=== PATIENT | female | born 1930 | race Caucasian/White ===

== ENCOUNTER 2017-02-03 06:35 | Inpatient (IN) ==
[2017-02-03] MEDS ORDERED: Ondansetron 4 MG/2 ML VIAL ONE (06:46)
[2017-02-03] MEDS ORDERED: *HR* Midazolam HCl 2 MG/2 ML VIAL ONE (06:46)
[2017-02-03] MEDS ORDERED: *HR* Succinylcholine 200 MG/10 ML VIAL IVP ONE (06:46)
[2017-02-03] MEDS ORDERED: Dexamethasone 4 MG/ML VIAL ONE (06:46)
[2017-02-03] MEDS ORDERED: EPHEDrine 50 MG/ML VIAL ONE (06:46)
[2017-02-03] MEDS ORDERED: *HR* Propofol 200 MG/20 ML VIAL IVP ONE (06:46)
[2017-02-03] MEDS ORDERED: *HR* FentaNYL (PF) 100 MCG/2 ML VIAL ONE ×3 (06:46→09:51)
[2017-02-03] MEDS ORDERED: *HR* Phenylephrine 10 MG/ML VIAL ONE ×3 (06:47→12:05)
[2017-02-03] MEDS ORDERED: CeFAZolin Pre 2,000 MG/100 ML 2,000 MG/100 ML BAG IVPB ONE (06:57)
[2017-02-03] MEDS ORDERED: Ringers Solution, Lactated 1,000 ML IVC SCH (07:00)
--- NOTE | 2017-02-03 07:08 | History & Physical Report ---
Date of Encounter: 02/03/17 Time of Encounter: 07:07 24 Hour HP Update - Instructions Instructions: If the History and Physical is less than 30 days old and was completed prior to A.M. admission and or procedure and has NOT been updated on calendar day of procedure please complete this update prior to performing procedure. - Update Patient reports changes in Medical Condition: No Changes in assessment/condition: No Changes in Medication: No Preop tests/diagnostics Reviewed: Yes Surgery Remains Indicated: Yes Consent for Planned Operative Procedure(s) Verified: Yes - Pre-Operative Checklist Preoperative Checklist Indicated: Yes Prophylactic Antibiotic Ordered: Yes Home Medications Include Beta Chanda: No Beta Chanda Taken Today (Day of Surgery): No Beta Chanda Taken Yesterday (Day Prior to Surgery): No Is VTE Prophylaxis Indicated?: Yes
--- NOTE | 2017-02-03 07:12 | Anesthesia Evaluation PreOp ---
Date of Encounter: 02/03/17 Time of Encounter: 06:50 - Past History Planned Operation: radical nephrectomy Cardiac History: Other (Peripheral vascular disease, s/p carotid endarterectomy) Pulmonary History: Denies Any Significant HX PRODUCER ASSISTANT History: Denies Any Significant HX Other Medical History: Thyroid Anesthesia History: No Prior Anesthetic Complications, Past Anesthesia Alcohol Use: none Drug use: none Medications and Allergies Synthroid 10/01/15 [History] Benzonatate [Tessalon] 100 - 200 mg PO TID PRN #30 capsule 09/15/16 [Rx] GuaiFENesin ER [Mucinex] 1 - 2 tab PO BID PRN #40 tab 09/15/16 [Rx] Sulfamethoxazole/Trimeth DS [Bactrim DS] 1 each PO BID #10 tablet 09/15/16 [Rx] Allergies atenolol Allergy (Unverified 01/27/17 11:52) Chest Pain codeine Allergy (Verified 10/01/15 14:13) Rash fenofibrate [From Tricor] Allergy (Unverified 01/27/17 11:52) Muscle Pain lisinopril Allergy (Unverified 01/27/17 11:52) Dizziness Ocjcgwc-Czg-Vcz Reductase Inhibitor [Statins] Allergy (Unverified 01/27/17 11:52 ) Muscle Pain - Meds/Allergy Pre-op Review Medications Reviewed: Yes Allergies Reviewed: Yes Beta Blockers on Current Med List: No Anesthesia Results - Labs Laboratory Tests 03/25/16 01/27/17 01/27/17 08:52 12:05 12:05 WBC 8.2 Hgb 9.9 L Hct 31.9 L Plt Count 694 H Sodium 135 L Potassium 4.6 H Chloride 99 Carbon Dioxide 22 BUN 12 Creatinine 0.88 Glucose 97 BUN/Creatinine Ratio 14 Anesthesia Exam Height: 5'1" Weight: 129 NPO (# of Hours): over 8 hours - HEENT Pupil (Motor): Pupils equal Teeth: Missing Denture Type: Upper: Partial Oral Opening: Greater than 3 - PRODUCER ASSISTANT PRODUCER ASSISTANT Motor: Normal RUE, Normal LUE, Normal RLE, Normal LLE, Normal Face - Cardiac Rhythm: Regular Murmur: None - Pulmonary Breath Sounds: bilateral Clear Anesthesia Assess/Plan ASA Score: 3 Modified Marilee Scale for Level of Consciousness: Cooperative, oriented, and tranquil Anesthetic Plan: General Monitoring Plan: Standard Monitors, A-Line Recovery Plan: ICU (ASA 3 because of malignancy. Will require art line for monitoring. Discussed GA, risks. Agreed to proceed.)
[2017-02-03] MEDS ORDERED: Heparin 1,000 UNITS/500 mL NS 0 ML ONE (07:15)
[2017-02-03] MEDS ORDERED: *HR* Rocuronium Bromide 50 MG/5 ML VIAL ONE (10:18)
[2017-02-03] MEDS ORDERED: Albumin Human 5% 25.0 GM/500 ML VIAL ONE (11:20)
[2017-02-03] MEDS ORDERED: Heparin 1,000 UNITS/500 mL NS 1,000 ML ONE (11:25)
[2017-02-03] MEDS ORDERED: *HR* Midazolam HCl 5 MG/5 ML VIAL IVP ONE ×2 (11:29→13:06)
[2017-02-03 12:20] LABS: ABG Base Excess -16.8 mEq/L (-2.0 to 3.0); ABG HCO3 11.6 mEQ/L (21-27); ABG Oxygen Saturation 100 % (95-98); ABG PCO2 39 mmHg (35-45); ABG PO2 380 mmHg (85-104); ABG TCO2 12.8 mEq/L (20-26)
[2017-02-03 12:21] LABS: ABG PH 7.08 pH Units (7.32-7.45)
[2017-02-03 12:36] LABS: Basophils % 0.2 %; Hematocrit 20.7 % (35.3-44.9); Immature Granulocytes % 0.6 % (0-4); Lymphocytes # 0.6 K/mcL (0.6-4.6); Lymphocytes % 11.2 %; Mean Corpuscular HGB Conc 30.4 g/dL (31.6-35.5); Mean Corpuscular Hemoglobin 27.8 pg (28.0-33.3); Mean Corpuscular Volume 91.2 fL (83.0-100.0); Mean Platelet Volume 9.2 fL (9.4-12.4); Monocytes # 0.1 K/mcL (0.0-1.3); Monocytes % 2.7 %; Neutrophils # 4.4 K/mcL (1.6-8.9); Platelet Count 206 K/mcL (140-400); Red Blood Count 2.27 M/mcL (3.82-4.97); Red Cell Distribution Width 14.8 % (11.5-14.5); Segmented Neutrophils % 85.3 %
[2017-02-03 12:38] LABS: Hemoglobin 6.3 g/dL (11.5-15.4)
--- NOTE | 2017-02-03 12:38 | Electrocardiograph Report ---
[facility] Test Date: 2017-02-03 Pat Name: Ida Castellon Department: 106 Room: Gender: F Rehabilitation Services Aide: Ronal : 1930 Requested By: Maldonado Crouch Order Number: [id number] Reading MD: Fady Ku DO Measurements Intervals [place] Rate: 86 P: 61 VT: 136 QRS: 10 QRSD: 98 T: 47 QT: 345 QTc: 388 Interpretive Statements SINUS RHYTHM Electronically Signed On 02-03-2017 12:37:00 EDT by Fady Ku DO
[2017-02-03] MEDS ORDERED: *HR* EPINEPHrine 1 MG/ML AMPUL ONE (12:45)
[2017-02-03] MEDS ORDERED: Sodium Bicarbonate 50 MEQ/50 ML VIAL ONE (12:46)
[2017-02-03 12:50] LABS: Alanine Aminotransferase 17 Units/L (0-55); Albumin/Globulin Ratio 1.2 (1.1-2.2); Alkaline Phosphatase 27 Units/L (38-126); Aspartate Amino Transferase 19 Units/L (5-34); BUN/Creatinine Ratio 14 (6-26); Bilirubin,Total 0.2 mg/dL (0.2-1.2); Blood Urea Nitrogen 10 mg/dL (7-20); Carbon Dioxide 11 mEq/L (19-29); Chloride 115 mEq/L (98-109); Globulin 1.7 g/dL (2.4-3.5); Glucose 299 mg/dL (70-99); Osmolality,Calculated 294 (280-300); Sodium 137 mEq/L (136-145); Total Protein 3.7 g/dL (6.0-8.3); eGFR For African Americans > 60 (> 60); eGFR For Non-African Americans > 60 (> 60)
[2017-02-03 12:51] LABS: INR 1.9
[2017-02-03 12:52] LABS: Calcium 5.7 mg/dL (8.6-10.8)
[2017-02-03 12:53] LABS: Activated Partial Thrombo Time 42.4 Seconds (26.0-36.0)
[2017-02-03] MEDS ORDERED: 0.9 % Sodium Chloride 2,000 ML ONE (13:05)
--- NOTE | 2017-02-03 13:12 | Operative Note ---
Date of procedure: 02/03/17 Pre-op diagnosis: Inferior vena cava injury Post-op diagnosis: same Procedure: #1 Repair of inferior vena cava injury #2 intraoperative consultation, critical care Anesthesia: GERMAN Surgeon: Armando Mcgowan Co-Surgeon: Maldonado Suárez Apparel Sales Associate: Maldonado Crouch Condition: critical Disposition: ICU Procedure in Detail: I was called to the operating room emergently for vena cava injury. When I arrived Dr. Dial of general surgery has already responded. Dr. rPaneeth Crouch the primary surgeon was also attending the patient. A rapid assessment was made. The patient had sustained high-volume blood loss from vena cava injury extending from the right renal vein superiorly. Direct pressure was being held. I immediately scrubbed into the case and worked closely with Dr. Dial and assumed responsibility for the repair. The initial assessment was that there was a long opening in the vena cava with high-volume bleeding. Pressure was being held with sponge sticks proximally and distally but bleeding continued. The bleeding was finally stopped with direct pressure on the vena cava using hand pressure and no sponges. At this point I worked to identify the areas of bleeding. Alternating sponge sticks between the segment of vena cava between the right renal vein and the retro-hepatic segment. There was bleeding from the left renal vein as well as the distal portion of the inferior vena cava and the proximal portion of the vena cava. During assessment the patient's blood pressure dropped and direct pressure was held. The patient went into ventricular tachycardia during high-volume resuscitation and required shock in the precordium. The rhythm recovered. At this point Dr. Archuleta joined the case as a second vascular surgeon. During high-volume resuscitation we planned out a combination of pressure clamps and mobilization in order to fully visualize the defect. Circumferential dissection around the vena cava was made. A Kathy tourniquet was placed on the distal vena cava. Direct pressure was used on the proximal vena cava and renal vein for proximal hemostasis. After period of time we extended the incision and replaced the Bookwalter retractors to allow for better proximal visualization. Once the patient was fully resuscitated we are able to visualize the vena cava proximal to the opening in the vein. A long Mario-Hydragrip was placed that provided proximal control on the retrohepatic segment of the vena cava. Direct pressure was used on the lumbar veins and left renal vein. This allowed visualization of the [address] Archuleta was able to close the venotomy with a running 5-0 Prolene suture. Thrombin Gelfoam was used on the suture line and hemostasis was complete. This gave an excellent technical result the patient's blood pressure had completely recovered at this point. The patient was taken out of [facility] and I helped Dr. Crouch close the right flank incision with looped 0 PDS. Skin was closed with skin don. The patient is transferred to the intensive care unit in critical condition
[2017-02-03 13:43] LABS: Basophils % 0.2 %; Eosinophils % 0.1 %; Hematocrit 43.6 % (35.3-44.9); Immature Granulocytes % 0.8 % (0-4); Lymphocytes % 7.4 %; Mean Corpuscular HGB Conc 32.6 g/dL (31.6-35.5); Mean Corpuscular Hemoglobin 28.6 pg (28.0-33.3); Mean Corpuscular Volume 87.7 fL (83.0-100.0); Mean Platelet Volume 9.3 fL (9.4-12.4); Monocytes # 0.6 K/mcL (0.0-1.3); Monocytes % 4.6 %; Neutrophils # 11.4 K/mcL (1.6-8.9); Red Blood Count 4.97 M/mcL (3.82-4.97); Red Cell Distribution Width 14.6 % (11.5-14.5); Segmented Neutrophils % 86.9 %
[2017-02-03] MEDS ORDERED: Naloxone 0.4 MG/ML INJ IVP PRN (13:44)
[2017-02-03 13:45] LABS: Hemoglobin 14.2 g/dL (11.5-15.4); Platelet Count 91 K/mcL (140-400)
[2017-02-03 13:47] LABS: ABG Base Excess -5.1 mEq/L (-2.0 to 3.0); ABG Oxygen Saturation 100 % (95-98); ABG PCO2 48 mmHg (35-45); ABG PH 7.27 pH Units (7.32-7.45); ABG PO2 203 mmHg (85-104); ABG TCO2 23.5 mEq/L (20-26); Blood Gas FiO2 50 %
[2017-02-03 13:57] LABS: Alanine Aminotransferase 105 Units/L (0-55); Albumin/Globulin Ratio 1.1 (1.1-2.2); Alkaline Phosphatase 26 Units/L (38-126); Aspartate Amino Transferase 100 Units/L (5-34); BUN/Creatinine Ratio 14 (6-26); Bilirubin,Total 0.5 mg/dL (0.2-1.2); Blood Urea Nitrogen 11 mg/dL (7-20); Carbon Dioxide 22 mEq/L (19-29); Chloride 110 mEq/L (98-109); Globulin 1.4 g/dL (2.4-3.5); Glucose 359 mg/dL (70-99); Osmolality,Calculated 308 (280-300); Phosphorous 6.4 mg/dL (2.3-4.7); Sodium 142 mEq/L (136-145); eGFR For African Americans > 60 (> 60); eGFR For Non-African Americans > 60 (> 60)
[2017-02-03 14:00] LABS: Albumin 1.5 g/dL (3.5-5.0); Total Protein 2.9 g/dL (6.0-8.3)
[2017-02-03 14:01] LABS: Potassium 3.3 mEq/L (3.5-4.5)
[2017-02-03] MEDS ORDERED: *HR* EPINEPHrine 1 MG/10 ML SYRINGE IVP ONE (14:19)
[2017-02-03] MEDS ORDERED: *HR* Amiodarone 150 MG/3 ML VIAL IVPB ONE (14:19)
[2017-02-03] MEDS ORDERED: *HR* Amiodarone Premix 360 MG/200 ML BAG IVC ONE (14:19)
--- NOTE | 2017-02-03 14:36 | Pulmonology Consult Note ---
<Yudy Tee - Last Filed: 02/03/17 16:14> Date of Encounter: 02/03/17 Time of Encounter: 14:35 Assessment and Plan (1) Hypovolemic shock Current Visit: Yes Status: Acute Patient status post right nephrectomy that subsequently ended up in a laceration to her inferior vena cava from the right renal vein to the retrohepatic area. This was repaired by Dr. Mcgowan in the OR. He estimates her blood loss at 3 L. She was transfused 7 units of packed red blood cells and had 2 Cell Savers infused. During surgery her IVC was crossclamped at one time. The repair was made in the patient's abdomen was closed. She has also received 4 L of lactated Ringer's in the OR as well as 1 L of normal saline. She received 2 L of lactated Ringer's while in the ICU. She has had levofed turned on and off several times for hypotension. Her sclera are pale at this time. Her pupils are not responsive. They are constricted. She has no corneal reflex. She does have pulses in all 4 extremities. She is off sedation but however still intubated and not responding. Patient hyperglycemic. Likely secondary to stress. Will provide her with 10 units of insulin subcutaneous and continue to monitor. Plan: Continue to monitor H&H daily. We will transfuse as needed. Levofed for hypotension to maintain a MAP of 65. Fluids: normal saline at 150 mL/hour. We will trend lactic acids. We will trend transaminases. We will trend troponins. Monitor glucose. We will consider a head CT in the morning if neuro status has not improved. (2) Respiratory failure requiring intubation Current Visit: Yes Status: Acute Patient on ventilator after surgery. She is not sedated at this time and is not responsive. She does have a metabolic acidosis likely from the surgery. We will monitor ABGs daily and adjust ventilator settings accordingly. Plan: Propofol for sedation if patient begins to respond. ABGs daily. Chest x-ray in the morning. (3) Hypotension Current Visit: Yes Status: Acute Secondary to hypovolemia from laceration to the inferior vena cava. Plan: Levothroid for a map of 65. 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 Large lymph node involvement and abdomen. Plan: Dr. Crouch following. (6) DVT prophylaxis Current Visit: Yes Status: Acute Plan : ICDs placed. Patient also on Pepcid 20 mg every 12 for GI prophylaxis. (7) Elevated transaminase level Current Visit: Yes Status: Acute Likely secondary to shock liver. Should resolve with fluid resuscitation efforts. Plan: We will continue to monitor and trend. (8) Lactic acid acidosis Current Visit: Yes Status: Acute Secondary to hypovolemia. Plan as above. (9) Elevated troponin Current Visit: Yes Status: Acute Likely secondary to demand from hypovolemia and arrhythmia of V. tach while in surgery. Plan: Monitor EKG. Trend troponins. History of Present Illness Consult date: 02/03/17 Requesting physician: Maldonado Crouch History of present illness: Female patient brought to ICU from the OR suite. 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 During The procedure her vena cava was injured. This left a 5 cm laceration to the vena cava. This was subsequently repaired by Dr. Mcgowan and Dr. Archuleta. Please see their note for further details. During this time it is estimated that the patient lost about 3 L of blood. She was transfused with 7 units of packed red blood cells and she received 2 units of Cell Savers. During resuscitation patient went into V. tach. She did have a pulse in her aorta during this time. Cardioversion was performed. The patient went back into sinus rhythm at this time. Patient was placed on amiodarone drip at 1 mg/m after this. During surgery patient was given a total of 3 A of bicarbonate, 3 g of calcium, 2 A of epi, 150 mg of amiodarone. Patient was brought to the ICU with 2 central lines and arterial line placed. The Levophed was started at 5 mics per minute due to hypotension. This was subsequently discontinued and restarted several times due to patient's hypotension. She was given 2 L of lactated Ringer's. Patient is still intubated and not on sedation but not responding. One additional amp of bicarbonate was given after the ABG was drawn after she was in the ICU and she was found to be acidotic with a CO2 of 48 and an elevated lactic acid. This is likely a respiratory acidosis superimposed on a metabolic acidosis. She was given bicarbonate and epinephrine and calcium while in the OR today. Patient's magnesium was low at 1.0. We will replace this slowly. We will leave patient intubated overnight. Assessment discussed with family as well as the prognosis of patient. They express understanding and are in agreement with the Pt wishes of her doctors making her medical decisions. She currently is a full code. Past Med Surg Social Fam HX - Past Medical History Medical history: cancer, coronary artery disease, GERD, hyperlipidemia, hypertension, malignancy, thyroid disease Psychiatric history: no psych history - Past Surgical History Surgical History: breast surgery, colectomy, hysterectomy - Social History Smoking Status: Unknown if ever smoked Smokeless Tobacco Status: No Alcohol use: none Drug use: none Medications and Allergies Calcium Carbonate [Tums] 1,000 mg PO Q4HR 02/03/17 [History] Levothyroxine [Synthroid] 50 mcg PO 0630 02/03/17 [History] Allergies atenolol Adverse Reaction (Verified 02/03/17 07:36) Chest Pain codeine Adverse Reaction (Verified 02/03/17 07:36) Irritable fenofibrate [From Tricor] Adverse Reaction (Verified 02/03/17 14:21) Muscle Pain lisinopril Adverse Reaction (Verified 02/03/17 14:21) Dizziness Thmsydi-Slk-Yxj Reductase Inhibitor [Statins] Adverse Reaction (Verified 14:21) Muscle Pain ROS unobtainable: due to endotracheal tube All Systems: A 10-system review of systems was performed and is negative for pertinent findings except as documented above in the HPI. Physical Examination Vital Signs: Vital Signs, Last 4 Hours Temp Pulse Resp BP Pulse Ox 02/03/17 13:37 90 02/03/17 13:20 95.2 F L 93 12 124/57 100 General appearance: comatose, other (Intubated. No sedation on at this time. Not responsive to painful stimuli. Pupils are constricted and nonreactive. 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 Covered with bandage at this time.) Integumentary: normal Extremities: no cyanosis, no edema, no clubbing, pink and warm, pulses normal, other (Patient's pedal pulses are intact and strong.) Musculoskeletal: no deformities pupils equal and round (But constricted. No reaction to light.), unable to assess due to mental status Ventilator Settings Ventilator Settings: Ventilator Settings, Last 8 Hours Ventilator Mode A/C Ventilator Mode A/C Ventilator Tidal Volume 500 Setting Ventilator Tidal Volume 500 Setting Ventilator Respiratory Rate 12 Setting Ventilator Respiratory Rate 12 Setting Actual Respiratory Rate 12 Positive End Expiratory 8 Pressure Positive End Expiratory 8 Pressure Peak Inspiratory Airway 22 Pressure Results - Laboratory Findings CBC and BMP: 02/03/17 14:20 02/03/17 14:20 ABG ABG pH 7.27 pH Units (7.32-7.45) L D 02/03/17 13:39 ABG pCO2 48 mmHg (35-45) H 02/03/17 13:39 ABG pO2 203 mmHg (85-104) H 02/03/17 13:39 ABG O2 Saturation 100 % (95-98) H 02/03/17 13:39 PT/INR, D-dimer PT 21.0 Seconds (9.4-12.1) H 02/03/17 12:32 Abnormal lab findings: Abnormal lab results WBC 13.1 K/mcL (4.3-11.1) H D 02/03/17 13:39 RDW 14.6 % (11.5-14.5) H 02/03/17 13:39 Plt Count 91 K/mcL (140-400) L D 02/03/17 13:39 MPV 9.3 fL (9.4-12.4) L 02/03/17 13:39 Neutrophils # 11.4 K/mcL (1.6-8.9) H 02/03/17 13:39 PT 21.0 Seconds (9.4-12.1) H 02/03/17 12:32 APTT 42.4 Seconds (26.0-36.0) H 02/03/17 12:32 ABG pH 7.27 pH Units (7.32-7.45) L D 02/03/17 13:39 ABG pCO2 48 mmHg (35-45) H 02/03/17 13:39 ABG pO2 203 mmHg (85-104) H 02/03/17 13:39 ABG O2 Saturation 100 % (95-98) H 02/03/17 13:39 ABG Base Excess -5.1 mEq/L (-2.0 to 3.0) L 02/03/17 13:39 Lactate 8.3 mmol/L (0.7-2.1) H* 02/03/17 13:39 Potassium 3.3 mEq/L (3.5-4.5) L 02/03/17 13:39 Chloride 110 mEq/L (98-109) H 02/03/17 13:39 Glucose 359 mg/dL (70-99) H 02/03/17 13:39 POC Glucose 284 (58-89) H 02/03/17 13:31 Calculated Osmolality 308 (280-300) H 02/03/17 13:39 Phosphorus 6.4 mg/dL (2.3-4.7) H 02/03/17 13:39 Magnesium 1.0 mg/dL (1.6-2.6) L 02/03/17 13:39 AST 100 Units/L (5-34) H 02/03/17 13:39 ALT 105 Units/L (0-55) H 02/03/17 13:39 Alkaline Phosphatase 26 Units/L (38-126) L 02/03/17 13:39 Troponin I 0.16 ng/mL (0-0.03) H* 02/03/17 12:32 Serum Total Protein 2.9 g/dL (6.0-8.3) L D 02/03/17 13:39 Albumin 1.5 g/dL (3.5-5.0) L D 02/03/17 13:39 Globulin 1.4 g/dL (2.4-3.5) L 02/03/17 13:39 - Clinical Findings Intake & Output: Intake & Output 02/02/17 02/03/17 02/03/17 23:59 07:59 15:59 Intake Total 100 / 100 Balance 100 / 100 Weight 57.606 kg 57.6 kg Consult Discharge Plan - Plan Referrals: Sonny Reardon MD [Primary Care Provider] - <Jose Hoodal Mahnaz - Last Filed: 02/03/17 17:13> All Systems: A 10-system review of systems was performed and is negative for pertinent findings except as documented above in the HPI. Physical Examination Vital Signs: Vital Signs, Last 4 Hours Temp Pulse Resp BP Pulse Ox 02/03/17 16:14 13 110/53 100 02/03/17 16:00 99 16 106/51 99 02/03/17 15:00 95.5 F L 93 16 120/56 100 02/03/17 14:36 16 152/65 100 02/03/17 14:05 92 16 102/54 100 02/03/17 13:37 90 02/03/17 13:20 95.2 F L 93 12 124/57 100 Ventilator Settings Ventilator Settings: Ventilator Settings, Last 8 Hours Ventilator Mode A/C Ventilator Mode A/C Ventilator Mode A/C Ventilator Mode A/C Ventilator Mode A/C Ventilator Mode A/C Ventilator Mode A/C Ventilator Mode A/C Ventilator Tidal Volume 500 Setting Ventilator Tidal Volume 500 Setting Ventilator Tidal Volume 500 Setting Ventilator Tidal Volume 500 Setting Ventilator Tidal Volume 500 Setting Ventilator Tidal Volume 500 Setting Ventilator Tidal Volume 500 Setting Ventilator Tidal Volume 500 Setting Ventilator Respiratory Rate 12 Setting Ventilator Respiratory Rate 16 Setting Ventilator Respiratory Rate 16 Setting Ventilator Respiratory Rate 16 Setting Ventilator Respiratory Rate 16 Setting Ventilator Respiratory Rate 16 Setting Ventilator Respiratory Rate 12 Setting Ventilator Respiratory Rate 12 Setting Actual Respiratory Rate 13 Actual Respiratory Rate 16 Actual Respiratory Rate 16 Actual Respiratory Rate 16 Actual Respiratory Rate 16 Actual Respiratory Rate 12 Positive End Expiratory 5 Pressure Positive End Expiratory 5 Pressure Positive End Expiratory 5 Pressure Positive End Expiratory 5 Pressure Positive End Expiratory 5 Pressure Positive End Expiratory 5 Pressure Positive End Expiratory 8 Pressure Positive End Expiratory 8 Pressure Peak Inspiratory Airway 20 Pressure Peak Inspiratory Airway 21 Pressure Peak Inspiratory Airway 21 Pressure Peak Inspiratory Airway 17 Pressure Peak Inspiratory Airway 20 Pressure Peak Inspiratory Airway 22 Pressure Results - Laboratory Findings CBC and BMP: 02/03/17 14:20 02/03/17 14:20 ABG ABG pH 7.47 pH Units (7.32-7.45) H D 02/03/17 15:00 ABG pCO2 30 mmHg (35-45) L 02/03/17 15:00 ABG pO2 160 mmHg (85-104) H 02/03/17 15:00 ABG O2 Saturation 100 % (95-98) H 02/03/17 15:00 PT/INR, D-dimer PT 21.0 Seconds (9.4-12.1) H 02/03/17 12:32 Abnormal lab findings: Abnormal lab results WBC 17.7 K/mcL (4.3-11.1) H 02/03/17 14:20 RBC 5.02 M/mcL (3.82-4.97) H 02/03/17 14:20 Plt Count 88 K/mcL (140-400) L 02/03/17 14:20 Neutrophils # 15.7 K/mcL (1.6-8.9) H 02/03/17 14:20 PT 21.0 Seconds (9.4-12.1) H 02/03/17 12:32 APTT 42.4 Seconds (26.0-36.0) H 02/03/17 12:32 ABG pH 7.47 pH Units (7.32-7.45) H D 02/03/17 15:00 ABG pCO2 30 mmHg (35-45) L 02/03/17 15:00 ABG pO2 160 mmHg (85-104) H 02/03/17 15:00 ABG O2 Saturation 100 % (95-98) H 02/03/17 15:00 ABG Hematocrit 23 % (35-51) L 02/03/17 12:23 Glucose 328 mg/dL (60-95) H 02/03/17 12:23 Lactate 8.3 mmol/L (0.7-2.1) H* 02/03/17 13:39 Glucose 322 mg/dL (70-99) H 02/03/17 14:20 POC Glucose 284 (58-89) H 02/03/17 13:31 Calculated Osmolality 310 (280-300) H 02/03/17 14:20 Lactic Acid 8.4 mmol/L (0.5-2.2) H* 02/03/17 16:00 Phosphorus 6.4 mg/dL (2.3-4.7) H 02/03/17 13:39 Magnesium 1.0 mg/dL (1.6-2.6) L 02/03/17 13:39 AST 100 Units/L (5-34) H 02/03/17 13:39 ALT 105 Units/L (0-55) H 02/03/17 13:39 Alkaline Phosphatase 26 Units/L (38-126) L 02/03/17 13:39 Troponin I 0.16 ng/mL (0-0.03) H* 02/03/17 12:32 Serum Total Protein 2.9 g/dL (6.0-8.3) L D 02/03/17 13:39 Albumin 1.5 g/dL (3.5-5.0) L D 02/03/17 13:39 Globulin 1.4 g/dL (2.4-3.5) L 02/03/17 13:39 - Clinical Findings Intake & Output: Intake & Output 02/03/17 02/03/17 02/03/17 07:59 15:59 23:59 Intake Total 100 / 100 Output Total 9200 / 9200 Balance -9100 / -9100 Weight 57.606 kg 57.6 kg - Attending Attestation I examined this patient and my medical decision-making was reviewed with the CHRO/PA/Advanced Practice Nurse/Resident Physician. I agree with the documented findings, disposition and treatment plan as described except to the extent set forth below. Patient seen and examined. Labs, radiology, chart personally reviewed. Agree with resident's history and physical, assessment, plan with following comments: TOWN CLERK: Patient doesn't follows commands and concern about hypoxic brain injury and will consider CT head tomorrow if remain stable and no on pressors., Pulmonary: Acceptable oxygenation and ventilation. Adjust vent setting and increase RR first and then lowered it for acute respiratory alkalosis. Cardiovascular: Shock responded to fluid and she is intermittently on Levophed. GI: Nutrition per dietary and GI prophylaxis per routine Heme: DVT prophylaxis per routine.mechanical due to bleeding. ID: Continue antibiotics and plan to de-escalation Renal; urine out put and renal funtion reviewed. I suspect she might need SURGEON PARTNER, if she survive this. Endorcine: blood glucose is monitored Lines: all lines checked and no evidence of infections Skin: skin care to prevent pressure ulcers per nursing routine care Discussed with family and they understand she is critically ill. Based on her wishes doctors will make decisions for her care. Appreciate Roslyn Flor and Jose Armando. I spent 40 min of Critical Care time with this patient. It involved decision making of high complexity to assess, manipulate, and support vital organ system failure and/or to prevent further life threatening deterioration of the patient' s condition. The time involved in the performance of separately reportable procedures was not counted toward critical care time.
--- NOTE | 2017-02-03 14:37 | Operative Note ---
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 hydronephrosis. 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 see vascular notes Anesthesia: GERMAN Surgeon: Maldonado Crouch Estimated blood loss (cc): 4,000 Specimen: right kidney. lymph node Condition: stable Disposition: PACU Procedure in Detail: Patient taken back to the operating room position supine. Anesthesia was was applied without complication. An arterial line and subclavian central line were placed. Started the procedure by placing the patient in a frog-leg position and prepping with Betadine and performing a cystoscopy with a flexible cystoscope. There was no evidence of urothelial malignancy, erythema, tumors within the bladder. I placed a Pringle catheter with return of clear urine. Patient was moved into the full flank position with the right side up. She was placed over the kidney rest the table was flexed. She was secured with a combination of pillows, gel rolls, tape, and safety belt. We did not feel an axillary roll was necessary. I used a 15 blade scalpel to make an incision from the tip of the 11th rib we continued this medially and slightly inferiorly. I dissected down easily cautery Bovie. I removed the tip of the 11th rib and continued my dissection down to the external oblique, internal oblique and transversus muscle. I entered the retroperitoneum at this point and attempted to reflect the peritoneum medially. I had a 2 cm incision in the peritoneum which did close with 2-0 Vicryl. I placed the Bookwalter retractor was able to completely expose the retroperitoneum. I identifiedthe duodenum Was able to reflect this medially using a combination of Metzenbaum scissors and blunt dissection. This provided exposure to the area near the hilum. I used combination of LigaSure, blood cautery Bovie and blunt dissection to free up the superior lateral and inferior attachments. Identified the gonadal vein and ureter and using endovascular stapler to transect these as low as possible within my surgical field. Became quite apparent that there was significant lymphadenopathy surrounding the renal hilum. I carefully dissected from an inferior location along the identified vena cava until I reached the renal vein. Unfortunately I had very little mobility or length to the renal vein because of the posterior lymphadenopathy. I elected to move superiorly and these the endovascular stapler to free up the superior attachments near the adrenal gland. This provided access to the superior portion of the hilum. The only remaining attachments of the kidney at this point were the hilar vessels and posterior lymphadenopathy. I was able to dissect away the larger lymph node on the posterior aspect using right angle, cautery, and LigaSure. This was sent for specimen. I thought at this point that I had enough access to the hilum without bulky tissue to use the endovascular stapler. I placed the endovascular stapler across the hilum and fired the device. The kidney was completely free at this point I removed it from the operative field. Initially there was very minimal bleeding seen. I could see a small bleeding vessel off the inferior vena cava which was controlled using a clip. I then began to loosen my superior retractor and noticed a blood clot near the renal hilum. When the pressure was taken off the retractor I had significant return of blood that was consistent with an IVC injury. Proximal and distal control was attempted using sponge sticks and I promptly called the vascular team to assist. Please see Dr. Mcgowan's operative note for details regarding the IVC repair. At this point, I'm unsure of the etiology of the IVC injury. It is possible that the lymph nodes were involving the vena cava resulting in the injury at the time of the lymph node dissection. It is also possible that there was an endovascular stapler misfiring. There appeared to be a clean cut through the IVC without any evidence of the small don that are usually seen with the device. In addition, secondary to the massive blood loss the patient did experience one episode of V. tach and was cardioverted. Aggressive administration of packed red blood cells and IV fluids were administered by anesthesia and despite some episodes of hypotension she otherwise did remain stable despite the critical operative situation. Once the IVC injury was repaired I did close the patient with a running #1 loop PDS and stapled the skin. No drains were left. Patient remained intubated and was transported to the ICU.
[2017-02-03] MEDS ORDERED: Magnesium Sulfate 2 GM in D5% in Water 100 ML IVPB ONE (14:43)
[2017-02-03] MEDS ORDERED: Sodium Bicarbonate 50 MEQ/50 ML VIAL IVP ONE (14:44)
[2017-02-03] MEDS ORDERED: Lacri-Lube 3.5 GM TUBE BOTH EYES PRN (14:52)
[2017-02-03 15:17] LABS: ABG Base Excess -0.9 mEq/L (-2.0 to 3.0); ABG HCO3 21.8 mEQ/L (21-27); ABG Oxygen Saturation 100 % (95-98); ABG PCO2 30 mmHg (35-45); ABG PH 7.47 pH Units (7.32-7.45); ABG PO2 160 mmHg (85-104); ABG TCO2 22.7 mEq/L (20-26); Blood Gas FiO2 40 %
[2017-02-03 15:17] LABS: Basophils % 0.1 %; Eosinophils % 0.1 %; Hematocrit 43.8 % (35.3-44.9); Hemoglobin 14.3 g/dL (11.5-15.4); Immature Granulocytes % 0.5 % (0-4); Lymphocytes # 0.9 K/mcL (0.6-4.6); Lymphocytes % 5.3 %; Mean Corpuscular HGB Conc 32.6 g/dL (31.6-35.5); Mean Corpuscular Hemoglobin 28.5 pg (28.0-33.3); Mean Corpuscular Volume 87.3 fL (83.0-100.0); Mean Platelet Volume 9.5 fL (9.4-12.4); Monocytes % 5.5 %; Neutrophils # 15.7 K/mcL (1.6-8.9); Platelet Count 88 K/mcL (140-400); Red Blood Count 5.02 M/mcL (3.82-4.97); Red Cell Distribution Width 14.5 % (11.5-14.5); Segmented Neutrophils % 88.5 %
[2017-02-03] MEDS: Norepinephrine 4 MG in D5% in Water 250 ML IVC SCH ×4 (15:24→23:52)
[2017-02-03] MEDS: 0.9 % Sodium Chloride 1,000 ML IVC SCH ×2 (15:26→22:26)
[2017-02-03 15:29] LABS: BUN/Creatinine Ratio 15 (6-26); Blood Urea Nitrogen 11 mg/dL (7-20); Calcium 9.1 mg/dL (8.6-10.8); Carbon Dioxide 23 mEq/L (19-29); Chloride 109 mEq/L (98-109); Glucose 322 mg/dL (70-99); Osmolality,Calculated 310 (280-300); Potassium 3.5 mEq/L (3.5-4.5); Sodium 144 mEq/L (136-145); eGFR For African Americans > 60 (> 60); eGFR For Non-African Americans > 60 (> 60)
[2017-02-03] MEDS ORDERED: Insulin Regular, Human 100 UNIT/ML SQ ONE (15:49)
[2017-02-03 15:54] LABS: ABG PCO2 43 mmHg (35-45)
[2017-02-03 15:55] LABS: ABG Base Excess -15.1 mEq/L (-2.0 to 3.0); ABG Glucose 303 mg/dL (60-95); ABG HCO3 13.3 mEQ/L (21-27); ABG Hematocrit 21 % (35-51); ABG Oxygen Saturation 100 % (95-98); ABG PO2 474 mmHg (85-104); ABG TCO2 14.6 mEq/L (20-26)
[2017-02-03] MEDS ORDERED: ceFAZolin 2,000 MG in D5% in Water 100 ML IVPB SCH (16:00)
[2017-02-03 16:02] LABS: ABG PCO2 45 mmHg (35-45); ABG PH 7.17 pH Units (7.32-7.45); ABG PO2 530 mmHg (85-104)
[2017-02-03 16:03] LABS: ABG Base Excess -11.3 mEq/L (-2.0 to 3.0); ABG Glucose 319 mg/dL (60-95); ABG HCO3 16.4 mEQ/L (21-27); ABG Hematocrit 25 % (35-51); ABG Oxygen Saturation 100 % (95-98); ABG TCO2 17.8 mEq/L (20-26)
[2017-02-03 16:04] LABS: ABG HCO3 26.1 mEQ/L (21-27); ABG PCO2 53 mmHg (35-45); ABG PO2 513 mmHg (85-104); ABG TCO2 27.7 mEq/L (20-26)
[2017-02-03] MEDS: Lacri-Lube 3.5 GM TUBE BOTH EYES SCH ×3 (16:04→23:54)
[2017-02-03 16:05] LABS: ABG Base Excess -0.4 mEq/L (-2.0 to 3.0); ABG Glucose 328 mg/dL (60-95); ABG Hematocrit 23 % (35-51); ABG Oxygen Saturation 100 % (95-98)
[2017-02-03] MEDS ORDERED: Dextrose Gel 15 GM PO PRN ×2 (16:10)
[2017-02-03] MEDS ORDERED: *HR* Dextrose 50 % in Water (Syg) 50 ML SYRINGE IVP PRN (16:10)
[2017-02-03] MEDS ORDERED: FentaNYL (PF) 1,000 MCG in 0.9 % Sodium Chloride 80 ML IVC PRN (16:17)
--- NOTE | 2017-02-03 16:53 | Operative Note ---
Date of procedure: 02/03/17 Pre-op diagnosis: Inferior vena caval injury Post-op diagnosis: same Procedure: Intraoperative consultation Repair of inferior vena caval injury with lateral venorrhaphy Anesthesia: GETA Surgeon: Armando Mcgowan Co-Surgeon: Maldonado Suárez Shop Hand: Maldonado Crouch Estimated blood loss (cc): 4,000 Condition: critical Disposition: ICU Procedure in Detail: History Ida Castellon is an 87-year-old white female who was undergoing a right nephrectomy for palliation. After removal of the specimen Dr. Crouch noted significant bleeding in the base of the wound and identified a vena caval injury. At that time requests were made for further assistance from other surgeons. I came to the operating room and Dr. Crouch and Dr. MCGOWAN, AND Dr. Dial were at the table and had established pressure control over the vena caval injury. I was asked to scrub to assist in repair of this injury. Procedure I joined the operation in progress. Dr. Mcgowan and Dr. Crouch and I discussed the suspected injury and the extent of the dissection and the anatomy available to us via this right flank incision. A variety of compressive maneuvers were utilized including sponge sticks and direct manual compression in order to control the hemorrhage. This was secured secured with disease maneuvers allowing us the opportunity to discuss options. This elderly patient was episodically unstable during this time despite the control of the direct blood loss. The patient required by the end of the operation a total of 8 units of blood from the blood bank and also blood from [facility]. The patient also developed ventricular tachycardia and required DC cardioversion intraoperatively. No CPR was necessary. intraoperatively. After appropriate anesthetic care and management of electrolyte disturbances and acidosis we proceeded with further dissection and control of the vena cava. A Kathy tourniquet was placed around the inferior vena cava below the level of the renal veins. Dissection was also made above the inferior vena cava above the renal area. On careful releasing of the clamps it was found that there was backbleeding from the right renal artery and this was ligated with a 6-0 Prolene suture and hemostasis was achieved from the source of bleeding. The vena cava of course was the more challenging source of bleeding in this was identified as having a total of about 5 cm long lateral injury. After appropriate control was obtained with cooperation and timing with anesthetic maneuvers clamps were applied. With the 3 surgeons then at the table a lateral venography was performed with running 5-0 Prolene suture to successfully close the vena caval injury. After this was done a Doppler evaluation was made to ensure that the vena cava was patent. Hemostasis was achieved in the surrounding tissue. Dr. MCGOWAN and Dr. Crouch then closed the wound and the patient was taken from the operating room to the intensive care unit intubated and in critical condition.
[2017-02-03] MEDS: Famotidine 20 MG/2 ML VIAL IVP SCH (17:32)
[2017-02-03] MEDS: Potassium Chloride 40 MEQ/200 ML BAG IVPB PRN ×2 (17:48→18:49)
[2017-02-03] MEDS ORDERED: 0.9 % Sodium Chloride 1,000 ML IVC ONE (18:35)
[2017-02-03] MEDS: Insulin LISPRO 300 UNITS/3 ML VIAL SQ SCH ×2 (18:49→23:54)
[2017-02-03] MEDS: Chlorhexidine Rinse 15 ML MOUTHWASH MM SCH (20:29)
[2017-02-03] MEDS: FentaNYL (PF) 1,000 MCG in 0.9 % Sodium Chloride 80 ML IVC PRN (20:45)
[2017-02-04] MEDS: 0.9 % Sodium Chloride 1,000 ML IVC SCH ×4 (02:30→18:50)
[2017-02-04] MEDS: Norepinephrine 4 MG in D5% in Water 250 ML IVC SCH ×3 (02:39→10:07)
[2017-02-04 04:01] LABS: Basophils % 0.2 %; Hematocrit 44.9 % (35.3-44.9); Immature Granulocytes % 0.9 % (0-4); Lymphocytes # 2.1 K/mcL (0.6-4.6); Lymphocytes % 8.3 %; Mean Corpuscular HGB Conc 33.4 g/dL (31.6-35.5); Mean Corpuscular Hemoglobin 28.9 pg (28.0-33.3); Mean Corpuscular Volume 86.5 fL (83.0-100.0); Mean Platelet Volume 10.6 fL (9.4-12.4); Monocytes # 2.3 K/mcL (0.0-1.3); Monocytes % 9.5 %; Platelet Count 129 K/mcL (140-400); Red Blood Count 5.19 M/mcL (3.82-4.97); Red Cell Distribution Width 15.2 % (11.5-14.5); Segmented Neutrophils % 81.1 %
[2017-02-04] MEDS: Lacri-Lube 3.5 GM TUBE BOTH EYES SCH ×5 (04:10→19:48)
[2017-02-04 04:24] LABS: Albumin/Globulin Ratio 0.7 (1.1-2.2); Calcium 7.9 mg/dL (8.6-10.8); Globulin 2.3 g/dL (2.4-3.5); Magnesium 1.4 mg/dL (1.6-2.6)
[2017-02-04 04:48] LABS: Bilirubin,Total 1.3 mg/dL (0.2-1.2); Potassium 4.8 mEq/L (3.5-4.5)
[2017-02-04 04:49] LABS: Albumin 1.7 g/dL (3.5-5.0)
[2017-02-04 04:51] LABS: ABG Base Excess -6.2 mEq/L (-2.0 to 3.0); ABG HCO3 19.6 mEQ/L (21-27); ABG Oxygen Saturation 99 % (95-98); ABG PCO2 39 mmHg (35-45); ABG PH 7.31 pH Units (7.32-7.45); ABG PO2 149 mmHg (85-104); ABG TCO2 20.8 mEq/L (20-26)
[2017-02-04 04:55] LABS: Blood Gas FiO2 40 %; Blood Gas Respiration Rate 12; Blood Gas VT 500 cc
[2017-02-04 04:56] LABS: Blood Gas PEEP 5 cm H2O
[2017-02-04] MEDS: Famotidine 20 MG/2 ML VIAL IVP SCH (05:59)
[2017-02-04] MEDS: Insulin LISPRO 300 UNITS/3 ML VIAL SQ SCH ×3 (06:00→18:31)
[2017-02-04] MEDS: Magnesium Sulfate 2 GM in D5% in Water 100 ML IVPB SCH ×2 (06:28→08:00)
--- NOTE | 2017-02-04 07:44 | Urology Progress Note ---
Date of Encounter: 02/04/17 Time of Encounter: 07:41 - Assessment and Plan (1) Status post nephrectomy Current Visit: Yes Status: Acute Assessment and plan: patient is more alert today and appears intact neurologically. remains critical. weaning down on pressors with albumin. discussed with Dr Hood and she will likely need renal replacement soon. based on her excellent response overnight I feel we should continue aggressive management including renal replacement. Progress Note Narrative: pt remains intubated. overnight she has become responsive. nodding yes and no to questions appropriately. states no pain. still on pressors. Objective Initial Vital Signs Temp Pulse Resp BP Pulse Ox 98.7 F 86 18 136/61 99 02/03/17 07:46 02/03/17 07:46 02/03/17 07:46 02/03/17 07:46 02/03/17 07:46 - General physical appearance Present: no distress - Abdomen Present: soft - Genitourinary Urine Appearance: Present: Clear (concentrated) - Additional Exam small saturation on dressings. - Labs 02/04/17 03:45 02/04/17 03:45 Diabetes panel 02/03/17 02/03/17 02/03/17 Range/Units 12:32 13:39 14:20 Sodium 137 142 144 (136-145) mEq/L Potassium 4.0 3.3 L 3.5 (3.5-4.5) mEq/L Chloride 115 H 110 H 109 (98-109) mEq/L Carbon Dioxide 11 L 22 23 (19-29) mEq/L BUN 10 11 11 (7-20) mg/dL Creatinine 0.74 0.81 0.75 (0.57-1.11) mg/dL Glucose 299 H 359 H 322 H (70-99) mg/dL Calcium 5.7 L* 10.0 D 9.1 (8.6-10.8) mg/dL AST 19 100 H (5-34) Units/L ALT 17 105 H (0-55) Units/L Alkaline Phosphatase 27 L 26 L (38-126) Units/L Albumin 2.0 L 1.5 L D (3.5-5.0) g/dL 02/04/17 Range/Units 03:45 Sodium 138 (136-145) mEq/L Potassium 4.8 H D (3.5-4.5) mEq/L Chloride 114 H (98-109) mEq/L Carbon Dioxide 16 L (19-29) mEq/L BUN 15 (7-20) mg/dL Creatinine 1.48 H D (0.57-1.11) mg/dL Glucose 215 H (70-99) mg/dL Calcium 7.9 L (8.6-10.8) mg/dL AST 333 H (5-34) Units/L ALT 346 H (0-55) Units/L Alkaline Phosphatase 47 (38-126) Units/L Albumin 1.7 L (3.5-5.0) g/dL Calcium panel 02/03/17 02/03/17 02/03/17 Range/Units 12:32 13:39 14:20 Calcium 5.7 L* 10.0 D 9.1 (8.6-10.8) mg/dL Phosphorus 6.4 H (2.3-4.7) mg/dL Albumin 2.0 L 1.5 L D (3.5-5.0) g/dL 02/04/17 Range/Units 03:45 Calcium 7.9 L (8.6-10.8) mg/dL Phosphorus 4.0 (2.3-4.7) mg/dL Albumin 1.7 L (3.5-5.0) g/dL Pituitary panel 02/03/17 02/03/17 02/03/17 Range/Units 12:32 13:39 14:20 Sodium 137 142 144 (136-145) mEq/L Potassium 4.0 3.3 L 3.5 (3.5-4.5) mEq/L Chloride 115 H 110 H 109 (98-109) mEq/L Carbon Dioxide 11 L 22 23 (19-29) mEq/L BUN 10 11 11 (7-20) mg/dL Creatinine 0.74 0.81 0.75 (0.57-1.11) mg/dL Glucose 299 H 359 H 322 H (70-99) mg/dL Calcium 5.7 L* 10.0 D 9.1 (8.6-10.8) mg/dL 02/04/17 Range/Units 03:45 Sodium 138 (136-145) mEq/L Potassium 4.8 H D (3.5-4.5) mEq/L Chloride 114 H (98-109) mEq/L Carbon Dioxide 16 L (19-29) mEq/L BUN 15 (7-20) mg/dL Creatinine 1.48 H D (0.57-1.11) mg/dL Glucose 215 H (70-99) mg/dL Calcium 7.9 L (8.6-10.8) mg/dL Adrenal panel 02/03/17 02/03/17 02/03/17 Range/Units 12:32 13:39 14:20 Sodium 137 142 144 (136-145) mEq/L Potassium 4.0 3.3 L 3.5 (3.5-4.5) mEq/L Chloride 115 H 110 H 109 (98-109) mEq/L Carbon Dioxide 11 L 22 23 (19-29) mEq/L BUN 10 11 11 (7-20) mg/dL Creatinine 0.74 0.81 0.75 (0.57-1.11) mg/dL Glucose 299 H 359 H 322 H (70-99) mg/dL Calcium 5.7 L* 10.0 D 9.1 (8.6-10.8) mg/dL Total Bilirubin 0.2 0.5 (0.2-1.2) mg/dL AST 19 100 H (5-34) Units/L ALT 17 105 H (0-55) Units/L Alkaline Phosphatase 27 L 26 L (38-126) Units/L Albumin 2.0 L 1.5 L D (3.5-5.0) g/dL 02/04/17 Range/Units 03:45 Sodium 138 (136-145) mEq/L Potassium 4.8 H D (3.5-4.5) mEq/L Chloride 114 H (98-109) mEq/L Carbon Dioxide 16 L (19-29) mEq/L BUN 15 (7-20) mg/dL Creatinine 1.48 H D (0.57-1.11) mg/dL Glucose 215 H (70-99) mg/dL Calcium 7.9 L (8.6-10.8) mg/dL Total Bilirubin 1.3 H D (0.2-1.2) mg/dL AST 333 H (5-34) Units/L ALT 346 H (0-55) Units/L Alkaline Phosphatase 47 (38-126) Units/L Albumin 1.7 L (3.5-5.0) g/dL - VTE Documentation of Mechanical Device: Intermittent pneumatic compression device Consult Discharge Plan - Plan Referrals: Sonny Reardon MD [Primary Care Provider] -
[2017-02-04] MEDS: Chlorhexidine Rinse 15 ML MOUTHWASH MM SCH ×2 (08:05→21:23)
[2017-02-04] MEDS: Dexmedetomidine HCl 400 MCG/100 ML MLS IVC SCH (08:06)
--- NOTE | 2017-02-04 08:28 | Pulmonology Progress Note ---
<ErwinJoseanthony M - Last Filed: 02/04/17 09:11> Date of Encounter: 02/04/17 Objective PUL Vital signs: Last Vital Signs Temp 98.2 F 02/04/17 08:04 Pulse 109 02/04/17 08:24 Resp 12 02/04/17 08:00 BP 102/53 02/04/17 08:00 Pulse Ox 97 02/04/17 08:00 Ventilator Settings Ventilator Settings: Ventilator Settings, Last 8 Hours Ventilator Mode A/C Ventilator Mode A/C Ventilator Mode A/C Ventilator Mode A/C Ventilator Mode A/C Ventilator Mode A/C Ventilator Tidal Volume 500 Setting Ventilator Tidal Volume 500 Setting Ventilator Tidal Volume 500 Setting Ventilator Tidal Volume 500 Setting Ventilator Tidal Volume 500 Setting Ventilator Tidal Volume 500 Setting Ventilator Respiratory Rate 12 Setting Ventilator Respiratory Rate 12 Setting Ventilator Respiratory Rate 12 Setting Ventilator Respiratory Rate 12 Setting Ventilator Respiratory Rate 12 Setting Ventilator Respiratory Rate 12 Setting Actual Respiratory Rate 12 Actual Respiratory Rate 12 Actual Respiratory Rate 12 Actual Respiratory Rate 12 Actual Respiratory Rate 12 Positive End Expiratory 5 Pressure Positive End Expiratory 5 Pressure Positive End Expiratory 5 Pressure Positive End Expiratory 5 Pressure Positive End Expiratory 5 Pressure Positive End Expiratory 5 Pressure Peak Inspiratory Airway 20 Pressure Peak Inspiratory Airway 20 Pressure Peak Inspiratory Airway 21 Pressure Peak Inspiratory Airway 21 Pressure Peak Inspiratory Airway 21 Pressure Results - Laboratory Findings CBC and BMP: 02/04/17 03:45 02/04/17 03:45 ABG ABG pH 7.31 pH Units (7.32-7.45) L 02/04/17 04:40 ABG pCO2 39 mmHg (35-45) 02/04/17 04:40 ABG pO2 149 mmHg (85-104) H 02/04/17 04:40 ABG O2 Saturation 99 % (95-98) H 02/04/17 04:40 PT/INR, D-dimer PT 21.0 Seconds (9.4-12.1) H 02/03/17 12:32 Abnormal lab findings: Abnormal lab results WBC 24.6 K/mcL (4.3-11.1) H 02/04/17 03:45 RBC 5.19 M/mcL (3.82-4.97) H 02/04/17 03:45 RDW 15.2 % (11.5-14.5) H 02/04/17 03:45 Plt Count 129 K/mcL (140-400) L 02/04/17 03:45 Neutrophils # 20.0 K/mcL (1.6-8.9) H 02/04/17 03:45 Monocytes # 2.3 K/mcL (0.0-1.3) H 02/04/17 03:45 PT 21.0 Seconds (9.4-12.1) H 02/03/17 12:32 APTT 42.4 Seconds (26.0-36.0) H 02/03/17 12:32 ABG pH 7.31 pH Units (7.32-7.45) L 02/04/17 04:40 ABG pO2 149 mmHg (85-104) H 02/04/17 04:40 ABG HCO3 19.6 mEQ/L (21-27) L 02/04/17 04:40 ABG O2 Saturation 99 % (95-98) H 02/04/17 04:40 ABG Base Excess -6.2 mEq/L (-2.0 to 3.0) L 02/04/17 04:40 ABG Hematocrit 23 % (35-51) L 02/03/17 12:23 Glucose 328 mg/dL (60-95) H 02/03/17 12:23 Lactate 8.3 mmol/L (0.7-2.1) H* 02/03/17 13:39 Potassium 4.8 mEq/L (3.5-4.5) H D 02/04/17 03:45 Chloride 114 mEq/L (98-109) H 02/04/17 03:45 Carbon Dioxide 16 mEq/L (19-29) L 02/04/17 03:45 Creatinine 1.48 mg/dL (0.57-1.11) H D 02/04/17 03:45 Est GFR ( Amer) 41 (> 60) L 02/04/17 03:45 Est GFR (Non-Af Amer) 33 (> 60) L 02/04/17 03:45 Glucose 215 mg/dL (70-99) H 02/04/17 03:45 POC Glucose 189 (58-89) H 02/03/17 23:51 Lactic Acid 3.2 mmol/L (0.5-2.2) H 02/04/17 03:45 Calcium 7.9 mg/dL (8.6-10.8) L 02/04/17 03:45 Magnesium 1.4 mg/dL (1.6-2.6) L 02/04/17 03:45 Total Bilirubin 1.3 mg/dL (0.2-1.2) H D 02/04/17 03:45 AST 333 Units/L (5-34) H 02/04/17 03:45 ALT 346 Units/L (0-55) H 02/04/17 03:45 Troponin I 1.26 ng/mL (0-0.03) H* 02/04/17 03:45 Serum Total Protein 4.0 g/dL (6.0-8.3) L D 02/04/17 03:45 Albumin 1.7 g/dL (3.5-5.0) L 02/04/17 03:45 Globulin 2.3 g/dL (2.4-3.5) L 02/04/17 03:45 Albumin/Globulin Ratio 0.7 (1.1-2.2) L 02/04/17 03:45 - Clinical Findings Intake & Output: Intake & Output 02/03/17 02/04/17 02/04/17 23:59 07:59 15:59 Intake Total 1914 / 1914 3234 / 3234 35 / 35 Output Total 45 / 45 115 / 115 75 / 75 Balance 1869 / 1869 3119 / 3119 -40 / -40 Weight 67.132 kg Consult Discharge Plan - Plan Referrals: Sonny Reardon MD [Primary Care Provider] - - Attending Attestation I examined this patient and my medical decision-making was reviewed with the WOOD LAST MAKER/PA/Advanced Practice Nurse/Resident Physician. I agree with the documented findings, disposition and treatment plan as described except to the extent set forth below. Patient seen and examined. Labs, radiology, chart personally reviewed. Agree with resident's history and physical, assessment, plan with following comments: WIDE AREA NETWORK ADMINISTRATOR: Patient follows commands, I feel patient needs to be deeper sedation for comfort. Will change Propofol to Precedex, which may help BP. Pulmonary: Acceptable oxygenation and ventilation and no plan for SBT due to shock and still unstable Cardiovascular: Shock which is primarily hypovolemic, however I suspect post operative and even vasodilatory shock is possibility Will use Colloid with Albumin and pressors for now. Patient has received a lot of fluid. GI: Nutrition per dietary and GI prophylaxis per routine Heme: DVT prophylaxis per routine. Mechanical ID: Monitor for now and no indication for any infections Renal; urine out put and renal funtion reviewed. Nephrology consult. Patient will need RESIDENTIAL INSTRUCTOR. Discussed with Dr. Crouch. Endorcine: blood glucose is monitored Lines: all lines checked and no evidence of infections Skin: skin care to prevent pressure ulcers per nursing routine care Family updated I spent 35 min of Critical Care time with this patient. It involved decision making of high complexity to assess, manipulate, and support vital organ system failure and/or to prevent further life threatening deterioration of the patient' s condition. The time involved in the performance of separately reportable procedures was not counted toward critical care time. <TeeLuiza parikhorah Angelica - Last Filed: 02/04/17 10:50> Time of Encounter: 08:28 Assessment and Plan (1) Hypovolemic shock Current Visit: Yes Status: Acute Patient day 1 status post right nephrectomy that subsequently ended up in a laceration to her inferior vena cava from the right renal vein to the retrohepatic area. This was repaired by Dr. Mcgowan in the OR. He estimates her blood loss at 3 L. She was transfused 7 units of packed red blood cells and had 2 Cell Savers infused. During surgery her IVC was crossclamped at one time. The repair was made in the patient's abdomen was closed. She has also received 4 L of lactated Ringer's in the OR as well as 1 L of normal saline. She received 2 L of lactated Ringer's while in the ICU. She is still requiring a Levophed drip to maintain a map of 65. We are weaning this today. Her sedation has been changed to Precedex and fentanyl. This has been added overnight as she became responsive. Her urine output has decreased overnight and we will consult nephrology. I have spoken with the family extensively about the patient's Status. They expressed understanding. Plan: Continue to monitor H&H daily. We will transfuse as needed. Levofed for hypotension to maintain a MAP of 65. Fluids: normal saline at 150 mL/hour. Albumin We will trend lactic acids. We will trend transaminases. We will trend troponins. Monitor glucose. Nephrology consult for possible dialysis (2) Respiratory failure requiring intubation Current Visit: Yes Status: Acute Patient on ventilator after surgery. She does have a metabolic acidosis likely from the surgery that is correcting. We will monitor ABGs daily and adjust ventilator settings accordingly. Chest x-ray shows bibasilar atelectasis versus pneumonia. We will monitor patient. Plan: Precedex and fentanyl for sedation. ABGs daily. (3) Hypotension Current Visit: Yes Status: Acute Secondary to hypovolemia from laceration to the inferior vena cava. Plan: Levofed for a map of 65. Continue fluids of normal saline at 150 mL/hour Albumin being replaced. 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 Plan as above (5) MARY KAY (acute kidney injury) Current Visit: Yes Status: Acute Patient's creatinine is elevated at 1.48 and her GFR is 33. She had minimal urine output since midnight. She was making urine after surgery. Possible causes are decreased perfusion versus hydronephrosis or acute tubular necrosis. Plan: Nephrology is on board. Left retroperitoneal ultrasound of the kidneys today. Repeat renal function labs at 10:30. Dr. 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 Plan: Dr. Crouch following. (7) DVT prophylaxis Current Visit: Yes Status: Acute Plan : ICDs placed. Patient also on Pepcid 20 mg every 12 for GI prophylaxis. (8) Elevated transaminase level Current Visit: Yes Status: Acute Likely secondary to shock liver. Should resolve with fluid resuscitation efforts. Plan: We will continue to monitor and trend. (9) Lactic acid acidosis Current Visit: Yes Status: Acute Resolved this morning. Secondary to hypovolemia. Plan : We will continue to monitor. (10) Elevated troponin Current Visit: Yes Status: Acute Likely secondary to demand from hypovolemia and arrhythmia of V. tach while in surgery. Plan: Monitor EKG. Trend troponins. Subjective Interval history: Patient made significant progress overnight. Nursing staff advisor around midnight she started responding. She was placed on gravity and it has been increased to 25 g minute. This is been decreased to 10 at this time. Her sedation has been placed on. She is currently on Precedex and fentanyl. In my arrival at bedside this morning she was responsive to verbal stimuli. She was able to move her upper extremities purposefully. She was requesting to right. She was able to hold the clipboard however had a difficult time maneuvering the pen. We will keep patient sedated while she is on pressors to maintain her blood pressure. We are decreasing her norepi throughout the day. Patient's urine output has decreased significantly since midnight. We are consulting nephrology today for possible hemodialysis. Objective PUL Vital signs: Last Vital Signs Temp 98.2 F 02/04/17 08:04 Pulse 109 02/04/17 08:24 Resp 12 02/04/17 07:44 BP 143/67 02/04/17 07:44 Pulse Ox 20 L 02/04/17 07:44 General appearance: no acute distress, other (With sedation decreased patient is arousable to verbal stimuli. She opens her eyes looks at you makes purposeful movements with her upper extremities.) Eyes: nonicteric ENT: oropharynx moist Neck: supple, no lymphadenopathy Effort: other (Intubated.) Cardiovascular: regular rate and rhythm Gastrointestinal: normoactive bowel sounds, soft, non-tender, non-distended Integumentary: other (Incision site to right side and flank.) Extremities: no cyanosis, pink and warm, pulses normal, no ischemia or petechiae , other (Strong pulses in all 4 extremities. Mild edema to hands bilaterally) Musculoskeletal: no deformities pupils equal and round Ventilator Settings Ventilator Settings: Ventilator Settings, Last 8 Hours Ventilator Mode A/C Ventilator Mode A/C Ventilator Mode A/C Ventilator Mode A/C Ventilator Mode A/C Ventilator Mode A/C Ventilator Tidal Volume 500 Setting Ventilator Tidal Volume 500 Setting Ventilator Tidal Volume 500 Setting Ventilator Tidal Volume 500 Setting Ventilator Tidal Volume 500 Setting Ventilator Tidal Volume 500 Setting Ventilator Respiratory Rate 12 Setting Ventilator Respiratory Rate 12 Setting Ventilator Respiratory Rate 12 Setting Ventilator Respiratory Rate 12 Setting Ventilator Respiratory Rate 12 Setting Ventilator Respiratory Rate 12 Setting Actual Respiratory Rate 12 Actual Respiratory Rate 12 Actual Respiratory Rate 12 Actual Respiratory Rate 12 Actual Respiratory Rate 12 Positive End Expiratory 5 Pressure Positive End Expiratory 5 Pressure Positive End Expiratory 5 Pressure Positive End Expiratory 5 Pressure Positive End Expiratory 5 Pressure Positive End Expiratory 5 Pressure Peak Inspiratory Airway 20 Pressure Peak Inspiratory Airway 20 Pressure Peak Inspiratory Airway 21 Pressure Peak Inspiratory Airway 21 Pressure Peak Inspiratory Airway 21 Pressure Results - Laboratory Findings CBC and BMP: 02/04/17 03:45 02/04/17 03:45 ABG ABG pH 7.31 pH Units (7.32-7.45) L 02/04/17 04:40 ABG pCO2 39 mmHg (35-45) 02/04/17 04:40 ABG pO2 149 mmHg (85-104) H 02/04/17 04:40 ABG O2 Saturation 99 % (95-98) H 02/04/17 04:40 PT/INR, D-dimer PT 21.0 Seconds (9.4-12.1) H 02/03/17 12:32 Abnormal lab findings: Abnormal lab results WBC 24.6 K/mcL (4.3-11.1) H 02/04/17 03:45 RBC 5.19 M/mcL (3.82-4.97) H 02/04/17 03:45 RDW 15.2 % (11.5-14.5) H 02/04/17 03:45 Plt Count 129 K/mcL (140-400) L 02/04/17 03:45 Neutrophils # 20.0 K/mcL (1.6-8.9) H 02/04/17 03:45 Monocytes # 2.3 K/mcL (0.0-1.3) H 02/04/17 03:45 PT 21.0 Seconds (9.4-12.1) H 02/03/17 12:32 APTT 42.4 Seconds (26.0-36.0) H 02/03/17 12:32 ABG pH 7.31 pH Units (7.32-7.45) L 02/04/17 04:40 ABG pO2 149 mmHg (85-104) H 02/04/17 04:40 ABG HCO3 19.6 mEQ/L (21-27) L 02/04/17 04:40 ABG O2 Saturation 99 % (95-98) H 02/04/17 04:40 ABG Base Excess -6.2 mEq/L (-2.0 to 3.0) L 02/04/17 04:40 ABG Hematocrit 23 % (35-51) L 02/03/17 12:23 Glucose 328 mg/dL (60-95) H 02/03/17 12:23 Lactate 8.3 mmol/L (0.7-2.1) H* 02/03/17 13:39 Potassium 4.8 mEq/L (3.5-4.5) H D 02/04/17 03:45 Chloride 114 mEq/L (98-109) H 02/04/17 03:45 Carbon Dioxide 16 mEq/L (19-29) L 02/04/17 03:45 Creatinine 1.48 mg/dL (0.57-1.11) H D 02/04/17 03:45 Est GFR ( Amer) 41 (> 60) L 02/04/17 03:45 Est GFR (Non-Af Amer) 33 (> 60) L 02/04/17 03:45 Glucose 215 mg/dL (70-99) H 02/04/17 03:45 POC Glucose 189 (58-89) H 02/03/17 23:51 Lactic Acid 3.2 mmol/L (0.5-2.2) H 02/04/17 03:45 Calcium 7.9 mg/dL (8.6-10.8) L 02/04/17 03:45 Magnesium 1.4 mg/dL (1.6-2.6) L 02/04/17 03:45 Total Bilirubin 1.3 mg/dL (0.2-1.2) H D 02/04/17 03:45 AST 333 Units/L (5-34) H 02/04/17 03:45 ALT 346 Units/L (0-55) H 02/04/17 03:45 Troponin I 1.26 ng/mL (0-0.03) H* 02/04/17 03:45 Serum Total Protein 4.0 g/dL (6.0-8.3) L D 02/04/17 03:45 Albumin 1.7 g/dL (3.5-5.0) L 02/04/17 03:45 Globulin 2.3 g/dL (2.4-3.5) L 02/04/17 03:45 Albumin/Globulin Ratio 0.7 (1.1-2.2) L 02/04/17 03:45 - Clinical Findings Intake & Output: Intake & Output 02/03/17 02/04/17 02/04/17 23:59 07:59 15:59 Intake Total 4 / 1914 3234 / 3234 Output Total 45 / 45 115 / 115 75 / 75 Balance 1869 / 1869 3119 / 3118 - / -75 Weight 67.132 kg - VTE Documentation of Mechanical Device: Intermittent pneumatic compression device
--- NOTE | 2017-02-04 08:49 | Nephrology Consult Note ---
Date of Encounter: 02/04/17 Time of Encounter: 08:47 Assessment and Plan (1) MARY KAY (acute kidney injury) Current Visit: Yes Status: Acute Patient is s/p right nephrectomy with complication of inferior vena cava injury (leading to massive blood loss) now with new anuric MARY KAY. DDx of this MARY KAY is most likely multifactorial, including: -acidosis (lactate 8.4 during surgery) -hypotension -hypoperfusion/hypovolemia (required 7 units of packed RBC) -dysrhythmia (V-tach during surgery requiring cardioversion) ??obstruction - patient is currently anuric, retroperitoneal lymphadenopathy noted on abdomen/pelvis CT (no L kidney hydronephrosis at that time); however the operative reported indicated possible left sided renal vein bleeding -repeat stat BMP at 10:30am, and if worsening then likely to need CATALYST OPERATOR -stat renal ultrasound to rule out left kidney hydronephrosis -continue IVFs for volume expansion and her latest CXR and FiO2 indicated no signs of fluid overload this time. Thank you for consulting the [facility] group. (2) Oliguria and anuria Current Visit: Yes Status: Acute (3) Hypovolemic shock Current Visit: Yes Status: Acute (4) Elevated transaminase level Current Visit: Yes Status: Acute (5) Lactic acid acidosis Current Visit: Yes Status: Acute (6) Hypotension Current Visit: Yes Status: Acute Qualifiers: Hypotension type: postprocedural hypotension Qualified Code(s): I95.81 - Postprocedural hypotension (7) Respiratory failure requiring intubation Current Visit: Yes Status: Acute (8) Status post nephrectomy Current Visit: Yes Status: Acute Past Med Surg Social Fam HX - Past Medical History Medical history: cancer, coronary artery disease, GERD, hyperlipidemia, hypertension, malignancy, thyroid disease Psychiatric history: no psych history - Past Surgical History Surgical History: breast surgery, colectomy, hysterectomy - Social History Smoking Status: Unknown if ever smoked Smokeless Tobacco Status: No Alcohol use: none Drug use: none Medications and Allergies Calcium Carbonate [Tums] 1,000 mg PO Q4HR 02/03/17 [History] Levothyroxine [Synthroid] 50 mcg PO 0630 02/03/17 [History] Allergies atenolol Adverse Reaction (Verified 02/03/17 07:36) Chest Pain codeine Adverse Reaction (Verified 02/03/17 07:36) Irritable fenofibrate [From Tricor] Adverse Reaction (Verified 02/03/17 14:21) Muscle Pain lisinopril Adverse Reaction (Verified 02/03/17 14:21) Dizziness [id number] Reductase Inhibitor [Statins] Adverse Reaction (Verified 14:21) Muscle Pain Exam - Vital Signs Vital signs: Initial Vital Signs Temp Pulse Resp BP Pulse Ox 98.7 F 86 18 136/61 99 02/03/17 07:46 02/03/17 07:46 02/03/17 07:46 02/03/17 07:46 02/03/17 07:46 Vital Signs - Last 8 Hours Temp Pulse Resp BP Pulse Ox 02/04/17 08:24 109 02/04/17 08:04 98.2 F 02/04/17 07:44 12 143/67 20 L 02/04/17 06:15 12 120/65 96 02/04/17 06:00 109 12 111/59 96 02/04/17 05:00 108 12 104/56 96 02/04/17 04:22 12 99/61 97 02/04/17 04:00 98.2 F 109 12 105/58 97 02/04/17 03:00 109 12 97/57 97 02/04/17 02:12 12 92/61 96 02/04/17 02:00 106 12 92/55 97 02/04/17 01:00 114 12 102/62 97 Intake and Output 02/03/17 02/04/17 02/04/17 23:59 07:59 15:59 Intake Total 1913 3234 / 3234 35 / 35 Output Total 45 / 45 115 / 115 75 / 75 Balance 1868 3119 / 3119 -40 / -40 Intake: IV Fluids 1913 3234 / 3234 35 / 35 0.9 % Sodium Chloride 1, 1000 / 1000 2000 / 2000 000 ML @ 150 mls/hr IVC . Q6H40M [facility] Rx#:[id number] ALBURX 5% 12.5 gm In 250 500 / 500 ml @ 60 mls/hr IVC . Q4H10M [facility] Rx#:[id number] FentaNYL (PF) 1,000 MCG 10 / 10 In 0.9 % Sodium Chloride 80 ML @ Titrate IVC AD PRN Rx#:[id number] Levophed 4 MG In Dextrose 500 / 500 630 / 630 35 / 35 5% 250 ML @ 10 MCG/MIN 37.5 mls/hr IVC CONT [facility] Rx#:[id number] Magnesium Sulfate 2 GM In 104 / 104 104 / 104 Dextrose 5% 100 ML @ 100 mls/hr IVPB Q1H [facility] Rx#: [id number] Potassium Chloride 20 mEq 300 / 300 /100 mL 40 meq In 200 ml @ 100 mls/hr IVPB Q1H PRN Rx#:[id number] Output: Catheter 45 / 45 15 / 15 75 / 75 Gastric Drainage 100 / 100 0 / 0 Other: Weight 67.132 kg Blood Glucose* 189 Patient Weight 02/04/17 23:59 Weight 67.132 kg Results - Lab Results 02/04/17 03:45 02/04/17 09:40 Most recent lab results ABG pH 7.31 pH Units (7.32-7.45) L 02/04/17 04:40 ABG pCO2 39 mmHg (35-45) 02/04/17 04:40 ABG pO2 149 mmHg (85-104) H 02/04/17 04:40 ABG HCO3 19.6 mEQ/L (21-27) L 02/04/17 04:40 ABG O2 Saturation 99 % (95-98) H 02/04/17 04:40 Calcium 7.9 mg/dL (8.6-10.8) L 02/04/17 03:45 Phosphorus 4.0 mg/dL (2.3-4.7) 02/04/17 03:45 Magnesium 1.4 mg/dL (1.6-2.6) L 02/04/17 03:45 Consult Discharge Plan - Plan Referrals: Sonny Reardon MD [Primary Care Provider] -
[2017-02-04] MEDS: FentaNYL (PF) 1,000 MCG in 0.9 % Sodium Chloride 80 ML IVC PRN ×2 (10:00→22:55)
[2017-02-04 11:03] LABS: Calcium 7.8 mg/dL (8.6-10.8); Potassium 4.4 mEq/L (3.5-4.5)
--- NOTE | 2017-02-04 15:38 | Vascular/Endovas Progress Note ---
Date of Encounter: 02/04/17 Time of Encounter: 07:30 - Assessment and plan (1) Inferior vena cava injury Current Visit: Yes Status: Acute POD#1 #1 Repair of inferior vena cava injury #2 intraoperative consultation, critical care During right nephrectomy 5cm intraoperative venotomy repair Estimated blood loss: 3L Patient in ICU. Intubated and sedated. Currently requiring vasopressors ( Levophed). Her MAP remains at 70 without tachycardia. She is able to follow commands. Appears neurologically intact. She has new onset MARY KAY with anuria. May require FISHERIES MANAGEMENT BIOLOGIST. 02/04/2017. The patient was seen and evaluated on morning rounds with the resident. She continues to require pressor agents. There is no evidence of ongoing hemorrhage. We will continue maximum supportive care. Armando Mcgowan MD FACS Qualifiers: Encounter type: subsequent encounter Qualified Code(s): S35.10XD - Unspecified injury of inferior vena cava, subsequent encounter - Subjective Interval history: Patient seen and examined. Is in ICU intubated and sedated. Currently requiring vasopressors to maintain MAP Vital Signs, Last 4 Hours Temp Pulse Resp BP Pulse Ox 02/04/17 14:23 12 104/53 97 02/04/17 14:00 75 12 91/47 96 02/04/17 13:00 76 12 104/53 97 02/04/17 12:00 98.4 F 76 12 104/52 97 02/04/17 11:18 77 - Physical Examination General: Present: Other (intubated and sedated) Cardiac: Present: Reg Rate and Rhythm Lungs: Present: Normal Breath Sounds Neuro: Present: Other (intubated and sedated) Vascular: Present: Pulse, normal - VTE Documentation of Mechanical Device: Intermittent pneumatic compression device Results 02/05/17 11:45 02/05/17 03:35 Lab Results, Last 24 hours 02/03/17 02/03/17 02/03/17 14:20 14:20 21:25 WBC 17.7 H Hgb 14.3 Hct 43.8 Plt Count 88 L Sodium 144 Potassium 3.5 Chloride 109 Carbon Dioxide 23 BUN 11 Creatinine 0.75 Glucose 322 H Calcium 9.1 Magnesium Total Bilirubin AST ALT Alkaline Phosphatase Troponin I 0.99 H* 02/04/17 02/04/17 02/04/17 03:45 03:45 03:45 WBC 24.6 H Hgb 15.0 Hct 44.9 Plt Count 129 L Sodium 138 Potassium 4.8 H D Chloride 114 H Carbon Dioxide 16 L BUN 15 Creatinine 1.48 H D Glucose 215 H Calcium 7.9 L Magnesium 1.4 L Total Bilirubin 1.3 H D AST 333 H ALT 346 H Alkaline Phosphatase 47 Troponin I 1.26 H* 02/04/17 02/04/17 09:20 09:40 WBC Hgb Hct Plt Count Sodium 138 Potassium 4.4 Chloride 113 H Carbon Dioxide 20 BUN 17 Creatinine 1.48 H Glucose 131 H Calcium 7.8 L Magnesium Total Bilirubin AST ALT Alkaline Phosphatase Troponin I 1.01 H* Consult Discharge Plan - Plan Referrals: Sonny Reardon MD [Primary Care Provider] -
[2017-02-05] MEDS: 0.9 % Sodium Chloride 1,000 ML IVC SCH ×4 (00:03→23:39)
[2017-02-05] MEDS: Lacri-Lube 3.5 GM TUBE BOTH EYES SCH ×3 (00:13→07:50)
[2017-02-05] MEDS: Dexmedetomidine HCl 400 MCG/100 ML MLS IVC SCH (00:15)
[2017-02-05] MEDS: Insulin LISPRO 300 UNITS/3 ML VIAL SQ SCH ×2 (00:18→05:25)
[2017-02-05 03:50] LABS: Ionized Calcium 1.13 mmol/L (1.15-1.35)
[2017-02-05 03:55] LABS: Magnesium 2.1 mg/dL (1.6-2.6)
[2017-02-05 03:57] LABS: Albumin 2.4 g/dL (3.5-5.0); Albumin/Globulin Ratio 1.3 (1.1-2.2); Bilirubin,Total 1.1 mg/dL (0.2-1.2); Calcium 7.2 mg/dL (8.6-10.8); Globulin 1.8 g/dL (2.4-3.5); Total Protein 4.2 g/dL (6.0-8.3)
[2017-02-05 04:21] LABS: Basophils % 0.1 %; Hematocrit 27.1 % (35.3-44.9); Immature Granulocytes % 0.5 % (0-4); Immature Platelets 8.4 % (1.1-6.1); Lymphocytes # 0.9 K/mcL (0.6-4.6); Lymphocytes % 4.7 %; Mean Corpuscular HGB Conc 33.2 g/dL (31.6-35.5); Mean Corpuscular Hemoglobin 28.8 pg (28.0-33.3); Mean Corpuscular Volume 86.9 fL (83.0-100.0); Mean Platelet Volume 11.3 fL (9.4-12.4); Monocytes # 0.9 K/mcL (0.0-1.3); Monocytes % 4.5 %; Neutrophils # 17.1 K/mcL (1.6-8.9); Platelet Count 101 K/mcL (140-400); Red Blood Count 3.12 M/mcL (3.82-4.97); Red Cell Distribution Width 15.4 % (11.5-14.5); Segmented Neutrophils % 90.2 %
[2017-02-05 04:42] LABS: ABG Base Excess -5.4 mEq/L (-2.0 to 3.0); ABG HCO3 18.6 mEQ/L (21-27); ABG Oxygen Saturation 98 % (95-98); ABG PCO2 30 mmHg (35-45); ABG PO2 96 mmHg (85-104); ABG TCO2 19.5 mEq/L (20-26)
[2017-02-05 04:43] LABS: Blood Gas FiO2 30 %
[2017-02-05] MEDS ORDERED: Famotidine 20 MG/2 ML VIAL IVP SCH (06:00)
[2017-02-05] MEDS: Chlorhexidine Rinse 15 ML MOUTHWASH MM SCH (07:50)
--- NOTE | 2017-02-05 08:35 | Pulmonology Progress Note ---
<Yudy Tee - Last Filed: 02/05/17 14:08> Date of Encounter: 02/05/17 Time of Encounter: 08:33 Assessment and Plan (1) Hypovolemic shock Current Visit: Yes Status: Resolved Patient day 2 status post right nephrectomy that subsequently ended up in a laceration to her inferior vena cava from the right renal vein to the retrohepatic area. This was repaired by Dr. Mcgowan in the OR. He estimates her blood loss at 3 L. She was transfused 7 units of packed red blood cells and had 2 Cell Savers infused. During surgery her IVC was crossclamped at one time. The repair was made in the patient's abdomen was closed. She has also received 4 L of lactated Ringer's in the OR as well as 1 L of normal saline. She received 2 L of lactated Ringer's while in the ICU. Her Levothroid drip was turned off this morning. She is maintaining a MAP of 65-70. She is off sedation and extubated at this time. She is maintaining her own airway. Her urine output is still poor however her creatinine has decreased. Nephrology is on board and optimistic that she may start producing urine. The patient is verbal at this time. She is mentating appropriately. I have discussed her status with her and explained the procedures that are happening. She expresses understanding. I will discuss with the family as soon as they appear today. Plan: Continue to monitor H&H daily. We will transfuse as needed. Levofed for hypotension to maintain a MAP of 65. Off at this time Fluids: normal saline at 75 mL/hour. Decreased from 125 an hour per nephrology' s suggestion. We will trend transaminases. These are improving daily Monitor glucose. Nephrology consult for possible dialysis. They are suggesting we withhold this for now and are optimistic that her urine output will increase. (2) Respiratory failure requiring intubation Current Visit: Yes Status: Acute Patient on ventilator after surgery. She was extubated this morning after a normal CPAP trial. She is protecting her own airway and oxygenating well. She does not appear in any distress. She is speaking clearly and is alert and oriented. She does have a metabolic acidosis likely from the surgery that is correcting. Chest x-ray shows bibasilar atelectasis versus pneumonia. We will continue to monitor patient. Plan: Continue to monitor. Patient was extubated this morning. (3) Hypotension Current Visit: Yes Status: Acute Secondary to hypovolemia from laceration to the inferior vena cava. Plan: Patient currently off pressors. She is maintaining a MAP of 65-70. 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 Plan as above (5) MARY KAY (acute kidney injury) Current Visit: Yes Status: Acute Patient's creatinine was elevated at 1.48 and her GFR was 33. This has improved today to a creatinine of 1.22 and a GFR of 51. She had minimal urine output 4 to midnights now. She was making urine after surgery. Possible causes are decreased perfusion to hypovolemia and hypotension. Renal ultrasound: Showed a cystic lesion of her left kidney but no hydronephrosis. Microscopic analysis of urine: Minimal hyaline casts. Not suspicious for acute tubular necrosis. Plan: Nephrology is on board. Fluids at 75 mL/hour. 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 Large lymph node involvement and abdomen. Plan: Dr. Crouch following. (7) Elevated transaminase level Current Visit: Yes Status: Acute Likely secondary to shock liver. Should resolve with fluid resuscitation efforts. Plan: We will continue to monitor and trend. (8) Lactic acid acidosis Current Visit: Yes Status: Acute Resolved this morning. Secondary to hypovolemia. Plan : We will continue to monitor. (9) Elevated troponin Current Visit: Yes Status: Acute Likely secondary to demand from hypovolemia and arrhythmia of V. tach while in surgery. Plan: Monitor EKG. Trend troponins. (10) DVT prophylaxis Current Visit: Yes Status: Acute Plan : ICDs placed. Patient also on Pepcid 20 mg every 12 for GI prophylaxis. Subjective Interval history: CPAP trial this morning went well. Patient is still responding and able to communicate via pen and paper. Patient was just extubated. We will continue to monitor throughout the day. Her urine output is still minimal however her creatinine is decreasing. Her hemoglobin is now 9.0 which is decreased. We will repeat this around noon. Her vasopressor is off at this time and she is maintaining a map in the 60s. We will continue to monitor patient throughout the day. Bedside swallow went well. We will give patient a clear liquid diet for now. We will continue to monitor and begin to switch meds to by mouth. Objective PUL Vital signs: Last Vital Signs Temp 97.1 F L 02/05/17 08:25 Pulse 73 02/05/17 07:38 Resp 17 02/05/17 08:13 BP 109/44 02/05/17 08:11 Pulse Ox 93 L 02/05/17 08:11 General appearance: no acute distress, alert Eyes: nonicteric ENT: oropharynx moist Neck: supple, no lymphadenopathy Effort: normal Cardiovascular: regular rate and rhythm Gastrointestinal: normoactive bowel sounds, soft, non-tender, non-distended, other (incision site to right side/ flank well appearing, nonerythematous, healing appropriatly. Bandaged. Draining.) Integumentary: normal Extremities: no cyanosis Musculoskeletal: no deformities Gait: normal gait, normal posture normal mental status, non-focal exam, pupils equal and round mood appropriate, affect normal Ventilator Settings Ventilator Settings: Ventilator Settings, Last 8 Hours Ventilator Mode CPAP Ventilator Mode CPAP Ventilator Mode A/C Ventilator Mode A/C Ventilator Mode A/C Ventilator Mode A/C Ventilator Mode A/C Ventilator Mode A/C Ventilator Mode A/C Ventilator Mode A/C Ventilator Mode A/C Ventilator Tidal Volume 500 Setting Ventilator Tidal Volume 500 Setting Ventilator Tidal Volume 500 Setting Ventilator Tidal Volume 500 Setting Ventilator Tidal Volume 500 Setting Ventilator Tidal Volume 500 Setting Ventilator Tidal Volume 500 Setting Ventilator Tidal Volume 500 Setting Ventilator Tidal Volume 500 Setting Ventilator Tidal Volume 500 Setting Ventilator Respiratory Rate 12 Setting Ventilator Respiratory Rate 12 Setting Ventilator Respiratory Rate 12 Setting Ventilator Respiratory Rate 12 Setting Ventilator Respiratory Rate 12 Setting Ventilator Respiratory Rate 12 Setting Ventilator Respiratory Rate 12 Setting Ventilator Respiratory Rate 12 Setting Ventilator Respiratory Rate 12 Setting Actual Respiratory Rate 18 Actual Respiratory Rate 18 Actual Respiratory Rate 12 Actual Respiratory Rate 12 Actual Respiratory Rate 12 Actual Respiratory Rate 12 Actual Respiratory Rate 12 Actual Respiratory Rate 12 Actual Respiratory Rate 12 Actual Respiratory Rate 12 Positive End Expiratory 5 Pressure Positive End Expiratory 5 Pressure Positive End Expiratory 5 Pressure Positive End Expiratory 5 Pressure Positive End Expiratory 5 Pressure Positive End Expiratory 5 Pressure Positive End Expiratory 5 Pressure Positive End Expiratory 5 Pressure Positive End Expiratory 5 Pressure Positive End Expiratory 5 Pressure Positive End Expiratory 5 Pressure Peak Inspiratory Airway 13 Pressure Peak Inspiratory Airway 13 Pressure Peak Inspiratory Airway 18 Pressure Peak Inspiratory Airway 23 Pressure Peak Inspiratory Airway 24 Pressure Peak Inspiratory Airway 21 Pressure Peak Inspiratory Airway 24 Pressure Peak Inspiratory Airway 25 Pressure Peak Inspiratory Airway 25 Pressure Peak Inspiratory Airway 26 Pressure Results - Laboratory Findings CBC and BMP: 02/05/17 11:45 02/05/17 03:35 ABG ABG pH 7.40 pH Units (7.32-7.45) 02/05/17 04:31 ABG pCO2 30 mmHg (35-45) L 02/05/17 04:31 ABG pO2 96 mmHg (85-104) 02/05/17 04:31 ABG O2 Saturation 98 % (95-98) 02/05/17 04:31 PT/INR, D-dimer PT 21.0 Seconds (9.4-12.1) H 02/03/17 12:32 Abnormal lab findings: Abnormal lab results WBC 18.9 K/mcL (4.3-11.1) H 02/05/17 04:10 RBC 3.12 M/mcL (3.82-4.97) L 02/05/17 04:10 Hgb 9.0 g/dL (11.5-15.4) L D 02/05/17 04:10 Hct 27.1 % (35.3-44.9) L 02/05/17 04:10 RDW 15.4 % (11.5-14.5) H 02/05/17 04:10 Plt Count 101 K/mcL (140-400) L 02/05/17 04:10 Neutrophils # 17.1 K/mcL (1.6-8.9) H 02/05/17 04:10 Immature Plt Fraction 8.4 % (1.1-6.1) H 02/05/17 04:10 PT 21.0 Seconds (9.4-12.1) H 02/03/17 12:32 APTT 42.4 Seconds (26.0-36.0) H 02/03/17 12:32 ABG pCO2 30 mmHg (35-45) L 02/05/17 04:31 ABG HCO3 18.6 mEQ/L (21-27) L 02/05/17 04:31 ABG Total CO2 19.5 mEq/L (20-26) L 02/05/17 04:31 ABG Base Excess -5.4 mEq/L (-2.0 to 3.0) L 02/05/17 04:31 ABG Hematocrit 23 % (35-51) L 02/03/17 12:23 Glucose 328 mg/dL (60-95) H 02/03/17 12:23 Lactate 8.3 mmol/L (0.7-2.1) H* 02/03/17 13:39 Chloride 115 mEq/L (98-109) H 02/05/17 03:35 Carbon Dioxide 17 mEq/L (19-29) L 02/05/17 03:35 Creatinine 1.22 mg/dL (0.57-1.11) H 02/05/17 03:35 Est GFR ( Amer) 51 (> 60) L 02/05/17 03:35 Est GFR (Non-Af Amer) 42 (> 60) L 02/05/17 03:35 Lactic Acid 3.2 mmol/L (0.5-2.2) H 02/04/17 03:45 Calcium 7.2 mg/dL (8.6-10.8) L 02/05/17 03:35 Ionized Calcium 1.13 mmol/L (1.15-1.35) L 02/05/17 03:35 AST 81 Units/L (5-34) H 02/05/17 03:35 ALT 123 Units/L (0-55) H 02/05/17 03:35 Troponin I 1.01 ng/mL (0-0.03) H* 02/04/17 09:20 Serum Total Protein 4.2 g/dL (6.0-8.3) L 02/05/17 03:35 Albumin 2.4 g/dL (3.5-5.0) L D 02/05/17 03:35 Globulin 1.8 g/dL (2.4-3.5) L 02/05/17 03:35 - Diagnostic Findings Additional studies: KUB X-Ray 02/03/17 13:15 IMPRESSION: Postsurgical changes. No retained surgical foreign body. D/ / Itz Salas MD / Itz Salas MD Interpreting Provider: Itz Salas MD Chest X-Ray 02/04/17 04:00 IMPRESSION: 1. No pneumothorax after line placement. 2. Bibasilar atelectasis or pneumonia. D/ / Alejo Rivas MD / Alejo Rivas MD Interpreting Provider: Alejo Rivas MD Retroperitoneum Ultrasound 02/04/17 12:15 IMPRESSION: There is an area of decreased echogenicity measuring approximately 2 cm in the left kidney, which is felt most likely to represent the parapelvic cysts seen on the recent CT examination. This is not felt to represent hydronephrosis. Normal renal echotexture. Right nephrectomy. D/ / Jin Gabriel MD / Jin Gabriel MD Interpreting Provider: Jin Gabriel MD - Clinical Findings Intake & Output: Intake & Output 02/04/17 02/05/17 02/05/17 23:59 07:59 15:59 Intake Total 1525 / 1525 1130 / 1130 Output Total 70 / 70 122 / 122 42 / 42 Balance 1455 / 1455 1008 / 1008 -42 / -42 - VTE Documentation of Mechanical Device: Intermittent pneumatic compression device Consult Discharge Plan - Plan Referrals: Sonny Reardon MD [Primary Care Provider] - <Jona Hood - Last Filed: 02/05/17 16:16> Objective PUL Vital signs: Last Vital Signs Temp 97.8 F 02/05/17 15:00 Pulse 78 02/05/17 15:14 Resp 18 02/05/17 15:00 BP 117/58 02/05/17 15:00 Pulse Ox 96 02/05/17 15:00 Results - Laboratory Findings CBC and BMP: 02/05/17 11:45 02/05/17 03:35 ABG ABG pH 7.40 pH Units (7.32-7.45) 02/05/17 04:31 ABG pCO2 30 mmHg (35-45) L 02/05/17 04:31 ABG pO2 96 mmHg (85-104) 02/05/17 04:31 ABG O2 Saturation 98 % (95-98) 02/05/17 04:31 PT/INR, D-dimer PT 21.0 Seconds (9.4-12.1) H 02/03/17 12:32 Abnormal lab findings: Abnormal lab results WBC 18.9 K/mcL (4.3-11.1) H 02/05/17 04:10 RBC 3.12 M/mcL (3.82-4.97) L 02/05/17 04:10 Hgb 9.7 g/dL (11.5-15.4) L 02/05/17 11:45 Hct 29.8 % (35.3-44.9) L 02/05/17 11:45 RDW 15.4 % (11.5-14.5) H 02/05/17 04:10 Plt Count 101 K/mcL (140-400) L 02/05/17 04:10 Neutrophils # 17.1 K/mcL (1.6-8.9) H 02/05/17 04:10 Immature Plt Fraction 8.4 % (1.1-6.1) H 02/05/17 04:10 PT 21.0 Seconds (9.4-12.1) H 02/03/17 12:32 APTT 42.4 Seconds (26.0-36.0) H 02/03/17 12:32 ABG pCO2 30 mmHg (35-45) L 02/05/17 04:31 ABG HCO3 18.6 mEQ/L (21-27) L 02/05/17 04:31 ABG Total CO2 19.5 mEq/L (20-26) L 02/05/17 04:31 ABG Base Excess -5.4 mEq/L (-2.0 to 3.0) L 02/05/17 04:31 ABG Hematocrit 23 % (35-51) L 02/03/17 12:23 Glucose 328 mg/dL (60-95) H 02/03/17 12:23 Lactate 8.3 mmol/L (0.7-2.1) H* 02/03/17 13:39 Chloride 115 mEq/L (98-109) H 02/05/17 03:35 Carbon Dioxide 17 mEq/L (19-29) L 02/05/17 03:35 Creatinine 1.22 mg/dL (0.57-1.11) H 02/05/17 03:35 Est GFR ( Amer) 51 (> 60) L 02/05/17 03:35 Est GFR (Non-Af Amer) 42 (> 60) L 02/05/17 03:35 Lactic Acid 3.2 mmol/L (0.5-2.2) H 02/04/17 03:45 Calcium 7.2 mg/dL (8.6-10.8) L 02/05/17 03:35 Ionized Calcium 1.13 mmol/L (1.15-1.35) L 02/05/17 03:35 AST 81 Units/L (5-34) H 02/05/17 03:35 ALT 123 Units/L (0-55) H 02/05/17 03:35 Troponin I 1.01 ng/mL (0-0.03) H* 02/04/17 09:20 Serum Total Protein 4.2 g/dL (6.0-8.3) L 02/05/17 03:35 Albumin 2.4 g/dL (3.5-5.0) L D 02/05/17 03:35 Globulin 1.8 g/dL (2.4-3.5) L 02/05/17 03:35 - Clinical Findings Intake & Output: Intake & Output 02/05/17 02/05/17 02/05/17 07:59 15:59 23:59 Intake Total 1130 / 1130 1090 / 1090 Output Total 122 / 122 242 / 242 Balance 1008 / 1008 848 / 848 - Attending Attestation I examined this patient and my medical decision-making was reviewed with the INTEGRATED CIRCUIT FABRICATOR/PA/Advanced Practice Nurse/Resident Physician. I agree with the documented findings, disposition and treatment plan as described except to the extent set forth below. Patient seen and examined. Labs, radiology, chart personally reviewed. Agree with resident's history and physical, assessment, plan with following comments: RADIOLOGY SPECIAL PROCEDURE TECH: Patient follows commands, Pulmonary: Acceptable oxygenation and ventilation. Patient is extubated successfully and will continue monitoring in ICU for the next 1-2 days and if remain stable then she can be transferred to floor. Cardiovascular: stable GI: Nutrition per dietary and GI prophylaxis per routine Heme: DVT prophylaxis per routine. Monitor H&H and if decrease more, she might need blood transfusion. I suspect this is more real, since previous one could be hemo-concentrated. Renal; urine out put and renal funtion reviewed Endorcine: blood glucose is monitored Lines: all lines checked and no evidence of infections Skin: skin care to prevent pressure ulcers per nursing routine care Overall patient is doing good.
[2017-02-05] MEDS: Ondansetron 4 MG/2 ML VIAL IVP PRN ×3 (09:40→20:44)
--- NOTE | 2017-02-05 10:13 | Nephrology Progress Note ---
Date of Encounter: 02/05/17 Time of Encounter: 10:12 - Assessment and Plan (1) MARY KAY (acute kidney injury) Current Visit: Yes Status: Acute Patient was extubated this morning just prior to physical exam. She is doing extremely well. -She has been extubated. -She is off pressors. -She is talking and writing notes to communicate. -Renal function panel is improved from yesterday; however,she is still oliguric and has developed dependent edema. Renal U/S showed no hydronephrosis of L kidney. Plan: -decrease IVF by 1/2 (to 75 cc/hr) due to considerable edema development No indications for urgent COPY CHIEF at this time. Continue to follow a renal protective plan. (2) Oliguria and anuria Current Visit: Yes Status: Acute still oliguric (3) Elevated transaminase level Current Visit: Yes Status: Acute improved (4) Lactic acid acidosis Current Visit: Yes Status: Acute no new level today; however, yesterday's lab was improved from the intra- operative level (5) Hypotension Current Visit: Yes Status: Acute Qualifiers: Hypotension type: postprocedural hypotension Qualified Code(s): I95.81 - Postprocedural hypotension (6) Status post nephrectomy Current Visit: Yes Status: Acute Subjective Principal diagnosis: MARY KAY Interval history: Patient seen and examined. Very recently extubated. Answering questions appropriately. Objective - Vital Signs Vital signs: Vital Signs Temp Pulse Resp BP Pulse Ox 02/05/17 09:00 71 16 109/50 95 02/05/17 08:43 89 L 02/05/17 08:29 89 L 02/05/17 08:25 97.1 F L 02/05/17 08:13 17 02/05/17 08:11 19 109/44 93 L 02/05/17 08:00 73 18 106/55 97 02/05/17 07:38 73 18 109/44 94 L 02/05/17 07:00 75 18 118/87 96 02/05/17 06:00 69 12 120/61 96 02/05/17 05:32 12 96 02/05/17 05:00 64 12 118/56 96 02/05/17 04:00 97.7 F 63 12 118/49 96 02/05/17 03:38 12 96 02/05/17 03:00 65 12 104/43 94 L 02/05/17 02:00 64 12 110/46 94 L 02/05/17 01:00 64 12 110/50 95 02/05/17 00:00 97.8 F 64 12 112/50 96 02/04/17 23:12 12 96 02/04/17 23:00 66 12 124/55 97 02/04/17 22:00 66 12 122/55 96 02/04/17 21:16 12 95 02/04/17 21:00 67 12 115/52 95 02/04/17 20:00 97.9 F 68 12 100/55 95 02/04/17 19:00 69 12 101/49 95 02/04/17 18:28 12 93/76 95 02/04/17 18:00 73 12 97/51 97 02/04/17 16:44 12 93/76 95 02/04/17 16:00 73 12 108/52 97 02/04/17 15:41 75 02/04/17 15:22 98.3 F 02/04/17 14:23 12 104/53 97 02/04/17 14:00 75 12 91/47 96 02/04/17 13:00 76 12 104/53 97 02/04/17 12:00 98.4 F 76 12 104/52 97 02/04/17 11:18 77 02/04/17 11:00 77 12 92/50 97 02/04/17 10:39 12 84/48 97 Intake and Output 02/04/17 02/05/17 02/05/17 23:59 07:59 15:59 Intake Total 1525 / 1525 1130 / 1130 800 / 800 Output Total 70 / 70 122 / 122 42 / 42 Balance 1455 / 1455 1008 / 1008 758 / 758 Intake: IV Fluids 1525 / 1525 1130 / 1130 800 / 800 0.9 % Sodium Chloride 1, 1000 / 1000 1000 / 1000 800 / 800 000 ML @ 150 mls/hr IVC . Q6H40M [facility] Rx#:[id number] ALBURX 5% 12.5 gm In 250 250 / 250 ml @ 60 mls/hr IVC . Q4H10M [facility] Rx#:[id number] PRECEDEX 400 mcg In 100 65 / 65 65 / 65 ml @ 0.2 MCG/KG/HR 3.357 mls/hr IVC .Q24H [facility] Rx#: [id number] FentaNYL (PF) 1,000 MCG 100 / 100 In 0.9 % Sodium Chloride 80 ML @ Titrate IVC AD PRN Rx#:[id number] Levophed 4 MG In Dextrose 110 / 110 65 / 65 5% 250 ML @ 10 MCG/MIN 37.5 mls/hr IVC CONT [facility] Rx#:[id number] Output: Catheter 70 / 70 122 / 122 42 / 42 Other: Blood Glucose* 85 - General Appearance General appearance: Present: well-developed, well-nourished EENT: Present: mucous membranes moist Neck: Present: supple Respiratory: Present: clear Cardiology: Present: edema (dependent), regular rate, regular rhythm, normal S1 , normal S2 Gastrointestinal: Present: absent bowel sounds Integumentary: Present: warm and dry Neurologic: Present: no focal deficit, alert and oriented x3 Musculoskeletal: Present: no deformities, no erythema, no cyanosis Psychiatric: Present: cooperative - Lab 02/05/17 04:10 02/05/17 03:35 Most recent lab results ABG pH 7.40 pH Units (7.32-7.45) 02/05/17 04:31 ABG pCO2 30 mmHg (35-45) L 02/05/17 04:31 ABG pO2 96 mmHg (85-104) 02/05/17 04:31 ABG HCO3 18.6 mEQ/L (21-27) L 02/05/17 04:31 ABG O2 Saturation 98 % (95-98) 02/05/17 04:31 Calcium 7.2 mg/dL (8.6-10.8) L 02/05/17 03:35 Phosphorus 3.0 mg/dL (2.3-4.7) 02/05/17 03:35 Magnesium 2.1 mg/dL (1.6-2.6) 02/05/17 03:35 - VTE Documentation of Mechanical Device: Intermittent pneumatic compression device Consult Discharge Plan - Plan Referrals: Sonny Reardon MD [Primary Care Provider] -
--- NOTE | 2017-02-05 10:22 | Vascular/Endovas Progress Note ---
Date of Encounter: 02/05/17 Time of Encounter: 10:20 - Assessment and plan (1) Inferior vena cava injury Current Visit: Yes Status: Acute POD#2 #1 Repair of inferior vena cava injury #2 intraoperative consultation, critical care During right nephrectomy 5cm intraoperative venotomy repair Estimated blood loss: 3L Patient in ICU. Intubated and sedated. Currently requiring vasopressors ( Levophed). Her MAP remains at 70 without tachycardia. She is able to follow commands. Appears neurologically intact. She has new onset MARY KAY with anuria. 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 02/05/17: Patient successfully extubated this am. No longer requiring vasopressor support. urinary output has returned. neurologically intact pulmonology and nephrology following. 02/05/17; I examined this patient and my medical decision-making was reviewed with the GLASS CLEANER/PA/Advanced Practice Nurse/Resident Physician. I agree with the documented findings, disposition and treatment plan as described except to the extent set forth below. The patient is seen and evaluated with rest and on morning rounds. She is progressing well and may be completely extubated later today. There is no sign of hemorrhage or leg swelling. Armando Mcgowan MD FACS Qualifiers: Encounter type: subsequent encounter Qualified Code(s): S35.10XD - Unspecified injury of inferior vena cava, subsequent encounter - Subjective Procedure(s) Performed: #1 Repair of inferior vena cava injury #2 intraoperative consultation, critical care Interval history: Patient seen and examined. Is in ICU , was successfully extubated today. No longer requiring vasopressors. UOP has returned, albeit modestly. Vital Signs, Last 4 Hours Temp Pulse Resp BP Pulse Ox 02/05/17 09:00 71 16 109/50 95 02/05/17 08:43 89 L 02/05/17 08:29 89 L 02/05/17 08:25 97.1 F L 02/05/17 08:13 17 02/05/17 08:11 19 109/44 93 L 02/05/17 08:00 73 18 106/55 97 02/05/17 07:38 73 18 109/44 94 L 02/05/17 07:00 75 18 118/87 96 - Physical Examination Cardiac: Present: Reg Rate and Rhythm Lungs: Present: Normal Breath Sounds Neuro: Present: Alert and responsive Vascular: Present: Pulse, normal Abdomen: Present: Soft, Non-tender - VTE Documentation of Mechanical Device: Intermittent pneumatic compression device Results 02/06/17 03:55 02/06/17 03:55 Lab Results, Last 24 hours 02/04/17 02/05/17 02/05/17 09:40 03:35 03:35 WBC Hgb Hct Plt Count Sodium 138 139 Potassium 4.4 4.0 Chloride 113 H 115 H Carbon Dioxide 20 17 L BUN 17 20 Creatinine 1.48 H 1.22 H Glucose 131 H 98 Calcium 7.8 L 7.2 L Magnesium 2.1 Total Bilirubin 1.1 AST 81 H ALT 123 H Alkaline Phosphatase 44 02/05/17 04:10 WBC 18.9 H Hgb 9.0 L D Hct 27.1 L Plt Count 101 L Sodium Potassium Chloride Carbon Dioxide BUN Creatinine Glucose Calcium Magnesium Total Bilirubin AST ALT Alkaline Phosphatase Consult Discharge Plan - Plan Referrals: Sonny Reardon MD [Primary Care Provider] -
[2017-02-05 11:50] LABS: Hematocrit 29.8 % (35.3-44.9); Hemoglobin 9.7 g/dL (11.5-15.4)
--- NOTE | 2017-02-05 13:19 | Urology Progress Note ---
Date of Encounter: 02/05/17 Time of Encounter: 13:17 - Assessment and Plan (1) MARY KAY (acute kidney injury) Current Visit: Yes Status: Acute Assessment and plan: improving at this time adequate uop (2) Status post nephrectomy Current Visit: Yes Status: Acute Assessment and plan: healing well. care per icu team at this time. extubated this am. Progress Note Narrative: POD 2 from right nephrectomy with IVC injury. patient now extubated and off pressors. She is answering questions. Objective Initial Vital Signs Temp Pulse Resp BP Pulse Ox 98.7 F 86 18 136/61 99 02/03/17 07:46 02/03/17 07:46 02/03/17 07:46 02/03/17 07:46 02/03/17 07:46 - General physical appearance Present: well developed - Abdomen Present: soft (incision clean) - Labs 02/05/17 11:45 02/05/17 03:35 Diabetes panel 02/05/17 Range/Units 03:35 Sodium 139 (136-145) mEq/L Potassium 4.0 (3.5-4.5) mEq/L Chloride 115 H (98-109) mEq/L Carbon Dioxide 17 L (19-29) mEq/L BUN 20 (7-20) mg/dL Creatinine 1.22 H (0.57-1.11) mg/dL Glucose 98 (70-99) mg/dL Calcium 7.2 L (8.6-10.8) mg/dL AST 81 H (5-34) Units/L ALT 123 H (0-55) Units/L Alkaline Phosphatase 44 (38-126) Units/L Albumin 2.4 L D (3.5-5.0) g/dL Calcium panel 02/05/17 02/05/17 Range/Units 03:35 03:35 Calcium 7.2 L (8.6-10.8) mg/dL Phosphorus 3.0 (2.3-4.7) mg/dL Albumin 2.4 L D (3.5-5.0) g/dL Pituitary panel 02/05/17 Range/Units 03:35 Sodium 139 (136-145) mEq/L Potassium 4.0 (3.5-4.5) mEq/L Chloride 115 H (98-109) mEq/L Carbon Dioxide 17 L (19-29) mEq/L BUN 20 (7-20) mg/dL Creatinine 1.22 H (0.57-1.11) mg/dL Glucose 98 (70-99) mg/dL Calcium 7.2 L (8.6-10.8) mg/dL Adrenal panel 02/05/17 Range/Units 03:35 Sodium 139 (136-145) mEq/L Potassium 4.0 (3.5-4.5) mEq/L Chloride 115 H (98-109) mEq/L Carbon Dioxide 17 L (19-29) mEq/L BUN 20 (7-20) mg/dL Creatinine 1.22 H (0.57-1.11) mg/dL Glucose 98 (70-99) mg/dL Calcium 7.2 L (8.6-10.8) mg/dL Total Bilirubin 1.1 (0.2-1.2) mg/dL AST 81 H (5-34) Units/L ALT 123 H (0-55) Units/L Alkaline Phosphatase 44 (38-126) Units/L Albumin 2.4 L D (3.5-5.0) g/dL - VTE Documentation of Mechanical Device: Intermittent pneumatic compression device Consult Discharge Plan - Plan Referrals: Sonny Reardon MD [Primary Care Provider] -
[2017-02-05] MEDS: *HR* Promethazine 25 MG/ML VIAL IVP PRN (15:07)
[2017-02-05] MEDS: *HR* OxyCODONE Immed Rel 5 MG TABLET PO SCH ×2 (17:28→23:38)
[2017-02-05] MEDS: FentaNYL (PF) 1,000 MCG in 0.9 % Sodium Chloride 80 ML IVC PRN (17:30)
[2017-02-05] MEDS: Famotidine 20 MG TABLET PO SCH (21:13)
[2017-02-06] MEDS: *HR* Promethazine 25 MG/ML VIAL IVP PRN (02:21)
[2017-02-06 04:22] LABS: Mean Platelet Volume 10.9 fL (9.4-12.4); Nucleated Red Blood Cells 0.1 /100 WBC (0); Red Cell Distribution Width 15.7 % (11.5-14.5)
[2017-02-06 04:23] LABS: Hematocrit 29.7 % (35.3-44.9); Hemoglobin 9.8 g/dL (11.5-15.4); Mean Corpuscular Hemoglobin 29.4 pg (28.0-33.3); Mean Corpuscular Volume 89.2 fL (83.0-100.0); Platelet Count 112 K/mcL (140-400); Red Blood Count 3.33 M/mcL (3.82-4.97)
[2017-02-06 04:49] LABS: Alanine Aminotransferase 103 Units/L (0-55); Albumin 2.1 g/dL (3.5-5.0); Albumin/Globulin Ratio 0.7 (1.1-2.2); Alkaline Phosphatase 85 Units/L (38-126); Aspartate Amino Transferase 54 Units/L (5-34); BUN/Creatinine Ratio 21 (6-26); Bilirubin,Total 0.8 mg/dL (0.2-1.2); Blood Urea Nitrogen 19 mg/dL (7-20); Calcium 7.5 mg/dL (8.6-10.8); Carbon Dioxide 17 mEq/L (19-29); Chloride 113 mEq/L (98-109); Globulin 2.9 g/dL (2.4-3.5); Glucose 87 mg/dL (70-99); Magnesium 2.1 mg/dL (1.6-2.6); Osmolality,Calculated 288 (280-300); Phosphorous 2.7 mg/dL (2.3-4.7); Potassium 3.9 mEq/L (3.5-4.5); Sodium 138 mEq/L (136-145); eGFR For African Americans > 60 (> 60); eGFR For Non-African Americans 59 (> 60)
[2017-02-06 04:50] LABS: Monocytes # 0.5 K/mcL (0.0-1.3); Neutrophils # 24.5 K/mcL (1.6-8.9)
[2017-02-06 04:51] LABS: Anisocytosis 1+ (Not Present); Platelet Estimate Decreased (Normal); Polychromasia 1+ (Not Present)
[2017-02-06] MEDS: *HR* OxyCODONE Immed Rel 5 MG TABLET PO SCH ×3 (06:01→17:59)
[2017-02-06] MEDS: Potassium Chloride 40 MEQ/200 ML BAG IVPB PRN (06:01)
[2017-02-06] MEDS ORDERED: Calcium Gluconate 1,000 MG in D5% in Water 100 ML IVPB PRN (07:01)
[2017-02-06] MEDS ORDERED: Magnesium Sulfate 2 GM in D5% in Water 100 ML IVPB PRN (07:01)
[2017-02-06] MEDS ORDERED: Furosemide 20 MG/2 ML VIAL IVP ONE (07:47)
[2017-02-06] MEDS: Famotidine 20 MG TABLET PO SCH ×2 (07:58→19:35)
--- NOTE | 2017-02-06 08:06 | Urology Progress Note ---
Date of Encounter: 02/06/17 Time of Encounter: 08:03 - Assessment and Plan (1) Status post nephrectomy Current Visit: Yes Status: Resolved Assessment and plan: pt has had a remarkable recovery to up to this point. stable enough for transfer to . no need for renal replacement at this point. consider diuresis. up to chair today with PT if possible. hold diet at clears bc of nausea. WBC increased to 25. multiple possible etiologies including infection. will need to watch closely. Progress Note Subjective: nausea Narrative: pt states she doesnt feel well this AM but did not provide details. reports no pain. extubated yesterday. Objective Initial Vital Signs Temp Pulse Resp BP Pulse Ox 98.7 F 86 18 136/61 99 02/03/17 07:46 02/03/17 07:46 02/03/17 07:46 02/03/17 07:46 02/03/17 07:46 - General physical appearance Present: no distress - Abdomen Present: soft, distended (mild.) - Genitourinary Urine Appearance: Present: Clear - Additional Exam 2+ pitting edema to all 4 ext. incision intact. small ecchymosis. no obvious infection. - Labs 02/06/17 03:55 02/06/17 03:55 Diabetes panel 02/06/17 Range/Units 03:55 Sodium 138 (136-145) mEq/L Potassium 3.9 (3.5-4.5) mEq/L Chloride 113 H (98-109) mEq/L Carbon Dioxide 17 L (19-29) mEq/L BUN 19 (7-20) mg/dL Creatinine 0.91 (0.57-1.11) mg/dL Glucose 87 (70-99) mg/dL Calcium 7.5 L (8.6-10.8) mg/dL AST 54 H (5-34) Units/L ALT 103 H (0-55) Units/L Alkaline Phosphatase 85 (38-126) Units/L Albumin 2.1 L (3.5-5.0) g/dL Calcium panel 02/06/17 02/06/17 Range/Units 03:55 03:55 Calcium 7.5 L (8.6-10.8) mg/dL Phosphorus 2.7 (2.3-4.7) mg/dL Albumin 2.1 L (3.5-5.0) g/dL Pituitary panel 02/06/17 Range/Units 03:55 Sodium 138 (136-145) mEq/L Potassium 3.9 (3.5-4.5) mEq/L Chloride 113 H (98-109) mEq/L Carbon Dioxide 17 L (19-29) mEq/L BUN 19 (7-20) mg/dL Creatinine 0.91 (0.57-1.11) mg/dL Glucose 87 (70-99) mg/dL Calcium 7.5 L (8.6-10.8) mg/dL Adrenal panel 02/06/17 Range/Units 03:55 Sodium 138 (136-145) mEq/L Potassium 3.9 (3.5-4.5) mEq/L Chloride 113 H (98-109) mEq/L Carbon Dioxide 17 L (19-29) mEq/L BUN 19 (7-20) mg/dL Creatinine 0.91 (0.57-1.11) mg/dL Glucose 87 (70-99) mg/dL Calcium 7.5 L (8.6-10.8) mg/dL Total Bilirubin 0.8 (0.2-1.2) mg/dL AST 54 H (5-34) Units/L ALT 103 H (0-55) Units/L Alkaline Phosphatase 85 (38-126) Units/L Albumin 2.1 L (3.5-5.0) g/dL - VTE Documentation of Mechanical Device: Intermittent pneumatic compression device Consult Discharge Plan - Plan Referrals: Sonny Reardon MD [Primary Care Provider] -
--- NOTE | 2017-02-06 08:34 | Pulmonology Progress Note ---
<Yudy Tee - Last Filed: 02/06/17 11:04> Date of Encounter: 02/06/17 Time of Encounter: 08:29 Assessment and Plan (1) Hypovolemic shock Current Visit: Yes Status: Resolved Patient day 3 status post right nephrectomy that subsequently ended up in a laceration to her inferior vena cava from the right renal vein to the retrohepatic area. This was repaired by Dr. Mcgowan in the OR. He estimates her blood loss at 3 L. She was transfused 7 units of packed red blood cells and had 2 Cell Savers infused. During surgery her IVC was crossclamped at one time. The repair was made in the patient's abdomen was closed. She has also received 4 L of lactated Ringer's in the OR as well as 1 L of normal saline. She received 2 L of lactated Ringer's while in the ICU. She required Levofed for the first 24- 48 hours. She is now off of this and is maintaining a MAP of 65-70. She is off sedation and extubated at this time. She is maintaining her own airway. Her urine output is increasing. Nephrology is on board and optimistic. We will give the Pt Albumin and lasix follwing to diurese her. She is edematous in both upper and lower extremities, but lung sounds are clear. She is mentating appropriately. She has good bowl sounds but has not passes flatus or had a BM. I have discussed her status with her and her family and explained the procedures that are happening. She expresses understanding. Plan: Continue to monitor H&H daily. We will transfuse as needed. Fluids: off for now. We will trend transaminases. These are improving daily Monitor glucose. Nephrology on board Albumin 20 mg Lasix Clear liquid diet. Not advancing this per urology (2) Hypotension Current Visit: Yes Status: Resolved Secondary to hypovolemia from laceration to the inferior vena cava. Plan: Patient currently off pressors. She is maintaining a MAP of 65-70. 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 Plan as above (4) MARY KAY (acute kidney injury) Current Visit: Yes Status: Acute Patient's creatinine was initially elevated at 1.48 and her GFR was 33. This has improved today to a normalized creatinine. She had an increase in her urine output overnight. Pt edemaous today. We will diurese her. Renal ultrasound: Showed a cystic lesion of her left kidney but no hydronephrosis. Microscopic analysis of urine: Minimal hyaline casts. Not suspicious for acute tubular necrosis. Plan: Nephrology is on board. 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 Large lymph node involvement and abdomen. Plan: Dr. Crouch following. (6) Elevated transaminase level Current Visit: Yes Status: Acute Likely secondary to shock liver. Should resolve with fluid resuscitation efforts. Tranding down appropriately Plan: We will continue to monitor and trend. (7) Lactic acid acidosis Current Visit: Yes Status: Acute Resolved Secondary to hypovolemia. Plan : We will continue to monitor. (8) DVT prophylaxis Current Visit: Yes Status: Acute Plan : ICDs placed. Patient also on Pepcid 20 mg every 12 for GI prophylaxis. Subjective Principal diagnosis: MARY KAY Interval history: Pt extubated yesterday morning. She is doing well off of the ventilator and off of vasopressors. Pt tolerating PO clears well. Does complain of nausea, but no vomiting. Her urine output has increased. Her creatining has decreased to normal. She is edematous in both upper and lower extremitites. We will give her albumin and follow that with a dose of lasix. Her hemoglobin is sable. She does have and elevated WBC, but lung sounds are clear and her surgical site is healing well. We will continue to monitor this. Objective PUL Vital signs: Last Vital Signs Temp 98.1 F 02/06/17 08:00 Pulse 93 02/06/17 08:00 Resp 16 02/06/17 08:00 BP 123/57 02/06/17 08:00 Pulse Ox 97 02/06/17 08:00 General appearance: no acute distress Eyes: nonicteric ENT: oropharynx moist Neck: supple Effort: normal Cardiovascular: regular rate and rhythm Gastrointestinal: normoactive bowel sounds Integumentary: normal Extremities: no cyanosis, edema (pitting to hands and feet bilaterally.) Musculoskeletal: no deformities Gait: normal gait, normal posture normal mental status, non-focal exam, pupils equal and round mood appropriate, affect normal Results - Laboratory Findings CBC and BMP: 02/06/17 03:55 02/06/17 03:55 ABG ABG pH 7.40 pH Units (7.32-7.45) 02/05/17 04:31 ABG pCO2 30 mmHg (35-45) L 02/05/17 04:31 ABG pO2 96 mmHg (85-104) 02/05/17 04:31 ABG O2 Saturation 98 % (95-98) 02/05/17 04:31 PT/INR, D-dimer PT 21.0 Seconds (9.4-12.1) H 02/03/17 12:32 Abnormal lab findings: Abnormal lab results WBC 25.0 K/mcL (4.3-11.1) H 02/06/17 03:55 RBC 3.33 M/mcL (3.82-4.97) L 02/06/17 03:55 Hgb 9.8 g/dL (11.5-15.4) L 02/06/17 03:55 Hct 29.7 % (35.3-44.9) L 02/06/17 03:55 RDW 15.7 % (11.5-14.5) H 02/06/17 03:55 Plt Count 112 K/mcL (140-400) L 02/06/17 03:55 Neutrophils # 24.5 K/mcL (1.6-8.9) H 02/06/17 03:55 Nucleated RBCs/100 WBC 0.1 /100 WBC (0) H 02/06/17 03:55 Platelet Estimate Decreased (Normal) L 02/06/17 03:55 Immature Plt Fraction 8.4 % (1.1-6.1) H 02/05/17 04:10 Polychromasia 1+ (Not Present) A 02/06/17 03:55 Anisocytosis 1+ (Not Present) A 02/06/17 03:55 PT 21.0 Seconds (9.4-12.1) H 02/03/17 12:32 APTT 42.4 Seconds (26.0-36.0) H 02/03/17 12:32 ABG pCO2 30 mmHg (35-45) L 02/05/17 04:31 ABG HCO3 18.6 mEQ/L (21-27) L 02/05/17 04:31 ABG Total CO2 19.5 mEq/L (20-26) L 02/05/17 04:31 ABG Base Excess -5.4 mEq/L (-2.0 to 3.0) L 02/05/17 04:31 ABG Hematocrit 23 % (35-51) L 02/03/17 12:23 Glucose 328 mg/dL (60-95) H 02/03/17 12:23 Lactate 8.3 mmol/L (0.7-2.1) H* 02/03/17 13:39 Chloride 113 mEq/L (98-109) H 02/06/17 03:55 Carbon Dioxide 17 mEq/L (19-29) L 02/06/17 03:55 Est GFR (Non-Af Amer) 59 (> 60) L 02/06/17 03:55 Lactic Acid 3.2 mmol/L (0.5-2.2) H 02/04/17 03:45 Calcium 7.5 mg/dL (8.6-10.8) L 02/06/17 03:55 Ionized Calcium 1.09 mmol/L (1.15-1.35) L 02/06/17 03:55 AST 54 Units/L (5-34) H 02/06/17 03:55 ALT 103 Units/L (0-55) H 02/06/17 03:55 Troponin I 1.01 ng/mL (0-0.03) H* 02/04/17 09:20 Serum Total Protein 5.0 g/dL (6.0-8.3) L 02/06/17 03:55 Albumin 2.1 g/dL (3.5-5.0) L 02/06/17 03:55 Albumin/Globulin Ratio 0.7 (1.1-2.2) L 02/06/17 03:55 - Clinical Findings Intake & Output: Intake & Output 02/05/17 02/06/17 02/06/17 23:59 07:59 15:59 Intake Total 0 / 1920 832 / 832 Output Total 175 / 175 175 / 175 105 / 105 Balance 1745 / 1745 657 / 657 -105 / -105 Weight 74.389 kg - VTE Documentation of Mechanical Device: Intermittent pneumatic compression device Consult Discharge Plan - Plan Referrals: Sonny Reardon MD [Primary Care Provider] - <Jona Hood - Last Filed: 02/06/17 16:45> Objective PUL Vital signs: Last Vital Signs Temp 97.4 F L 02/06/17 12:00 Pulse 98 02/06/17 15:52 Resp 16 02/06/17 15:52 BP 142/55 02/06/17 15:00 Pulse Ox 96 02/06/17 15:52 Results - Laboratory Findings CBC and BMP: 02/06/17 03:55 02/06/17 03:55 ABG ABG pH 7.40 pH Units (7.32-7.45) 02/05/17 04:31 ABG pCO2 30 mmHg (35-45) L 02/05/17 04:31 ABG pO2 96 mmHg (85-104) 02/05/17 04:31 ABG O2 Saturation 98 % (95-98) 02/05/17 04:31 PT/INR, D-dimer PT 21.0 Seconds (9.4-12.1) H 02/03/17 12:32 Abnormal lab findings: Abnormal lab results WBC 25.0 K/mcL (4.3-11.1) H 02/06/17 03:55 RBC 3.33 M/mcL (3.82-4.97) L 02/06/17 03:55 Hgb 9.8 g/dL (11.5-15.4) L 02/06/17 03:55 Hct 29.7 % (35.3-44.9) L 02/06/17 03:55 RDW 15.7 % (11.5-14.5) H 02/06/17 03:55 Plt Count 112 K/mcL (140-400) L 02/06/17 03:55 Neutrophils # 24.5 K/mcL (1.6-8.9) H 02/06/17 03:55 Nucleated RBCs/100 WBC 0.1 /100 WBC (0) H 02/06/17 03:55 Platelet Estimate Decreased (Normal) L 02/06/17 03:55 Immature Plt Fraction 8.4 % (1.1-6.1) H 02/05/17 04:10 Polychromasia 1+ (Not Present) A 02/06/17 03:55 Anisocytosis 1+ (Not Present) A 02/06/17 03:55 PT 21.0 Seconds (9.4-12.1) H 02/03/17 12:32 APTT 42.4 Seconds (26.0-36.0) H 02/03/17 12:32 ABG pCO2 30 mmHg (35-45) L 02/05/17 04:31 ABG HCO3 18.6 mEQ/L (21-27) L 02/05/17 04:31 ABG Total CO2 19.5 mEq/L (20-26) L 02/05/17 04:31 ABG Base Excess -5.4 mEq/L (-2.0 to 3.0) L 02/05/17 04:31 ABG Hematocrit 23 % (35-51) L 02/03/17 12:23 Glucose 328 mg/dL (60-95) H 02/03/17 12:23 Lactate 8.3 mmol/L (0.7-2.1) H* 02/03/17 13:39 Chloride 113 mEq/L (98-109) H 02/06/17 03:55 Carbon Dioxide 17 mEq/L (19-29) L 02/06/17 03:55 Est GFR (Non-Af Amer) 59 (> 60) L 02/06/17 03:55 Lactic Acid 3.2 mmol/L (0.5-2.2) H 02/04/17 03:45 Calcium 7.5 mg/dL (8.6-10.8) L 02/06/17 03:55 Ionized Calcium 1.09 mmol/L (1.15-1.35) L 02/06/17 03:55 AST 54 Units/L (5-34) H 02/06/17 03:55 ALT 103 Units/L (0-55) H 02/06/17 03:55 Troponin I 1.01 ng/mL (0-0.03) H* 02/04/17 09:20 Serum Total Protein 5.0 g/dL (6.0-8.3) L 02/06/17 03:55 Albumin 2.1 g/dL (3.5-5.0) L 02/06/17 03:55 Albumin/Globulin Ratio 0.7 (1.1-2.2) L 02/06/17 03:55 - Clinical Findings Intake & Output: Intake & Output 02/06/17 02/06/17 02/06/17 07:59 15:59 23:59 Intake Total 832 / 832 815 / 815 Output Total 175 / 175 1225 / 1225 Balance 657 / 657 -410 / -410 Weight 74.389 kg - Attending Attestation I examined this patient and my medical decision-making was reviewed with the DIFFUSER OPERATOR/PA/Advanced Practice Nurse/Resident Physician. I agree with the documented findings, disposition and treatment plan as described except to the extent set forth below. Patient seen and examined. Labs, radiology, chart personally reviewed. Agree with resident's history and physical, assessment, plan with following comments: CLAY MIXER: Patient follows commands, Pulmonary: Acceptable oxygenation and ventilation Cardiovascular: stable GI: Nutrition per dietary and GI prophylaxis per routine. Patient has nausea which could be multifactorial Heme: DVT prophylaxis per routine ID: Continue antibiotics and plan to de-escalation Renal; urine out put and renal funtion reviewed. She had nephrology input. Due to significant edema, with the treatment with albumin and Lasix. Concern about volume overload. Endorcine: blood glucose is monitored Lines: all lines checked and no evidence of infections Skin: skin care to prevent pressure ulcers per nursing routine care Discussed with Dr. Crouch. I prefer to keep patient in ICU for at least another 24 hours.
--- NOTE | 2017-02-06 10:02 | Vascular/[facility] Progress Note ---
Date of Encounter: 02/06/17 Time of Encounter: 08:30 - Assessment and plan (1) Inferior vena cava injury Current Visit: Yes Status: Acute POD #3 Repair of inferior vena cava injury Advance diet as tolerated Increased WBC 18.9>25 with 2 bands Hgb stable at 9.8 Making good urine output and creatinine has returned to normal 0.91 Supportive care/pain control Increase activity as tolerated- Out of bed to chair Consider PT/OT consultation 02/06/2017. I examined this patient and my medical decision-making was reviewed with the ASSISTED LIVING CARE MANAGER/PA/Advanced Practice Nurse/Resident Physician. I agree with the documented findings, disposition and treatment plan as described except to the extent set forth below. The patient is seen and evaluated. The patient is discussed with the clinical nurse practitioner. She has made an absolutely miraculous recovery and now has a creatinine of 0.91. There is no evidence of bleeding. Continue supportive care. Armando Mcgowan MD FACS Qualifiers: Encounter type: subsequent encounter Qualified Code(s): S35.10XD - Unspecified injury of inferior vena cava, subsequent encounter - Subjective Procedure(s) Performed: Repair of inferior vena cava injury Interval history: Patient has been extubated successfully. She is resting in bed comfortably. Tolerating liquids without nausea/vomiting. Vital Signs, Last 4 Hours Temp Pulse Resp BP Pulse Ox 02/06/17 09:00 96 15 130/60 98 02/06/17 08:27 97.7 F 02/06/17 08:00 98.1 F 93 16 123/57 97 02/06/17 07:00 97 16 126/59 98 - Physical Examination General: Present: Conversant, No Apparent Distress HEENT: Present: Atraumatic, Normocephaly, Trachea midline, Pupils equal Cardiac: Present: Reg Rate and Rhythm Lungs: Present: Normal Breath Sounds, No Wheeze, Rales, Rhonchi Neuro: Present: Alert and responsive, No focal deficits noted Vascular: Present: Normal capillary refill Abdomen: Present: Soft, Other (Expected post-operative tenderness) Skin: Present: Other (Incision clean, dry and intact with mild ecchymosis noted) - VTE Documentation of Mechanical Device: Intermittent pneumatic compression device Results 02/06/17 03:55 02/06/17 03:55 Lab Results, Last 24 hours 02/05/17 02/06/17 02/06/17 11:45 03:55 03:55 WBC 25.0 H Hgb 9.7 L 9.8 L Hct 29.8 L 29.7 L Plt Count 112 L Sodium 138 Potassium 3.9 Chloride 113 H Carbon Dioxide 17 L BUN 19 Creatinine 0.91 Glucose 87 Calcium 7.5 L Magnesium Total Bilirubin 0.8 AST 54 H ALT 103 H Alkaline Phosphatase 85 02/06/17 03:55 WBC Hgb Hct Plt Count Sodium Potassium Chloride Carbon Dioxide BUN Creatinine Glucose Calcium Magnesium 2.1 Total Bilirubin AST ALT Alkaline Phosphatase Consult Discharge Plan - Plan Referrals: Sonny Reardon MD [Primary Care Provider] -
--- NOTE | 2017-02-06 10:50 | Nephrology Progress Note ---
Date of Encounter: 02/06/17 Time of Encounter: 10:48 - Assessment and Plan (1) MARY KAY (acute kidney injury) Current Visit: Yes Status: Acute Patient renal function continues to improve. Significant edema on exam due to decreased urine output and IVF (blood products and Cell Saver) given over the past 48 hours. - Stop IVF -Ok to diurese No indication for LABORER at this time. Nephrology will be following this patient from a distance. Thank you for consulting [facility]. (2) Oliguria and anuria Current Visit: Yes Status: Resolved (3) Elevated transaminase level Current Visit: Yes Status: Acute continues to improve daily (4) Hypotension Current Visit: Yes Status: Resolved Qualifiers: Hypotension type: postprocedural hypotension Qualified Code(s): I95.81 - Postprocedural hypotension (5) Status post nephrectomy Current Visit: Yes Status: Acute (6) Lactic acid acidosis Current Visit: Yes Status: Acute Subjective Principal diagnosis: MARY KAY Interval history: Patient seen and examined. Resting in bed comfortably. Answers questions appropriately. Objective - Vital Signs Vital signs: Vital Signs Temp Pulse Resp BP Pulse Ox 02/06/17 10:00 96 14 131/48 97 02/06/17 09:00 96 15 130/60 98 02/06/17 08:27 97.7 F 02/06/17 08:00 98.1 F 93 16 123/57 97 02/06/17 07:00 97 16 126/59 98 02/06/17 06:00 93 16 123/54 96 02/06/17 05:10 98.7 F 02/06/17 05:00 94 12 123/64 98 02/06/17 04:00 95 14 139/69 96 02/06/17 03:00 96 16 131/55 94 L 02/06/17 02:00 99 15 138/67 95 02/06/17 01:00 90 14 137/51 96 02/06/17 00:00 98.8 F 91 16 145/63 97 02/05/17 23:00 90 14 128/54 96 02/05/17 22:00 89 14 129/58 94 L 02/05/17 21:35 98.8 F 02/05/17 21:00 88 14 129/67 94 L 02/05/17 20:00 88 16 126/64 93 L 02/05/17 19:00 86 16 128/59 93 L 02/05/17 18:00 86 14 133/61 97 02/05/17 17:00 85 12 124/74 94 L 02/05/17 16:00 80 16 127/63 94 L 02/05/17 15:14 78 02/05/17 15:00 97.8 F 77 18 117/58 96 02/05/17 14:00 82 16 119/51 95 02/05/17 13:00 74 18 107/37 96 02/05/17 12:25 97.9 F 02/05/17 11:50 74 02/05/17 11:00 97.9 F 76 20 117/44 94 L Intake and Output 02/05/17 02/06/17 02/06/17 23:59 07:59 15:59 Intake Total 1920 / 1920 832 / 832 310 / 310 Output Total 175 / 175 175 / 175 125 / 125 Balance 1745 / 1745 657 / 657 185 / 185 Intake: IV Fluids 1080 / 1080 432 / 432 310 / 310 0.9 % Sodium Chloride 1, 1000 / 1000 432 / 432 000 ML @ 75 mls/hr IVC . [id number] ANAID Rx#: [id number] PRECEDEX 400 mcg In 100 70 / 70 ml @ 0.2 MCG/KG/HR 3.357 mls/hr IVC .Q24H ANAID Rx#: [id number] FentaNYL (PF) 1,000 MCG 10 / 10 In 0.9 % Sodium Chloride 80 ML @ Titrate IVC AD PRN Rx#:[id number] Levophed 4 MG In Dextrose 0 / 0 5% 250 ML @ 10 MCG/MIN 37.5 mls/hr IVC CONT ANAID Rx#:[id number] Calcium Gluconate 1,000 110 / 110 MG In Dextrose 5% 100 ML @ 50 mls/hr IVPB Q6HR PRN Rx#:[id number] Potassium Chloride 20 mEq 200 / 200 /100 mL 40 meq In 200 ml @ 100 mls/hr IVPB Q1H PRN Rx#:[id number] Oral 840 / 840 400 / 400 Output: Urine 75 / 75 Urethral ([place]) 75 / 75 Catheter 100 / 100 175 / 175 125 / 125 Other: Weight 74.389 kg Patient Weight 02/06/17 23:59 Weight 74.389 kg - General Appearance General appearance: Present: well-developed, well-nourished, appears started age EENT: Present: mucous membranes moist Neck: Present: no JVD, supple Respiratory: Present: clear Cardiology: Present: no murmurs, no rub, no gallops, edema (significant edema throughout entire body), regular rate, regular rhythm, normal S1, normal S2 Gastrointestinal: Present: normoactive bowel sounds, tenderness (expected post- op) Integumentary: Present: no rash, warm and dry Neurologic: Present: no focal deficit, alert and oriented x3, CN 3-12 intact Musculoskeletal: Present: no deformities, no erythema, no cyanosis, no clubbing Psychiatric: Present: mood/affect appropriate, cooperative - Lab 02/06/17 03:55 02/06/17 03:55 Most recent lab results ABG pH 7.40 pH Units (7.32-7.45) 02/05/17 04:31 ABG pCO2 30 mmHg (35-45) L 02/05/17 04:31 ABG pO2 96 mmHg (85-104) 02/05/17 04:31 ABG HCO3 18.6 mEQ/L (21-27) L 02/05/17 04:31 ABG O2 Saturation 98 % (95-98) 02/05/17 04:31 Calcium 7.5 mg/dL (8.6-10.8) L 02/06/17 03:55 Phosphorus 2.7 mg/dL (2.3-4.7) 02/06/17 03:55 Magnesium 2.1 mg/dL (1.6-2.6) 02/06/17 03:55 - VTE Documentation of Mechanical Device: Intermittent pneumatic compression device Consult Discharge Plan - Plan Referrals: Sonny Reardon MD [Primary Care Provider] -
[2017-02-06] MEDS: Ondansetron 4 MG/2 ML VIAL IVP PRN ×2 (17:29→22:06)
[2017-02-06] MEDS: *HR* HYDROmorphone 2 MG/ML SYRINGE IVP PRN (22:06)
[2017-02-07] MEDS: *HR* OxyCODONE Immed Rel 5 MG TABLET PO SCH ×5 (00:16→23:39)
[2017-02-07] MEDS: *HR* HYDROmorphone 2 MG/ML SYRINGE IVP PRN (04:08)
[2017-02-07] MEDS: *HR* Promethazine 25 MG/ML VIAL IVP PRN (04:26)
[2017-02-07] MEDS: Dexmedetomidine HCl 400 MCG/100 ML MLS IVC SCH (06:26)
[2017-02-07] MEDS: 0.9 % Sodium Chloride 1,000 ML IVC SCH (06:26)
[2017-02-07] MEDS: Norepinephrine 4 MG in D5% in Water 250 ML IVC SCH (06:27)
[2017-02-07 07:20] LABS: Hematocrit 29.4 % (35.3-44.9); Hemoglobin 9.3 g/dL (11.5-15.4); Mean Corpuscular HGB Conc 31.6 g/dL (31.6-35.5); Mean Corpuscular Hemoglobin 28.4 pg (28.0-33.3); Mean Corpuscular Volume 89.9 fL (83.0-100.0); Mean Platelet Volume 10.1 fL (9.4-12.4); Nucleated Red Blood Cells 0.1 /100 WBC (0); Platelet Count 151 K/mcL (140-400); Red Blood Count 3.27 M/mcL (3.82-4.97); Red Cell Distribution Width 15.5 % (11.5-14.5)
[2017-02-07 07:42] LABS: Alanine Aminotransferase 75 Units/L (0-55); Albumin 2.1 g/dL (3.5-5.0); Albumin/Globulin Ratio 0.7 (1.1-2.2); Alkaline Phosphatase 134 Units/L (38-126); Aspartate Amino Transferase 41 Units/L (5-34); BUN/Creatinine Ratio 19 (6-26); Bilirubin,Total 1.5 mg/dL (0.2-1.2); Blood Urea Nitrogen 17 mg/dL (7-20); Calcium 7.9 mg/dL (8.6-10.8); Carbon Dioxide 20 mEq/L (19-29); Chloride 108 mEq/L (98-109); Globulin 3.2 g/dL (2.4-3.5); Glucose 74 mg/dL (70-99); Osmolality,Calculated 280 (280-300); Phosphorous 2.4 mg/dL (2.3-4.7); Potassium 3.9 mEq/L (3.5-4.5); Sodium 135 mEq/L (136-145); Total Protein 5.3 g/dL (6.0-8.3); eGFR For African Americans > 60 (> 60); eGFR For Non-African Americans > 60 (> 60)
[2017-02-07 07:59] LABS: Lymphocytes # 1.3 K/mcL (0.6-4.6); Monocytes # 0.4 K/mcL (0.0-1.3); Neutrophils # 19.1 K/mcL (1.6-8.9); Platelet Estimate Slight Decrease (Normal)
[2017-02-07 08:00] LABS: Hypochromasia Present (Not Present)
[2017-02-07 08:05] LABS: Magnesium 1.8 mg/dL (1.6-2.6)
[2017-02-07] MEDS ORDERED: Pantoprazole 40 MG VIAL IVP SCH (09:00)
--- NOTE | 2017-02-07 09:12 | Urology Progress Note ---
Date of Encounter: 02/07/17 Time of Encounter: 09:00 - Assessment and Plan (1) MARY KAY (acute kidney injury) Current Visit: Yes Status: Acute (2) Status post nephrectomy Current Visit: Yes Status: Acute Assessment and plan: doing ok. patient recieved albumin and lasix yesterday secondary to large fluid volume. Will need to continue with icu/2N for patient care. jeannette diet Progress Note Narrative: pod 4 from right nephrectomy. patient doing ok. feeling better. was up to side of bed this morning. labs stable. Objective Initial Vital Signs Temp Pulse Resp BP Pulse Ox 98.7 F 86 18 136/61 99 02/03/17 07:46 02/03/17 07:46 02/03/17 07:46 02/03/17 07:46 02/03/17 07:46 - General physical appearance Present: well developed - Abdomen Present: soft (incision clean ) - Labs 02/07/17 07:00 02/07/17 07:00 Diabetes panel 02/07/17 Range/Units 07:00 Sodium 135 L (136-145) mEq/L Potassium 3.9 (3.5-4.5) mEq/L Chloride 108 (98-109) mEq/L Carbon Dioxide 20 (19-29) mEq/L BUN 17 (7-20) mg/dL Creatinine 0.88 (0.57-1.11) mg/dL Glucose 74 (70-99) mg/dL Calcium 7.9 L (8.6-10.8) mg/dL AST 41 H (5-34) Units/L ALT 75 H (0-55) Units/L Alkaline Phosphatase 134 H (38-126) Units/L Albumin 2.1 L (3.5-5.0) g/dL Calcium panel 02/07/17 Range/Units 07:00 Calcium 7.9 L (8.6-10.8) mg/dL Phosphorus 2.4 (2.3-4.7) mg/dL Albumin 2.1 L (3.5-5.0) g/dL Pituitary panel 02/07/17 Range/Units 07:00 Sodium 135 L (136-145) mEq/L Potassium 3.9 (3.5-4.5) mEq/L Chloride 108 (98-109) mEq/L Carbon Dioxide 20 (19-29) mEq/L BUN 17 (7-20) mg/dL Creatinine 0.88 (0.57-1.11) mg/dL Glucose 74 (70-99) mg/dL Calcium 7.9 L (8.6-10.8) mg/dL Adrenal panel 02/07/17 Range/Units 07:00 Sodium 135 L (136-145) mEq/L Potassium 3.9 (3.5-4.5) mEq/L Chloride 108 (98-109) mEq/L Carbon Dioxide 20 (19-29) mEq/L BUN 17 (7-20) mg/dL Creatinine 0.88 (0.57-1.11) mg/dL Glucose 74 (70-99) mg/dL Calcium 7.9 L (8.6-10.8) mg/dL Total Bilirubin 1.5 H D (0.2-1.2) mg/dL AST 41 H (5-34) Units/L ALT 75 H (0-55) Units/L Alkaline Phosphatase 134 H (38-126) Units/L Albumin 2.1 L (3.5-5.0) g/dL - VTE Documentation of Mechanical Device: Intermittent pneumatic compression device Consult Discharge Plan - Plan Referrals: Sonny Reardon MD [Primary Care Provider] -
[2017-02-07] MEDS ORDERED: Furosemide 20 MG/2 ML VIAL IVP ONE (09:18)
--- NOTE | 2017-02-07 09:30 | Pulmonology Progress Note ---
<Maximo Tobar - Last Filed: 02/07/17 09:27> Date of Encounter: 02/07/17 Time of Encounter: 09:27 Assessment and Plan (1) Hypovolemic shock Current Visit: Yes Status: Resolved Patient day 3 status post right nephrectomy that subsequently ended up in a laceration to her inferior vena cava from the right renal vein to the retrohepatic area. This was repaired by Dr. Mcgowan in the OR. He estimates her blood loss at 3 L. She was transfused 7 units of packed red blood cells and had 2 Cell Savers infused. During surgery her IVC was crossclamped at one time. The repair was made in the patient's abdomen was closed. She has also received 4 L of lactated Ringer's in the OR as well as 1 L of normal saline. She received 2 L of lactated Ringer's while in the ICU. She required Levofed for the first 24- 48 hours. She is now off of this and is maintaining a MAP of 65-70. She is off sedation and extubated at this time. She is maintaining her own airway. Her urine output is increasing. Nephrology is on board and optimistic. We will give the Pt Albumin and lasix follwing to diurese her. She is edematous in both upper and lower extremities, but lung sounds are clear. She is mentating appropriately. She has good bowl sounds but has not passes flatus or had a BM. I have discussed her status with her and her family and explained the procedures that are happening. She expresses understanding. Plan: resolved. Continue to monitor H&H daily. We will transfuse as needed. Fluids: off for now. We will trend transaminases. These are improving daily Monitor glucose. Nephrology on board Albumin give additional 20 mg Lasix Clear liquid diet. Not advancing this per urology (2) Hypotension Current Visit: Yes Status: Resolved Secondary to hypovolemia from laceration to the inferior vena cava. Plan: Patient currently off pressors. She is maintaining a MAP of 65-70. 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 Plan as above (4) MARY KAY (acute kidney injury) Current Visit: Yes Status: Resolved resolved. Patient's creatinine was initially elevated at 1.48 and her GFR was 33. Normalized creatinine. She had an increase in her urine output overnight. Pt edemaous today. We will diurese her. Renal ultrasound: Showed a cystic lesion of her left kidney but no hydronephrosis. Microscopic analysis of urine: Minimal hyaline casts. Not suspicious for acute tubular necrosis. 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 Large lymph node involvement and abdomen. Plan: Dr. Crouch following. (6) Elevated transaminase level Current Visit: Yes Status: Acute Likely secondary to shock liver. Should resolve with fluid resuscitation efforts. Tranding down appropriately Plan: We will continue to monitor and trend. (7) Lactic acid acidosis Current Visit: Yes Status: Resolved Resolved Secondary to hypovolemia. Plan : We will continue to monitor. (8) DVT prophylaxis Current Visit: Yes Status: Acute Plan : ICDs placed. medical prophylaxis not indicated due to postoperative anemia Patient also on protonix mg every 12 for GI prophylaxi Subjective Principal diagnosis: MARY KAY Interval history: No problems overnight. Patient complains of nausea and gastric reflux. Objective PUL Vital signs: Last Vital Signs Temp 99.0 F 02/07/17 07:57 Pulse 102 02/07/17 08:00 Resp 14 02/07/17 08:00 BP 154/72 02/07/17 08:00 Pulse Ox 97 02/07/17 08:00 General appearance: no acute distress Eyes: nonicteric ENT: oropharynx moist Neck: supple Effort: normal Auscultation: bilateral: clear Percussion: bilateral: not dull Tactile fremitus: bilateral: normal Cardiovascular: regular rate and rhythm Gastrointestinal: normoactive bowel sounds, non-distended Integumentary: normal Extremities: no cyanosis, no clubbing, edema (all four extremeties ) Musculoskeletal: no deformities, ROM normal normal mental status, non-focal exam mood appropriate, affect normal Results - Laboratory Findings CBC and BMP: 02/07/17 07:00 02/07/17 07:00 ABG ABG pH 7.40 pH Units (7.32-7.45) 02/05/17 04:31 ABG pCO2 30 mmHg (35-45) L 02/05/17 04:31 ABG pO2 96 mmHg (85-104) 02/05/17 04:31 ABG O2 Saturation 98 % (95-98) 02/05/17 04:31 PT/INR, D-dimer PT 21.0 Seconds (9.4-12.1) H 02/03/17 12:32 Abnormal lab findings: Abnormal lab results WBC 20.8 K/mcL (4.3-11.1) H 02/07/17 07:00 RBC 3.27 M/mcL (3.82-4.97) L 02/07/17 07:00 Hgb 9.3 g/dL (11.5-15.4) L 02/07/17 07:00 Hct 29.4 % (35.3-44.9) L 02/07/17 07:00 RDW 15.5 % (11.5-14.5) H 02/07/17 07:00 Neutrophils # 19.1 K/mcL (1.6-8.9) H 02/07/17 07:00 Nucleated RBCs/100 WBC 0.1 /100 WBC (0) H 02/07/17 07:00 Platelet Estimate Slight Decrease (Normal) L 02/07/17 07:00 Immature Plt Fraction 8.4 % (1.1-6.1) H 02/05/17 04:10 Polychromasia 1+ (Not Present) A 02/06/17 03:55 Hypochromasia Present (Not Present) A 02/07/17 07:00 Anisocytosis 1+ (Not Present) A 02/06/17 03:55 PT 21.0 Seconds (9.4-12.1) H 02/03/17 12:32 APTT 42.4 Seconds (26.0-36.0) H 02/03/17 12:32 ABG pCO2 30 mmHg (35-45) L 02/05/17 04:31 ABG HCO3 18.6 mEQ/L (21-27) L 02/05/17 04:31 ABG Total CO2 19.5 mEq/L (20-26) L 02/05/17 04:31 ABG Base Excess -5.4 mEq/L (-2.0 to 3.0) L 02/05/17 04:31 ABG Hematocrit 23 % (35-51) L 02/03/17 12:23 Glucose 328 mg/dL (60-95) H 02/03/17 12:23 Lactate 8.3 mmol/L (0.7-2.1) H* 02/03/17 13:39 Sodium 135 mEq/L (136-145) L 02/07/17 07:00 Lactic Acid 3.2 mmol/L (0.5-2.2) H 02/04/17 03:45 Calcium 7.9 mg/dL (8.6-10.8) L 02/07/17 07:00 Ionized Calcium 1.11 mmol/L (1.15-1.35) L 02/07/17 07:00 Total Bilirubin 1.5 mg/dL (0.2-1.2) H D 02/07/17 07:00 AST 41 Units/L (5-34) H 02/07/17 07:00 ALT 75 Units/L (0-55) H 02/07/17 07:00 Alkaline Phosphatase 134 Units/L (38-126) H 02/07/17 07:00 Troponin I 1.01 ng/mL (0-0.03) H* 02/04/17 09:20 Serum Total Protein 5.3 g/dL (6.0-8.3) L 02/07/17 07:00 Albumin 2.1 g/dL (3.5-5.0) L 02/07/17 07:00 Albumin/Globulin Ratio 0.7 (1.1-2.2) L 02/07/17 07:00 - Clinical Findings Intake & Output: Intake & Output 02/06/17 02/07/17 02/07/17 23:59 07:59 15:59 Intake Total 150 / 150 0 / 0 Output Total 650 / 650 450 / 450 Balance -500 / -500 -450 / -450 Weight 75.2 kg - VTE Documentation of Mechanical Device: Intermittent pneumatic compression device Consult Discharge Plan - Plan Referrals: Sonny Reardon MD [Primary Care Provider] - <Jona Hood - Last Filed: 02/07/17 11:09> Objective PUL Vital signs: Last Vital Signs Temp 99.0 F 02/07/17 07:57 Pulse 100 02/07/17 09:00 Resp 16 02/07/17 09:00 BP 135/64 02/07/17 09:00 Pulse Ox 95 02/07/17 09:00 Results - Laboratory Findings CBC and BMP: 02/07/17 07:00 02/07/17 07:00 ABG ABG pH 7.40 pH Units (7.32-7.45) 02/05/17 04:31 ABG pCO2 30 mmHg (35-45) L 02/05/17 04:31 ABG pO2 96 mmHg (85-104) 02/05/17 04:31 ABG O2 Saturation 98 % (95-98) 02/05/17 04:31 PT/INR, D-dimer PT 21.0 Seconds (9.4-12.1) H 02/03/17 12:32 Abnormal lab findings: Abnormal lab results WBC 20.8 K/mcL (4.3-11.1) H 02/07/17 07:00 RBC 3.27 M/mcL (3.82-4.97) L 02/07/17 07:00 Hgb 9.3 g/dL (11.5-15.4) L 02/07/17 07:00 Hct 29.4 % (35.3-44.9) L 02/07/17 07:00 RDW 15.5 % (11.5-14.5) H 02/07/17 07:00 Neutrophils # 19.1 K/mcL (1.6-8.9) H 02/07/17 07:00 Nucleated RBCs/100 WBC 0.1 /100 WBC (0) H 02/07/17 07:00 Platelet Estimate Slight Decrease (Normal) L 02/07/17 07:00 Immature Plt Fraction 8.4 % (1.1-6.1) H 02/05/17 04:10 Polychromasia 1+ (Not Present) A 02/06/17 03:55 Hypochromasia Present (Not Present) A 02/07/17 07:00 Anisocytosis 1+ (Not Present) A 02/06/17 03:55 PT 21.0 Seconds (9.4-12.1) H 02/03/17 12:32 APTT 42.4 Seconds (26.0-36.0) H 02/03/17 12:32 ABG pCO2 30 mmHg (35-45) L 02/05/17 04:31 ABG HCO3 18.6 mEQ/L (21-27) L 02/05/17 04:31 ABG Total CO2 19.5 mEq/L (20-26) L 02/05/17 04:31 ABG Base Excess -5.4 mEq/L (-2.0 to 3.0) L 02/05/17 04:31 ABG Hematocrit 23 % (35-51) L 02/03/17 12:23 Glucose 328 mg/dL (60-95) H 02/03/17 12:23 Lactate 8.3 mmol/L (0.7-2.1) H* 02/03/17 13:39 Sodium 135 mEq/L (136-145) L 02/07/17 07:00 Lactic Acid 3.2 mmol/L (0.5-2.2) H 02/04/17 03:45 Calcium 7.9 mg/dL (8.6-10.8) L 02/07/17 07:00 Ionized Calcium 1.11 mmol/L (1.15-1.35) L 02/07/17 07:00 Total Bilirubin 1.5 mg/dL (0.2-1.2) H D 02/07/17 07:00 AST 41 Units/L (5-34) H 02/07/17 07:00 ALT 75 Units/L (0-55) H 02/07/17 07:00 Alkaline Phosphatase 134 Units/L (38-126) H 02/07/17 07:00 Troponin I 1.01 ng/mL (0-0.03) H* 02/04/17 09:20 Serum Total Protein 5.3 g/dL (6.0-8.3) L 02/07/17 07:00 Albumin 2.1 g/dL (3.5-5.0) L 02/07/17 07:00 Albumin/Globulin Ratio 0.7 (1.1-2.2) L 02/07/17 07:00 - Clinical Findings Intake & Output: Intake & Output 02/06/17 02/07/17 02/07/17 23:59 07:59 15:59 Intake Total 150 / 150 0 / 0 Output Total 650 / 650 450 / 450 Balance -500 / -500 -450 / -450 Weight 75.2 kg - Attending Attestation I examined this patient and my medical decision-making was reviewed with the [employer]/PA/Advanced Practice Nurse/Resident Physician. I agree with the documented findings, disposition and treatment plan as described except to the extent set forth below. Patient seen and examined. Labs, radiology, chart personally reviewed. Agree with resident's history and physical, assessment, plan with following comments: BOAT TESTER: Patient follows commands, Pulmonary: Acceptable oxygenation and ventilation Cardiovascular: stable. Discussed with Dr. Narayanan and patient to be transferred to [address] [place] [address] GI: Nutrition per dietary and GI prophylaxis per routine Heme: DVT prophylaxis per routine Renal; urine out put and renal funtion reviewed. Continue with diuresis Endorcine: blood glucose is monitored Lines: all lines checked and no evidence of infections Skin: skin care to prevent pressure ulcers per nursing routine care Discussed with her family at the bedside.
[2017-02-07] MEDS ORDERED: *HR* HYDROmorphone 2 MG/ML SYRINGE IVP PRN (09:39)
[2017-02-07] MEDS ORDERED: *HR* Promethazine 25 MG/ML VIAL IVP PRN (09:39)
[2017-02-07] MEDS ORDERED: Calcium Gluconate 1,000 MG in D5% in Water 100 ML IVPB PRN (09:39)
[2017-02-07] MEDS ORDERED: Naloxone 0.4 MG/ML INJ IVP PRN (09:39)
[2017-02-07] MEDS: Ondansetron 4 MG/2 ML VIAL IVP PRN ×2 (12:25→18:06)
[2017-02-07 17:41] LABS: Magnesium 1.9 mg/dL (1.6-2.6); Phosphorous 2.5 mg/dL (2.3-4.7)
[2017-02-07] MEDS: Famotidine 20 MG TABLET PO SCH (20:17)
[2017-02-07] MEDS: Magnesium Sulfate 2 GM in D5% in Water 100 ML IVPB PRN (20:19)
[2017-02-08] MEDS: Ondansetron 4 MG/2 ML VIAL IVP PRN (04:24)
[2017-02-08 04:47] LABS: Hematocrit 26.6 % (35.3-44.9); Hemoglobin 8.6 g/dL (11.5-15.4); Mean Corpuscular HGB Conc 32.3 g/dL (31.6-35.5); Mean Corpuscular Hemoglobin 28.6 pg (28.0-33.3); Mean Corpuscular Volume 88.4 fL (83.0-100.0); Mean Platelet Volume 9.9 fL (9.4-12.4); Nucleated Red Blood Cells 0.1 /100 WBC (0); Platelet Count 174 K/mcL (140-400); Red Blood Count 3.01 M/mcL (3.82-4.97); Red Cell Distribution Width 15.2 % (11.5-14.5)
[2017-02-08 04:54] LABS: Ionized Calcium 1.1 mmol/L (1.15-1.35)
[2017-02-08 05:10] LABS: Magnesium 2.2 mg/dL (1.6-2.6); Phosphorous 2.9 mg/dL (2.3-4.7)
[2017-02-08 05:12] LABS: Alanine Aminotransferase 55 Units/L (0-55); Albumin/Globulin Ratio 0.6 (1.1-2.2); Alkaline Phosphatase 155 Units/L (38-126); Aspartate Amino Transferase 29 Units/L (5-34); BUN/Creatinine Ratio 19 (6-26); Bilirubin,Total 1.5 mg/dL (0.2-1.2); Blood Urea Nitrogen 15 mg/dL (7-20); Calcium 7.6 mg/dL (8.6-10.8); Carbon Dioxide 21 mEq/L (19-29); Chloride 104 mEq/L (98-109); Globulin 3.2 g/dL (2.4-3.5); Glucose 110 mg/dL (70-99); Osmolality,Calculated 277 (280-300); Potassium 3.8 mEq/L (3.5-4.5); Sodium 133 mEq/L (136-145); eGFR For African Americans > 60 (> 60); eGFR For Non-African Americans > 60 (> 60)
[2017-02-08 05:13] LABS: Albumin 1.8 g/dL (3.5-5.0)
[2017-02-08 05:14] LABS: Eosinophils # 0.4 K/mcL (0.0-0.6); Lymphocytes # 0.8 K/mcL (0.6-4.6); Monocytes # 0.4 K/mcL (0.0-1.3); Neutrophils # 17.6 K/mcL (1.6-8.9)
[2017-02-08 05:15] LABS: Platelet Estimate Normal (Normal)
[2017-02-08] MEDS: *HR* OxyCODONE Immed Rel 5 MG TABLET PO SCH ×4 (05:39→23:22)
--- NOTE | 2017-02-08 08:33 | Urology Progress Note ---
Date of Encounter: 02/08/17 Time of Encounter: 08:30 - Assessment and Plan (1) MARY KAY (acute kidney injury) Current Visit: Yes Status: Resolved (2) Status post nephrectomy Current Visit: Yes Status: Acute Assessment and plan: improving slowely. starting to mobilize fluids. continue pt/ot. will need rehab bed. hospitalist on board. Progress Note Narrative: POD 5 from right nephrectomy. Patient transferred to last night. states that she is not feeling as good today. + hallucinations this morning. much improved uop consistent with mobilization of fluids. jeannette diet. Objective Initial Vital Signs Temp Pulse Resp BP Pulse Ox 98.7 F 86 18 136/61 99 02/03/17 07:46 02/03/17 07:46 02/03/17 07:46 02/03/17 07:46 02/03/17 07:46 - General physical appearance Present: well developed - Abdomen Present: soft (incicison clean ) - Integumentary Present: other (pitting edema throughout body. ) - Labs 02/08/17 04:30 02/08/17 04:30 Diabetes panel 02/07/17 02/08/17 Range/Units 17:22 04:30 Sodium 133 L (136-145) mEq/L Potassium 3.8 3.8 (3.5-4.5) mEq/L Chloride 104 (98-109) mEq/L Carbon Dioxide 21 (19-29) mEq/L BUN 15 (7-20) mg/dL Creatinine 0.81 (0.57-1.11) mg/dL Glucose 110 H (70-99) mg/dL Calcium 7.6 L (8.6-10.8) mg/dL AST 29 (5-34) Units/L ALT 55 (0-55) Units/L Alkaline Phosphatase 155 H (38-126) Units/L Albumin 1.8 L (3.5-5.0) g/dL Calcium panel 02/07/17 02/08/17 02/08/17 Range/Units 17:22 04:30 04:30 Calcium 7.6 L (8.6-10.8) mg/dL Phosphorus 2.5 2.9 (2.3-4.7) mg/dL Albumin 1.8 L (3.5-5.0) g/dL Pituitary panel 02/07/17 02/08/17 Range/Units 17:22 04:30 Sodium 133 L (136-145) mEq/L Potassium 3.8 3.8 (3.5-4.5) mEq/L Chloride 104 (98-109) mEq/L Carbon Dioxide 21 (19-29) mEq/L BUN 15 (7-20) mg/dL Creatinine 0.81 (0.57-1.11) mg/dL Glucose 110 H (70-99) mg/dL Calcium 7.6 L (8.6-10.8) mg/dL Adrenal panel 02/07/17 02/08/17 Range/Units 17:22 04:30 Sodium 133 L (136-145) mEq/L Potassium 3.8 3.8 (3.5-4.5) mEq/L Chloride 104 (98-109) mEq/L Carbon Dioxide 21 (19-29) mEq/L BUN 15 (7-20) mg/dL Creatinine 0.81 (0.57-1.11) mg/dL Glucose 110 H (70-99) mg/dL Calcium 7.6 L (8.6-10.8) mg/dL Total Bilirubin 1.5 H (0.2-1.2) mg/dL AST 29 (5-34) Units/L ALT 55 (0-55) Units/L Alkaline Phosphatase 155 H (38-126) Units/L Albumin 1.8 L (3.5-5.0) g/dL - VTE Documentation of Mechanical Device: Intermittent pneumatic compression device Consult Discharge Plan - Plan Referrals: Sonny Reardon MD [Primary Care Provider] -
[2017-02-08] MEDS ORDERED: Pantoprazole 40 MG VIAL IVP SCH (09:00)
[2017-02-08 10:25] LABS: Phosphorous 2.5 mg/dL (2.3-4.7)
[2017-02-08] MEDS ORDERED: Furosemide 40 MG/4 ML VIAL IVP ONE (11:26)
[2017-02-08] MEDS ORDERED: Haloperidol Lactate 5 MG/ML VIAL IVP PRN (11:35)
--- NOTE | 2017-02-08 11:45 | Internal Medicine Consult Note ---
Date of Encounter: 02/08/17 Time of Encounter: 11:00 - Assessment and Plan (1) Status post nephrectomy Current Visit: Yes Status: Acute Assessment and plan: On February 03 Patient underwent right nephrectomy per Dr. Crouch secondary to uro epithelial cancer. During procedure she experienced hypovolemic shock related to laceration inferior vena cava requiring several infusions of blood. We will continue to monitor H&H and transfuse as needed hemoglobin 8.6 which is down from yesterday 9.3 the signs and symptoms of active bleeding at this time presently she is hemodynamically stable at this time goal is to maintain MEP greater than 60 continue to monitor intake and output surgical management per Dr. Crouch (2) Edema extremities Current Visit: Yes Status: Acute Assessment and plan: 1 patient has 2-3+ pitting edema of lower extremities up to hips. Patient has received large volumes of fluid as well as blood products secondary to hypovolemic shock. She is also been intubated and bedridden for 2-3 days. Protein is 5 and albumin is 1.8. 2 diuresis with Lasix and give albumin 3 protein shakes 4 consult dietary 5. Intake and output daily weight 6 PT and OT encourage ambulation (3) Delirium Current Visit: Yes Status: Acute Assessment and plan: 1 patient states that she has been experiencing episodes of confusion as well as hallucinations. Suspect this is related to ICU psychosis. Patient has been receiving opioids and other sedatives as well as Phenergan. She has had interruptions in sleep patterns which could be contributing to her delirium. 2 we will administer Haldol 1 mg IV as needed 3. 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 Large lymph node on the abdomen. Management per Dr. Crouch (5) Inferior vena cava injury Current Visit: Yes Status: Acute Assessment and plan: 1 status post surgical repair -as per Dr. Mcgowan, lower extremities pink and warm with capillary refill palpable pulses Qualifiers: Encounter type: subsequent encounter Qualified Code(s): S35.10XD - Unspecified injury of inferior vena cava, subsequent encounter (6) DVT prophylaxis Current Visit: Yes Status: Acute (7) DVT prophylaxis Current Visit: Yes Status: Acute Assessment and plan: SCD Internal Medicine - CN: HPI - Data of Consult Patient: new to practice Requesting Physician: Maldonado Crouch - Consult Narrative Reason for consult: Medical management History of present illness: Ms. Castellon is a 87 year old female past medical history of renal carcinoma coronary artery disease GERD hyperlipidemia hypertension thyroid disease. Patient underwent right nephrectomy for palliative care due to metastatic your epithelial cancer approximately 3 days ago. During the procedure patient had her vena cava injured this was subsequently repaired by Dr. Wellington Crouch. During the repair patient lost an estimated amount of 3 L of blood and she was transferred to 7 units of PRBCs as well as 2 units of Cell Saver. During recitation patient did know into V. tach cardioversion was performed. She went back into sinus rhythm and she was placed on amiodarone drip. Patient was then started on an and was transferred to ICU intubated. Over the next 2 days patient was stabilized extubated and weaned off pressors. Hemoglobin was stable no active bleeding and she did experience some MARY KAY which also was stabilized per nephrology transferred to stepdown unit. Hospitalist services have been consulted for medical management. Presently patient denies any pain or discomfort she is alert and appropriate however the patient does admit to experiencing some hallucinations and at times confusion. She does have +2+3 edema from lower extremities up to hips. Dressing to right abdomen intact with no redness or drainage noted. Lung sounds are clear heart sounds are regular S1 -S2 no gallop murmurs rubs or clicks noted. She is hemodynamically stable at this time. I reviewed this case with who agrees with plan. Past Med Surg Social Fam HX - Past Medical History Medical history: cancer, coronary artery disease, GERD, hyperlipidemia, hypertension, malignancy, thyroid disease Psychiatric history: no psych history - Past Surgical History Surgical History: breast surgery, colectomy, hysterectomy - Social History Smoking Status: Unknown if ever smoked Smokeless Tobacco Status: No Alcohol use: none Drug use: none - Cardiovascular Cardiovascular ROS IM: edema - Neurological Neurological ROS: confusion, weakness - Psychiatric Psychiatric: hallucinations Internal Medicine - CN: Meds Calcium Carbonate [Tums] 1,000 mg PO Q4HR 02/03/17 [History] Levothyroxine [Synthroid] 50 mcg PO 0630 02/03/17 [History] Allergies atenolol Adverse Reaction (Verified 02/03/17 07:36) Chest Pain codeine Adverse Reaction (Verified 02/03/17 07:36) Irritable fenofibrate [From Tricor] Adverse Reaction (Verified 02/03/17 14:21) Muscle Pain lisinopril Adverse Reaction (Verified 02/03/17 14:21) Dizziness [id number]-[id number]-Khx Reductase Inhibitor [Statins] Adverse Reaction (Verified 14:21) Muscle Pain Internal Medicine - CN: Exam - Constitutional Vitals: Temp Pulse Resp BP Pulse Ox 97.6 F 92 20 160/103 98 02/08/17 08:00 02/08/17 08:00 02/08/17 08:00 02/08/17 08:00 02/08/17 08:00 General appearance IM: Present: A&O X 3, answers questions appropriately - Neck Neck exam general surgery: Present: trachea midline - Respiratory Additional comments: Scattered crackles - Cardiovascular Cardiovascular exam IM: Present: +S1, +S2 - GI/Abdominal GI/Abdominal exam IM: Present: soft, tenderness - Extremities Exam Additional comments: Patient's 2 to 3+ pitting edema from lower extremities up to hips - Neurological Exam Neurological exam: Present: alert, oriented X3, strengths equal and symetr throughout - Psychiatric Psychiatric exam: Present: normal affect Internal Medicine - CN: Reslt - Labs CBC & Chem 7: 02/08/17 04:30 02/08/17 09:55 Labs: Short CBC 02/08/17 Range/Units 04:30 WBC 19.1 H (4.3-11.1) K/mcL Hgb 8.6 L (11.5-15.4) g/dL Hct 26.6 L (35.3-44.9) % Plt Count 174 (140-400) K/mcL Neutrophils # 17.6 H (1.6-8.9) K/mcL BMP 02/07/17 02/08/17 02/08/17 17:22 04:30 09:55 Sodium 133 L Potassium 3.8 3.8 4.0 Chloride 104 Carbon Dioxide 21 BUN 15 Creatinine 0.81 Glucose 110 H Calcium 7.6 L Liver Function 02/08/17 Range/Units 04:30 Total Bilirubin 1.5 H (0.2-1.2) mg/dL AST 29 (5-34) Units/L ALT 55 (0-55) Units/L Alkaline Phosphatase 155 H (38-126) Units/L Albumin 1.8 L (3.5-5.0) g/dL - ABG Interpretation ABG results: ABG ABG pH 7.40 pH Units (7.32-7.45) 02/05/17 04:31 ABG pCO2 30 mmHg (35-45) L 02/05/17 04:31 ABG pO2 96 mmHg (85-104) 02/05/17 04:31 ABG O2 Saturation 98 % (95-98) 02/05/17 04:31 PT/INR, D-dimer PT 21.0 Seconds (9.4-12.1) H 02/03/17 12:32 - Diagnostic Studies Other Images Additional comments: KUB X-Ray 02/03/17 13:15 IMPRESSION: Postsurgical changes. No retained surgical foreign body. D/ / Itz Salas MD / Itz Salas MD Interpreting Provider: Itz Salas MD Chest X-Ray 02/04/17 04:00 IMPRESSION: 1. No pneumothorax after line placement. 2. Bibasilar atelectasis or pneumonia. D/ / Alejo Rivas MD / Alejo Rivas MD Interpreting Provider: Alejo Rivas MD Retroperitoneum Ultrasound 02/04/17 12:15 IMPRESSION: There is an area of decreased echogenicity measuring approximately 2 cm in the left kidney, which is felt most likely to represent the parapelvic cysts seen on the recent CT examination. This is not felt to represent hydronephrosis. Normal renal echotexture. Right nephrectomy. D/ / Jin Gabriel MD / Jin Gabriel MD Interpreting Provider: Jin Gabriel MD Consult Discharge Plan - Plan Referrals: Sonny Reardon MD [Primary Care Provider] -
[2017-02-08] MEDS: Famotidine 20 MG TABLET PO SCH (19:38)
--- NOTE | 2017-02-08 23:03 | Electrocardiograph Report ---
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
[2017-02-09 04:20] LABS: Basophils % 0.2 %; Eosinophils # 0.2 K/mcL (0.0-0.6); Eosinophils % 1.1 %; Hematocrit 26.8 % (35.3-44.9); Hemoglobin 8.8 g/dL (11.5-15.4); Immature Granulocytes % 2.2 % (0-4); Lymphocytes # 0.9 K/mcL (0.6-4.6); Lymphocytes % 4.6 %; Mean Corpuscular HGB Conc 32.8 g/dL (31.6-35.5); Mean Corpuscular Hemoglobin 28.9 pg (28.0-33.3); Mean Corpuscular Volume 87.9 fL (83.0-100.0); Mean Platelet Volume 9.8 fL (9.4-12.4); Monocytes % 5.4 %; Platelet Count 211 K/mcL (140-400); Red Blood Count 3.05 M/mcL (3.82-4.97); Red Cell Distribution Width 15.2 % (11.5-14.5); Segmented Neutrophils % 86.5 %
[2017-02-09 04:23] LABS: Ionized Calcium 1.09 mmol/L (1.15-1.35)
[2017-02-09 04:30] LABS: BUN/Creatinine Ratio 18 (6-26); Blood Urea Nitrogen 14 mg/dL (7-20); Calcium 7.8 mg/dL (8.6-10.8); Carbon Dioxide 24 mEq/L (19-29); Chloride 100 mEq/L (98-109); Glucose 105 mg/dL (70-99); Magnesium 1.7 mg/dL (1.6-2.6); Osmolality,Calculated 273 (280-300); Phosphorous 2.2 mg/dL (2.3-4.7); Potassium 3.9 mEq/L (3.5-4.5); Sodium 131 mEq/L (136-145); eGFR For African Americans > 60 (> 60); eGFR For Non-African Americans > 60 (> 60)
[2017-02-09 04:42] LABS: Platelet Estimate Normal (Normal)
[2017-02-09] MEDS: *HR* OxyCODONE Immed Rel 5 MG TABLET PO SCH (05:05)
[2017-02-09] MEDS ORDERED: *HR* HYDROcodone/Acet 5/325 mg TABLET PO PRN ×2 (07:26→18:10)
--- NOTE | 2017-02-09 07:31 | Urology Progress Note ---
Date of Encounter: 02/09/17 Time of Encounter: 07:29 - Assessment and Plan (1) Status post nephrectomy Current Visit: Yes Status: Acute Assessment and plan: remove catheter. up out of bed as much as possible. advance diet to regular. social worker aide needs to start looking for placement after discharge. continue PT. PRN hydrocodone. start scheduled oxycodone. WBC trending down. apprieciate all services input. Progress Note Subjective: feels better Narrative: states nausea is less. frustrated she cant get out of bed. Objective Initial Vital Signs Temp Pulse Resp BP Pulse Ox 98.7 F 86 18 136/61 99 02/03/17 07:46 02/03/17 07:46 02/03/17 07:46 02/03/17 07:46 02/03/17 07:46 - General physical appearance Present: no distress - Abdomen Present: soft, distended (mild. incision intact. no obvious infection. ) - Genitourinary Urine Appearance: Present: Clear - Additional Exam 1+ FADI. upper ext minimal edema. - Labs 02/09/17 04:00 02/09/17 04:00 Diabetes panel 02/08/17 02/09/17 Range/Units 09:55 04:00 Sodium 131 L (136-145) mEq/L Potassium 4.0 3.9 (3.5-4.5) mEq/L Chloride 100 (98-109) mEq/L Carbon Dioxide 24 (19-29) mEq/L BUN 14 (7-20) mg/dL Creatinine 0.79 (0.57-1.11) mg/dL Glucose 105 H (70-99) mg/dL Calcium 7.8 L (8.6-10.8) mg/dL Calcium panel 02/08/17 02/08/17 02/09/17 Range/Units 09:55 17:08 04:00 Calcium 7.8 L (8.6-10.8) mg/dL Phosphorus 2.5 2.5 2.2 L (2.3-4.7) mg/dL Pituitary panel 02/08/17 02/09/17 Range/Units 09:55 04:00 Sodium 131 L (136-145) mEq/L Potassium 4.0 3.9 (3.5-4.5) mEq/L Chloride 100 (98-109) mEq/L Carbon Dioxide 24 (19-29) mEq/L BUN 14 (7-20) mg/dL Creatinine 0.79 (0.57-1.11) mg/dL Glucose 105 H (70-99) mg/dL Calcium 7.8 L (8.6-10.8) mg/dL Adrenal panel 02/08/17 02/09/17 Range/Units 09:55 04:00 Sodium 131 L (136-145) mEq/L Potassium 4.0 3.9 (3.5-4.5) mEq/L Chloride 100 (98-109) mEq/L Carbon Dioxide 24 (19-29) mEq/L BUN 14 (7-20) mg/dL Creatinine 0.79 (0.57-1.11) mg/dL Glucose 105 H (70-99) mg/dL Calcium 7.8 L (8.6-10.8) mg/dL - VTE Documentation of Mechanical Device: Intermittent pneumatic compression device Consult Discharge Plan - Plan Referrals: Sonny Reardon MD [Primary Care Provider] -
[2017-02-09] MEDS: Furosemide 40 MG/4 ML VIAL IVP SCH ×2 (08:48→16:30)
[2017-02-09] MEDS: Magnesium Sulfate 2 GM in D5% in Water 100 ML IVPB PRN (08:49)
[2017-02-09] MEDS ORDERED: Furosemide 40 MG/4 ML VIAL IVP SCH (09:00)
[2017-02-09] MEDS ORDERED: Pantoprazole 40 MG VIAL IVP SCH (09:00)
[2017-02-09] MEDS ORDERED: Albumin 25% 25gram/100mL 25 GM/100 ML IV.SOLN IVPB SCH (09:00)
--- NOTE | 2017-02-09 10:13 | Event Note ---
<Lavinia Box Azalea - Last Filed: 02/09/17 10:07> Date of Encounter: 02/09/17 Time of Encounter: 10:07 The patient's creatinine has continued to improve the past several days. Her MARY KAY has resolved. She will need outpatient follow-up with Dr. Willett 1-2 months after discharge to help protect her remaining kidney. Nephrology will sign off. Thank-you for consulting [facility]. <Faustino Patrick - Last Filed: 02/16/17 21:08> Date of Encounter: 02/16/17 - Attending Attestation I examined this patient and my medical decision-making was reviewed with the [employer]PORATE [employer]ISING [employer]/PA/Advanced Practice Nurse/Resident Physician. I agree with the documented findings, disposition and treatment plan as described except to the extent set forth below.
[2017-02-09] MEDS: Ondansetron 4 MG/2 ML VIAL IVP PRN (14:08)
--- NOTE | 2017-02-09 14:55 | Internal Med Progress Note ---
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 Patient underwent right nephrectomy on 02/03/2017 complicated by accidental IVC injury with bleeding requiring multiple blood(7 units) and fluid transfusions, s/p repair. Improving clincially. Hsopitalist service consutled for medical management. Delirium: Patient has episodes of confusion, visual hallucinations, appears to be inhospital delirium. Will reorient, supportive measures. Haldol PRN for agitation. d/c promethazine, anticholinergics. Use lowest dose of pain meds as tolearted to avoid further worsening of confusion. LE edema: Extensive b/l LE edema. No known hx of heart failure. Could be ralted to the surgery requiring clamping of her IVC. Albumin rmeains low. Started on albumin and lasix. Will start on protein supplementation with meals. Monitor for response. IVC injury s/p repair: Surgery following. Uroepithelial cancer s/p nephrectomy Anemia: Acute on chronic in setting of blood loss. Hb 8.5 today. No indications for transfusion, continue to monitor Leukocytosis: Stress related. No evidence of infection. Monitor for now. Trending down. Hyponatremia: In setting of volume overload. Started on lasix, monitor. Hypocalcemia: Related to transfusions. On supplemental calcium. Transaminitis: Likely related to hypotensive shock with hepatic cell damage. Monitor, trending down. alk phos remains elavated , monitor. DVT Prophylaxis: SCD's. 25 - 35 minutes - Subjective Interval history: seen and examined at bedside. Denies any complaints. LE edema slightly better, still continues to have swelling extending up to the abdomen. - Constitutional Vitals: Temp Pulse Resp BP Pulse Ox 97.9 F 85 15 137/64 93 L 02/09/17 12:00 02/09/17 12:00 02/09/17 12:00 02/09/17 12:00 02/09/17 12:00 General appearance: Present: A&O X 3, answers questions appropriately - Head Head exam: Present: atraumatic, normocephalic - Eye Eye exam: Present: PERRL, conjuntiva pink, sclera anicteric Pupils: Present: PERRL - Neck Neck exam general surgery: Present: supple, trachea midline. Absent: lymphadenopathy - Respiratory Respiratory exam: Present: CTAB. Absent: accessory muscle use, rales, rhonchi, wheezes - Cardiovascular Cardiovascular exam: Present: RRR, +S1, +S2. Absent: diastolic murmur, gallop, rubs, systolic murmur - GI/Abdominal GI/Abdominal exam: Present: normal bowel sounds, soft, no peritoneal signs. Absent: distended, tenderness - Extremities Exam Extremities exam: Present: pedal edema, warm, radial pulses palpable and symetrical. Absent: calf tenderness, cyanotic - Neurological Exam Neurological exam: Present: CN II-XII intact, oriented X3, no focal deficits. Absent: pronater drift, facial droop, speech deficit - Skin Skin exam: Present: dry, intact Internal Medicine: Result - Labs CBC & Chem 7: 02/09/17 04:00 02/09/17 04:00 Labs: Short CBC 02/09/17 Range/Units 04:00 WBC 18.5 H (4.3-11.1) K/mcL Hgb 8.8 L (11.5-15.4) g/dL Hct 26.8 L (35.3-44.9) % Plt Count 211 (140-400) K/mcL Neutrophils # 16.0 H (1.6-8.9) K/mcL BMP 02/09/17 04:00 Sodium 131 L Potassium 3.9 Chloride 100 Carbon Dioxide 24 BUN 14 Creatinine 0.79 Glucose 105 H Calcium 7.8 L - ABG Interpretation ABG results: ABG ABG pH 7.40 pH Units (7.32-7.45) 02/05/17 04:31 ABG pCO2 30 mmHg (35-45) L 02/05/17 04:31 ABG pO2 96 mmHg (85-104) 02/05/17 04:31 ABG O2 Saturation 98 % (95-98) 02/05/17 04:31 PT/INR, D-dimer PT 21.0 Seconds (9.4-12.1) H 02/03/17 12:32 - VTE Documentation of Mechanical Device: Intermittent pneumatic compression device Consult Discharge Plan - Plan Referrals: Sonny Reardon MD [Primary Care Provider] - (SENT WEB REQUEST ON 02-09-17 @ 2180)
[2017-02-09 15:48] LABS: Magnesium 2.2 mg/dL (1.6-2.6); Phosphorous 2.7 mg/dL (2.3-4.7)
[2017-02-09 15:57] LABS: Ionized Calcium 1.1 mmol/L (1.15-1.35)
[2017-02-09] MEDS ORDERED: Ondansetron 4 MG/2 ML VIAL IVP PRN (18:10)
[2017-02-09] MEDS ORDERED: Naloxone 0.4 MG/ML INJ IVP PRN (18:10)
[2017-02-09] MEDS ORDERED: Haloperidol Lactate 5 MG/ML VIAL IVP PRN (18:10)
[2017-02-09] MEDS ORDERED: Magnesium Sulfate 2 GM in D5% in Water 100 ML IVPB PRN (18:10)
[2017-02-09] MEDS ORDERED: *HR* Promethazine 25 MG/ML VIAL IVP PRN (18:10)
[2017-02-09] MEDS ORDERED: Calcium Gluconate 1,000 MG in D5% in Water 100 ML IVPB PRN (18:10)
[2017-02-09] MEDS: Famotidine 20 MG TABLET PO SCH (21:01)
[2017-02-10 05:20] LABS: Hematocrit 25.7 % (35.3-44.9); Hemoglobin 8.6 g/dL (11.5-15.4); Immature Granulocytes % 4.2 % (0-4); Lymphocytes % 6.3 %; Mean Corpuscular HGB Conc 33.5 g/dL (31.6-35.5); Mean Corpuscular Hemoglobin 29.2 pg (28.0-33.3); Mean Corpuscular Volume 87.1 fL (83.0-100.0); Mean Platelet Volume 10.1 fL (9.4-12.4); Platelet Count 248 K/mcL (140-400); Red Blood Count 2.95 M/mcL (3.82-4.97); Red Cell Distribution Width 14.9 % (11.5-14.5); Segmented Neutrophils % 84.1 %
[2017-02-10 05:21] LABS: Basophils % 0.2 %; Eosinophils % 0.2 %; Lymphocytes # 1.2 K/mcL (0.6-4.6); Neutrophils # 16.4 K/mcL (1.6-8.9); Nucleated Red Blood Cells 0.2 /100 WBC (0)
[2017-02-10 05:32] LABS: BUN/Creatinine Ratio 17 (6-26); Blood Urea Nitrogen 15 mg/dL (7-20); Calcium 8.3 mg/dL (8.6-10.8); Carbon Dioxide 26 mEq/L (19-29); Chloride 98 mEq/L (98-109); Glucose 122 mg/dL (70-99); Osmolality,Calculated 280 (280-300); Potassium 3.6 mEq/L (3.5-4.5); Sodium 134 mEq/L (136-145); eGFR For African Americans > 60 (> 60); eGFR For Non-African Americans > 60 (> 60)
[2017-02-10 05:53] LABS: Platelet Estimate Normal (Normal)
[2017-02-10] MEDS ORDERED: Furosemide 40 MG/4 ML VIAL IVP SCH (08:00)
[2017-02-10] MEDS: Albumin 25% 25gram/100mL 25 GM/100 ML IV.SOLN IVPB SCH (11:15)
[2017-02-10] MEDS: Pantoprazole 40 MG VIAL IVP SCH (11:15)
--- NOTE | 2017-02-10 12:57 | Internal Med Progress Note ---
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 Patient underwent right nephrectomy on 02/03/2017 complicated by accidental IVC injury with bleeding requiring multiple blood(7 units) and fluid transfusions, s/p repair. Improving clincially. Hsopitalist service consutled for medical management. Delirium: Patient has episodes of confusion, visual hallucinations, appears to be inhospital delirium. Will reorient, supportive measures. Haldol PRN for agitation. d/c promethazine, anticholinergics. Use lowest dose of pain meds as tolearted to avoid further worsening of confusion. LE edema: Extensive b/l LE edema. No known hx of heart failure. Could be ralted to the surgery requiring clamping of her IVC. Albumin remains low. Started on albumin and lasix with very good response. significantly improved. Last dose tomorrow. On protein supplementation with meals. IVC injury s/p repair: Surgery following. Uroepithelial cancer s/p nephrectomy Anemia: Acute on chronic in setting of blood loss. Hb 8.5 today. No indications for transfusion, continue to monitor Leukocytosis: Stress related. No evidence of infection. Monitor for now. Trending down. Hyponatremia: In setting of volume overload. Started on lasix, monitor. Hypocalcemia: Related to transfusions. On supplemental calcium. Transaminitis: Likely related to hypotensive shock with hepatic cell damage. Monitor, trending down. alk phos remains elavated , monitor. DVT Prophylaxis: SCD's. - Time Spent With Patient 25 - 35 minutes - Subjective Interval history: seen and examined at bedside. Denies any complaints. LE edema slightly better, still continues to have swelling extending up to the abdomen. - Constitutional Vitals: Temp Pulse Resp BP Pulse Ox 97.3 F L 99 18 126/64 93 L 02/10/17 12:18 02/10/17 12:18 02/10/17 12:18 02/10/17 12:18 02/10/17 12:18 General appearance: Present: A&O X 3, answers questions appropriately - Head Head exam: Present: atraumatic, normocephalic - Eye Eye exam: Present: PERRL, conjuntiva pink, sclera anicteric Pupils: Present: PERRL - Neck Neck exam general surgery: Present: supple, trachea midline. Absent: lymphadenopathy - Respiratory Respiratory exam: Present: CTAB. Absent: accessory muscle use, rales, rhonchi, wheezes - Cardiovascular Cardiovascular exam: Present: RRR, +S1, +S2. Absent: diastolic murmur, gallop, rubs, systolic murmur - GI/Abdominal GI/Abdominal exam: Present: normal bowel sounds, soft, no peritoneal signs. Absent: distended, tenderness - Extremities Exam Extremities exam: Present: warm, radial pulses palpable and symetrical. Absent : calf tenderness, cyanotic, pedal edema - Neurological Exam Neurological exam: Present: CN II-XII intact, oriented X3, no focal deficits. Absent: pronater drift, facial droop, speech deficit - Skin Skin exam: Present: dry, intact Internal Medicine: Result - Labs CBC & Chem 7: 02/10/17 04:54 02/10/17 04:54 Labs: Short CBC 02/10/17 Range/Units 04:54 WBC 19.5 H (4.3-11.1) K/mcL Hgb 8.6 L (11.5-15.4) g/dL Hct 25.7 L (35.3-44.9) % Plt Count 248 (140-400) K/mcL Neutrophils # 16.4 H (1.6-8.9) K/mcL BMP 02/09/17 02/10/17 15:20 04:54 Sodium 134 L Potassium 4.0 3.6 Chloride 98 Carbon Dioxide 26 BUN 15 Creatinine 0.86 Glucose 122 H Calcium 8.3 L - ABG Interpretation ABG results: ABG ABG pH 7.40 pH Units (7.32-7.45) 02/05/17 04:31 ABG pCO2 30 mmHg (35-45) L 02/05/17 04:31 ABG pO2 96 mmHg (85-104) 02/05/17 04:31 ABG O2 Saturation 98 % (95-98) 02/05/17 04:31 PT/INR, D-dimer PT 21.0 Seconds (9.4-12.1) H 02/03/17 12:32 - Impressions Impressions Head CT 02/10/17 01:48 IMPRESSION: 1. No acute intracranial abnormality. 2. Diffuse cerebral atrophy. D/ / Roger Irene MD / Roger Irene MD Interpreting Provider: Roger Irene MD - VTE Documentation of Mechanical Device: Intermittent pneumatic compression device Consult Discharge Plan - Plan Referrals: Sonny Reardon MD [Primary Care Provider] - 02/18/17 9:40 am ()
--- NOTE | 2017-02-10 14:53 | Urology Progress Note ---
Date of Encounter: 02/10/17 Time of Encounter: 14:51 - Assessment and Plan (1) Status post nephrectomy Current Visit: Yes Status: Acute Assessment and plan: non-symptomatic anemia. OK to observe. renal function normal. ok to stop daily labs. pt worked with PT today. only moments of disorientation, otherwise oriented, cooperative, able to work with Pt and participate in recovery. Significant improvement in mental status after oxycodone stopped yesterday. Progress Note Subjective: feels better, pain is less Narrative: pt is doing better today. eating OK. mild nausea. no vomiting. has been able to sit in a chair and walk short distances with assistance. brief moments of disorientation but overall remains oriented. pt is frustrated by confusion and realizes it is occurring. worked with PT/OT today Objective Initial Vital Signs Temp Pulse Resp BP Pulse Ox 98.7 F 86 18 136/61 99 02/03/17 07:46 02/03/17 07:46 02/03/17 07:46 02/03/17 07:46 02/03/17 07:46 - General physical appearance Present: well developed, no distress - Abdomen Present: soft - Psychiatric Present: oriented to person, oriented to place - Additional Exam minimal peripheral edema - Labs 02/10/17 04:54 02/10/17 04:54 Diabetes panel 02/09/17 02/10/17 Range/Units 15:20 04:54 Sodium 134 L (136-145) mEq/L Potassium 4.0 3.6 (3.5-4.5) mEq/L Chloride 98 (98-109) mEq/L Carbon Dioxide 26 (19-29) mEq/L BUN 15 (7-20) mg/dL Creatinine 0.86 (0.57-1.11) mg/dL Glucose 122 H (70-99) mg/dL Calcium 8.3 L (8.6-10.8) mg/dL Calcium panel 02/09/17 02/10/17 Range/Units 15:20 04:54 Calcium 8.3 L (8.6-10.8) mg/dL Phosphorus 2.7 (2.3-4.7) mg/dL Pituitary panel 02/09/17 02/10/17 Range/Units 15:20 04:54 Sodium 134 L (136-145) mEq/L Potassium 4.0 3.6 (3.5-4.5) mEq/L Chloride 98 (98-109) mEq/L Carbon Dioxide 26 (19-29) mEq/L BUN 15 (7-20) mg/dL Creatinine 0.86 (0.57-1.11) mg/dL Glucose 122 H (70-99) mg/dL Calcium 8.3 L (8.6-10.8) mg/dL Adrenal panel 02/09/17 02/10/17 Range/Units 15:20 04:54 Sodium 134 L (136-145) mEq/L Potassium 4.0 3.6 (3.5-4.5) mEq/L Chloride 98 (98-109) mEq/L Carbon Dioxide 26 (19-29) mEq/L BUN 15 (7-20) mg/dL Creatinine 0.86 (0.57-1.11) mg/dL Glucose 122 H (70-99) mg/dL Calcium 8.3 L (8.6-10.8) mg/dL - VTE Documentation of Mechanical Device: Intermittent pneumatic compression device Consult Discharge Plan - Plan Referrals: Sonny Reardon MD [Primary Care Provider] - 02/18/17 9:40 am ()
[2017-02-10] MEDS: Famotidine 20 MG TABLET PO SCH (19:55)
--- NOTE | 2017-02-11 07:15 | Physician Discharge Referral ---
ExtendedCare Referral Info Transfer To: formerly [facility] Provider in Charge: kyle hernández Provider in Charge after Transfer: Other (kyle hernández) Institutional Level of Care: Skilled - Diagnosis (1) Status post nephrectomy Priority: Primary Status: Acute Prognosis: Fair Aware of Diagnosis: Patient, Family Aware of Prognosis: Patient, Family - Transfer Medications Prescriptions: Acetaminophen [Tylenol] 325 mg PO Q4HR PRN #30 tablet PRN Reason: Pain Home Medications: Calcium Carbonate [Tums] 1,000 mg PO Q4HR 02/03/17 [History] Levothyroxine [Synthroid] 50 mcg PO 0630 02/03/17 [History] Acetaminophen [Tylenol] 325 mg PO Q4HR PRN #30 tablet 02/11/17 [Rx] Allergies/Adverse Reactions: Allergies atenolol Adverse Reaction (Verified 02/03/17 07:36) Chest Pain codeine Adverse Reaction (Verified 02/03/17 07:36) Irritable fenofibrate [From Tricor] Adverse Reaction (Verified 02/03/17 14:21) Muscle Pain lisinopril Adverse Reaction (Verified 02/03/17 14:21) Dizziness Cjexnma-Wjp-Fek Reductase Inhibitor [Statins] Adverse Reaction (Verified 14:21) Muscle Pain - Respiratory Orders None Smoking Cessation: Smoking cessation has been advised. For more information, call the [employer] Tobacco Quit Line at 7-568-OXCCNOW. - Ancillary Orders May use pressure relief devices daily prn, May go on ILIANA w/family/respon green party w /meds at nurse discretion PRN, May have alcoholic beverages, May consult with Dentist, Night Shift Supervisor, Machine Straw Hat Presser PRN - Advance Directives Living Will: Yes Power of Service Counter Cashier: Yes Code Status: Full Code - Mobility Orders Ambulate - Rehabiliation Orders Rehab Potential: Fair Rehab Orders: ROM Exercises, Evaluation for Physical Therapy, Evaluation for Occupational Therapy - Diet Orders Regular CERTIFICATION: I certify that the transfer of the above named patient to an Extended Care Facility is necessary for the continuing treatment of the diagnosis listed. The above information is true and accurate reflection of patient's current condition. Confidential - Redisclosure prohibited without a patient's written consent.
--- NOTE | 2017-02-11 07:18 | Discharge Summary ---
Date of Encounter: 02/11/17 Time of Encounter: 07:16 - Discharge Diagnosis (1) Status post nephrectomy Priority: Primary Status: Resolved - Discharge Medications Prescriptions: Acetaminophen [Tylenol] 325 mg PO Q4HR PRN #30 tablet PRN Reason: Pain Home Medications: Calcium Carbonate [Tums] 1,000 mg PO Q4HR 02/03/17 [History] Levothyroxine [Synthroid] 50 mcg PO 0630 02/03/17 [History] Acetaminophen [Tylenol] 325 mg PO Q4HR PRN #30 tablet 02/11/17 [Rx] Allergies/Adverse Reactions: Allergies atenolol Adverse Reaction (Verified 02/03/17 07:36) Chest Pain codeine Adverse Reaction (Verified 02/03/17 07:36) Irritable fenofibrate [From Tricor] Adverse Reaction (Verified 02/03/17 14:21) Muscle Pain lisinopril Adverse Reaction (Verified 02/03/17 14:21) Dizziness Ttsghni-Uwm-Khn Reductase Inhibitor [Statins] Adverse Reaction (Verified 14:21) Muscle Pain - Impressions ITS Impressions Chest X-Ray 02/03/17 08:22 IMPRESSION: 1. Right subclavian central venous catheter is directed cephalad, over the course of the right internal jugular vein. Line should be repositioned. 2. Endotracheal tube tip terminates in the right mainstem bronchus. Tube should be retracted 2-3 cm. 3. No acute cardiopulmonary process. The findings were sent to the Radiology Results Communication [facility] at 8:33 am on 02/03/2017to be communicated to a licensed caregiver. D/ / 02/03/2017 08:35:08 Antonio Torres MD / Amirah Queen Interpreting Provider: Antonio Torres MD X-Ray 02/03/17 13:15 IMPRESSION: Postsurgical changes. No retained surgical foreign body. D/ / Itz Salas MD / Itz Salas MD Interpreting Provider: Itz Salas MD Chest X-Ray 02/03/17 21:13 IMPRESSION: Endotracheal tube is now in good position 2.5 cm above the gregorio. The NG tube and left central catheter are in good position. Basilar atelectasis greater left lower lobe most likely related to the recent right mainstem intubation. D/ / Itz Salas MD / Itz Salas MD Interpreting Provider: Itz Salas MD Chest X-Ray 02/04/17 04:00 IMPRESSION: 1. No pneumothorax after line placement. 2. Bibasilar atelectasis or pneumonia. D/ / Alejo Rivas MD / Alejo Rivas MD Interpreting Provider: Alejo Rivas MD Retroperitoneum Ultrasound 02/04/17 12:15 IMPRESSION: There is an area of decreased echogenicity measuring approximately 2 cm in the left kidney, which is felt most likely to represent the parapelvic cysts seen on the recent CT examination. This is not felt to represent hydronephrosis. Normal renal echotexture. Right nephrectomy. D/ / Jin Gabriel MD / Jin Gabriel MD Interpreting Provider: Jin Gabriel MD Head CT 02/10/17 01:48 IMPRESSION: 1. No acute intracranial abnormality. 2. Diffuse cerebral atrophy. D/ / Roger Irene MD / Roger Irene MD Interpreting Provider: Roger Irene MD Date of admission: 02/03/17 13:14 Primary care physician: Sonny Reardon MD Consults: 02/03/17 13:44 Consult to Pulmonology [CONS] Routine Consulting Provider: [facility] [place] Reason for Consult: ICU managment Time Notified: 13:50 Call Completed: Yes 02/04/17 07:34 Consult to Nephrology [CONS] Stat Consulting Provider: Liborio Willett Reason for Consult: no urine output overnight Call Completed: Yes 02/06/17 07:22 Consult to Occupational Therapy [CONS] Routine Comment: Evaluate, develop and implement POC Consult to Physical Therapy [CONS] Routine Comment: Evaluate, develop and implement POC 02/06/17 15:29 Consult to Motion Study Analyst [CONS] Routine Reason for SW Consult: facility placement 02/07/17 09:37 Consult to Hospitalist [CONS] Routine Consulting Provider: Hospitalist [place] Reason for Consult: anemia Call Completed: Yes 02/08/17 11:25 consult to showroom manager [Consult to Nutrition] [CONS] Routine Comment: Consulting Provider: NUTRITION Reason for Dietary Consult: PO Supplementation Discharging clinician: Maldonado Crouch Anticipated date of discharge: 02/11/17 - Patient Status Disposition: Transfer LTC Condition: Fair Functional capacity at discharge: independent ambulation Overall status at discharge: patient is progressing back to baseline - Discharge Instructions Follow Up With: Sonny Reardon MD [Primary Care Provider] - Maldonado Crouch MD [Partnered Physician] - (2 weeks) Additional Instructions: OK to shower OK to participate in rehab, PT/OT. keep incision open to air - Diet and Activity Activity: increase activity as tolerated Diet: advance to your usual diet - Hospital Course Hospital course: Ms. Castellon is a 87 year old female POD#8 open radical nephrectomy with IVC injury. recovered well considering surgery and age. labs stable. asymptomatic anemia. renal function normal. oriented with short periods of confusion. tolerating diet and participating with PT/OT. off IVF. able to ambulate with assistance. - Time Spent with Patient Total time spent providing and/or coordinating discharge services: Exam Initial Vital Signs Temp Pulse Resp BP Pulse Ox 98.7 F 86 18 136/61 99 02/03/17 07:46 02/03/17 07:46 02/03/17 07:46 02/03/17 07:46 02/03/17 07:46 - General physical appearance Present: well developed, no distress - VTE Documentation of Mechanical Device: Intermittent pneumatic compression device
[2017-02-11 07:53] VITALS: BP 174/74
[2017-02-11] MEDS ORDERED: Furosemide 40 MG/4 ML VIAL IVP SCH (09:00)
[2017-02-11] MEDS: Pantoprazole 40 MG VIAL IVP SCH (09:31)
[2017-02-11] MEDS: Albumin 25% 25gram/100mL 25 GM/100 ML IV.SOLN IVPB SCH (09:31)
--- NOTE | 2017-02-11 13:58 | Internal Med Progress Note ---
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 [facility] underwent right nephrectomy on 02/03/2017 complicated by accidental IVC injury with bleeding requiring multiple blood(7 units) and fluid transfusions, s/p repair. Improving clinically. Hospitalist service consulted for medical management. Delirium: Patient has episodes of confusion, visual hallucinations, appears to be inhospital delirium. Will reorient, supportive measures. Haldol PRN for agitation. d/c promethazine, anticholinergics. Use lowest dose of pain meds as tolearted to avoid further worsening of confusion. LE edema: Extensive b/l LE edema. No known hx of heart failure. Could be ralted to the surgery requiring clamping of her IVC. Was given albumin and lasix with very good response. significantly improved. On protein supplementation with meals. IVC injury s/p repair: Surgery following. Anemia: Acute on chronic in setting of blood loss. Hb >8. No indications for transfusion, continue to monitor Leukocytosis: Stress related. No evidence of infection. Monitor for now. Trending down. Hyponatremia: In setting of volume overload. Started on lasix, monitor. Hypocalcemia: Related to transfusions. On supplemental calcium. Transaminitis: Likely related to hypotensive shock with hepatic cell damage. Monitor, trending down. alk phos remains elavated , monitor. DVT Prophylaxis: SCD's. (2) Hypovolemic shock Current Visit: Yes Status: Resolved (3) Status post nephrectomy Current Visit: Yes Status: Resolved Assessment and plan: Uroepithelial cancer s/p nephrectomy (4) Cancer Current Visit: Yes Status: Acute Assessment and plan: follow up by urology and oncology (5) Elevated transaminase level Current Visit: Yes Status: Acute Assessment and plan: Likely related to hypotensive shock with hepatic cell damage (6) MARY KAY (acute kidney injury) Current Visit: Yes Status: Resolved Assessment and plan: resolved . likely related to shock (7) Inferior vena cava injury Current Visit: Yes Status: Acute Assessment and plan: injured during surgery Qualifiers: Encounter type: subsequent encounter Qualified Code(s): S35.10XD - Unspecified injury of inferior vena cava, subsequent encounter (8) Edema extremities Current Visit: Yes Status: Acute Assessment and plan: may continue lasix - Subjective Interval history: denies any CP or OSB, no abdominal pain , has mild back pain over right lumbar surgical wound. No fever, no dysuria or diarrhea - Constitutional Vitals: Temp Pulse Resp BP Pulse Ox 97.2 F L 89 16 174/74 91 L 02/11/17 07:52 02/11/17 07:52 02/11/17 07:52 02/11/17 07:52 02/11/17 07:52 General appearance: Present: A&O X 3, answers questions appropriately - Head Head exam: Present: atraumatic, normocephalic - Eye Eye exam: Present: PERRL, conjuntiva pink, sclera anicteric Pupils: Present: PERRL - Neck Neck exam general surgery: Present: supple, trachea midline. Absent: lymphadenopathy - Respiratory Respiratory exam: Present: CTAB. Absent: accessory muscle use, rales, rhonchi, wheezes - Cardiovascular Cardiovascular exam: Present: RRR, +S1, +S2. Absent: diastolic murmur, gallop, rubs, systolic murmur - GI/Abdominal GI/Abdominal exam: Present: normal bowel sounds, soft, no peritoneal signs. Absent: distended, tenderness - Extremities Exam Extremities exam: Present: pedal edema (+1 pitting edema in both lower extremities), warm, radial pulses palpable and symetrical. Absent: calf tenderness, cyanotic - Neurological Exam Neurological exam: Present: CN II-XII intact, oriented X3, no focal deficits. Absent: pronater drift, facial droop, speech deficit - Skin Skin exam: Present: dry. Absent: intact (large 20 cm surgical wound on right lumbar area no signs of infection ) Internal Medicine: Result - Labs CBC & Chem 7: 02/10/17 04:54 02/10/17 04:54 - ABG Interpretation ABG results: ABG ABG pH 7.40 pH Units (7.32-7.45) 02/05/17 04:31 ABG pCO2 30 mmHg (35-45) L 02/05/17 04:31 ABG pO2 96 mmHg (85-104) 02/05/17 04:31 ABG O2 Saturation 98 % (95-98) 02/05/17 04:31 PT/INR, D-dimer PT 21.0 Seconds (9.4-12.1) H 02/03/17 12:32 - Impressions Impressions Head CT 02/10/17 01:48 IMPRESSION: 1. No acute intracranial abnormality. 2. Diffuse cerebral atrophy. D/ / Roger Irene MD / Roger Irene MD Interpreting Provider: Roger Irene MD - VTE Documentation of Mechanical Device: Intermittent pneumatic compression device Consult Discharge Plan - Plan Additional Instructions: OK to shower OK to participate in rehab, PT/OT. keep incision open to air Referrals: Maldonado Crouch MD [Partnered Physician] - 02/25/17 9:15 am (2 weeks) Prescriptions: Acetaminophen [Tylenol] 325 mg PO Q4HR PRN #30 tablet PRN Reason: Pain
== END 2017-02-11 16:10 | DRG 656 ==
LOC: SAMDAY 06:35 → ICNU 13:14 → 2NNU 02-07 19:27 → 3ANU 02-09 20:51
PROVIDERS: ADMIT Urology; ATTEND Urology

== ENCOUNTER 2017-02-25 09:57 | Observation (INO) ==
[2017-02-25] MEDS ORDERED: 0.9 % Sodium Chloride 1,000 ML IVC SCH (10:15)
--- NOTE | 2017-02-25 10:33 | Emergency Department Note ---
Disposition Clinical Impression: Renal vein thrombosis Deep vein thrombosis (DVT) Qualifiers: DVT location: lower extremity Affected thrombotic vein of extremity: iliac Laterality: bilateral Chronicity: acute Qualified Code(s): I82.423 - Acute embolism and thrombosis of iliac vein, bilateral Hypotension Qualifiers: Hypotension type: unspecified hypotension type Qualified Code(s): I95.9 - Hypotension, unspecified Disposition: Admitted As Inpatient Condition: Fair General Adult HPI - General Chief complaint: ED Weakness Stated complaint: Low B/P Time Seen by Provider: 02/25/17 10:12 Source: patient, family Limitations: no limitations Nursing Notes Reviewed: Yes Vital Signs Reviewed: Yes - History of Present Illness HPI Narrative: The patient does have a history of nephrectomy several weeks ago for right- sided renal cell carcinoma and did go to her urologist office Dr. Crouch today with a blood pressure of 60 and was sent here for evaluation of possible sepsis. The patient does have some abdominal tenderness which is left lower quadrant and right upper quadrant but the tenderness is minimal. She does not have any fever. No rhinorrhea, cough sneezing. No blood in the urine or stool , dysuria or urinary frequency, vaginal bleeding or discharge. Social history: No smoking or alcohol, etc. with her daughter Pain Scale: 3 - Related Data Home Medications Medication Instructions Recorded Confirmed Calcium Carbonate [Tums] 1,000 mg PO Q4HR PRN 02/03/17 02/25/17 Levothyroxine [Synthroid] 50 mcg PO 0630 02/03/17 02/25/17 Previous Rx's Medication Instructions Recorded Acetaminophen [Tylenol] 325 mg PO Q4HR PRN #30 tablet 02/11/17 Allergies Allergy/AdvReac Type Severity Reaction Status Date / Time atenolol AdvReac Chest Pain Verified 02/25/17 10:06 codeine AdvReac Irritable Verified 02/25/17 10:06 fenofibrate [From Tricor] AdvReac Muscle Pain Verified 02/25/17 10:06 lisinopril AdvReac Dizziness Verified 02/25/17 10:06 Dofnnyn-Oeh-Rxd Reductase AdvReac Muscle Pain Verified 02/25/17 10:06 Inhibitor [Statins] Review of Systems: Constitutional: No fever Vision: No blurred vision ENT: No rhinorrhea Respiratory: No cough Allergic: No allergies : No blood in urine GI: No blood in stool Hematologic: No bruising Dermatologic: No skin rash Musculoskeletal: She does have some pain bilateral lower extremities but no different than baseline and she does have some chronic lower extremity edema which is improved Extremities: Minimal bilateral pain and edema Past Medical History - Past Medical History Medical history: Reports: cancer, coronary artery disease, GERD, hyperlipidemia , hypertension, malignancy, thyroid disease Surgical history: Reports: breast surgery, colectomy, hysterectomy Psychiatric history: Reports: no psych history LCAC RADAR OPERATOR/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 EYES: PERRL, no scleral icterus. NOSE: The nose is normal in appearance without rhinorrhea RESP: Normal chest excursion with respiration; breath sounds clear and equal bilaterally; no wheezes, rhonchi, or rales CARD: Regular rhythm, without murmurs, rub or gallop ABD: Non-distended; there is pain with palpation right upper quadrant and left lower quadrant which are both moderately soft without rigidity, rebound, guarding, else with abdomen is non-tender, soft,without rigidity, rebound or guarding. Normal appearance. SKIN: Normal for age and race; warm and dry; no apparent lesions Extremities: Minimal bilateral lower extremity symmetric edema, normal appearance without erythema - General Limitations: no limitations General appearance: alert, in no apparent distress Course Vital Signs Temperature 97.5 F L 02/25/17 10:01 Pulse Rate 106 02/25/17 10:01 Respiratory Rate 20 02/25/17 10:01 Blood Pressure 70/47 02/25/17 10:01 O2 Sat by Pulse Oximetry 98 02/25/17 10:01 Temperature 97.7 F 02/25/17 20:00 Pulse Rate 93 02/25/17 20:00 Respiratory Rate 18 02/25/17 20:00 Blood Pressure 167/70 02/25/17 20:00 O2 Sat by Pulse Oximetry 95 02/25/17 20:00 Oxygen Delivery Oxygen Delivery Room Air Medical Decision Making - MDM Narrative Medical decision making narrative: The patient's daughter denies patient has any confusion, has had some intermittent tachypnea. Several days ago did have some vomiting and diarrhea but no diarrhea today or the last several days. The patient may have sepsis and the patient does have orders for IV fluids as well as IV Zosyn and vancomycin however another possibility would be if she does have any bleeding as she does have a history of injury to the inferior vena cava during her surgery and so a CTA of the abdomen will be done. Results pending. Her blood pressure is now improved relative to the initial blood pressure here which was 70 I did review the patient's EKG showing normal sinus rhythm with a rate of 91 without acute ischemic change I did see the patient again also spoke with the radiologist and the patient does have clot going in the inferior vena cava down into both femoral veins as well as the left renal vein and I did discuss this further with Dr. Crouch the patient will be admitted to the hospitalist service and I did speak with Dr. Tee who accepted the patient for admission. I will consult Dr. Crouch and she will consult the oncologist. I did go back into the patient again explained the patient's results. I did review the lab results. The patient has been started on heparin and I did confirm with Dr. Crouch that this is okay postsurgical. [id number] Critical care time: 40 minutes - Lab Data Result diagrams: 02/25/17 10:36 02/25/17 11:20 Lab Results 02/25/17 02/25/17 02/25/17 Range/Units 10:36 10:36 11:20 WBC 7.6 (4.3-11.1) K/mcL RBC 3.26 L (3.82-4.97) M/mcL Hgb 9.1 L (11.5-15.4) g/dL Hct 30.1 L (35.3-44.9) % MCV 92.3 (83.0-100.0) fL MCH 27.9 L (28.0-33.3) pg MCHC 30.2 L (31.6-35.5) g/dL RDW 16.1 H (11.5-14.5) % Plt Count 604 H (140-400) K/mcL MPV 9.2 L (9.4-12.4) fL Immature Gran % 0.4 (0-4) % Seg Neutrophils % 73.4 % Lymphocytes % 16.9 % Monocytes % 6.1 % Eosinophils % 2.9 % Basophils % 0.3 % Neutrophils # 5.6 (1.6-8.9) K/mcL Lymphocytes # 1.3 (0.6-4.6) K/mcL Monocytes # 0.5 (0.0-1.3) K/mcL Eosinophils # 0.2 (0.0-0.6) K/mcL Basophils # 0.0 (0.0-0.2) K/mcL Sodium 137 (136-145) mEq/L Potassium 4.1 (3.5-4.5) mEq/L Chloride 101 (98-109) mEq/L Carbon Dioxide 26 (19-29) mEq/L BUN 11 (7-20) mg/dL Creatinine 1.24 H (0.57-1.11) mg/dL Est GFR ( Amer) 50 L (> 60) Est GFR (Non-Af Amer) 41 L (> 60) BUN/Creatinine Ratio 9 (6-26) Glucose 144 H (70-99) mg/dL Calculated Osmolality 286 (280-300) Lactic Acid (0.5-2.2) mmol/L Calcium 9.2 (8.6-10.8) mg/dL Phosphorus 3.1 (2.3-4.7) mg/dL Magnesium 2.0 (1.6-2.6) mg/dL Total Bilirubin 0.3 (0.2-1.2) mg/dL Direct Bilirubin 0.2 (0.0-0.5) mg/dL Indirect Bilirubin 0.1 (0.0-1.2) mg/dL AST 14 (5-34) Units/L ALT 9 (0-55) Units/L Alkaline Phosphatase 77 (38-126) Units/L Serum Total Protein 6.9 (6.0-8.3) g/dL Albumin 2.7 L (3.5-5.0) g/dL Globulin 4.2 H (2.4-3.5) g/dL Albumin/Globulin Ratio 0.6 L (1.1-2.2) Urine Color (Yellow) Urine Clarity (Clear) Urine pH (5.0-8.0) pH Units Ur Specific [place] (1.010-1.025) Urine Protein (Neg-Trace) mg/dL Urine Glucose (UA) (Normal) mg/dL Urine Ketones (Negative) mg/dL Urine Blood (Negative) Urine Nitrite (Negative) Urine Bilirubin (Negative) Urine Urobilinogen (Normal) mg/dL Ur Leukocyte Esterase (Negative) Urine Microscopic RBC (0-3) per hpf Urine Microscopic WBC (0-3) per hpf Ur Squamous Epith Cells (None-Few) per lpf Amorphous Sediment (Few) Urine Bacteria (None-Few) per hpf Hyaline Casts (None-Few) per lpf Granular Casts (None Seen) per lpf Urine Mucus (Few) Ur Culture Indicated? (NO) Specimen Rejected Hemolyzed 02/25/17 02/25/17 02/25/17 Range/Units 11:20 12:03 14:01 WBC (4.3-11.1) K/mcL RBC (3.82-4.97) M/mcL Hgb (11.5-15.4) g/dL Hct (35.3-44.9) % MCV (83.0-100.0) fL MCH (28.0-33.3) pg MCHC (31.6-35.5) g/dL RDW (11.5-14.5) % Plt Count (140-400) K/mcL MPV (9.4-12.4) fL Immature Gran % (0-4) % Seg Neutrophils % % Lymphocytes % % Monocytes % % Eosinophils % % Basophils % % Neutrophils # (1.6-8.9) K/mcL Lymphocytes # (0.6-4.6) K/mcL Monocytes # (0.0-1.3) K/mcL Eosinophils # (0.0-0.6) K/mcL Basophils # (0.0-0.2) K/mcL Sodium (136-145) mEq/L Potassium (3.5-4.5) mEq/L Chloride (98-109) mEq/L Carbon Dioxide (19-29) mEq/L BUN (7-20) mg/dL Creatinine (0.57-1.11) mg/dL Est GFR ( Amer) (> 60) Est GFR (Non-Af Amer) (> 60) BUN/Creatinine Ratio (6-26) Glucose (70-99) mg/dL Calculated Osmolality (280-300) Lactic Acid 2.1 1.9 (0.5-2.2) mmol/L Calcium (8.6-10.8) mg/dL Phosphorus (2.3-4.7) mg/dL Magnesium (1.6-2.6) mg/dL Total Bilirubin (0.2-1.2) mg/dL Direct Bilirubin (0.0-0.5) mg/dL Indirect Bilirubin (0.0-1.2) mg/dL AST (5-34) Units/L ALT (0-55) Units/L Alkaline Phosphatase (38-126) Units/L Serum Total Protein (6.0-8.3) g/dL Albumin (3.5-5.0) g/dL Globulin (2.4-3.5) g/dL Albumin/Globulin Ratio (1.1-2.2) Urine Color Yellow (Yellow) Urine Clarity Clear (Clear) Urine pH 8.0 (5.0-8.0) pH Units Ur Specific [place] 1.012 (1.010-1.025) Urine Protein 30 H (Neg-Trace) mg/dL Urine Glucose (UA) Normal (Normal) mg/dL Urine Ketones Negative (Negative) mg/dL Urine Blood Negative (Negative) Urine Nitrite Negative (Negative) Urine Bilirubin Negative (Negative) Urine Urobilinogen Normal (Normal) mg/dL Ur Leukocyte Esterase Negative (Negative) Urine Microscopic RBC 0-3 (0-3) per hpf Urine Microscopic WBC 3-5 H (0-3) per hpf Ur Squamous Epith Cells Many H (None-Few) per lpf Amorphous Sediment Moderate H (Few) Urine Bacteria None Seen (None-Few) per hpf Hyaline Casts Moderate H (None-Few) per lpf Granular Casts Few H (None Seen) per lpf Urine Mucus Many H (Few) Ur Culture Indicated? NO (NO) Specimen Rejected - Radiology Data Chest X-Ray 02/25/17 10:14 IMPRESSION: No acute cardiopulmonary findings. D/ / Perlita Torres MD / Perlita Torres MD Interpreting Provider: Perlita Torres MD Abdomen/Pelvis CTA 02/25/17 10:28 IMPRESSION: 1. Interval right nephrectomy with development of a large fluid collection within the surgical bed measuring at least 14 cm. This most likely represents a postoperative seroma, lymphocele or hematoma. Abscess cannot totally be excluded. 2. Interval development of deep venous thrombosis extending from the inferior vena cava back into the femoral veins and also the left renal vein. These findings were discussed with Mike Gaston at 2:06 p.m. 02/25/2017. 3. Diverticulosis without obvious inflammation. 4. Gas within the bladder, this likely is iatrogenic and clinical correlation is recommended to see if she has had recent instrumentation. D/ / Roger Irene MD / Roger Irene MD Interpreting Provider: Roger Irene MD
[2017-02-25] MEDS: 0.9 % Sodium Chloride 1,000 ML IVC SCH (10:51)
[2017-02-25 10:52] LABS: Basophils % 0.3 %; Eosinophils # 0.2 K/mcL (0.0-0.6); Eosinophils % 2.9 %; Hematocrit 30.1 % (35.3-44.9); Hemoglobin 9.1 g/dL (11.5-15.4); Immature Granulocytes % 0.4 % (0-4); Lymphocytes # 1.3 K/mcL (0.6-4.6); Lymphocytes % 16.9 %; Mean Corpuscular HGB Conc 30.2 g/dL (31.6-35.5); Mean Corpuscular Hemoglobin 27.9 pg (28.0-33.3); Mean Corpuscular Volume 92.3 fL (83.0-100.0); Mean Platelet Volume 9.2 fL (9.4-12.4); Monocytes # 0.5 K/mcL (0.0-1.3); Monocytes % 6.1 %; Neutrophils # 5.6 K/mcL (1.6-8.9); Platelet Count 604 K/mcL (140-400); Red Blood Count 3.26 M/mcL (3.82-4.97); Red Cell Distribution Width 16.1 % (11.5-14.5); Segmented Neutrophils % 73.4 %
[2017-02-25 12:13] LABS: Bilirubin,Urine Negative (Negative); Blood,Urine Negative (Negative); Clarity,Urine Clear (Clear); Color,Urine Yellow (Yellow); Glucose,Urine (UA) Normal (Normal); Ketones,Urine Negative (Negative); Leukocyte Esterase,Urine Negative (Negative); Nitrite,Urine Negative (Negative); Protein,Urine 30 mg/dL (Neg-Trace); Specific Gravity,Urine 1.012 (1.010-1.025); Urobilinogen,Urine Normal (Normal)
[2017-02-25 12:15] LABS: Albumin 2.7 g/dL (3.5-5.0); Albumin/Globulin Ratio 0.6 (1.1-2.2); Bilirubin,Direct 0.2 mg/dL (0.0-0.5); Bilirubin,Indirect 0.1 mg/dL (0.0-1.2); Bilirubin,Total 0.3 mg/dL (0.2-1.2); Calcium 9.2 mg/dL (8.6-10.8); Globulin 4.2 g/dL (2.4-3.5); Phosphorous 3.1 mg/dL (2.3-4.7); Potassium 4.1 mEq/L (3.5-4.5); Total Protein 6.9 g/dL (6.0-8.3)
[2017-02-25 12:16] LABS: Bacteria,Urine None Seen per hpf (None-Few); RBC,Urine 0-3 per hpf (0-3); Squamous Epithelial Cell,Urine Many per lpf (None-Few)
[2017-02-25 12:29] LABS: Granular Casts,Urine Few per lpf (None Seen); Hyaline Casts,Urine Moderate per lpf (None-Few); Mucus,Urine Many (Few)
[2017-02-25 12:30] LABS: Amorphous Sediment,Urine Moderate (Few)
[2017-02-25] MEDS ORDERED: Ondansetron 4 MG/2 ML VIAL IVP ONE (14:04)
[2017-02-25] MEDS ORDERED: *HR* Heparin 5,000 UNIT/ML VIAL IVP ONE ×2 (14:36→14:40)
[2017-02-25] MEDS ORDERED: *HR* Heparin 5,000 UNIT/ML VIAL IVP PRN (14:40)
[2017-02-25 17:01] LABS: INR 1.2; Prothrombin Time 12.7 Seconds (9.4-12.1)
[2017-02-25 17:03] LABS: Activated Partial Thrombo Time 32.8 Seconds (26.0-36.0)
[2017-02-25] MEDS: Heparin 25,000 UNIT/500 ML D5W 25,000 UNIT/500 ML MLS IVC SCH (17:19)
[2017-02-25] MEDS ORDERED: Naloxone 0.4 MG/ML INJ IVP PRN (18:43)
[2017-02-25] MEDS ORDERED: MOM Conc 10 ML UD.LIQ PO PRN (18:43)
[2017-02-25] MEDS ORDERED: Mag Hydrox/Al Hydrox/Simeth 30 ML UDC PO PRN (18:43)
--- NOTE | 2017-02-25 19:40 | Internal Med History&Physical ---
Date of Encounter: 02/25/17 Time of Encounter: 18:15 Assessment and Plan (1) Deep vein thrombosis (DVT) Current visit: Yes Status: Acute Thrombus in IVC and iliacs. Currently on IV heparin. Will ask oncology to see in AM for further management. Bedrest for now. Pain control. Qualifiers: DVT location: lower extremity Affected thrombotic vein of extremity: iliac Laterality: bilateral Chronicity: acute Qualified Code(s): I82.423 - Acute embolism and thrombosis of iliac vein, bilateral (2) Hypotension Current visit: Yes Status: Acute BP noted to be low in office. Currently is controlled. Blood cx ordered. No obvious source of infection at this time. Qualifiers: Hypotension type: other hypotension type Qualified Code(s): I95.89 - Other hypotension (3) MARY KAY (acute kidney injury) Current visit: Yes Status: Acute Creatinine higher than at discharge. Received IV fluids. Recheck in AM. (4) Renal vein thrombosis Current visit: Yes Status: Acute Currently on IV heparin drip. (5) Renal cell carcinoma Current visit: Yes Status: Chronic S/P nephrectomy. Qualifiers: Laterality: right Qualified Code(s): C64.1 - Malignant neoplasm of right kidney, except renal pelvis Internal Medicine - H&P: HPI Chief complaint: Weakness Admitted From: Emergency Dept Plans for Post Hospital Care: Home History of present illness: Ms. Castellon is a 87 year old female just recently discharged admitted from ED. She had recently had an extensive hospitalization. She had a renal cell cancer removed with injury to her IVC. She recovered and was discharged home. Today she went to follow up with Dr. Crouch and was found to be hypotensive with SBP 60. She was sent to ED for evaluation. She had complaints of abdominal pain and due to recent events CT of abdomen was performed. Extensive clot was found in IVC to iliacs. She was started on IV heparin and admitted. Currently she feels very tired. She has some abdominal discomfort but is unchanged. Denies leg pain or numbness. She also is having some nausea which has been chronic as well. No fever or chills. No vomiting or diarrhea. Son and daughter in law at bedside. Pt is high risk due to potential for further complication due to extensive clot in IVC/iliacs. Past Med Surg Social Fam HX - Past Medical History Attestation: Yes The following information was validated with the patient. Source: patient, old records reviewed, obtained from family Medical history: cancer, coronary artery disease, GERD, hyperlipidemia, hypertension, malignancy, thyroid disease Psychiatric history: no psych history - Past Surgical History Surgical History: breast surgery, cancer surgery, colectomy, hysterectomy, other (Nephrectomy for renal cell cancer.), vascular surgery - Social History Smoking Status: Unknown if ever smoked Smokeless Tobacco Status: No Alcohol use: none Drug use: none - Family History Mother Living Status: Hx Family Cardiac Disorders: Yes Internal Medicine - H&P: Meds Calcium Carbonate [Tums] 1,000 mg PO Q4HR PRN 02/03/17 [History] Levothyroxine [Synthroid] 50 mcg PO 0630 02/03/17 [History] Acetaminophen [Tylenol] 325 mg PO Q4HR PRN #30 tablet 02/11/17 [Rx] Allergies atenolol Adverse Reaction (Verified 02/25/17 10:06) Chest Pain codeine Adverse Reaction (Verified 02/25/17 10:06) Irritable fenofibrate [From Tricor] Adverse Reaction (Verified 02/25/17 10:06) Muscle Pain lisinopril Adverse Reaction (Verified 02/25/17 10:06) Dizziness Nkjtami-Nvq-Cmx Reductase Inhibitor [Statins] Adverse Reaction (Verified 10:06) Muscle Pain All Systems PM: A 10-system review of systems was performed and is negative for pertinent findings except as documented above in the HPI. - Constitutional Constitutional: anorexia, fatigue, malaise - EENT Eyes: no diplopia, no loss of vision Ears: decreased hearing Nose, mouth and throat: no dry mouth, no dysphagia, no mouth pain - Cardiovascular Cardiovascular ROS IM: no chest pain, no dyspnea, no edema - Respiratory Respiratory: no cough, no hemoptysis, no dyspnea on exertion, no wheezing - Gastrointestinal Gastrointestinal: abdominal pain, bloating, nausea, no vomiting - Genitourinary Genitourinary: no difficulty urinating, no urinary urgency - Musculoskeletal Musculoskeletal ROS IM: arthralgias, no joint swelling - Integumentary Integumentary IM: no erythema, no rash - Neurological Neurological ROS: no confusion, no tremor(s), no weakness - Endocrine Endocrine IM: fatigue, no cold intolerance - Hematologic/Lymphatic Hematologic/Lymphatic: as per HPI, no easy bleeding - Allergic/Immunologic Allergic/Immunologic: no tongue swelling, no throat swelling - Constitutional Vitals: Temp Pulse Resp BP Pulse Ox 97.8 F 88 16 182/77 97 02/25/17 16:45 02/25/17 16:45 02/25/17 17:00 02/25/17 17:00 02/25/17 16:45 General appearance: Present: A&O X 3, answers questions appropriately - Head Head exam: Present: atraumatic, normocephalic - Eye Eye exam: Present: EOMI, conjuntiva pink - ENT ENT exam: Present: mucous membranes dry - Neck Neck exam general surgery: Absent: lymphadenopathy, thyromegaly - Respiratory Respiratory exam: Present: decreased breath sounds, CTAB. Absent: rales, rhonchi, wheezes - Cardiovascular Cardiovascular exam: Present: RRR. Absent: tachycardia - GI/Abdominal GI/Abdominal exam: Present: soft, tenderness. Absent: mass - Extremities Exam Extremities exam: Present: pedal edema, warm Additional comments: Edema bilaterally with L greater than R. Good peripheral pulses. - Neurological Exam Neurological exam: Present: alert, oriented X3, no focal deficits - Psychiatric Psychiatric exam: Present: normal affect, normal mood - Skin Skin exam: Present: dry, warm. Absent: rash Internal Med - H&P Results - Labs CBC & Chem 7: 02/25/17 10:36 02/25/17 11:20
--- NOTE | 2017-02-25 20:04 | Electrocardiograph Report ---
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
[2017-02-26 01:15] LABS: Basophils % 0.4 %; Eosinophils # 0.3 K/mcL (0.0-0.6); Eosinophils % 4.7 %; Hemoglobin 8.7 g/dL (11.5-15.4); Immature Granulocytes % 0.3 % (0-4); Lymphocytes # 1.7 K/mcL (0.6-4.6); Lymphocytes % 23.8 %; Mean Corpuscular HGB Conc 31.1 g/dL (31.6-35.5); Mean Corpuscular Hemoglobin 28.4 pg (28.0-33.3); Mean Corpuscular Volume 91.5 fL (83.0-100.0); Mean Platelet Volume 9.5 fL (9.4-12.4); Monocytes # 0.6 K/mcL (0.0-1.3); Monocytes % 8.5 %; Neutrophils # 4.5 K/mcL (1.6-8.9); Platelet Count 546 K/mcL (140-400); Red Blood Count 3.06 M/mcL (3.82-4.97); Red Cell Distribution Width 16.1 % (11.5-14.5); Segmented Neutrophils % 62.3 %
[2017-02-26 01:23] LABS: INR 1.2; Prothrombin Time 12.9 Seconds (9.4-12.1)
[2017-02-26 01:27] LABS: Activated Partial Thrombo Time 74.2 Seconds (26.0-36.0)
[2017-02-26 02:06] LABS: Alanine Aminotransferase 9 Units/L (0-55); Alkaline Phosphatase 83 Units/L (38-126); Aspartate Amino Transferase 14 Units/L (5-34); BUN/Creatinine Ratio 11 (6-26); Bilirubin,Total 0.3 mg/dL (0.2-1.2); Blood Urea Nitrogen 10 mg/dL (7-20); Calcium 8.9 mg/dL (8.6-10.8); Carbon Dioxide 23 mEq/L (19-29); Chloride 103 mEq/L (98-109); Glucose 101 mg/dL (70-99); Magnesium 1.8 mg/dL (1.6-2.6); Osmolality,Calculated 279 (280-300); Potassium 4.1 mEq/L (3.5-4.5); Sodium 135 mEq/L (136-145); Total Protein 6.8 g/dL (6.0-8.3); eGFR For African Americans > 60 (> 60); eGFR For Non-African Americans 56 (> 60)
[2017-02-26 02:30] LABS: Albumin 2.5 g/dL (3.5-5.0); Albumin/Globulin Ratio 0.6 (1.1-2.2); Globulin 4.3 g/dL (2.4-3.5)
[2017-02-26] MEDS ORDERED: MOM Conc 10 ML UD.LIQ PO PRN (13:58)
--- NOTE | 2017-02-26 17:13 | Oncology Inp Consult Note ---
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 She has been a declining performance status had sustained hypotension due to bleeding and currently has extensive deep venous thrombosis. Qualifiers: Laterality: right Qualified Code(s): C64.1 - Malignant neoplasm of right kidney, except renal pelvis (2) Deep vein thrombosis (DVT) Status: Acute Assessment and plan: Patient is currently on heparin drip, due to extensive DVT and a swelling in lower extremities recommend a longer term anticoagulation with oral medication, possibly xarelto or apixiban. Anemia obtain serum ferritin levels and iron replacement therapy. Outpatient follow-up with hematology oncology for possible long-term anticoagulation and management/follow up of urothelial carcinoma of the right kidney. Qualifiers: DVT location: lower extremity Affected thrombotic vein of extremity: iliac Laterality: bilateral Chronicity: acute Qualified Code(s): I82.423 - Acute embolism and thrombosis of iliac vein, bilateral - Data of Consult Requesting Physician: Loki Wilkes DO Primary Care Provider: Sonny Reardon MD - Consult Narrative Reason for consult: dvt, kidney neoplasm History of present illness: Ms. Castellon is a 87 year old female history significant for right kidney mass status post stem CT imaging in December 2016 when patient presented with abdominal pain and hematuria the right kidney mass measured 6.2 x 6 x 5.7 cm extending into the renal pelvis there was some hydronephrosis as well. Retroperitoneal lymphadenopathy likely metastatic in origin. 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 Patient had symptoms saw from hypotension 2016 due to bleeding and laceration to the inferior vena cava during surgery. Patient was resuscitated with fluids and blood transfusion. She is currently hospitalized with the acute deep venous thrombosis when she presented to urology office with hypotension, blood pressure in the 60s and for evaluation of possible sepsis. She had some abdominal tenderness she denied any fever. A CT imaging of the abdomen showed development of deep venous thrombosis extending from inferior vena cava back to the femoral veins extending to common iliac external iliac, and femoral and also the left renal vein. Postoperative seroma fluid collection in the surgical bed. Abscess could not be excluded. Interval resolution of aortocaval lymphadenopathy. On closer consulted without findings. Hemoglobin around 8.7 with thrombocytosis. She denies any prior history of DVT. She denies any abdominal pain and has a bowel movement. She has bilateral lower extremity swelling without any pain. Past Med Surg Social Fam HX - Past Medical History Medical history: cancer, coronary artery disease, GERD, hyperlipidemia, hypertension, malignancy, thyroid disease Psychiatric history: no psych history - Past Surgical History Surgical History: breast surgery, colectomy, hysterectomy - Social History Smoking Status: Unknown if ever smoked Smokeless Tobacco Status: No Alcohol use: none Drug use: none - Family History Mother Living Status: Hx Family Cardiac Disorders: Yes Medications and Allergies Calcium Carbonate [Tums] 1,000 mg PO Q4HR PRN 02/03/17 [History] Levothyroxine [Synthroid] 50 mcg PO 0630 02/03/17 [History] Acetaminophen [Tylenol] 325 mg PO Q4HR PRN #30 tablet 02/11/17 [Rx] Allergies atenolol Adverse Reaction (Verified 02/25/17 10:06) Chest Pain codeine Adverse Reaction (Verified 02/25/17 10:06) Irritable fenofibrate [From Tricor] Adverse Reaction (Verified 02/25/17 10:06) Muscle Pain lisinopril Adverse Reaction (Verified 02/25/17 10:06) Dizziness Ndeoxxs-Sku-Uyg Reductase Inhibitor [Statins] Adverse Reaction (Verified 10:06) Muscle Pain Review of systems: as above Oncology - Exam - Constitutional Vitals: Temp Pulse Resp BP Pulse Ox 97.5 F L 88 16 159/62 94 02/26/17 15:45 02/26/17 15:45 02/26/17 15:45 02/26/17 15:45 02/26/17 15:45 General appearance: average body habitus - Head Head exam: Present: atraumatic, normal inspection - Eye Eye exam: Present: sclera anicteric - ENT ENT exam: Present: normal exam - Neck Neck exam: Present: full ROM - Respiratory Respiratory exam: Present: CTAB - Cardiovascular Cardiovascular exam: Present: +S1, +S2 - GI/Abdominal GI/Abdominal exam: Present: normal bowel sounds, soft - Extremities Exam Extremities exam: Present: pedal edema - Neurological Exam Neurological exam: Present: alert, CN II-XII intact, oriented X3 - Psychiatric Psychiatric exam: Present: normal affect Oncology - Results - Labs Labs: Short CBC 02/26/17 Range/Units 00:49 WBC 7.3 (4.3-11.1) K/mcL Hgb 8.7 L (11.5-15.4) g/dL Hct 28.0 L (35.3-44.9) % Plt Count 546 H (140-400) K/mcL Neutrophils # 4.5 (1.6-8.9) K/mcL BMP 02/26/17 00:49 Sodium 135 L Potassium 4.1 Chloride 103 Carbon Dioxide 23 BUN 10 Creatinine 0.94 Glucose 101 H Calcium 8.9 Liver Function 02/26/17 Range/Units 00:49 Total Bilirubin 0.3 (0.2-1.2) mg/dL AST 14 (5-34) Units/L ALT 9 (0-55) Units/L Alkaline Phosphatase 83 (38-126) Units/L Albumin 2.5 L (3.5-5.0) g/dL Consult Discharge Plan - Plan Referrals: Sonny Reardon MD [Primary Care Provider] -
[2017-02-26] MEDS: Heparin 25,000 UNIT/500 ML D5W 25,000 UNIT/500 ML MLS IVC SCH (19:43)
--- NOTE | 2017-02-26 20:06 | Internal Med Progress Note ---
Date of Encounter: 02/26/17 Time of Encounter: 08:30 - Assessment and plan (1) Deep vein thrombosis (DVT) Current Visit: Yes Status: Acute Assessment and plan: Continue on heparin drip. Hematology consult for renal cell cancer and thrombus. Will anticipate transition to oral med soon. Qualifiers: DVT location: lower extremity Affected thrombotic vein of extremity: iliac Laterality: bilateral Chronicity: acute Qualified Code(s): I82.423 - Acute embolism and thrombosis of iliac vein, bilateral (2) Hypotension Current Visit: Yes Status: Resolved Assessment and plan: Continue to monitor BP. Qualifiers: Hypotension type: other hypotension type Qualified Code(s): I95.89 - Other hypotension (3) MARY KAY (acute kidney injury) Current Visit: Yes Status: Acute Assessment and plan: Creatinine improved today. Continue to observe. (4) Renal vein thrombosis Current Visit: Yes Status: Acute Assessment and plan: Heparin drip with plans to transition to oral. (5) Renal cell carcinoma Current Visit: Yes Status: Chronic Assessment and plan: To follow with oncology as outpatient. Qualifiers: Laterality: right Qualified Code(s): C64.1 - Malignant neoplasm of right kidney, except renal pelvis - Subjective Interval history: Ms. Castellon is currently admitted for acute IVC thrombus. She is high risk due to potential complications of thrombus. Ms. Castellon feels very tired but no other acute issues. She denies pain. No cough. No fever or chills. Legs still swollen some. - Constitutional Vitals: Temp Pulse Resp BP Pulse Ox 97.5 F L 88 16 159/62 94 02/26/17 15:45 02/26/17 15:45 02/26/17 15:45 02/26/17 15:45 02/26/17 16:00 General appearance: Present: A&O X 3, answers questions appropriately - Head Head exam: Present: atraumatic, normocephalic - Eye Eye exam: Present: EOMI, conjuntiva pink - ENT ENT exam: Present: mucous membranes dry - Respiratory Respiratory exam: Present: decreased breath sounds, CTAB - Cardiovascular Cardiovascular exam: Present: RRR. Absent: systolic murmur, tachycardia - GI/Abdominal GI/Abdominal exam: Present: normal bowel sounds, soft. Absent: tenderness - Extremities Exam Extremities exam: Present: pedal edema, warm. Absent: tenderness - Neurological Exam Neurological exam: Present: alert, oriented X3, no focal deficits - Psychiatric Psychiatric exam: Present: normal affect, normal mood - Skin Skin exam: Present: warm. Absent: rash Internal Medicine: Result - Labs CBC & Chem 7: 02/26/17 00:49 02/26/17 00:49 Labs: Short CBC 02/26/17 Range/Units 00:49 WBC 7.3 (4.3-11.1) K/mcL Hgb 8.7 L (11.5-15.4) g/dL Hct 28.0 L (35.3-44.9) % Plt Count 546 H (140-400) K/mcL Neutrophils # 4.5 (1.6-8.9) K/mcL BMP 02/26/17 00:49 Sodium 135 L Potassium 4.1 Chloride 103 Carbon Dioxide 23 BUN 10 Creatinine 0.94 Glucose 101 H Calcium 8.9 Liver Function 02/26/17 Range/Units 00:49 Total Bilirubin 0.3 (0.2-1.2) mg/dL AST 14 (5-34) Units/L ALT 9 (0-55) Units/L Alkaline Phosphatase 83 (38-126) Units/L Albumin 2.5 L (3.5-5.0) g/dL - ABG Interpretation ABG results: PT/INR, D-dimer PT 12.9 Seconds (9.4-12.1) H 02/26/17 00:49 - VTE Documentation of Mechanical Device: Graduated compression elastic hosiery Consult Discharge Plan - Plan Referrals: Sonny Reardon MD [Primary Care Provider] -
[2017-02-27 05:27] LABS: Hematocrit 26.2 % (35.3-44.9); Hemoglobin 8.3 g/dL (11.5-15.4); Mean Corpuscular HGB Conc 31.7 g/dL (31.6-35.5); Mean Corpuscular Hemoglobin 28.3 pg (28.0-33.3); Mean Corpuscular Volume 89.4 fL (83.0-100.0); Mean Platelet Volume 9.2 fL (9.4-12.4); Platelet Count 556 K/mcL (140-400); Red Blood Count 2.93 M/mcL (3.82-4.97); Red Cell Distribution Width 15.9 % (11.5-14.5)
[2017-02-27 05:42] LABS: BUN/Creatinine Ratio 15 (6-26); Blood Urea Nitrogen 12 mg/dL (7-20); Calcium 8.8 mg/dL (8.6-10.8); Carbon Dioxide 25 mEq/L (19-29); Chloride 101 mEq/L (98-109); Glucose 122 mg/dL (70-99); Magnesium 1.6 mg/dL (1.6-2.6); Osmolality,Calculated 281 (280-300); Potassium 3.9 mEq/L (3.5-4.5); Sodium 135 mEq/L (136-145); eGFR For African Americans > 60 (> 60); eGFR For Non-African Americans > 60 (> 60)
--- NOTE | 2017-02-27 07:23 | Urology Progress Note ---
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 appreciate ONC/hospitalists recommendations. no new input from urology. because patient is stable, recommend observing fluid collection seen on CT scan. Qualifiers: Laterality: right Qualified Code(s): C64.1 - Malignant neoplasm of right kidney, except renal pelvis Progress Note Narrative: pt resting comfortably Objective Initial Vital Signs Temp Pulse Resp BP Pulse Ox 97.5 F L 106 20 70/47 98 02/25/17 10:01 02/25/17 10:01 02/25/17 10:01 02/25/17 10:01 02/25/17 10:01 - General physical appearance Present: no distress - Labs 02/27/17 05:16 02/27/17 05:16 Diabetes panel 02/27/17 Range/Units 05:16 Sodium 135 L (136-145) mEq/L Potassium 3.9 (3.5-4.5) mEq/L Chloride 101 (98-109) mEq/L Carbon Dioxide 25 (19-29) mEq/L BUN 12 (7-20) mg/dL Creatinine 0.82 (0.57-1.11) mg/dL Glucose 122 H (70-99) mg/dL Calcium 8.8 (8.6-10.8) mg/dL Calcium panel 02/27/17 Range/Units 05:16 Calcium 8.8 (8.6-10.8) mg/dL Pituitary panel 02/27/17 Range/Units 05:16 Sodium 135 L (136-145) mEq/L Potassium 3.9 (3.5-4.5) mEq/L Chloride 101 (98-109) mEq/L Carbon Dioxide 25 (19-29) mEq/L BUN 12 (7-20) mg/dL Creatinine 0.82 (0.57-1.11) mg/dL Glucose 122 H (70-99) mg/dL Calcium 8.8 (8.6-10.8) mg/dL Adrenal panel 02/27/17 Range/Units 05:16 Sodium 135 L (136-145) mEq/L Potassium 3.9 (3.5-4.5) mEq/L Chloride 101 (98-109) mEq/L Carbon Dioxide 25 (19-29) mEq/L BUN 12 (7-20) mg/dL Creatinine 0.82 (0.57-1.11) mg/dL Glucose 122 H (70-99) mg/dL Calcium 8.8 (8.6-10.8) mg/dL - VTE Documentation of Mechanical Device: Graduated compression elastic hosiery Consult Discharge Plan - Plan Referrals: Sonny Reardon MD [Primary Care Provider] -
[2017-02-27 08:38] LABS: Activated Partial Thrombo Time 244.5 Seconds (26.0-36.0)
[2017-02-27] MEDS: Ondansetron 4 MG/2 ML VIAL IVP PRN (08:42)
[2017-02-27] MEDS ORDERED: Metoclopramide 10 MG/2 ML VIAL IVP ONE (09:01)
[2017-02-27 09:04] LABS: Heparin anti-factor XA UFH 1.37 IU/mL (0.30-0.70)
[2017-02-27 10:22] LABS: Activated Partial Thrombo Time 256.5 Seconds (26.0-36.0)
[2017-02-27 10:28] LABS: Heparin anti-factor XA UFH 1.44 IU/mL (0.30-0.70)
--- NOTE | 2017-02-27 20:02 | Internal Med Progress Note ---
Date of Encounter: 02/27/17 Time of Encounter: 08:30 - Assessment and plan (1) Nausea & vomiting Current Visit: Yes Status: Acute Assessment and plan: Will give clear liquids and reglan. GI consult if not improved. Qualifiers: Vomiting type: bilious vomiting Qualified Code(s): R11.14 - Bilious vomiting (2) Deep vein thrombosis (DVT) Current Visit: Yes Status: Acute Assessment and plan: Continue on heparin drip. Will transition to Apixiban when taking PO better. Qualifiers: DVT location: lower extremity Affected thrombotic vein of extremity: iliac Laterality: bilateral Chronicity: acute Qualified Code(s): I82.423 - Acute embolism and thrombosis of iliac vein, bilateral (3) Hypotension Current Visit: Yes Status: Resolved Assessment and plan: Continue to monitor BP. Qualifiers: Hypotension type: other hypotension type Qualified Code(s): I95.89 - Other hypotension (4) MARY KAY (acute kidney injury) Current Visit: Yes Status: Resolved Assessment and plan: Resolved (5) Renal vein thrombosis Current Visit: Yes Status: Acute Assessment and plan: Heparin drip with plans to transition to oral. (6) Renal cell carcinoma Current Visit: Yes Status: Chronic Assessment and plan: To follow with oncology as outpatient. Qualifiers: Laterality: right Qualified Code(s): C64.1 - Malignant neoplasm of right kidney, except renal pelvis - Subjective Interval history: Ms. Castellon is currently admitted for acute IVC thrombus. She is high risk due to potential complications of thrombus. Ms. Castellon had nausea and emesis of undigested food this AM. Denies new pain. No fever or chills. Not eating a lot now. - Constitutional Vitals: Temp Pulse Resp BP Pulse Ox 97.5 F L 90 16 153/70 97 02/27/17 15:58 02/27/17 15:58 02/27/17 15:58 02/27/17 15:58 02/27/17 15:58 General appearance: Present: A&O X 3, answers questions appropriately - Head Head exam: Present: normocephalic - Eye Eye exam: Present: conjuntiva pink - ENT ENT exam: Present: mucous membranes dry - Respiratory Respiratory exam: Present: decreased breath sounds, CTAB - Cardiovascular Cardiovascular exam: Present: RRR. Absent: tachycardia - GI/Abdominal GI/Abdominal exam: Present: soft, tenderness Additional comments: Incision site pain. - Extremities Exam Extremities exam: Present: pedal edema, warm - Neurological Exam Neurological exam: Present: alert, oriented X3, no focal deficits - Psychiatric Psychiatric exam: Present: normal affect, normal mood - Skin Skin exam: Present: warm. Absent: rash Internal Medicine: Result - Labs CBC & Chem 7: 02/27/17 05:16 02/27/17 05:16 Labs: Short CBC 02/27/17 Range/Units 05:16 WBC 7.5 (4.3-11.1) K/mcL Hgb 8.3 L (11.5-15.4) g/dL Hct 26.2 L (35.3-44.9) % Plt Count 556 H (140-400) K/mcL BMP 02/27/17 05:16 Sodium 135 L Potassium 3.9 Chloride 101 Carbon Dioxide 25 BUN 12 Creatinine 0.82 Glucose 122 H Calcium 8.8 - ABG Interpretation ABG results: PT/INR, D-dimer PT 12.9 Seconds (9.4-12.1) H 02/26/17 00:49 - VTE Documentation of Mechanical Device: Graduated compression elastic hosiery Consult Discharge Plan - Plan Referrals: Sonny Reardon MD [Primary Care Provider] -
[2017-02-27] MEDS ORDERED: APIXABAN 5 MG TABLET PO SCH (21:00)
[2017-02-28 00:48] LABS: Hematocrit 25.6 % (35.3-44.9); Mean Corpuscular HGB Conc 31.3 g/dL (31.6-35.5); Mean Corpuscular Hemoglobin 28.3 pg (28.0-33.3); Mean Corpuscular Volume 90.5 fL (83.0-100.0); Mean Platelet Volume 9.6 fL (9.4-12.4); Platelet Count 570 K/mcL (140-400); Red Blood Count 2.83 M/mcL (3.82-4.97); Red Cell Distribution Width 15.8 % (11.5-14.5)
[2017-02-28 01:04] LABS: BUN/Creatinine Ratio 13 (6-26); Blood Urea Nitrogen 12 mg/dL (7-20); Calcium 8.8 mg/dL (8.6-10.8); Carbon Dioxide 26 mEq/L (19-29); Chloride 101 mEq/L (98-109); Glucose 113 mg/dL (70-99); Osmolality,Calculated 281 (280-300); Sodium 135 mEq/L (136-145); eGFR For African Americans > 60 (> 60); eGFR For Non-African Americans 59 (> 60)
[2017-02-28 01:30] LABS: Activated Partial Thrombo Time 157.6 Seconds (26.0-36.0); Heparin anti-factor XA UFH 0.86 IU/mL (0.30-0.70)
[2017-02-28] MEDS: Metoclopramide 10 MG/2 ML VIAL IVP SCH ×5 (04:49→23:12)
[2017-02-28] MEDS: Heparin 25,000 UNIT/500 ML D5W 25,000 UNIT/500 ML MLS IVC SCH (05:59)
--- NOTE | 2017-02-28 09:39 | Internal Med Progress Note ---
Date of Encounter: 02/28/17 Time of Encounter: 09:37 - Assessment and plan (1) Nausea & vomiting Current Visit: Yes Status: Acute Assessment and plan: Seems to be doing better today with IV Reglan. Will continue same plan of care today and anticipate further GI workup in the next 24-48 hours. I am concerned with switching her to PO anticoagulant and discharging her. I worry that if she is vomiting she will not be fully anticoagulated if she cannot keep pills down. On review of CT it appears the fluid collection in R renal fossa could be an issue with causing decreased output from her stomach. It may need to be drained to decrease that pressure. PPI has helped so will continue this. Qualifiers: Vomiting type: bilious vomiting Qualified Code(s): R11.14 - Bilious vomiting (2) Anemia Current Visit: Yes Status: Acute Assessment and plan: Pt has been anemic since prior admission when she had an acute hemorrhage. Since she has been her she has had a slight decrease. She is on heparin and is having chronic nausea so I do have a concern for GI losses. Continue PPI and give IV BID. Plan further GI work up. Qualifiers: Anemia type: other cause Other causes of anemia: acute posthemorrhagic Qualified Code(s): D62 - Acute posthemorrhagic anemia (3) Deep vein thrombosis (DVT) Current Visit: Yes Status: Acute Assessment and plan: Currently on IV heparin. Qualifiers: DVT location: lower extremity Affected thrombotic vein of extremity: iliac Laterality: bilateral Chronicity: acute Qualified Code(s): I82.423 - Acute embolism and thrombosis of iliac vein, bilateral (4) Hypotension Current Visit: Yes Status: Resolved Assessment and plan: Continue to monitor BP. Hypotension has resolved. Qualifiers: Hypotension type: other hypotension type Qualified Code(s): I95.89 - Other hypotension (5) Renal vein thrombosis Current Visit: Yes Status: Acute Assessment and plan: Heparin drip with plans to transition to oral. (6) Renal cell carcinoma Current Visit: Yes Status: Chronic Assessment and plan: To follow with oncology as outpatient. Qualifiers: Laterality: right Qualified Code(s): C64.1 - Malignant neoplasm of right kidney, except renal pelvis - Subjective Interval history: Ms. Castellon is currently admitted for acute IVC thrombus. She is high risk due to potential complications of thrombus. Ms. Castellon seems to be doing a little better with the Reglan. She said she was able to keep food down this morning and her nausea is less. Denies chest pain or dyspnea. No abd pain. No fever or chills. Tolerating IV heparin. - Constitutional Vitals: Temp Pulse Resp BP Pulse Ox 97.9 F 92 15 138/62 97 02/28/17 07:31 02/28/17 07:31 02/28/17 07:31 02/28/17 07:31 02/28/17 07:31 General appearance: Present: A&O X 3, answers questions appropriately - Head Head exam: Present: normocephalic - Eye Eye exam: Present: conjuntiva pink - ENT ENT exam: Present: mucous membranes dry - Respiratory Respiratory exam: Present: decreased breath sounds, CTAB. Absent: rhonchi, wheezes - Cardiovascular Cardiovascular exam: Present: RRR. Absent: gallop, tachycardia - GI/Abdominal GI/Abdominal exam: Present: normal bowel sounds, soft. Absent: mass, tenderness - Extremities Exam Extremities exam: Present: pedal edema, warm Additional comments: Edema both lower extremities left greater than right. Seems overall less today. - Neurological Exam Neurological exam: Present: alert, oriented X3, no focal deficits - Psychiatric Psychiatric exam: Present: normal affect, normal mood - Skin Skin exam: Present: warm. Absent: rash Internal Medicine: Result - Labs CBC & Chem 7: 02/28/17 00:03 02/28/17 00:03 Labs: Short CBC 02/28/17 Range/Units 00:03 WBC 7.2 (4.3-11.1) K/mcL Hgb 8.0 L (11.5-15.4) g/dL Hct 25.6 L (35.3-44.9) % Plt Count 570 H (140-400) K/mcL BMP 02/28/17 00:03 Sodium 135 L Potassium 4.0 Chloride 101 Carbon Dioxide 26 BUN 12 Creatinine 0.91 Glucose 113 H Calcium 8.8 - ABG Interpretation ABG results: PT/INR, D-dimer PT 12.9 Seconds (9.4-12.1) H 02/26/17 00:49 - VTE Documentation of Mechanical Device: Graduated compression elastic hosiery Consult Discharge Plan - Plan Referrals: Sonny Reardon MD [Primary Care Provider] -
[2017-02-28] MEDS ORDERED: 0.9 % Sodium Chloride 500 ML ONE (13:13)
[2017-02-28] MEDS: Pantoprazole 40 MG VIAL IVP SCH (16:50)
[2017-02-28] MEDS: Acetaminophen 325 MG TABLET PO PRN (23:13)
[2017-03-01 00:28] LABS: Hematocrit 25.7 % (35.3-44.9); Mean Corpuscular HGB Conc 31.1 g/dL (31.6-35.5); Mean Corpuscular Hemoglobin 28.2 pg (28.0-33.3); Mean Corpuscular Volume 90.5 fL (83.0-100.0); Mean Platelet Volume 9.4 fL (9.4-12.4); Platelet Count 558 K/mcL (140-400); Red Blood Count 2.84 M/mcL (3.82-4.97); Red Cell Distribution Width 15.7 % (11.5-14.5)
[2017-03-01 00:43] LABS: Alanine Aminotransferase 13 Units/L (0-55); Albumin 2.4 g/dL (3.5-5.0); Albumin/Globulin Ratio 0.5 (1.1-2.2); Alkaline Phosphatase 81 Units/L (38-126); Aspartate Amino Transferase 16 Units/L (5-34); BUN/Creatinine Ratio 9 (6-26); Bilirubin,Total 0.2 mg/dL (0.2-1.2); Blood Urea Nitrogen 9 mg/dL (7-20); Calcium 8.6 mg/dL (8.6-10.8); Carbon Dioxide 24 mEq/L (19-29); Chloride 103 mEq/L (98-109); Globulin 4.4 g/dL (2.4-3.5); Glucose 119 mg/dL (70-99); Osmolality,Calculated 280 (280-300); Potassium 4.2 mEq/L (3.5-4.5); Sodium 135 mEq/L (136-145); Total Protein 6.8 g/dL (6.0-8.3); eGFR For African Americans > 60 (> 60); eGFR For Non-African Americans 56 (> 60)
[2017-03-01] MEDS: Acetaminophen 325 MG TABLET PO PRN ×3 (05:44→22:14)
[2017-03-01] MEDS: Pantoprazole 40 MG VIAL IVP SCH ×2 (05:44→17:18)
[2017-03-01] MEDS: Metoclopramide 10 MG/2 ML VIAL IVP SCH ×4 (05:44→23:55)
[2017-03-01] MEDS: Ondansetron 4 MG/2 ML VIAL IVP PRN (09:42)
--- NOTE | 2017-03-01 10:25 | Oncology Inp Progress Note ---
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 She has been a declining performance status in rehab had sustained hypotension due to bleeding and currently has extensive deep venous thrombosis, about which she is concerned about. I discussed follow up imaging in few wks and consider additional therapy once her PS improves. She i snot in any ac pain and her vitals are stable. Qualifiers: Laterality: right Qualified Code(s): C64.1 - Malignant neoplasm of right kidney, except renal pelvis (2) Deep vein thrombosis (DVT) Current Visit: Yes Status: Acute Assessment and plan: Patient is currently on heparin drip, due to extensive DVT and a swelling in lower extremities recommend a longer term anticoagulation with oral medication, possibly xarelto or apixiban. Anemia obtain serum ferritin levels and iron replacement therapy. She denies any gross bleeding or pain and vital are steady. Qualifiers: DVT location: lower extremity Affected thrombotic vein of extremity: iliac Laterality: bilateral Chronicity: acute Qualified Code(s): I82.423 - Acute embolism and thrombosis of iliac vein, bilateral Oncology: Subj Interval history: Denies pain, feeling nauseous. Denies blood in stool or jeffry - Constitutional Vitals: Vital Signs Temp Pulse Resp BP Pulse Ox 03/01/17 09:00 97 03/01/17 07:47 97.5 F L 85 15 141/70 97 03/01/17 02:54 97.6 F 90 17 124/90 96 02/28/17 22:27 97.9 F 89 17 154/62 98 02/28/17 20:42 97 02/28/17 18:45 97.8 F 96 15 149/63 95 02/28/17 15:17 98.5 F 86 15 147/58 95 02/28/17 11:33 97.9 F 90 15 145/54 97 Intake and Output 02/28/17 03/01/17 03/01/17 23:59 07:59 15:59 Intake Total 184 / 184 116.5 / 116.5 240 / 240 Output Total 0 / 0 400 / 400 Balance 184 / 184 116.5 / 116.5 -160 / -160 Intake: IV Fluids 64 / 64 116.5 / 116.5 Heparin 25,000 UNIT/500 64 / 64 116.5 / 116.5 ML D5W 25,000 unit In 500 ml @ 14 UNIT/KG/HR 16.66 mls/hr IVC .Q24H ANAID Rx# :[id number] Oral 120 / 120 0 / 0 240 / 240 Output: Urine 0 / 0 400 / 400 Other: Meal Dinner Breakfast Percent of Meal Consumed 75% 50% # Voids 1 1 Weight 59.1 kg Patient Weight 03/01/17 23:59 Weight 59.1 kg General appearance: average body habitus - Head Head exam: Present: normal inspection - Eye Eye exam: Present: sclera anicteric - ENT ENT exam: Present: mucous membranes moist - Respiratory Respiratory exam: Present: CTAB - Cardiovascular Cardiovascular exam: Present: +S1, +S2 - GI/Abdominal GI/Abdominal exam: Present: soft Additional comments: non tender - Extremities Exam Extremities exam: Present: pedal edema Oncology: Obj Data - Labs CBC & Chem 7: 03/01/17 00:18 03/01/17 00:18 Labs: Laboratory Results - last 24 hr 02/28/17 02/28/17 03/01/17 17:12 17:57 00:18 WBC 6.9 RBC 2.84 L Hgb 8.0 L Hct 25.7 L MCV 90.5 MCH 28.2 MCHC 31.1 L RDW 15.7 H Plt Count 558 H MPV 9.4 APTT 48.6 H 42.3 H Sodium Potassium Chloride Carbon Dioxide BUN Creatinine Est GFR ( Amer) Est GFR (Non-Af Amer) BUN/Creatinine Ratio Glucose Calculated Osmolality Calcium Total Bilirubin AST ALT Alkaline Phosphatase Serum Total Protein Albumin Globulin Albumin/Globulin Ratio Blood Type Antibody Screen 03/01/17 03/01/17 03/01/17 00:18 00:18 00:18 WBC RBC Hgb Hct MCV MCH MCHC RDW Plt Count MPV APTT 85.8 H D Sodium 135 L Potassium 4.2 Chloride 103 Carbon Dioxide 24 BUN 9 Creatinine 0.95 Est GFR ( Amer) > 60 Est GFR (Non-Af Amer) 56 L BUN/Creatinine Ratio 9 Glucose 119 H Calculated Osmolality 280 Calcium 8.6 Total Bilirubin 0.2 AST 16 ALT 13 Alkaline Phosphatase 81 Serum Total Protein 6.8 Albumin 2.4 L Globulin 4.4 H Albumin/Globulin Ratio 0.5 L Blood Type O POSITIVE Antibody Screen NEGATIVE 03/01/17 05:32 WBC RBC Hgb Hct MCV MCH MCHC RDW Plt Count MPV APTT 99.1 H Sodium Potassium Chloride Carbon Dioxide BUN Creatinine Est GFR ( Amer) Est GFR (Non-Af Amer) BUN/Creatinine Ratio Glucose Calculated Osmolality Calcium Total Bilirubin AST ALT Alkaline Phosphatase Serum Total Protein Albumin Globulin Albumin/Globulin Ratio Blood Type Antibody Screen - ABG Interpretation ABG results: PT/INR, D-dimer PT 12.9 Seconds (9.4-12.1) H 02/26/17 00:49 Consult Discharge Plan - Plan Referrals: Sonny Reardon MD [Primary Care Provider] -
--- NOTE | 2017-03-01 11:53 | Internal Med Progress Note ---
Date of Encounter: 03/01/17 Time of Encounter: 09:30 - Assessment and plan (1) Nausea & vomiting Current Visit: Yes Status: Acute Assessment and plan: Nauseated again today. Has overall been better with Reglan but today she feels poorly. Will continue same meds today. GI consult. NPO after midnight. Will await further GI testing prior to starting PO anticoagulant. Qualifiers: Vomiting type: bilious vomiting Qualified Code(s): R11.14 - Bilious vomiting (2) Anemia Current Visit: Yes Status: Acute Assessment and plan: Her H/H stable at this time. Continue PPI. Qualifiers: Anemia type: other cause Other causes of anemia: acute posthemorrhagic Qualified Code(s): D62 - Acute posthemorrhagic anemia (3) Deep vein thrombosis (DVT) Current Visit: Yes Status: Acute Assessment and plan: Currently on IV heparin. Qualifiers: DVT location: lower extremity Affected thrombotic vein of extremity: iliac Laterality: bilateral Chronicity: acute Qualified Code(s): I82.423 - Acute embolism and thrombosis of iliac vein, bilateral (4) Renal vein thrombosis Current Visit: Yes Status: Acute Assessment and plan: Heparin drip with plans to transition to oral. (5) Renal cell carcinoma Current Visit: Yes Status: Chronic Assessment and plan: To follow with oncology as outpatient. Qualifiers: Laterality: right Qualified Code(s): C64.1 - Malignant neoplasm of right kidney, except renal pelvis - Subjective Interval history: Ms. Castellon is currently admitted for acute IVC thrombus. She is high risk due to potential complications of thrombus. Ms. Castellon is nauseated again this AM. She is up washing up and feels like she is going to throw up. No CP or SOB. No abd pain. No fever or chills. Needs Zofran which sometimes helps and sometimes not. - Constitutional Vitals: Temp Pulse Resp BP Pulse Ox 97.7 F 91 15 154/66 97 03/01/17 11:40 03/01/17 11:40 03/01/17 11:40 03/01/17 11:40 03/01/17 11:40 General appearance: Present: A&O X 3, answers questions appropriately - Head Head exam: Present: normocephalic - Eye Eye exam: Present: EOMI, conjuntiva pink - ENT ENT exam: Present: mucous membranes dry - Respiratory Respiratory exam: Present: decreased breath sounds, CTAB. Absent: rhonchi, wheezes - Cardiovascular Cardiovascular exam: Present: RRR. Absent: systolic murmur, tachycardia - GI/Abdominal GI/Abdominal exam: Present: soft, tenderness (Tender around incision.) - Extremities Exam Extremities exam: Present: pedal edema, warm. Absent: tenderness - Neurological Exam Neurological exam: Present: alert, oriented X3, no focal deficits - Psychiatric Psychiatric exam: Present: normal affect, normal mood - Skin Skin exam: Present: warm. Absent: rash Internal Medicine: Result - Labs CBC & Chem 7: 03/01/17 00:18 03/01/17 00:18 Labs: Short CBC 03/01/17 Range/Units 00:18 WBC 6.9 (4.3-11.1) K/mcL Hgb 8.0 L (11.5-15.4) g/dL Hct 25.7 L (35.3-44.9) % Plt Count 558 H (140-400) K/mcL BMP 03/01/17 00:18 Sodium 135 L Potassium 4.2 Chloride 103 Carbon Dioxide 24 BUN 9 Creatinine 0.95 Glucose 119 H Calcium 8.6 Liver Function 03/01/17 Range/Units 00:18 Total Bilirubin 0.2 (0.2-1.2) mg/dL AST 16 (5-34) Units/L ALT 13 (0-55) Units/L Alkaline Phosphatase 81 (38-126) Units/L Albumin 2.4 L (3.5-5.0) g/dL - ABG Interpretation ABG results: PT/INR, D-dimer PT 12.9 Seconds (9.4-12.1) H 02/26/17 00:49 - VTE Documentation of Mechanical Device: Graduated compression elastic hosiery Consult Discharge Plan - Plan Referrals: Sonny Reardon MD [Primary Care Provider] -
[2017-03-01] MEDS: *HR* Heparin 5,000 UNIT/ML VIAL IVP PRN (20:57)
[2017-03-02 01:20] LABS: Hematocrit 25.2 % (35.3-44.9); Mean Corpuscular HGB Conc 31.7 g/dL (31.6-35.5); Mean Corpuscular Hemoglobin 28.8 pg (28.0-33.3); Mean Corpuscular Volume 90.6 fL (83.0-100.0); Mean Platelet Volume 9.5 fL (9.4-12.4); Platelet Count 595 K/mcL (140-400); Red Blood Count 2.78 M/mcL (3.82-4.97); Red Cell Distribution Width 15.9 % (11.5-14.5)
[2017-03-02 01:33] LABS: BUN/Creatinine Ratio 11 (6-26); Blood Urea Nitrogen 10 mg/dL (7-20); Calcium 8.9 mg/dL (8.6-10.8); Carbon Dioxide 25 mEq/L (19-29); Chloride 106 mEq/L (98-109); Glucose 111 mg/dL (70-99); Osmolality,Calculated 288 (280-300); Sodium 139 mEq/L (136-145); eGFR For African Americans > 60 (> 60); eGFR For Non-African Americans 59 (> 60)
[2017-03-02 01:47] LABS: Activated Partial Thrombo Time 174.3 Seconds (26.0-36.0)
[2017-03-02] MEDS: Acetaminophen 325 MG TABLET PO PRN ×2 (04:25→18:31)
[2017-03-02] MEDS: Pantoprazole 40 MG VIAL IVP SCH ×2 (06:04→18:31)
[2017-03-02] MEDS: Metoclopramide 10 MG/2 ML VIAL IVP SCH ×4 (06:04→23:25)
--- NOTE | 2017-03-02 11:25 | Gastroenterology Consult Note ---
<BarkleyMike crook Sarah Beth - Last Filed: 03/02/17 11:23> Date of Encounter: 03/02/17 Time of Encounter: 10:15 - Assessment and plan (1) Nausea & vomiting Current Visit: Yes Status: Acute Assessment and plan: Continue PPI and antiemetics. Plan for EGD to rule out gastric causes. CTA showed development of large fluid collection within the surgical bed of right nephrectomy measuring at least 14 cm. If EGD negative recommend fluid drainage. Qualifiers: Vomiting type: bilious vomiting Qualified Code(s): R11.14 - Bilious vomiting (2) Anemia Current Visit: Yes Status: Acute Assessment and plan: Hg 9.1 on admission, today 8. Continue to monitor CBC and transfuse PRBC as needed. Qualifiers: Anemia type: other cause Other causes of anemia: acute posthemorrhagic Qualified Code(s): D62 - Acute posthemorrhagic anemia (3) Renal vein thrombosis Current Visit: Yes Status: Acute - Time Spent With Patient Total time spent is greater than 50% in coordination of care (as documented) at patient's floor/unit and/or counseling patient: GI History of Present Illness - Data of Consult Patient: new to practice Consult date: 03/02/17 Requesting Physician: Loki Wilkes DO - Consult Narrative Reason for consult: intractable nausea and vomiting History of present illness: Ms. Castellon is a 87 year old female with PMHx of renal cell carcinoma, colon cancer CAD, GERD, HLD, HTN who was recently discharged following removal of renal cell carcinoma with injury to IVC. On 02/25 she was found to be hypotensive with SBP 60 and was sent to ED for evaluation. On arrival to ED, she had c/o abdominal pain and CTA A/P showed extensive clot found in IVC to iliacs. She denies fever or chills. She was anemic on admission with Hgb 9.1 and today Hgb 8. We were consulted due to anemia, nausea, and vomiting which started on 02/27. She was started on Reglan and PPI. Currently, she denies chest pain, SOB, abdominal pain, fever, or chills. Procedures: Colonoscopy 05/26/2011 Dr. Jasso: Diverticulosis in sigmoid colon. NSAIDs: None Anticoagulation: None Past Med Surg Social Fam HX - Past Medical History Medical history: cancer, coronary artery disease, GERD, hyperlipidemia, hypertension, malignancy, thyroid disease Psychiatric history: no psych history - Past Surgical History Surgical History: breast surgery, colectomy, hysterectomy - Social History Smoking Status: Unknown if ever smoked Smokeless Tobacco Status: No Alcohol use: none Drug use: none - Family History Mother Living Status: Hx Family Cardiac Disorders: Yes - Gastrointestinal Gastrointestinal: Present: as per HPI - Constitutional Constitutional: as per HPI - EENT Eyes: as per HPI Ears: Present: as per HPI Nose, mouth and throat: Present: as per HPI - Cardiovascular Cardiovascular ROS: Present: as per HPI - Respiratory Respiratory IM: Present: as per HPI - Genitourinary Genitourinary: Absent: change in color, Urinary frequency - Neurological ROS Neurological GI: Present: as per HPI - Hematologic/Lymphatic Hematologic/Lymphatic pediatric: Present: as per HPI - Musculoskeletal Musculoskeletal ROS GI: Present: as per HPI - Integumentary Integumentary GI: Present: as per HPI - Psychiatric ROS Psychiatric GI: Present: as per HPI - Endocrine Endocrine IM: Present: as per HPI - Constitutional Vitals: Temp Pulse Resp BP Pulse Ox 97.6 F 85 16 150/63 97 03/02/17 07:47 03/02/17 07:47 03/02/17 07:47 03/02/17 07:47 03/02/17 09:00 General appearance: Present: cooperative, A&O X 3, no acute distress, answers questions appropriately - Head Head exam: Present: atraumatic, normocephalic - Eye Eye exam: Present: normal appearance, sclera anicteric - ENT ENT exam: Present: mucous membranes dry - Neck Neck exam general surgery: Present: normal inspection, trachea midline - Respiratory Respiratory exam: Present: CTAB. Absent: rales, rhonchi - Cardiovascular Cardiovascular exam: Present: RRR, +S1, +S2 - GI/Abdominal GI/Abdominal exam: Present: soft, tenderness (around incision.), no peritoneal signs. Absent: distended, firm - Rectal Rectal exam: Present: deferred - Extremities Exam Extremities exam: Present: warm - Neurological Exam Neurological exam: Present: no focal deficits - Psychiatric Psychiatric exam: Present: normal affect, normal mood - Skin Skin exam: Present: dry, intact, normal color, warm Results - Labs CBC & Chem 7: 03/02/17 01:02 03/02/17 01:02 Labs: Last Result Calcium 8.9 mg/dL (8.6-10.8) 03/02/17 01:02 Entire Visit Hgb 8.0 g/dL (11.5-15.4) L 03/02/17 01:02 Hct 25.2 % (35.3-44.9) L 03/02/17 01:02 PT 12.9 Seconds (9.4-12.1) H 02/26/17 00:49 Total Bilirubin 0.2 mg/dL (0.2-1.2) 03/01/17 00:18 AST 16 Units/L (5-34) 03/01/17 00:18 ALT 13 Units/L (0-55) 03/01/17 00:18 - ABG ABG results: PT/INR, D-dimer PT 12.9 Seconds (9.4-12.1) H 02/26/17 00:49 Consult Discharge Plan - Plan Referrals: Sonny Reardon MD [Primary Care Provider] - <Vance Knight - Last Filed: 03/02/17 17:38> Date of Encounter: 03/02/17 Time of Encounter: 15:00 - Time Spent With Patient Total time spent is greater than 50% in coordination of care (as documented) at patient's floor/unit and/or counseling patient: GI History of Present Illness - Data of Consult Requesting Physician: Loki Wilkes DO - Consult Narrative History of present illness: Ms. Castellon is a 87 year old female - Constitutional Vitals: Temp Pulse Resp BP Pulse Ox 97.3 F L 96 18 160/61 95 03/02/17 14:46 03/02/17 16:10 03/02/17 16:10 03/02/17 16:10 03/02/17 16:10 Results - Labs CBC & Chem 7: 03/02/17 01:02 03/02/17 01:02 Labs: Last Result Calcium 8.9 mg/dL (8.6-10.8) 03/02/17 01:02 Entire Visit Hgb 8.0 g/dL (11.5-15.4) L 03/02/17 01:02 Hct 25.2 % (35.3-44.9) L 03/02/17 01:02 PT 12.9 Seconds (9.4-12.1) H 02/26/17 00:49 Total Bilirubin 0.2 mg/dL (0.2-1.2) 03/01/17 00:18 AST 16 Units/L (5-34) 03/01/17 00:18 ALT 13 Units/L (0-55) 03/01/17 00:18 - ABG ABG results: PT/INR, D-dimer PT 12.9 Seconds (9.4-12.1) H 02/26/17 00:49 - Attending Attestation I examined this patient and my medical decision-making was reviewed with the SKULL SPLITTER/PA/Advanced Practice Nurse/Resident Physician. I agree with the documented findings, disposition and treatment plan as described except to the extent set forth below.
--- NOTE | 2017-03-02 14:22 | Internal Med Progress Note ---
Date of Encounter: 03/02/17 Time of Encounter: 09:45 - Assessment and plan (1) Nausea & vomiting Current Visit: Yes Status: Acute Assessment and plan: No nausea currently but is NPO. Plan for EGD today. If negative anticipate may need fluid collection aspirated to decrease pressure on GI system. Qualifiers: Vomiting type: bilious vomiting Qualified Code(s): R11.14 - Bilious vomiting (2) Anemia Current Visit: Yes Status: Acute Assessment and plan: H/H remains stable. EGD today. Qualifiers: Anemia type: other cause Other causes of anemia: acute posthemorrhagic Qualified Code(s): D62 - Acute posthemorrhagic anemia (3) Deep vein thrombosis (DVT) Current Visit: Yes Status: Acute Assessment and plan: On IV heparin drip. Will transition to PO when GI situation worked out. Qualifiers: DVT location: lower extremity Affected thrombotic vein of extremity: iliac Laterality: bilateral Chronicity: acute Qualified Code(s): I82.423 - Acute embolism and thrombosis of iliac vein, bilateral (4) Renal vein thrombosis Current Visit: Yes Status: Acute Assessment and plan: Heparin drip with plans to transition to oral. (5) Renal cell carcinoma Current Visit: Yes Status: Chronic Assessment and plan: To follow with oncology as outpatient. Qualifiers: Laterality: right Qualified Code(s): C64.1 - Malignant neoplasm of right kidney, except renal pelvis - Subjective Interval history: Ms. Castellon is currently admitted for acute IVC thrombus. She is high risk due to potential complications of thrombus. Ms. Castellon feels OK right now. She is resting in bed awaiting time for EGD. Nausea OK today. No new issues overnight. Has had no fever and no emesis overnight. - Constitutional Vitals: Temp Pulse Resp BP Pulse Ox 97.5 F L 85 16 155/70 97 03/02/17 11:38 03/02/17 11:38 03/02/17 11:38 03/02/17 11:38 03/02/17 11:38 General appearance: Present: A&O X 3, answers questions appropriately - Head Head exam: Present: normocephalic - Eye Eye exam: Present: conjuntiva pink - ENT ENT exam: Present: mucous membranes dry - Respiratory Respiratory exam: Present: decreased breath sounds, CTAB. Absent: rhonchi, wheezes - Cardiovascular Cardiovascular exam: Present: RRR. Absent: tachycardia - GI/Abdominal GI/Abdominal exam: Present: soft. Absent: tenderness - Extremities Exam Extremities exam: Present: pedal edema, warm - Neurological Exam Neurological exam: Present: alert, oriented X3, no focal deficits - Skin Skin exam: Present: warm. Absent: rash Internal Medicine: Result - Labs CBC & Chem 7: 03/02/17 01:02 03/02/17 01:02 Labs: Short CBC 03/02/17 Range/Units 01:02 WBC 7.4 (4.3-11.1) K/mcL Hgb 8.0 L (11.5-15.4) g/dL Hct 25.2 L (35.3-44.9) % Plt Count 595 H (140-400) K/mcL BMP 03/02/17 01:02 Sodium 139 Potassium 4.0 Chloride 106 Carbon Dioxide 25 BUN 10 Creatinine 0.90 Glucose 111 H Calcium 8.9 - ABG Interpretation ABG results: PT/INR, D-dimer PT 12.9 Seconds (9.4-12.1) H 02/26/17 00:49 - VTE Documentation of Mechanical Device: Graduated compression elastic hosiery Consult Discharge Plan - Plan Referrals: Sonny Reardon MD [Primary Care Provider] -
[2017-03-02] MEDS ORDERED: 0.9 % Sodium Chloride 1,000 ML IVC SCH (14:45)
[2017-03-02] MEDS ORDERED: *HR* Midazolam HCl 5 MG/5 ML VIAL IVP ONE (15:03)
[2017-03-02] MEDS ORDERED: *HR* FentaNYL (PF) 100 MCG/2 ML VIAL ONE (15:03)
[2017-03-02] MEDS ORDERED: Simethicone 40 MG/0.6 ML MLS IR ONE (15:05)
[2017-03-02] MEDS ORDERED: Tetracaine/Benzocaine/Butamben 200MG/SPRAY (100SPY/BOT) MM ONE (15:05)
[2017-03-02] MEDS ORDERED: *HR* FentaNYL (PF) 100 MCG/2 ML VIAL IVP PRN (15:05)
[2017-03-02] MEDS ORDERED: *HR* Midazolam HCl 5 MG/5 ML VIAL IVP PRN (15:05)
[2017-03-02] MEDS: Heparin 25,000 UNIT/500 ML D5W 25,000 UNIT/500 ML MLS IVC SCH (17:46)
[2017-03-02] MEDS: *HR* Heparin 5,000 UNIT/ML VIAL IVP PRN (21:20)
[2017-03-03] MEDS: Acetaminophen 325 MG TABLET PO PRN ×2 (03:21→09:32)
[2017-03-03 03:43] LABS: Hematocrit 25.8 % (35.3-44.9); Mean Corpuscular Volume 90.2 fL (83.0-100.0); Platelet Count 608 K/mcL (140-400); Red Blood Count 2.86 M/mcL (3.82-4.97); Red Cell Distribution Width 15.8 % (11.5-14.5)
[2017-03-03 04:01] LABS: BUN/Creatinine Ratio 11 (6-26); Blood Urea Nitrogen 9 mg/dL (7-20); Carbon Dioxide 22 mEq/L (19-29); Chloride 105 mEq/L (98-109); Glucose 102 mg/dL (70-99); Osmolality,Calculated 283 (280-300); Sodium 137 mEq/L (136-145); eGFR For African Americans > 60 (> 60); eGFR For Non-African Americans > 60 (> 60)
[2017-03-03 04:11] LABS: Activated Partial Thrombo Time 165.1 Seconds (26.0-36.0)
[2017-03-03 04:21] LABS: Heparin anti-factor XA UFH 0.71 IU/mL (0.30-0.70)
[2017-03-03] MEDS: Pantoprazole 40 MG VIAL IVP SCH (05:39)
[2017-03-03] MEDS: Metoclopramide 10 MG/2 ML VIAL IVP SCH ×2 (05:39→11:56)
--- NOTE | 2017-03-03 08:45 | Discharge Summary ---
Date of Encounter: 03/03/17 Time of Encounter: 13:00 - Discharge Diagnosis (1) Deep vein thrombosis (DVT) Priority: Primary Status: Acute Qualifiers: DVT location: lower extremity Affected thrombotic vein of extremity: iliac Laterality: bilateral Chronicity: acute Qualified Code(s): I82.423 - Acute embolism and thrombosis of iliac vein, bilateral (2) Renal vein thrombosis Priority: Primary Status: Acute (3) Nausea & vomiting Priority: Secondary Status: Acute Qualifiers: Vomiting type: bilious vomiting Qualified Code(s): R11.14 - Bilious vomiting (4) Anemia Priority: Secondary Status: Acute Qualifiers: Anemia type: other cause Other causes of anemia: acute posthemorrhagic Qualified Code(s): D62 - Acute posthemorrhagic anemia (5) Renal cell carcinoma Priority: Secondary Status: Chronic Qualifiers: Laterality: right Qualified Code(s): C64.1 - Malignant neoplasm of right kidney, except renal pelvis (6) Hypotension Priority: Secondary Status: Resolved Qualifiers: Hypotension type: unspecified hypotension type Qualified Code(s): I95.9 - Hypotension, unspecified (7) Status post nephrectomy Priority: Secondary Status: Chronic - Discharge Medications Prescriptions: Omeprazole [PriLOSEC] 20 mg PO BIDAC #60 cap Rivaroxaban [Xarelto] 1 dose PO AD 30 Days Home Medications: Calcium Carbonate [Tums] 1,000 mg PO Q4HR PRN 02/03/17 [History] Levothyroxine [Synthroid] 50 mcg PO 0630 02/03/17 [History] Acetaminophen [Tylenol] 325 mg PO Q4HR PRN #30 tablet 02/11/17 [Rx] Omeprazole [PriLOSEC] 20 mg PO BIDAC #60 cap 03/03/17 [Rx] Rivaroxaban [Xarelto] 1 dose PO AD 30 Days 03/03/17 [Rx] Rivaroxaban [Xarelto] 15 mg PO BID tablet 03/03/17 [Rx] Allergies/Adverse Reactions: Allergies atenolol Adverse Reaction (Verified 02/25/17 10:06) Chest Pain codeine Adverse Reaction (Verified 02/25/17 10:06) Irritable fenofibrate [From Tricor] Adverse Reaction (Verified 02/25/17 10:06) Muscle Pain lisinopril Adverse Reaction (Verified 02/25/17 10:06) Dizziness Mkaqvgq-Eng-Vov Reductase Inhibitor [Statins] Adverse Reaction (Verified 10:06) Muscle Pain Date of admission: 02/25/17 15:20 Primary care physician: Sonny Reardon MD Consults: 02/25/17 16:15 Consult to Urology [CONS] Routine Consulting Provider: Urology Janet Reason for Consult: renal cancer post surgical Time Notified: 15:00 Call Completed: Yes 02/25/17 18:23 Consult to Nutrition [CONS] Routine Comment: Consulting Provider: NUTRITION Reason for Dietary Consult: Other 02/26/17 11:56 Consult to Oncology [CONS] Routine Consulting Provider: Oncology [facility] Reason for Consult: Renal cell cancer, IVC clot Time Notified: 09:00 Call Completed: Yes 03/01/17 12:00 Consult to Gastroenterology [CONS] Routine Consulting Provider: Gastroenterology Janet Reason for Consult: Intractable nausea and vomiting Call Completed: Yes Discharging clinician: Loki Wilkes Anticipated date of discharge: 03/03/17 - Patient Status Disposition: Home Health Service Condition: Fair Functional capacity at discharge: independent ambulation Overall status at discharge: patient is progressing back to baseline - Discharge Instructions Instructions: Omeprazole (By mouth), Rivaroxaban (By mouth), Deep Venous Thrombosis (DC), Anemia (DC) Follow Up With: Sonny Reardon MD [Primary Care Provider] - 03/18/17 3:00 pm Additional Instructions: Hematology oncology follow up in 2 - 4 weeks. - Diet and Activity Activity: increase activity as tolerated Diet: advance to your usual diet Hospital course: Ms. Castellon is a 87 year old female with history of renal cell carcinoma s/p resection in 01/30 presented to ED due to hypotension. Her surgery was complicated by bleed from the IVC. She was evaluated in the ED and found to have extensive clot in the IVC down to iliacs. She was admitted for further evaluation and treatment. Ms. Castellon was admitted to [facility]. She was started on IV heparin and evaluated by hematology and urology. She was noted to have a fluid collection in the renal fossa and this will be monitored. It was recommended to use NOAC for anticoagulation. She was to be started on Xarelto or Eliquis but was having a lot of nausea. I was concerned she would not keep the anticoagulant in her system so she was kept on IV heparin. She was evaluated by GI and underwent EGD which did not show acute process or obstruction. There was some external compression in duodenum but not enough to obstruct. On 03/03/17 she was afebrile with stable vitals. She was tolerating PO and started on PO Xarelto. She will be continued on PO Prilosec as well. I did discuss with patient that if nausea persists that she should discuss drainage of fluid collection with Dr. Crouch. - Time Spent with Patient Total time spent providing and/or coordinating discharge services: 42min - Constitutional Vitals: Temp Pulse Resp BP Pulse Ox 97.9 F 91 16 165/70 96 03/03/17 07:45 03/03/17 07:45 03/03/17 07:45 03/03/17 07:45 03/03/17 07:45 General appearance: Present: A&O X 3, answers questions appropriately - Head Head exam: Present: normocephalic - Eye Eye exam: Present: conjuntiva pink - ENT ENT exam: Present: mucous membranes dry - Respiratory Respiratory exam: Present: decreased breath sounds, CTAB. Absent: rhonchi, wheezes - Cardiovascular Cardiovascular exam: Present: RRR. Absent: tachycardia - GI/Abdominal GI/Abdominal exam: Present: soft. Absent: tenderness - Extremities Exam Extremities exam: Present: pedal edema, warm - Neurological Exam Neurological exam: Present: alert, oriented X3, no focal deficits - Psychiatric Psychiatric exam: Present: normal affect, normal mood - Skin Skin exam: Present: warm. Absent: rash - VTE Documentation of Mechanical Device: Graduated compression elastic hosiery Deep Vein Thrombosis/Pulmonary Embolism Present on Admission: Yes
[2017-03-03] MEDS ORDERED: *HR* Rivaroxaban 15 MG TABLET PO SCH (10:00)
[2017-03-03 11:42] VITALS: BP 161/71
--- NOTE | 2017-03-03 15:17 | Physician Discharge Referral ---
Home Health/Hosp Referral Info Transfer to: Home Health Attending Provider: Loki Wilkes DO Provider in Charge Post Discharge: PCP - Diagnosis (1) Deep vein thrombosis (DVT) Priority: Primary Status: Acute (2) Renal vein thrombosis Priority: Primary Status: Acute (3) Nausea & vomiting Priority: Secondary Status: Acute (4) Anemia Priority: Secondary Status: Acute (5) Renal cell carcinoma Priority: Secondary Status: Chronic (6) Hypotension Priority: Secondary Status: Resolved (7) Status post nephrectomy Priority: Secondary Status: Chronic - Respiratory Orders Smoking Cessation: Smoking cessation has been advised. For more information, call the [place] Tobacco Quit Line at 7-919-KXBD-NOW. - Diet/Nutrition Diet/Nutrition Orders: Cardiac - Activity Activity Orders: Up ad hawa - Services Needed Following services are medically necessary services: Nursing, Physical Therapy, Occupational Therapy - Transfer Medications Prescriptions: Omeprazole [PriLOSEC] 20 mg PO BIDAC #60 cap Rivaroxaban [Xarelto] 1 dose PO AD 30 Days Home Medications: Calcium Carbonate [Tums] 1,000 mg PO Q4HR PRN 02/03/17 [History] Levothyroxine [Synthroid] 50 mcg PO 0630 02/03/17 [History] Acetaminophen [Tylenol] 325 mg PO Q4HR PRN #30 tablet 02/11/17 [Rx] Omeprazole [PriLOSEC] 20 mg PO BIDAC #60 cap 03/03/17 [Rx] Rivaroxaban [Xarelto] 1 dose PO AD 30 Days 03/03/17 [Rx] Rivaroxaban [Xarelto] 15 mg PO BID tablet 03/03/17 [Rx] Allergies/Adverse Reactions: Allergies atenolol Adverse Reaction (Verified 02/25/17 10:06) Chest Pain codeine Adverse Reaction (Verified 02/25/17 10:06) Irritable fenofibrate [From Tricor] Adverse Reaction (Verified 02/25/17 10:06) Muscle Pain lisinopril Adverse Reaction (Verified 02/25/17 10:06) Dizziness Zrrodnz-Umq-Vau Reductase Inhibitor [Statins] Adverse Reaction (Verified 10:06) Muscle Pain Certification: Further, I certify that my clinical findings support that this patient is homebound (i.e. absences from home require considerable and taxing effort and are for medical reasons or mandaeism services or infrequently or short duration when for other reasons) because: Homebound Reason: Patient requires assistance of a person or device to safely leave home, Leaving home requires considerable and taxing effort due to condition Attestation: My signature below is to certify that this patient is under my care and that I, or nurse practitioner, or a physician's assistant surveyor working with me, has a face-to -face encounter with this patient.
== END 2017-03-03 16:08 | disposition home health service (06) ==
LOC: 2NENU 09:57 → EMEROO 09:57 → 2NENU 17:40
PROVIDERS: ADMIT Internal Medicine Endocrinology, Diabetes & Metabolism; ATTEND Internal Medicine

== ENCOUNTER 2017-03-05 15:16 | Observation (INO) ==
--- NOTE | 2017-03-05 15:50 | Emergency Department Note ---
START Narrative - START START: I examined this patient and my medical decision-making was reviewed with the GLUER AND SLICER HAND/PA/Advanced Practice Nurse/Resident Physician. I agree with the documented findings, disposition and treatment plan as described except to the extent set forth below. ED attending note: Patient seen with emergency medicine resident Dr. Peter. Please see a copy of his note for details of the H&P, evaluation, management and disposition of this patient. We independently had [id number] contact with the patient Briefly: A 87-year-old female by EMS from private home about a month status post nephrectomy status post renal cell carcinoma by Dr. Crouch. Apparently there was inadvertent damage to the inferior vena cava which led to bleeding and intraoperative cardiac arrest which was resuscitated from. Ever since despite going through rehabilitation patient has been getting progressively weaker decreased appetite and fatigue. Denies fevers chills sputum or dysuria. She is afebrile with stable stable vital signs here. Appears tired but not somnolent. He will undergo IV fluid rehydration screening labs. DISposition pending.
--- NOTE | 2017-03-05 15:51 | Emergency Department Note ---
Disposition Clinical Impression: Status post nephrectomy Inferior vena cava injury Qualifiers: Encounter type: initial encounter Qualified Code(s): S35.10XA - Unspecified injury of inferior vena cava, initial encounter Nausea & vomiting Qualifiers: Vomiting type: unspecified Vomiting Intractability: intractable Qualified Code( s): R11.2 - Nausea with vomiting, unspecified Disposition: Admitted As Inpatient Condition: Fair Referrals: Sonny Reardon MD [Primary Care Provider] - Forms: ED Satisfaction Letter Time of Disposition: 19:07 Nausea/Vomiting/Diarrhea HPI - General Chief complaint: ED Nausea/Vomiting/Diarrhea Stated complaint: N/V, s/p nephrectomy, right flank pain Time Seen by Provider: 03/05/17 15:30 Source: patient, EMS Mode of arrival: ambulatory Limitations: no limitations Nursing Notes Reviewed: Yes Vital Signs Reviewed: Yes - History of Present Illness HPI Narrative: Patient presents to the ED the chief complaint of nausea and vomiting. Patient has postop Right nephrectomy by Dr. Crouch in approximately 1 month ago. 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 She recovered and was discharged to a rehabilitation facility. She states that she had persistent nausea, vomiting, malaise and weakness. She was admitted to the hospital again for IV fluids and was just discharged yesterday. She states that when she got home she has been unable to eat or drink anything. She has vomited 3 times. She vomited this morning before breakfast, once directly after breakfast and once earlier in the afternoon. She denies any abdominal pain but states that her right flank hurts from the surgery, but has not in any more pain than her baseline. She does feel very weak and fatigued as well as lightheaded. She did have a near syncopal episode today, but did not have any associated chest pain, changes in vision or shortness of breath. She has had some decreased urination, which she is concerned about because she has been unable to eat or drink and is concerned that her other kidney is working. No fevers or concerns over infection. She states that she thinks she needs to be admitted again. - Related Data Home Medications Medication Instructions Recorded Confirmed Calcium Carbonate [Tums] 1,000 mg PO Q4HR PRN 02/03/17 03/05/17 Levothyroxine [Synthroid] 50 mcg PO QAM 02/03/17 03/05/17 Metoclopramide HCl 5 mg PO TID 03/05/17 03/05/17 Previous Rx's Medication Instructions Recorded Acetaminophen [Tylenol] 325 mg PO Q4HR PRN #30 tablet 02/11/17 Omeprazole [PriLOSEC] 20 mg PO BIDAC #60 cap 03/03/17 Rivaroxaban [Xarelto] 15 mg PO BID tablet 03/03/17 Allergies Allergy/AdvReac Type Severity Reaction Status Date / Time atenolol AdvReac Chest Pain Verified 03/05/17 15:24 codeine AdvReac Irritable Verified 03/05/17 15:24 fenofibrate [From Tricor] AdvReac Muscle Pain Verified 03/05/17 15:24 lisinopril AdvReac Dizziness Verified 03/05/17 15:24 Lsozlrk-Nyn-Ysl Reductase AdvReac Muscle Pain Verified 03/05/17 15:24 Inhibitor [Statins] All systems ED: reviewed and negative except as stated. Constitutional: Reports: weakness Cardiovascular: Reports: syncope (near) Gastrointestinal: Reports: abdominal pain, nausea, vomiting. Denies: diarrhea, constipation Genitourinary: Reports: as per HPI Musculoskeletal: Reports: back pain (R flank) Integumentary: Denies: rash Neurological: Reports: weakness (general ). Denies: headache Endocrine: Reports: fatigue Past Medical History - Past Medical History Attestation: Yes The following information was validated with the patient. Source: patient, obtained from family Medical history: Reports: cancer, coronary artery disease, GERD, hyperlipidemia , hypertension, malignancy, thyroid disease Surgical history: Reports: breast surgery, colectomy, hysterectomy Psychiatric history: Reports: no psych history TALENT COORDINATOR history: Reports: no TALENT COORDINATOR history - Social History Smoking Status: Never smoker Smokeless Tobacco Status: No Alcohol use: Reports: none Drug use: Reports: none Physical Exam - General Limitations: no limitations General appearance: alert, in no apparent distress - Head Head exam: atraumatic, normocephalic, normal inspection - Eye Eye exam: Present: normal appearance, PERRL, EOMI - ENT ENT exam: normal exam, normal oropharynx, mucous membranes dry - Neck Neck exam: Present: normal inspection, full ROM, trachea midline - Chest Chest inspection: Present: normal inspection, symmetric chest wall rise - Respiratory Respiratory exam: Present: normal lung sounds bilaterally - Cardiovascular Cardiovascular exam: Present: regular rate, normal rhythm, normal heart sounds - Abdominal Exam Abdominal exam: Present: soft, Non-Tender (nontender other than around her incision in the right flank from the right upper quadrant extending around to the back. Incision appears well healing with no exudate, erythema or signs of infection.), diminished bowel sounds. Absent: distention, guarding - Extremities Exam Extremities exam: Present: normal inspection, full ROM, pedal edema (Mild peripheral nonpitting). Absent: tenderness - Expanded Lower Extremity Exam Hip/Pelvis exam: Present: pelvis stable - Neurological Exam Neurological exam: Present: alert, oriented X3 - Psychiatric Psychiatric exam: Present: normal affect, normal mood - Skin Skin exam: Present: warm, dry, intact, normal color Course Course Narrative: 87 -year-old female who is one month status post nephrectomy by Dr. Crouch for renal carcinoma presenting with intractable nausea, vomiting, generalized weakness. Was just discharged yesterday and does not feel like she can maintain adequate by mouth intake because of recurrent abdominal pain. We are going to CT her abdomen and pelvis due to her history of IVC injury and we will check labs. We will rehydrate her and admit after speaking with urology. - Reevaluation(s) Reevaluation #1: patient's labs are back. Spoke with urology, Dr. Narayanan. States patient should be admitted to medicine service and Dr. Crouch will see her in the AM. Vital Signs Temperature 97.7 F 03/05/17 15:24 Pulse Rate 96 03/05/17 15:24 Respiratory Rate 17 03/05/17 15:24 Blood Pressure 133/70 03/05/17 15:24 O2 Sat by Pulse Oximetry 97 03/05/17 15:24 Temperature 97.7 F 03/05/17 15:24 Pulse Rate 91 03/05/17 18:55 Respiratory Rate 16 03/05/17 18:55 Blood Pressure 163/74 03/05/17 18:55 O2 Sat by Pulse Oximetry 97 03/05/17 18:55 Oxygen Delivery Oxygen Delivery Room Air Nausea/Vomiting/Diarrhea - Lab Data Result diagrams: 03/05/17 17:16 03/05/17 17:16 Lab Results 03/05/17 03/05/17 03/05/17 Range/Units 17:16 17:16 17:16 WBC 8.7 (4.3-11.1) K/mcL RBC 3.02 L (3.82-4.97) M/mcL Hgb 8.5 L (11.5-15.4) g/dL Hct 27.1 L (35.3-44.9) % MCV 89.7 (83.0-100.0) fL MCH 28.1 (28.0-33.3) pg MCHC 31.4 L (31.6-35.5) g/dL RDW 15.9 H (11.5-14.5) % Plt Count 688 H (140-400) K/mcL MPV 9.1 L (9.4-12.4) fL Immature Gran % 0.7 (0-4) % Seg Neutrophils % 67.6 % Lymphocytes % 19.4 % Monocytes % 8.4 % Eosinophils % 3.3 % Basophils % 0.6 % Neutrophils # 5.9 (1.6-8.9) K/mcL Lymphocytes # 1.7 (0.6-4.6) K/mcL Monocytes # 0.7 (0.0-1.3) K/mcL Eosinophils # 0.3 (0.0-0.6) K/mcL Basophils # 0.1 (0.0-0.2) K/mcL Immature Plt Fraction 2.0 (1.1-6.1) % Sodium 136 (136-145) mEq/L Potassium 3.7 (3.5-4.5) mEq/L Chloride 104 (98-109) mEq/L Carbon Dioxide 24 (19-29) mEq/L BUN 8 (7-20) mg/dL Creatinine 0.84 (0.57-1.11) mg/dL Est GFR ( Amer) > 60 (> 60) Est GFR (Non-Af Amer) > 60 (> 60) BUN/Creatinine Ratio 10 (6-26) Glucose 102 H (70-99) mg/dL Calculated Osmolality 281 (280-300) Lactic Acid (0.5-2.2) mmol/L Calcium 9.5 (8.6-10.8) mg/dL Phosphorus 3.1 (2.3-4.7) mg/dL Magnesium 1.6 (1.6-2.6) mg/dL Total Bilirubin 0.4 (0.2-1.2) mg/dL AST 15 (5-34) Units/L ALT 13 (0-55) Units/L Alkaline Phosphatase 86 (38-126) Units/L Serum Total Protein 7.3 (6.0-8.3) g/dL Albumin 2.6 L (3.5-5.0) g/dL Globulin 4.7 H (2.4-3.5) g/dL Albumin/Globulin Ratio 0.6 L (1.1-2.2) Lipase < 4 L (8-78) Units/L Urine Color (Yellow) Urine Clarity (Clear) Urine pH (5.0-8.0) pH Units Ur Specific [place] (1.010-1.025) Urine Protein (Neg-Trace) mg/dL Urine Glucose (UA) (Normal) mg/dL Urine Ketones (Negative) mg/dL Urine Blood (Negative) Urine Nitrite (Negative) Urine Bilirubin (Negative) Urine Urobilinogen (Normal) mg/dL Ur Leukocyte Esterase (Negative) Urine Microscopic RBC (0-3) per hpf Urine Microscopic WBC (0-3) per hpf Ur Squamous Epith Cells (None-Few) per lpf Urine Bacteria (None-Few) per hpf Hyaline Casts (None-Few) per lpf Ur Culture Indicated? (NO) 03/05/17 03/05/17 Range/Units 17:16 17:45 WBC (4.3-11.1) K/mcL RBC (3.82-4.97) M/mcL Hgb (11.5-15.4) g/dL Hct (35.3-44.9) % MCV (83.0-100.0) fL MCH (28.0-33.3) pg MCHC (31.6-35.5) g/dL RDW (11.5-14.5) % Plt Count (140-400) K/mcL MPV (9.4-12.4) fL Immature Gran % (0-4) % Seg Neutrophils % % Lymphocytes % % Monocytes % % Eosinophils % % Basophils % % Neutrophils # (1.6-8.9) K/mcL Lymphocytes # (0.6-4.6) K/mcL Monocytes # (0.0-1.3) K/mcL Eosinophils # (0.0-0.6) K/mcL Basophils # (0.0-0.2) K/mcL Immature Plt Fraction (1.1-6.1) % Sodium (136-145) mEq/L Potassium (3.5-4.5) mEq/L Chloride (98-109) mEq/L Carbon Dioxide (19-29) mEq/L BUN (7-20) mg/dL Creatinine (0.57-1.11) mg/dL Est GFR ( Amer) (> 60) Est GFR (Non-Af Amer) (> 60) BUN/Creatinine Ratio (6-26) Glucose (70-99) mg/dL Calculated Osmolality (280-300) Lactic Acid 0.6 (0.5-2.2) mmol/L Calcium (8.6-10.8) mg/dL Phosphorus (2.3-4.7) mg/dL Magnesium (1.6-2.6) mg/dL Total Bilirubin (0.2-1.2) mg/dL AST (5-34) Units/L ALT (0-55) Units/L Alkaline Phosphatase (38-126) Units/L Serum Total Protein (6.0-8.3) g/dL Albumin (3.5-5.0) g/dL Globulin (2.4-3.5) g/dL Albumin/Globulin Ratio (1.1-2.2) Lipase (8-78) Units/L Urine Color Yellow (Yellow) Urine Clarity Clear (Clear) Urine pH 7.0 (5.0-8.0) pH Units Ur Specific [place] 1.018 (1.010-1.025) Urine Protein 30 H (Neg-Trace) mg/dL Urine Glucose (UA) Normal (Normal) mg/dL Urine Ketones Negative (Negative) mg/dL Urine Blood Negative (Negative) Urine Nitrite Negative (Negative) Urine Bilirubin Negative (Negative) Urine Urobilinogen Normal (Normal) mg/dL Ur Leukocyte Esterase Negative (Negative) Urine Microscopic RBC 3-5 H (0-3) per hpf Urine Microscopic WBC 0-3 (0-3) per hpf Ur Squamous Epith Cells Many H (None-Few) per lpf Urine Bacteria Few (None-Few) per hpf Hyaline Casts None Seen (None-Few) per lpf Ur Culture Indicated? NO (NO) S.B.A.R. - S.B.A.R. Situation: Demographics, MOA Background: Presenting Complaint, Relevant PMH, Meds, & Allergies Assessment: Vital Signs, Course and respsone to treatment, Exam Concerns, Patient/Family Expectation, Pertinant Lab Results, Outstanding Labs Recommendation: Barrier(s) to disposition, Recommendation based on pending studies, treatments, or consults S.B.A.RShahana Report Given to: Dr. Browne/Marvin Cameron Repor Time: 19:06
[2017-03-05] MEDS: 0.9 % Sodium Chloride 1,000 ML IVC SCH (16:49)
[2017-03-05 17:23] LABS: Basophils # 0.1 K/mcL (0.0-0.2); Basophils % 0.6 %; Eosinophils # 0.3 K/mcL (0.0-0.6); Eosinophils % 3.3 %; Hematocrit 27.1 % (35.3-44.9); Hemoglobin 8.5 g/dL (11.5-15.4); Immature Granulocytes % 0.7 % (0-4); Lymphocytes # 1.7 K/mcL (0.6-4.6); Lymphocytes % 19.4 %; Mean Corpuscular HGB Conc 31.4 g/dL (31.6-35.5); Mean Corpuscular Hemoglobin 28.1 pg (28.0-33.3); Mean Corpuscular Volume 89.7 fL (83.0-100.0); Mean Platelet Volume 9.1 fL (9.4-12.4); Monocytes # 0.7 K/mcL (0.0-1.3); Monocytes % 8.4 %; Neutrophils # 5.9 K/mcL (1.6-8.9); Platelet Count 688 K/mcL (140-400); Red Blood Count 3.02 M/mcL (3.82-4.97); Red Cell Distribution Width 15.9 % (11.5-14.5); Segmented Neutrophils % 67.6 %
[2017-03-05 17:33] LABS: Magnesium 1.6 mg/dL (1.6-2.6); Phosphorous 3.1 mg/dL (2.3-4.7)
[2017-03-05 17:37] LABS: Alanine Aminotransferase 13 Units/L (0-55); Albumin 2.6 g/dL (3.5-5.0); Albumin/Globulin Ratio 0.6 (1.1-2.2); Alkaline Phosphatase 86 Units/L (38-126); Aspartate Amino Transferase 15 Units/L (5-34); BUN/Creatinine Ratio 10 (6-26); Bilirubin,Total 0.4 mg/dL (0.2-1.2); Blood Urea Nitrogen 8 mg/dL (7-20); Calcium 9.5 mg/dL (8.6-10.8); Carbon Dioxide 24 mEq/L (19-29); Chloride 104 mEq/L (98-109); Globulin 4.7 g/dL (2.4-3.5); Glucose 102 mg/dL (70-99); Osmolality,Calculated 281 (280-300); Potassium 3.7 mEq/L (3.5-4.5); Sodium 136 mEq/L (136-145); Total Protein 7.3 g/dL (6.0-8.3); eGFR For African Americans > 60 (> 60); eGFR For Non-African Americans > 60 (> 60)
[2017-03-05 17:53] LABS: Bilirubin,Urine Negative (Negative); Blood,Urine Negative (Negative); Clarity,Urine Clear (Clear); Color,Urine Yellow (Yellow); Glucose,Urine (UA) Normal (Normal); Ketones,Urine Negative (Negative); Leukocyte Esterase,Urine Negative (Negative); Nitrite,Urine Negative (Negative); Protein,Urine 30 mg/dL (Neg-Trace); Specific Gravity,Urine 1.018 (1.010-1.025); Urobilinogen,Urine Normal (Normal)
[2017-03-05 17:56] LABS: Bacteria,Urine Few per hpf (None-Few); Hyaline Casts,Urine None Seen per lpf (None-Few); Squamous Epithelial Cell,Urine Many per lpf (None-Few); WBC,Urine 0-3 per hpf (0-3)
--- NOTE | 2017-03-05 19:29 | Emergency Department Note ---
Disposition Clinical Impression: Status post nephrectomy Inferior vena cava injury Qualifiers: Encounter type: initial encounter Qualified Code(s): S35.10XA - Unspecified injury of inferior vena cava, initial encounter Nausea & vomiting Qualifiers: Vomiting type: unspecified Vomiting Intractability: intractable Qualified Code( s): R11.2 - Nausea with vomiting, unspecified Disposition: Admitted As Inpatient Condition: Fair Time of Disposition: 20:20 Nausea/Vomiting/Diarrhea HPI - General Chief complaint: ED Nausea/Vomiting/Diarrhea Stated complaint: N/V, s/p nephrectomy, right flank pain Time Seen by Provider: 03/05/17 15:30 Source: patient, EMS Mode of arrival: ambulatory Limitations: no limitations - Related Data Home Medications Medication Instructions Recorded Confirmed Calcium Carbonate [Tums] 1,000 mg PO Q4HR PRN 02/03/17 03/05/17 Levothyroxine [Synthroid] 50 mcg PO QAM 02/03/17 03/05/17 Metoclopramide HCl 5 mg PO TID 03/05/17 03/05/17 Previous Rx's Medication Instructions Recorded Acetaminophen [Tylenol] 325 mg PO Q4HR PRN #30 tablet 02/11/17 Omeprazole [PriLOSEC] 20 mg PO BIDAC #60 cap 03/03/17 Rivaroxaban [Xarelto] 15 mg PO BID tablet 03/03/17 Allergies Allergy/AdvReac Type Severity Reaction Status Date / Time atenolol AdvReac Chest Pain Verified 03/05/17 15:24 codeine AdvReac Irritable Verified 03/05/17 15:24 fenofibrate [From Tricor] AdvReac Muscle Pain Verified 03/05/17 15:24 lisinopril AdvReac Dizziness Verified 03/05/17 15:24 Dtpyckc-Ryd-Voo Reductase AdvReac Muscle Pain Verified 03/05/17 15:24 Inhibitor [Statins] Constitutional: Reports: weakness Cardiovascular: Reports: syncope (near) Gastrointestinal: Reports: abdominal pain, nausea, vomiting. Denies: diarrhea, constipation Genitourinary: Reports: as per HPI Musculoskeletal: Reports: back pain (R flank) Integumentary: Denies: rash Neurological: Reports: weakness (general ). Denies: headache Endocrine: Reports: fatigue Past Medical History - Past Medical History Medical history: Reports: cancer, coronary artery disease, GERD, hyperlipidemia , hypertension, malignancy, thyroid disease Surgical history: Reports: breast surgery, colectomy, hysterectomy Psychiatric history: Reports: no psych history FORM PRESS OPERATOR history: Reports: no FORM PRESS OPERATOR history - Social History Smoking Status: Never smoker Smokeless Tobacco Status: No Alcohol use: Reports: none Drug use: Reports: none Physical Exam - General Limitations: no limitations General appearance: alert, in no apparent distress - Head Head exam: atraumatic, normocephalic, normal inspection - Eye Eye exam: Present: normal appearance, PERRL, EOMI - ENT ENT exam: normal exam, mucous membranes moist - Neck Neck exam: Present: normal inspection, full ROM, trachea midline - Chest Chest inspection: Present: normal inspection, symmetric chest wall rise - Respiratory Respiratory exam: Present: normal lung sounds bilaterally - Cardiovascular Cardiovascular exam: Present: regular rate, normal rhythm, normal heart sounds - Abdominal Exam Abdominal exam: Present: soft, tenderness (mild generalized). Absent: distention, guarding, rebound, rigidity - Extremities Exam Extremities exam: Present: normal inspection, full ROM. Absent: tenderness, pedal edema - Neurological Exam Neurological exam: Present: alert, oriented X3 - Psychiatric Psychiatric exam: Present: normal affect, normal mood - Skin Skin exam: Present: warm, dry, intact, normal color Course Course Narrative: Patient was a signout from the day team, Dr. Sharif and Dr. Peter. Please see their notes for any additional details. Patient had some mild generalized tenderness on exam. Patient has had a recent nephrectomy one month ago had an IVC injury during surgery. She presented today due to intractable nausea and vomiting. She has been taking Reglan at home and had no relief. Lab workup was finished when patient was signed out to me. She had a CT scan that showed: Re- demonstration of the right posterior pararenal/ retroperitoneal fluid collection, minimally changed compared to prior study. The IVC is more homogeneous on the current study but the study is not performed without IV contrast and therefore the patency of the IVC is not able to be determined at this time. Patient has been accepted to the hospitalist for intractable nausea and vomiting and pararenal hematoma. Dr. Peter talked to Dr. Narayanan who stated Dr. Crouch would be consult to the case. Abdomen/Pelvis CT 03/05/17 15:48 IMPRESSION: Re- demonstration of the right posterior pararenal/ retroperitoneal fluid collection, minimally changed compared to prior study. The IVC is more homogeneous on the current study but the study is not performed without IV contrast and therefore the patency of the IVC is not able to be determined at this time. D/ / Mir Santizo MD / Mir Santizo MD Interpreting Provider: Mir Santizo MD Vital Signs Temperature 97.7 F 03/05/17 15:24 Pulse Rate 96 03/05/17 15:24 Respiratory Rate 17 03/05/17 15:24 Blood Pressure 133/70 03/05/17 15:24 O2 Sat by Pulse Oximetry 97 03/05/17 15:24 Temperature 97.6 F 03/06/17 04:12 Pulse Rate 88 03/06/17 04:12 Respiratory Rate 15 03/06/17 04:12 Blood Pressure 167/75 03/06/17 04:12 O2 Sat by Pulse Oximetry 96 03/06/17 04:12 Oxygen Delivery Oxygen Delivery Room Air Nausea/Vomiting/Diarrhea - MDM Narrative Medical decision making narrative: Patient was a signout from the day team, Dr. Sharif and Dr. Peter. Please see their notes for any additional details. Patient had some mild generalized tenderness on exam. Patient has had a recent nephrectomy one month ago had an IVC injury during surgery. She presented today due to intractable nausea and vomiting. She has been taking Reglan at home and had no relief. Lab workup was finished when patient was signed out to me. She had a CT scan that showed: Re- demonstration of the right posterior pararenal/ retroperitoneal fluid collection, minimally changed compared to prior study. The IVC is more homogeneous on the current study but the study is not performed without IV contrast and therefore the patency of the IVC is not able to be determined at this time. Patient has been accepted to the hospitalist for intractable nausea and vomiting and pararenal hematoma. Dr. Peter talked to Dr. Narayanan who stated Dr. Crouch would be consult to the case. - Medical Records Medical records reviewed: Yes I reviewed the patient's medical records. - Lab Data Lab results reviewed: Yes I reviewed the patient's lab results. Result diagrams: 03/05/17 17:16 04/20/17 17:16 Lab Results 03/05/17 03/05/17 03/05/17 Range/Units 17:16 17:16 17:16 WBC 8.7 (4.3-11.1) K/mcL RBC 3.02 L (3.82-4.97) M/mcL Hgb 8.5 L (11.5-15.4) g/dL Hct 27.1 L (35.3-44.9) % MCV 89.7 (83.0-100.0) fL MCH 28.1 (28.0-33.3) pg MCHC 31.4 L (31.6-35.5) g/dL RDW 15.9 H (11.5-14.5) % Plt Count 688 H (140-400) K/mcL MPV 9.1 L (9.4-12.4) fL Immature Gran % 0.7 (0-4) % Seg Neutrophils % 67.6 % Lymphocytes % 19.4 % Monocytes % 8.4 % Eosinophils % 3.3 % Basophils % 0.6 % Neutrophils # 5.9 (1.6-8.9) K/mcL Lymphocytes # 1.7 (0.6-4.6) K/mcL Monocytes # 0.7 (0.0-1.3) K/mcL Eosinophils # 0.3 (0.0-0.6) K/mcL Basophils # 0.1 (0.0-0.2) K/mcL Immature Plt Fraction 2.0 (1.1-6.1) % Sodium 136 (136-145) mEq/L Potassium 3.7 (3.5-4.5) mEq/L Chloride 104 (98-109) mEq/L Carbon Dioxide 24 (19-29) mEq/L BUN 8 (7-20) mg/dL Creatinine 0.84 (0.57-1.11) mg/dL Est GFR ( Amer) > 60 (> 60) Est GFR (Non-Af Amer) > 60 (> 60) BUN/Creatinine Ratio 10 (6-26) Glucose 102 H (70-99) mg/dL Calculated Osmolality 281 (280-300) Lactic Acid (0.5-2.2) mmol/L Calcium 9.5 (8.6-10.8) mg/dL Phosphorus 3.1 (2.3-4.7) mg/dL Magnesium 1.6 (1.6-2.6) mg/dL Total Bilirubin 0.4 (0.2-1.2) mg/dL AST 15 (5-34) Units/L ALT 13 (0-55) Units/L Alkaline Phosphatase 86 (38-126) Units/L Serum Total Protein 7.3 (6.0-8.3) g/dL Albumin 2.6 L (3.5-5.0) g/dL Globulin 4.7 H (2.4-3.5) g/dL Albumin/Globulin Ratio 0.6 L (1.1-2.2) Lipase 66 (8-78) Units/L Urine Color (Yellow) Urine Clarity (Clear) Urine pH (5.0-8.0) pH Units Ur Specific [place] (1.010-1.025) Urine Protein (Neg-Trace) mg/dL Urine Glucose (UA) (Normal) mg/dL Urine Ketones (Negative) mg/dL Urine Blood (Negative) Urine Nitrite (Negative) Urine Bilirubin (Negative) Urine Urobilinogen (Normal) mg/dL Ur Leukocyte Esterase (Negative) Urine Microscopic RBC (0-3) per hpf Urine Microscopic WBC (0-3) per hpf Ur Squamous Epith Cells (None-Few) per lpf Urine Bacteria (None-Few) per hpf Hyaline Casts (None-Few) per lpf Ur Culture Indicated? (NO) 03/05/17 03/05/17 Range/Units 17:16 17:45 WBC (4.3-11.1) K/mcL RBC (3.82-4.97) M/mcL Hgb (11.5-15.4) g/dL Hct (35.3-44.9) % MCV (83.0-100.0) fL MCH (28.0-33.3) pg MCHC (31.6-35.5) g/dL RDW (11.5-14.5) % Plt Count (140-400) K/mcL MPV (9.4-12.4) fL Immature Gran % (0-4) % Seg Neutrophils % % Lymphocytes % % Monocytes % % Eosinophils % % Basophils % % Neutrophils # (1.6-8.9) K/mcL Lymphocytes # (0.6-4.6) K/mcL Monocytes # (0.0-1.3) K/mcL Eosinophils # (0.0-0.6) K/mcL Basophils # (0.0-0.2) K/mcL Immature Plt Fraction (1.1-6.1) % Sodium (136-145) mEq/L Potassium (3.5-4.5) mEq/L Chloride (98-109) mEq/L Carbon Dioxide (19-29) mEq/L BUN (7-20) mg/dL Creatinine (0.57-1.11) mg/dL Est GFR ( Amer) (> 60) Est GFR (Non-Af Amer) (> 60) BUN/Creatinine Ratio (6-26) Glucose (70-99) mg/dL Calculated Osmolality (280-300) Lactic Acid 0.6 (0.5-2.2) mmol/L Calcium (8.6-10.8) mg/dL Phosphorus (2.3-4.7) mg/dL Magnesium (1.6-2.6) mg/dL Total Bilirubin (0.2-1.2) mg/dL AST (5-34) Units/L ALT (0-55) Units/L Alkaline Phosphatase (38-126) Units/L Serum Total Protein (6.0-8.3) g/dL Albumin (3.5-5.0) g/dL Globulin (2.4-3.5) g/dL Albumin/Globulin Ratio (1.1-2.2) Lipase (8-78) Units/L Urine Color Yellow (Yellow) Urine Clarity Clear (Clear) Urine pH 7.0 (5.0-8.0) pH Units Ur Specific [place] 1.018 (1.010-1.025) Urine Protein 30 H (Neg-Trace) mg/dL Urine Glucose (UA) Normal (Normal) mg/dL Urine Ketones Negative (Negative) mg/dL Urine Blood Negative (Negative) Urine Nitrite Negative (Negative) Urine Bilirubin Negative (Negative) Urine Urobilinogen Normal (Normal) mg/dL Ur Leukocyte Esterase Negative (Negative) Urine Microscopic RBC 3-5 H (0-3) per hpf Urine Microscopic WBC 0-3 (0-3) per hpf Ur Squamous Epith Cells Many H (None-Few) per lpf Urine Bacteria Few (None-Few) per hpf Hyaline Casts None Seen (None-Few) per lpf Ur Culture Indicated? NO (NO) - Radiology Data Radiology results reviewed: Yes I reviewed the patient's radiology results. Abdomen/Pelvis CT 03/05/17 15:48 IMPRESSION: Re- demonstration of the right posterior pararenal/ retroperitoneal fluid collection, minimally changed compared to prior study. The IVC is more homogeneous on the current study but the study is not performed without IV contrast and therefore the patency of the IVC is not able to be determined at this time. D/ / Mir Santizo MD / Mir Santizo MD Interpreting Provider: Mir Santizo MD S.B.SaraRShahana - Nisha Situation: Demographics, MOA Background: Presenting Complaint, Relevant PMH, Meds, & Allergies Assessment: Vital Signs, Course and respsone to treatment, Exam Concerns, Patient/Family Expectation, Pertinant Lab Results, Outstanding Labs Recommendation: Barrier(s) to disposition, Recommendation based on pending studies, treatments, or consults S.B.AAlex Report Given to: Dr Delio Cameron Repor Time: 20:20 Attestation Statement - Attestation Attestation: Dr. Browne note: Patient was seen in conjunction with resident Dr. Tony Wong; please see his chart for complete documentation. I spent [id number] time with the patient and agree with the patient's treatment and disposition. Patient admitted in stabilized and improved condition. Laboratory tests obtained and reviewed. No further emesis noted since I arrived on shift at 7 PM.
[2017-03-05] MEDS ORDERED: Pantoprazole 40 MG VIAL IVP ONE (19:48)
[2017-03-05 21:09] LABS: Lipase 66 Units/L (8-78)
--- NOTE | 2017-03-05 23:58 | Internal Med History&Physical ---
Date of Encounter: 03/05/17 Time of Encounter: 22:30 Assessment and Plan (1) Nausea & vomiting Current visit: Yes Status: Acute This is likely secondary to compression of the duodenum by the pararenal/ retroperitoneal fluid collection. Patient had recent upper GI endoscopy, which showed hiatus hernia and external compression on the duodenum. Patient is started on the antiemetics and pantoprazole. Urology consultation for possible aspiration of the pararenal/retroperitoneal fluid collection. Qualifiers: Vomiting type: unspecified Vomiting Intractability: intractable Qualified Code(s): R11.2 - Nausea with vomiting, unspecified (2) Normocytic anemia Current visit: Yes Status: Acute Likely related to recent operative/postoperative losses. No significant change compared to the recent admission. Please check iron studies, vitamin B12/ folate. 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 Patient is on oral anticoagulation. Continue Internal Medicine - H&P: HPI Chief complaint: Nausea, vomiting Admitted From: Emergency Dept Plans for Post Hospital Care: Home History of present illness: Ms. 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 She had nausea and vomiting during her last hospitalization. She had upper GI endoscopy done, which showed large hiatus hernia next to compression at the bulb/D2 junction but I was able to pass the scope easily. She was discharged home on 03/03/2017. She reports that she had nausea and vomiting prior to discharge. She continued to have nausea and vomiting I did not get any better. She had 3 episodes of vomiting and could not keep any food down today. In between the episodes of vomiting she was dry heaving. She denies hematemesis. She apparently had 3 bowel movements today which was but no melena. She reports some pain in the surgical site / right flank, mild moderate in severity, non radiating, improved with Tylenol. She denies fever, chills, dysuria. She was evaluated in the emergency department and admitted to the hospitalist service for further workup and management. CT scan of the abdomen reported - Re- demonstration of the right posterior pararenal/ retroperitoneal fluid collection, minimally changed compared to prior study. Past Med Surg Social Fam HX - Past Medical History Medical history: cancer, coronary artery disease, GERD, hyperlipidemia, hypertension, malignancy, thyroid disease Psychiatric history: no psych history - Past Surgical History Surgical History: breast surgery, cholecystectomy, colectomy, hysterectomy - Social History Smoking Status: Never smoker Smokeless Tobacco Status: No Alcohol use: none Drug use: none - Family History Mother Living Status: Cause of : Lung cancer Hx Family Cardiac Disorders: Yes Hx Family Respiratory Disorders: Yes (Lung cancer) Internal Medicine - H&P: Meds Calcium Carbonate [Tums] 1,000 mg PO Q4HR PRN 02/03/17 [History] Levothyroxine [Synthroid] 50 mcg PO QAM 02/03/17 [History] Acetaminophen [Tylenol] 325 mg PO Q4HR PRN #30 tablet 02/11/17 [Rx] Omeprazole [PriLOSEC] 20 mg PO BIDAC #60 cap 03/03/17 [Rx] Rivaroxaban [Xarelto] 15 mg PO BID tablet 03/03/17 [Rx] Metoclopramide HCl 5 mg PO TID 03/05/17 [History] Allergies atenolol Adverse Reaction (Verified 03/05/17 15:24) Chest Pain codeine Adverse Reaction (Verified 03/05/17 15:24) Irritable fenofibrate [From Tricor] Adverse Reaction (Verified 03/05/17 15:24) Muscle Pain lisinopril Adverse Reaction (Verified 03/05/17 15:24) Dizziness Ijrnpfb-Izi-Iuw Reductase Inhibitor [Statins] Adverse Reaction (Verified 15:24) Muscle Pain All Systems PM: A 10-system review of systems was performed and is negative for pertinent findings except as documented above in the HPI. - Constitutional Vitals: Temp Pulse Resp BP Pulse Ox 98.0 F 90 14 159/80 94 03/05/17 22:18 03/05/17 22:18 03/05/17 22:18 03/05/17 22:18 03/05/17 22:18 Exam: General: Not in acute distress at the time of my evaluation HEENT: Oral mucosa is dry. No conjunctival palor or scleral icterus Neck: No obvious neck swellings Lungs: Clear to auscultation Cardiac: Regular rate and rhythm. No significant murmurs Abdomen: There is surgical scar in the right flank, with fullness in the area; tenderness present. Bowel sounds present Genitourinary: No william catheter Neurological: Alert and oriented. No gross localizing deficits Psych: Not aggressive or agitated Extremities: no significant leg edema Skin: No generalized rash Internal Med - H&P Results - Labs CBC & Chem 7: 03/05/17 17:16 03/05/17 17:16 - EKG Data -: EKG Interpreted by Myself EKG shows normal: sinus rhythm - EKG Data EKG comments: Q-wave in lead 3. QTC is 393 ms 03/06/17 04:07 - Impressions ITS Impressions Abdomen/Pelvis CT 03/05/17 15:48 IMPRESSION: Re- demonstration of the right posterior pararenal/ retroperitoneal fluid collection, minimally changed compared to prior study. The IVC is more homogeneous on the current study but the study is not performed without IV contrast and therefore the patency of the IVC is not able to be determined at this time. D/ / Mir Santizo MD / Mir Santizo MD Interpreting Provider: Mir Santizo MD
[2017-03-06] MEDS: 0.9 % Sodium Chloride 1,000 ML IVC SCH ×3 (02:53→22:45)
[2017-03-06] MEDS ORDERED: Naloxone 0.4 MG/ML INJ IVP PRN (03:43)
[2017-03-06] MEDS ORDERED: *HR* Morphine 2 MG/ML SYRINGE IVP PRN (03:43)
[2017-03-06 05:00] LABS: Basophils % 0.6 %; Eosinophils # 0.4 K/mcL (0.0-0.6); Eosinophils % 4.9 %; Hematocrit 25.5 % (35.3-44.9); Immature Granulocytes % 0.6 % (0-4); Lymphocytes # 1.9 K/mcL (0.6-4.6); Lymphocytes % 26.5 %; Mean Corpuscular HGB Conc 31.4 g/dL (31.6-35.5); Mean Corpuscular Volume 89.2 fL (83.0-100.0); Mean Platelet Volume 9.1 fL (9.4-12.4); Monocytes # 0.7 K/mcL (0.0-1.3); Monocytes % 9.4 %; Neutrophils # 4.2 K/mcL (1.6-8.9); Platelet Count 567 K/mcL (140-400); Red Blood Count 2.86 M/mcL (3.82-4.97); Red Cell Distribution Width 15.9 % (11.5-14.5)
[2017-03-06 05:25] LABS: % Iron Saturation 11 % (15-50); BUN/Creatinine Ratio 9 (6-26); Blood Urea Nitrogen 7 mg/dL (7-20); Calcium 8.7 mg/dL (8.6-10.8); Carbon Dioxide 21 mEq/L (19-29); Chloride 106 mEq/L (98-109); Glucose 88 mg/dL (70-99); Iron 20 mcg/dL (50-170); Magnesium 1.7 mg/dL (1.6-2.6); Osmolality,Calculated 281 (280-300); Potassium 3.5 mEq/L (3.5-4.5); Sodium 137 mEq/L (136-145); Transferrin 135 mg/dL (180-382); eGFR For African Americans > 60 (> 60); eGFR For Non-African Americans > 60 (> 60)
[2017-03-06] MEDS: Pantoprazole 40 MG VIAL IVP SCH (06:08)
[2017-03-06 06:25] LABS: Folate 8.8 ng/mL (7.0-31.4)
[2017-03-06] MEDS: *HR* Rivaroxaban 15 MG TABLET PO SCH ×2 (08:24→20:34)
[2017-03-06] MEDS: Acetaminophen 325 MG TABLET PO PRN ×2 (08:24→20:36)
[2017-03-06] MEDS: Ondansetron 4 MG/2 ML VIAL IVP PRN (08:36)
--- NOTE | 2017-03-06 12:38 | Internal Med Progress Note ---
Date of Encounter: 03/06/17 Time of Encounter: 10:15 - Assessment and plan (1) Nausea & vomiting Current Visit: Yes Status: Acute Assessment and plan: Patient with history of renal cell carcinoma - s/p right radical nephrectomy complicated by IVC injury resulting in large blood loss s/p repair of inferior vena caval injury with lateral venorrhaphy on 02/03/17. She was admitted on 02/25 for venous thrombosis of the IVC and iliacs and was started on xarelto. During that hospitalization she developed nausea and vomiting, she had an EGD showing a large hiatal hernia and external compression at bulb/D2 junction but able to pass scope easily in D3. Her symptoms improved with reglan and she tolerated well oral intake. She was sent home on 03/03 and she reports one day of doing well but then her nausea and vomiting worsened. CT abdomen and pelvis shows re-demontration of the right posterior pararenal/ retroperitoneal fluid collection, minimally changed compared to prior study. The IVC is more homogenous on the current study. Dr Crouch- Urology consult. continue supportive therapy with IV fluids, antiemetics and pain meds. 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 (3) Status post nephrectomy Current Visit: Yes Status: Chronic - Subjective Interval history: patient reports mild nausea. she is afraid of eating because she will start vomiting again. - Constitutional Vitals: Temp Pulse Resp BP Pulse Ox 97.4 F L 86 14 137/79 94 03/06/17 11:37 03/06/17 11:37 03/06/17 11:37 03/06/17 11:37 03/06/17 11:37 General appearance: Present: cooperative, A&O X 3, pleasant, no acute distress, answers questions appropriately - Respiratory Respiratory exam: Present: CTAB - Cardiovascular Cardiovascular exam: Present: RRR - GI/Abdominal GI/Abdominal exam: Present: normal bowel sounds, soft. Absent: distended, tenderness - Extremities Exam Extremities exam: Absent: pedal edema - Back Exam Back exam: Absent: CVA tenderness (L), CVA tenderness (R) - Neurological Exam Neurological exam: Present: alert, oriented X3, no focal deficits, strengths equal and symetr throughout. Absent: facial droop, speech deficit - Skin Skin exam: Absent: rash Internal Medicine: Result - Labs CBC & Chem 7: 03/06/17 04:45 03/06/17 04:45 Labs: Short CBC 03/06/17 Range/Units 04:45 WBC 7.2 (4.3-11.1) K/mcL Hgb 8.0 L (11.5-15.4) g/dL Hct 25.5 L (35.3-44.9) % Plt Count 567 H (140-400) K/mcL Neutrophils # 4.2 (1.6-8.9) K/mcL BMP 03/06/17 04:45 Sodium 137 Potassium 3.5 Chloride 106 Carbon Dioxide 21 BUN 7 Creatinine 0.77 Glucose 88 Calcium 8.7 Consult Discharge Plan - Plan Referrals: Sonny Reardon MD [Primary Care Provider] -
--- NOTE | 2017-03-06 12:41 | Electrocardiograph Report ---
[address] [place], [place] [address] Test Date: 2017-03-05 Pat Name: Ida Castellon Department: 115 Room: 3A Gender: F [employer] Installer: ELENITA : [id number] Requested By: Tierra Horowitz Order Number: [id number] Reading MD: Shereen Beth Measurements Intervals Marcus Rate: 91 P: 58 WI: 131 QRS: 1 QRSD: 100 T: 48 QT: 343 QTc: 391 Interpretive Statements SINUS RHYTHM Electronically Signed On 03-06-2017 12:39:46 EDT by Shereen Beth
[2017-03-06 14:33] LABS: INR 2.2; Prothrombin Time 24.2 Seconds (9.4-12.1)
--- NOTE | 2017-03-06 17:09 | Urology Progress Note ---
Date of Encounter: 03/06/17 Time of Encounter: 17:05 - Assessment and Plan (1) Status post nephrectomy Current Visit: Yes Status: Chronic Assessment and plan: no obvious surgical issues. the fluid collection near the IVC is stable. I do not recommend aspiration or treatment at this time as it is stable and patient does not appear to be acutely ill. I feel aspiration may increase risk for bleeding and the dangers outweigh the risk. Unfortunately the patient has had difficulty recovering from recent surgery. She is unlikely a candidate for chemotherapy and further treatment of her advanced malignancy without improvement. Progress Note Subjective: feels better Narrative: less N/V Objective Initial Vital Signs Temp Pulse Resp BP Pulse Ox 97.7 F 96 17 133/70 97 03/05/17 15:24 03/05/17 15:24 03/05/17 15:24 03/05/17 15:24 03/05/17 15:24 - General physical appearance Present: no distress - Additional Exam abd soft. minimal tenderness over right flnak incision. incision intact. - Labs 03/06/17 04:45 03/06/17 04:45 Diabetes panel 03/06/17 Range/Units 04:45 Sodium 137 (136-145) mEq/L Potassium 3.5 (3.5-4.5) mEq/L Chloride 106 (98-109) mEq/L Carbon Dioxide 21 (19-29) mEq/L BUN 7 (7-20) mg/dL Creatinine 0.77 (0.57-1.11) mg/dL Glucose 88 (70-99) mg/dL Calcium 8.7 (8.6-10.8) mg/dL Calcium panel 03/06/17 Range/Units 04:45 Calcium 8.7 (8.6-10.8) mg/dL Pituitary panel 03/06/17 Range/Units 04:45 Sodium 137 (136-145) mEq/L Potassium 3.5 (3.5-4.5) mEq/L Chloride 106 (98-109) mEq/L Carbon Dioxide 21 (19-29) mEq/L BUN 7 (7-20) mg/dL Creatinine 0.77 (0.57-1.11) mg/dL Glucose 88 (70-99) mg/dL Calcium 8.7 (8.6-10.8) mg/dL Adrenal panel 03/06/17 Range/Units 04:45 Sodium 137 (136-145) mEq/L Potassium 3.5 (3.5-4.5) mEq/L Chloride 106 (98-109) mEq/L Carbon Dioxide 21 (19-29) mEq/L BUN 7 (7-20) mg/dL Creatinine 0.77 (0.57-1.11) mg/dL Glucose 88 (70-99) mg/dL Calcium 8.7 (8.6-10.8) mg/dL Consult Discharge Plan - Plan Referrals: Sonny Reardon MD [Primary Care Provider] -
[2017-03-06] MEDS: Metoclopramide 10 MG/2 ML VIAL IVP SCH ×2 (19:20→20:33)
[2017-03-07] MEDS: Metoclopramide 10 MG/2 ML VIAL IVP SCH ×3 (04:01→21:01)
[2017-03-07] MEDS: Pantoprazole 40 MG VIAL IVP SCH (06:22)
[2017-03-07 06:43] LABS: Basophils % 0.5 %; Eosinophils # 0.5 K/mcL (0.0-0.6); Eosinophils % 6.2 %; Hematocrit 25.1 % (35.3-44.9); Hemoglobin 7.9 g/dL (11.5-15.4); Immature Granulocytes % 1.2 % (0-4); Lymphocytes # 1.5 K/mcL (0.6-4.6); Lymphocytes % 21.1 %; Mean Corpuscular HGB Conc 31.5 g/dL (31.6-35.5); Mean Corpuscular Hemoglobin 28.6 pg (28.0-33.3); Mean Corpuscular Volume 90.9 fL (83.0-100.0); Mean Platelet Volume 9.4 fL (9.4-12.4); Monocytes # 0.7 K/mcL (0.0-1.3); Neutrophils # 4.4 K/mcL (1.6-8.9); Platelet Count 539 K/mcL (140-400); Red Blood Count 2.76 M/mcL (3.82-4.97)
[2017-03-07 06:57] LABS: BUN/Creatinine Ratio 9 (6-26); Blood Urea Nitrogen 7 mg/dL (7-20); Calcium 8.5 mg/dL (8.6-10.8); Carbon Dioxide 23 mEq/L (19-29); Chloride 109 mEq/L (98-109); Glucose 95 mg/dL (70-99); Magnesium 1.4 mg/dL (1.6-2.6); Osmolality,Calculated 288 (280-300); Potassium 3.4 mEq/L (3.5-4.5); Sodium 140 mEq/L (136-145); eGFR For African Americans > 60 (> 60); eGFR For Non-African Americans > 60 (> 60)
[2017-03-07] MEDS ORDERED: Magnesium Sulfate 2 GM in D5% in Water 100 ML IVPB ONE (08:21)
--- NOTE | 2017-03-07 08:27 | Urology Progress Note ---
Date of Encounter: 03/07/17 Time of Encounter: 08:25 - Assessment and Plan (1) Nausea & vomiting Current Visit: Yes Status: Acute Assessment and plan: continue clears at this time. Qualifiers: Vomiting type: unspecified Vomiting Intractability: intractable Qualified Code(s): R11.2 - Nausea with vomiting, unspecified (2) Status post nephrectomy Current Visit: Yes Status: Chronic Assessment and plan: unsure of origin of fluid collection. will observe at this time. Progress Note Narrative: Ida is s 87 y/o female with history of right nephrectomy with IVC injury now with fluid collection in right renal bed. Patient with persistent nausea not much improved. able to keep down some liquids. Objective Initial Vital Signs Temp Pulse Resp BP Pulse Ox 97.7 F 96 17 133/70 97 03/05/17 15:24 03/05/17 15:24 03/05/17 15:24 03/05/17 15:24 03/05/17 15:24 - General physical appearance Present: well developed - Abdomen Present: soft - Labs 03/07/17 06:19 03/07/17 06:19 Diabetes panel 03/07/17 Range/Units 06:19 Sodium 140 (136-145) mEq/L Potassium 3.4 L (3.5-4.5) mEq/L Chloride 109 (98-109) mEq/L Carbon Dioxide 23 (19-29) mEq/L BUN 7 (7-20) mg/dL Creatinine 0.74 (0.57-1.11) mg/dL Glucose 95 (70-99) mg/dL Calcium 8.5 L (8.6-10.8) mg/dL Calcium panel 03/07/17 Range/Units 06:19 Calcium 8.5 L (8.6-10.8) mg/dL Pituitary panel 03/07/17 Range/Units 06:19 Sodium 140 (136-145) mEq/L Potassium 3.4 L (3.5-4.5) mEq/L Chloride 109 (98-109) mEq/L Carbon Dioxide 23 (19-29) mEq/L BUN 7 (7-20) mg/dL Creatinine 0.74 (0.57-1.11) mg/dL Glucose 95 (70-99) mg/dL Calcium 8.5 L (8.6-10.8) mg/dL Adrenal panel 03/07/17 Range/Units 06:19 Sodium 140 (136-145) mEq/L Potassium 3.4 L (3.5-4.5) mEq/L Chloride 109 (98-109) mEq/L Carbon Dioxide 23 (19-29) mEq/L BUN 7 (7-20) mg/dL Creatinine 0.74 (0.57-1.11) mg/dL Glucose 95 (70-99) mg/dL Calcium 8.5 L (8.6-10.8) mg/dL Consult Discharge Plan - Plan Referrals: Sonny Reardon MD [Primary Care Provider] - Jes Hardin CNP [Advanced Practice Nurse] - 03/16/17 10:00 am
[2017-03-07] MEDS: Ondansetron 4 MG/2 ML VIAL IVP PRN (09:23)
[2017-03-07] MEDS: Acetaminophen 325 MG TABLET PO PRN ×2 (09:24→21:01)
[2017-03-07] MEDS: *HR* Rivaroxaban 15 MG TABLET PO SCH ×2 (09:25→21:01)
--- NOTE | 2017-03-07 14:02 | Internal Med Progress Note ---
Date of Encounter: 03/07/17 Time of Encounter: 12:30 - Assessment and plan (1) Nausea & vomiting Current Visit: Yes Status: Acute Assessment and plan: Patient with history of renal cell carcinoma - s/p right radical nephrectomy complicated by IVC injury resulting in large blood loss s/p repair of inferior vena caval injury with lateral venorrhaphy on 02/03/17. She was admitted on 02/25 for venous thrombosis of the IVC and iliacs and was started on Xarelto. During that hospitalization, she developed nausea and vomiting, she had an EGD showing a large hiatal hernia and external compression at bulb/D2 junction but able to pass scope easily in D3. Her symptoms improved with reglan and she tolerated well oral intake. She was sent home on 03/03 and she reports doing well for one day but then her nausea and vomiting worsened. CT abdomen and pelvis shows re-demontration of the right posterior pararenal/ retroperitoneal fluid collection, minimally changed compared to prior study. The IVC is more homogenous on the current study. Appreciate Urology input. Patient tolerating liquid diet for now. I will advance diet to soft. Close monitoring. stop IV fluids. Continue IV reglan achs , IV antiemetics and pain meds. 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 (3) Status post nephrectomy Current Visit: Yes Status: Chronic - Subjective Interval history: Patient reports persistent nausea, she is tolerating clear liquids for now. no vomiting, no abdominal pain. - Constitutional Vitals: Temp Pulse Resp BP Pulse Ox 97.4 F L 79 14 154/73 96 03/07/17 11:05 03/07/17 11:05 03/07/17 11:05 03/07/17 11:05 03/07/17 11:05 General appearance: Present: cooperative, A&O X 3, pleasant, no acute distress, answers questions appropriately - Respiratory Respiratory exam: Present: CTAB - Cardiovascular Cardiovascular exam: Present: RRR - GI/Abdominal GI/Abdominal exam: Present: normal bowel sounds, soft. Absent: distended, tenderness - Extremities Exam Extremities exam: Absent: pedal edema - Back Exam Back exam: Absent: CVA tenderness (L), CVA tenderness (R) - Neurological Exam Neurological exam: Present: alert, oriented X3, no focal deficits, strengths equal and symetr throughout. Absent: facial droop, speech deficit - Skin Skin exam: Absent: rash Internal Medicine: Result - Labs CBC & Chem 7: 03/07/17 06:19 03/07/17 06:19 Labs: Short CBC 03/07/17 Range/Units 06:19 WBC 7.3 (4.3-11.1) K/mcL Hgb 7.9 L (11.5-15.4) g/dL Hct 25.1 L (35.3-44.9) % Plt Count 539 H (140-400) K/mcL Neutrophils # 4.4 (1.6-8.9) K/mcL BMP 03/07/17 06:19 Sodium 140 Potassium 3.4 L Chloride 109 Carbon Dioxide 23 BUN 7 Creatinine 0.74 Glucose 95 Calcium 8.5 L - ABG Interpretation ABG results: PT/INR, D-dimer PT 24.2 Seconds (9.4-12.1) H 03/06/17 14:10 Consult Discharge Plan - Plan Referrals: Sonny Reardon MD [Primary Care Provider] - Jes Hardin CNP [Advanced Practice Nurse] - 03/16/17 10:00 am
[2017-03-08] MEDS: Ondansetron 4 MG/2 ML VIAL IVP PRN (03:56)
[2017-03-08] MEDS: Pantoprazole 40 MG VIAL IVP SCH (05:51)
[2017-03-08 07:40] LABS: Basophils % 0.4 %; Eosinophils # 0.4 K/mcL (0.0-0.6); Eosinophils % 4.9 %; Hematocrit 26.1 % (35.3-44.9); Hemoglobin 8.1 g/dL (11.5-15.4); Immature Granulocytes % 0.7 % (0-4); Lymphocytes # 1.7 K/mcL (0.6-4.6); Lymphocytes % 22.9 %; Mean Corpuscular Hemoglobin 28.3 pg (28.0-33.3); Mean Corpuscular Volume 91.3 fL (83.0-100.0); Mean Platelet Volume 9.7 fL (9.4-12.4); Monocytes # 0.8 K/mcL (0.0-1.3); Monocytes % 10.1 %; Neutrophils # 4.6 K/mcL (1.6-8.9); Platelet Count 565 K/mcL (140-400); Red Blood Count 2.86 M/mcL (3.82-4.97)
[2017-03-08 08:29] LABS: BUN/Creatinine Ratio 7 (6-26); Calcium 8.7 mg/dL (8.6-10.8); Carbon Dioxide 17 mEq/L (19-29); Chloride 108 mEq/L (98-109); Glucose 99 mg/dL (70-99); Magnesium 1.9 mg/dL (1.6-2.6); Osmolality,Calculated 281 (280-300); Potassium 4.2 mEq/L (3.5-4.5); Sodium 137 mEq/L (136-145); eGFR For African Americans > 60 (> 60); eGFR For Non-African Americans > 60 (> 60)
[2017-03-08 08:31] LABS: Blood Urea Nitrogen 5 mg/dL (7-20)
[2017-03-08] MEDS: Metoclopramide 10 MG/2 ML VIAL IVP SCH ×5 (09:20→19:38)
[2017-03-08] MEDS: Acetaminophen 325 MG TABLET PO PRN ×2 (09:21→15:30)
[2017-03-08] MEDS: *HR* Rivaroxaban 15 MG TABLET PO SCH ×2 (09:21→19:38)
--- NOTE | 2017-03-08 16:52 | Internal Med Progress Note ---
Date of Encounter: 03/08/17 Time of Encounter: 09:45 - Assessment and plan (1) Nausea & vomiting Current Visit: Yes Status: Acute Assessment and plan: Patient with history of renal cell carcinoma - s/p right radical nephrectomy complicated by IVC injury resulting in large blood loss s/p repair of inferior vena caval injury with lateral venorrhaphy on 02/03/17. She was admitted on 02/25 for venous thrombosis of the IVC and iliacs and was started on Xarelto. During that hospitalization, she developed nausea and vomiting, she had an EGD showing a large hiatal hernia and external compression at bulb/D2 junction but able to pass scope easily in D3. Her symptoms improved with reglan and she tolerated well oral intake. She was sent home on 03/03 and she reports doing well for one day but then her nausea and vomiting worsened. CT abdomen and pelvis shows re-demontration of the right posterior pararenal/ retroperitoneal fluid collection, minimally changed compared to prior study. The IVC is more homogenous on the current study. Appreciate Urology input. Patient ate all her diet yesterday but this morning she feels nauseous. Increase IV reglan to 10 mg achs. continue IV antiemetics and pain meds. 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 (3) Status post nephrectomy Current Visit: Yes Status: Chronic - Subjective Interval history: Patient doesn't feel well this morning. she is nauseous and threw up once. no abdominal pain. - Constitutional Vitals: Temp Pulse Resp BP Pulse Ox 97.4 F L 84 15 151/79 97 03/08/17 15:27 03/08/17 15:27 03/08/17 15:27 03/08/17 15:27 03/08/17 15:27 General appearance: Present: cooperative, A&O X 3, pleasant, no acute distress, answers questions appropriately - Respiratory Respiratory exam: Present: CTAB - Cardiovascular Cardiovascular exam: Present: RRR - GI/Abdominal GI/Abdominal exam: Present: normal bowel sounds, soft. Absent: distended, tenderness - Extremities Exam Extremities exam: Absent: pedal edema - Back Exam Back exam: Absent: CVA tenderness (L), CVA tenderness (R) - Neurological Exam Neurological exam: Present: alert, oriented X3, no focal deficits, strengths equal and symetr throughout. Absent: facial droop, speech deficit Internal Medicine: Result - Labs CBC & Chem 7: 03/08/17 06:38 03/08/17 06:38 Labs: Short CBC 03/08/17 Range/Units 06:38 WBC 7.5 (4.3-11.1) K/mcL Hgb 8.1 L (11.5-15.4) g/dL Hct 26.1 L (35.3-44.9) % Plt Count 565 H (140-400) K/mcL Neutrophils # 4.6 (1.6-8.9) K/mcL BMP 03/08/17 06:38 Sodium 137 Potassium 4.2 Chloride 108 Carbon Dioxide 17 L BUN 5 L Creatinine 0.74 Glucose 99 Calcium 8.7 - ABG Interpretation ABG results: PT/INR, D-dimer PT 24.2 Seconds (9.4-12.1) H 03/06/17 14:10 Consult Discharge Plan - Plan Referrals: Sonny Reardon MD [Primary Care Provider] - Jes Hardin CNP [Advanced Practice Nurse] - 03/16/17 10:00 am
[2017-03-09 05:31] LABS: BUN/Creatinine Ratio 9 (6-26); Blood Urea Nitrogen 7 mg/dL (7-20); Calcium 8.9 mg/dL (8.6-10.8); Carbon Dioxide 21 mEq/L (19-29); Chloride 104 mEq/L (98-109); Glucose 99 mg/dL (70-99); Osmolality,Calculated 278 (280-300); Potassium 4.6 mEq/L (3.5-4.5); Sodium 135 mEq/L (136-145); eGFR For African Americans > 60 (> 60); eGFR For Non-African Americans > 60 (> 60)
[2017-03-09 05:37] LABS: Hematocrit 26.3 % (35.3-44.9); Hemoglobin 8.2 g/dL (11.5-15.4); Mean Corpuscular HGB Conc 31.2 g/dL (31.6-35.5); Mean Corpuscular Hemoglobin 28.6 pg (28.0-33.3); Mean Corpuscular Volume 91.6 fL (83.0-100.0); Platelet Count 402 K/mcL (140-400); Red Blood Count 2.87 M/mcL (3.82-4.97); Red Cell Distribution Width 16.1 % (11.5-14.5)
[2017-03-09 05:38] LABS: Basophils % 0.4 %; Eosinophils # 0.3 K/mcL (0.0-0.6); Eosinophils % 3.5 %; Immature Granulocytes % 0.6 % (0-4); Lymphocytes # 2.3 K/mcL (0.6-4.6); Lymphocytes % 27.8 %; Monocytes # 0.8 K/mcL (0.0-1.3); Monocytes % 9.7 %; Neutrophils # 4.8 K/mcL (1.6-8.9)
[2017-03-09] MEDS: *HR* Rivaroxaban 15 MG TABLET PO SCH (09:11)
[2017-03-09] MEDS: Metoclopramide 10 MG/2 ML VIAL IVP SCH (09:11)
[2017-03-09] MEDS: Acetaminophen 325 MG TABLET PO PRN ×2 (09:15→16:22)
[2017-03-09] MEDS: Sucralfate 1 GM TABLET PO SCH ×2 (11:19→16:18)
--- NOTE | 2017-03-09 15:32 | Urology Progress Note ---
Date of Encounter: 03/09/17 Time of Encounter: 15:30 - Assessment and Plan (1) Status post nephrectomy Current Visit: Yes Status: Chronic Assessment and plan: patient continues to have nausea but improved. unknown etiology. she states a viral infection has "gone through" her family and maybe she "picked in up". she feels ok enough for discharge without further intervention. We also discussed that the large fluid collection in the retroperitoneum may be compressing the esophagus and causing the N/V. consider percutaneuous drainage by IR. However, I'm concerned about the true etiology of the fluid collection and whether it has any connection to the IVC. I would need vascular surgery input before any intervention. I am comfortable with observation and discharge for now. if intervention needed in furture I can obtain outpt vascular consultation. call if any change. Progress Note Subjective: feels better Narrative: less nausea. no vomiting. Objective Initial Vital Signs Temp Pulse Resp BP Pulse Ox 97.7 F 96 17 133/70 97 03/05/17 15:24 03/05/17 15:24 03/05/17 15:24 03/05/17 15:24 03/05/17 15:24 - General physical appearance Present: well developed, no distress - Additional Exam Abd soft and benign - Labs 03/09/17 04:32 03/09/17 04:32 Diabetes panel 03/09/17 Range/Units 04:32 Sodium 135 L (136-145) mEq/L Potassium 4.6 H (3.5-4.5) mEq/L Chloride 104 (98-109) mEq/L Carbon Dioxide 21 (19-29) mEq/L BUN 7 (7-20) mg/dL Creatinine 0.81 (0.57-1.11) mg/dL Glucose 99 (70-99) mg/dL Calcium 8.9 (8.6-10.8) mg/dL Calcium panel 03/09/17 Range/Units 04:32 Calcium 8.9 (8.6-10.8) mg/dL Pituitary panel 03/09/17 Range/Units 04:32 Sodium 135 L (136-145) mEq/L Potassium 4.6 H (3.5-4.5) mEq/L Chloride 104 (98-109) mEq/L Carbon Dioxide 21 (19-29) mEq/L BUN 7 (7-20) mg/dL Creatinine 0.81 (0.57-1.11) mg/dL Glucose 99 (70-99) mg/dL Calcium 8.9 (8.6-10.8) mg/dL Adrenal panel 03/09/17 Range/Units 04:32 Sodium 135 L (136-145) mEq/L Potassium 4.6 H (3.5-4.5) mEq/L Chloride 104 (98-109) mEq/L Carbon Dioxide 21 (19-29) mEq/L BUN 7 (7-20) mg/dL Creatinine 0.81 (0.57-1.11) mg/dL Glucose 99 (70-99) mg/dL Calcium 8.9 (8.6-10.8) mg/dL Consult Discharge Plan - Plan Referrals: Sonny Reardon MD [Primary Care Provider] - Jes Hardin CNP [Advanced Practice Nurse] - 03/16/17 10:00 am
[2017-03-09 15:39] VITALS: BP 155/82
[2017-03-09] MEDS: Ondansetron 4 MG/2 ML VIAL IVP PRN (16:24)
--- NOTE | 2017-03-09 16:37 | Discharge Summary ---
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 - Discharge Medications Prescriptions: Metoclopramide [Reglan] 10 mg PO QIDAC #90 tablet Sucralfate [Carafate] 1 gm PO QIDAC #120 tablet Home Medications: Calcium Carbonate [Tums] 1,000 mg PO Q4HR PRN 02/03/17 [History] Levothyroxine [Synthroid] 50 mcg PO QAM 02/03/17 [History] Acetaminophen [Tylenol] 325 mg PO Q4HR PRN #30 tablet 02/11/17 [Rx] Omeprazole [PriLOSEC] 20 mg PO BIDAC #60 cap 03/03/17 [Rx] Rivaroxaban [Xarelto] 15 mg PO BID tablet 03/03/17 [Rx] Metoclopramide [Reglan] 10 mg PO QIDAC #90 tablet 03/09/17 [Rx] Sucralfate [Carafate] 1 gm PO QIDAC #120 tablet 03/09/17 [Rx] Allergies/Adverse Reactions: Allergies atenolol Adverse Reaction (Verified 03/05/17 15:24) Chest Pain codeine Adverse Reaction (Verified 03/05/17 15:24) Irritable fenofibrate [From Tricor] Adverse Reaction (Verified 03/05/17 15:24) Muscle Pain lisinopril Adverse Reaction (Verified 03/05/17 15:24) Dizziness Maumcbc-Wyc-Gok Reductase Inhibitor [Statins] Adverse Reaction (Verified 15:24) Muscle Pain Date of admission: 03/05/17 20:30 Primary care physician: Sonny Reardon MD Consults: 03/06/17 09:37 Consult to Karate Black Belt [CONS] Routine Reason for SW Consult: discharge planning - Patient Status Disposition: Home, Self-Care Condition: Fair Functional capacity at discharge: uses cane/walker Overall status at discharge: patient is progressing back to baseline - Discharge Instructions Follow Up With: Sonny Reardon MD [Primary Care Provider] - Jes Hardin NURSING EDUCATOR [Advanced Practice Nurse] - 03/16/17 10:00 am Maldonado Nava MD [Partnered Physician] - Additional Instructions: PLEASE FOLLOW UP IN THE UROLOGY CLINIC WITH DR NAVA SCHEDULED. PLEASE DRINK PLENTY OF FLUIDS. PLEASE FOLLOW UP WITH PRIMARY CARE DOCTOR FOR LARGE HIATAL HERNIA - Diet and Activity Activity: resume usual activities as tolerated Diet: regular diet Interval History: Patient reports feeling better this morning, no vomiting. She feels mild nausea and dyspepsia. Hospital course: Ms. 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 During that hospitalization, she developed nausea and vomiting, she had an EGD showing a large hiatal hernia and external compression at bulb/D2 junction but able to pass scope easily in D3. Her symptoms improved with reglan and she tolerated oral intake well. She went home on 03/03 but then her nausea and vomiting worsened and she presented to our ED on 03/05. CT abdomen and pelvis shows re-demontration of the right posterior pararenal/ retroperitoneal fluid collection, minimally changed compared to prior study. The IVC is more homogenous on the current study. Nausea and vomiting could be secondary to large hiatal hernia +/- right posterior pararenal/retroperitoneal fluid collection. She was started on IV reglan and IV antiemetics prn with clinical improvement. Also, carafate was added. She was eating well at discharge. PLAN: continue reglan, ppi and carafate. follow up in the urology clinic for fluid collection. follow up with your primary care doctor for large hiatal hernia. - Time Spent with Patient Total time spent providing and/or coordinating discharge services: - Constitutional Vitals: Temp Pulse Resp BP Pulse Ox 97.9 F 89 18 155/82 97 03/09/17 15:38 03/09/17 15:38 03/09/17 15:38 03/09/17 15:38 03/09/17 15:38 General appearance: Present: cooperative, A&O X 3, pleasant, no acute distress, answers questions appropriately - Respiratory Respiratory exam: Present: CTAB - Cardiovascular Cardiovascular exam: Present: RRR - GI/Abdominal GI/Abdominal exam: Present: normal bowel sounds, soft. Absent: distended, tenderness - Extremities Exam Extremities exam: Present: pedal edema - Back Exam Back exam: Absent: CVA tenderness (L), CVA tenderness (R) - Neurological Exam Neurological exam: Present: alert, oriented X3, no focal deficits, strengths equal and symetr throughout. Absent: facial droop, speech deficit
--- NOTE | 2017-03-09 17:36 | Physician Discharge Referral ---
Home Health/Hosp Referral Info Transfer to: Home Health Attending Provider: jay Provider in Charge Post Discharge: PCP - Diagnosis (1) Nausea & vomiting Status: Acute (2) IVC thrombosis Status: Chronic (3) Status post nephrectomy Status: Chronic - Respiratory Orders Smoking Cessation: Smoking cessation has been advised. For more information, call the [place] Tobacco Quit Line at 9-789-HRTZ-NOW. - Diet/Nutrition Diet/Nutrition Orders: Regular - Activity Activity Orders: Ambulate - Services Needed Following services are medically necessary services: Physical Therapy, Occupational Therapy - Transfer Medications Prescriptions: Metoclopramide [Reglan] 10 mg PO QIDAC #90 tablet Sucralfate [Carafate] 1 gm PO QIDAC #120 tablet Home Medications: Calcium Carbonate [Tums] 1,000 mg PO Q4HR PRN 02/03/17 [History] Levothyroxine [Synthroid] 50 mcg PO QAM 02/03/17 [History] Acetaminophen [Tylenol] 325 mg PO Q4HR PRN #30 tablet 02/11/17 [Rx] Omeprazole [PriLOSEC] 20 mg PO BIDAC #60 cap 03/03/17 [Rx] Rivaroxaban [Xarelto] 15 mg PO BID tablet 03/03/17 [Rx] Metoclopramide [Reglan] 10 mg PO QIDAC #90 tablet 03/09/17 [Rx] Sucralfate [Carafate] 1 gm PO QIDAC #120 tablet 03/09/17 [Rx] Allergies/Adverse Reactions: Allergies atenolol Adverse Reaction (Verified 03/05/17 15:24) Chest Pain codeine Adverse Reaction (Verified 03/05/17 15:24) Irritable fenofibrate [From Tricor] Adverse Reaction (Verified 03/05/17 15:24) Muscle Pain lisinopril Adverse Reaction (Verified 03/05/17 15:24) Dizziness Yvlrwwq-Yae-Iho Reductase Inhibitor [Statins] Adverse Reaction (Verified 15:24) Muscle Pain Certification: Further, I certify that my clinical findings support that this patient is homebound (i.e. absences from home require considerable and taxing effort and are for medical reasons or jain services or infrequently or short duration when for other reasons) because: Homebound Reason: Patient requires assistance of a person or device to safely leave home, Leaving home requires considerable and taxing effort due to condition Attestation: My signature below is to certify that this patient is under my care and that I, or nurse practitioner, or a physician's portfolio assistant working with me, has a face-to -face encounter with this patient.
== END 2017-03-09 17:43 | disposition home health service (06) ==
LOC: EMEROO 15:16 → 3ANU 15:16
PROVIDERS: ADMIT Hospitalist; ATTEND Internal Medicine

== ENCOUNTER 2017-03-12 19:31 | Observation (INO) ==
[2017-03-12] MEDS ORDERED: 0.9 % Sodium Chloride 1,000 ML IVC ONE (19:37)
[2017-03-12 20:06] LABS: Hematocrit 27.8 % (35.3-44.9); Hemoglobin 8.6 g/dL (11.5-15.4); Mean Corpuscular HGB Conc 30.9 g/dL (31.6-35.5); Mean Corpuscular Hemoglobin 27.8 pg (28.0-33.3); Mean Platelet Volume 9.2 fL (9.4-12.4); Platelet Count 583 K/mcL (140-400); Red Blood Count 3.09 M/mcL (3.82-4.97); Red Cell Distribution Width 15.7 % (11.5-14.5); Segmented Neutrophils % 71.6 %
[2017-03-12 20:07] LABS: Basophils % 0.3 %; Eosinophils # 0.2 K/mcL (0.0-0.6); Eosinophils % 2.1 %; Immature Granulocytes % 0.4 % (0-4); Lymphocytes % 19.1 %; Monocytes # 0.7 K/mcL (0.0-1.3); Monocytes % 6.5 %; Neutrophils # 7.5 K/mcL (1.6-8.9)
[2017-03-12 20:17] LABS: INR 2.1; Prothrombin Time 23.4 Seconds (9.4-12.1)
[2017-03-12 20:20] LABS: Activated Partial Thrombo Time 46.6 Seconds (26.0-36.0)
[2017-03-12 20:22] LABS: Alanine Aminotransferase 7 Units/L (0-55); Albumin 2.6 g/dL (3.5-5.0); Albumin/Globulin Ratio 0.5 (1.1-2.2); Alkaline Phosphatase 93 Units/L (38-126); Amylase 81 Units/L (25-125); Aspartate Amino Transferase 12 Units/L (5-34); BUN/Creatinine Ratio 12 (6-26); Bilirubin,Direct 0.2 mg/dL (0.0-0.5); Bilirubin,Indirect 0.4 mg/dL (0.0-1.2); Bilirubin,Total 0.6 mg/dL (0.2-1.2); Blood Urea Nitrogen 10 mg/dL (7-20); Calcium 9.5 mg/dL (8.6-10.8); Carbon Dioxide 24 mEq/L (19-29); Chloride 103 mEq/L (98-109); Globulin 4.8 g/dL (2.4-3.5); Glucose 103 mg/dL (70-99); Lipase 77 Units/L (8-78); Osmolality,Calculated 285 (280-300); Potassium 3.4 mEq/L (3.5-4.5); Sodium 138 mEq/L (136-145); Total Protein 7.4 g/dL (6.0-8.3); eGFR For African Americans > 60 (> 60); eGFR For Non-African Americans > 60 (> 60)
--- NOTE | 2017-03-12 20:32 | Emergency Department Note ---
Disposition Clinical Impression: Intractable nausea and vomiting Qualifiers: Vomiting type: unspecified Qualified Code(s): R11.2 - Nausea with vomiting, unspecified Renal cancer Qualifiers: Laterality: right Qualified Code(s): C64.1 - Malignant neoplasm of right kidney , except renal pelvis Disposition: Admitted As Inpatient Condition: Good Time of Disposition: 23:14 Nausea/Vomiting/Diarrhea HPI - General Chief complaint: ED Nausea/Vomiting/Diarrhea Stated complaint: N/V Time Seen by Provider: 03/12/17 19:36 Source: patient, EMS Limitations: no limitations Nursing Notes Reviewed: Yes Vital Signs Reviewed: Yes - History of Present Illness HPI Narrative: 87 year old female with HX of renal CA and recent nephrectomy on the right side per Dr. hernández that was done about one month ago. She state that since then she has been feelig increasingly nauseated and has been vomitting. She was most recently admitted for these simliar symptms and discharged from the hospital three days ago and states that she has not imprvoed she mostly received IVF for hydration purposes. She states that since she has been home she cannot tolerate PO fluids or solids. Arabella states that she also has abdominal pain that is located at the incision site on the right abdomen an flank. 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 Arabella denies fevers, chest pain, or shortness of breath. She states her urination has decreased - Related Data Home Medications Medication Instructions Recorded Confirmed Calcium Carbonate [Tums] 1,000 mg PO Q4HR PRN 02/03/17 03/05/17 Levothyroxine [Synthroid] 50 mcg PO QAM 02/03/17 03/05/17 Previous Rx's Medication Instructions Recorded Acetaminophen [Tylenol] 325 mg PO Q4HR PRN #30 tablet 02/11/17 Omeprazole [PriLOSEC] 20 mg PO BIDAC #60 cap 03/03/17 Rivaroxaban [Xarelto] 15 mg PO BID tablet 03/03/17 Metoclopramide [Reglan] 10 mg PO QIDAC #90 tablet 03/09/17 Sucralfate [Carafate] 1 gm PO QIDAC #120 tablet 03/09/17 Allergies Allergy/AdvReac Type Severity Reaction Status Date / Time atenolol AdvReac Chest Pain Verified 03/05/17 15:24 codeine AdvReac Irritable Verified 03/05/17 15:24 fenofibrate [From Tricor] AdvReac Muscle Pain Verified 03/05/17 15:24 lisinopril AdvReac Dizziness Verified 03/05/17 15:24 Soecuuc-Qol-Msn Reductase AdvReac Muscle Pain Verified 03/05/17 15:24 Inhibitor [Statins] Constitutional: Reports: weakness. Denies: fever, chills, weight change Eyes: Denies: eye pain, eye discharge, vision change ENT ED: Denies: ear pain, throat pain, dental pain, hearing loss, epistaxis, congestion, dysphagia Cardiovascular: Denies: chest pain, palpitations, dyspnea on exertion, edema, syncope Respiratory: Denies: cough, dyspnea, wheezes, hemoptysis, stridor Gastrointestinal: Reports: abdominal pain, nausea, vomiting. Denies: diarrhea, constipation, hematemesis, melena, hematochezia Genitourinary: Denies: dysuria, frequency, hematuria, discharge Musculoskeletal: Denies: back pain, neck pain, arthralgia, myalgia Integumentary: Denies: rash, abrasion, lesions Neurological: Denies: headache, weakness, numbness, paresthesias, confusion, abnormal gait, vertigo Psychiatric: Denies: anxiety, depression, suicidal thoughts, homicidal thoughts , auditory hallucinations, visual hallucinations Endocrine: Denies: fatigue Hematological/Lymphatic: Denies: easy bleeding, easy bruising Allergic/Immunologic: Denies: facial swelling, urticaria Past Medical History - Past Medical History Medical history: Reports: cancer, coronary artery disease, GERD, hyperlipidemia , hypertension, malignancy, thyroid disease Surgical history: Reports: breast surgery, colectomy, hysterectomy Psychiatric history: Reports: no psych history CRISIS WORKER history: Reports: no CRISIS WORKER history - Social History Smoking Status: Never smoker Smokeless Tobacco Status: No Alcohol use: Reports: none Drug use: Reports: none Physical Exam - General Limitations: no limitations General appearance: alert, in no apparent distress - Head Head exam: atraumatic, normocephalic, normal inspection - Eye Eye exam: Present: normal appearance, PERRL, EOMI - Expanded Eye Exam Pupils: Left: reactive - ENT ENT exam: normal exam, normal oropharynx, mucous membranes moist - Expanded ENT Exam External ear exam: Present: normal external inspection Mouth exam: Present: normal external inspection Teeth exam: Present: normal inspection Throat exam: Present: normal inspection - Neck Neck exam: Present: normal inspection, full ROM, trachea midline - Chest Chest inspection: Present: normal inspection, symmetric chest wall rise - Respiratory Respiratory exam: Present: normal lung sounds bilaterally - Cardiovascular Cardiovascular exam: Present: regular rate, normal rhythm, normal heart sounds - Abdominal Exam Abdominal exam: Present: soft, tenderness, normal bowel sounds, scar (s/p nephrectomy on the right side, healing well). Absent: Non-Tender, distention, guarding, rebound, rigidity, Willams's sign, tenderness at McBurney's Point Abdominal tenderness: Present: RUQ, moderate - Extremities Exam Extremities exam: Present: normal inspection, full ROM. Absent: tenderness, pedal edema - Expanded Upper Extremity Exam Shoulder exam: Present: normal inspection, full ROM Arm exam: Present: normal inspection, full ROM Elbow exam: Present: normal inspection, full ROM Forearm/Wrist exam: Present: normal inspection, full ROM Hand exam: Present: normal inspection, full ROM Vascular exam: Normal: capillary refill, radial pulse - Expanded Lower Extremity Exam Hip/Pelvis exam: Present: normal inspection, full ROM Upper leg exam: Present: normal inspection, full ROM Knee exam: Present: normal inspection, full ROM Lower leg exam: Present: normal inspection, full ROM Ankle exam: Present: normal inspection, full ROM Foot/toe exam: Present: normal inspection, full ROM Neurovascular/Tendon exam: Absent: motor deficit, sensory deficit, tendon deficit - Back Exam Back exam: Present: normal inspection, full ROM. Absent: tenderness - Neurological Exam Neurological exam: Present: alert, oriented X3 - Expanded Neurological Exam Patient oriented to: Present: person, place, time Coma Scale Eye Opening: Spontaneous Coma Scale Motor Response: Obeys Commands Coma Scale Verbal Response: Oriented Coma Scale Total: 15 - Psychiatric Psychiatric exam: Present: normal affect, normal mood - Skin Skin exam: Present: warm, dry, intact, normal color Course Course Narrative: We will do an abdominal pain workup on patient and evaluate with ABCT in addition to IVF and reglan for therapy. - Reevaluation(s) Reevaluation #1: updated arabella and family on reults and arabella does not feel comfrotable going home because of vomitting status. Arabella would like to be admitted and states that oncology had sent her here for admission so that she can be seen sooner rather than later per Dr. Motta office. Time: 23:13 - Consultations Consultation #1: discussed case with Dr. Scott and he accepts patinet for admision. Time: 23:13 Vital Signs Temperature 98.0 F 03/12/17 19:32 Pulse Rate 87 03/12/17 19:32 Respiratory Rate 18 03/12/17 19:32 Blood Pressure 177/80 03/12/17 19:32 O2 Sat by Pulse Oximetry 96 03/12/17 19:32 Temperature 97.8 F 03/12/17 23:51 Pulse Rate 89 03/12/17 23:51 Respiratory Rate 12 03/12/17 23:51 Blood Pressure 177/76 03/12/17 23:51 O2 Sat by Pulse Oximetry 94 03/12/17 23:51 Oxygen Delivery Oxygen Delivery Room Air Nausea/Vomiting/Diarrhea - Lab Data Result diagrams: 03/12/17 19:58 03/12/17 19:58 Lab Results 03/12/17 03/12/17 03/12/17 Range/Units 19:58 19:58 19:58 WBC 10.4 (4.3-11.1) K/mcL RBC 3.09 L (3.82-4.97) M/mcL Hgb 8.6 L (11.5-15.4) g/dL Hct 27.8 L (35.3-44.9) % MCV 90.0 (83.0-100.0) fL MCH 27.8 L (28.0-33.3) pg MCHC 30.9 L (31.6-35.5) g/dL RDW 15.7 H (11.5-14.5) % Plt Count 583 H (140-400) K/mcL MPV 9.2 L (9.4-12.4) fL Immature Gran % 0.4 (0-4) % Seg Neutrophils % 71.6 % Lymphocytes % 19.1 % Monocytes % 6.5 % Eosinophils % 2.1 % Basophils % 0.3 % Neutrophils # 7.5 (1.6-8.9) K/mcL Lymphocytes # 2.0 (0.6-4.6) K/mcL Monocytes # 0.7 (0.0-1.3) K/mcL Eosinophils # 0.2 (0.0-0.6) K/mcL Basophils # 0.0 (0.0-0.2) K/mcL PT 23.4 H (9.4-12.1) Seconds INR 2.1 APTT 46.6 H (26.0-36.0) Seconds Sodium 138 (136-145) mEq/L Potassium 3.4 L (3.5-4.5) mEq/L Chloride 103 (98-109) mEq/L Carbon Dioxide 24 (19-29) mEq/L BUN 10 (7-20) mg/dL Creatinine 0.83 (0.57-1.11) mg/dL Est GFR ( Amer) > 60 (> 60) Est GFR (Non-Af Amer) > 60 (> 60) BUN/Creatinine Ratio 12 (6-26) Glucose 103 H (70-99) mg/dL Calculated Osmolality 285 (280-300) Lactic Acid (0.5-2.2) mmol/L Calcium 9.5 (8.6-10.8) mg/dL Total Bilirubin 0.6 (0.2-1.2) mg/dL Direct Bilirubin 0.2 (0.0-0.5) mg/dL Indirect Bilirubin 0.4 (0.0-1.2) mg/dL AST 12 (5-34) Units/L ALT 7 (0-55) Units/L Alkaline Phosphatase 93 (38-126) Units/L Troponin I (0-0.03) ng/mL Serum Total Protein 7.4 (6.0-8.3) g/dL Albumin 2.6 L (3.5-5.0) g/dL Globulin 4.8 H (2.4-3.5) g/dL Albumin/Globulin Ratio 0.5 L (1.1-2.2) Amylase 81 (25-125) Units/L Lipase 77 (8-78) Units/L Urine Color (Yellow) Urine Clarity (Clear) Urine pH (5.0-8.0) pH Units Ur Specific [place] (1.010-1.025) Urine Protein (Neg-Trace) mg/dL Urine Glucose (UA) (Normal) mg/dL Urine Ketones (Negative) mg/dL Urine Blood (Negative) Urine Nitrite (Negative) Urine Bilirubin (Negative) Urine Urobilinogen (Normal) mg/dL Ur Leukocyte Esterase (Negative) Urine Microscopic RBC (0-3) per hpf Urine Microscopic WBC (0-3) per hpf Ur Squamous Epith Cells (None-Few) per lpf Urine Bacteria (None-Few) per hpf Hyaline Casts (None-Few) per lpf Ur Culture Indicated? (NO) 03/12/17 03/12/17 03/12/17 Range/Units 19:58 19:58 21:07 WBC (4.3-11.1) K/mcL RBC (3.82-4.97) M/mcL Hgb (11.5-15.4) g/dL Hct (35.3-44.9) % MCV (83.0-100.0) fL MCH (28.0-33.3) pg MCHC (31.6-35.5) g/dL RDW (11.5-14.5) % Plt Count (140-400) K/mcL MPV (9.4-12.4) fL Immature Gran % (0-4) % Seg Neutrophils % % Lymphocytes % % Monocytes % % Eosinophils % % Basophils % % Neutrophils # (1.6-8.9) K/mcL Lymphocytes # (0.6-4.6) K/mcL Monocytes # (0.0-1.3) K/mcL Eosinophils # (0.0-0.6) K/mcL Basophils # (0.0-0.2) K/mcL PT (9.4-12.1) Seconds INR APTT (26.0-36.0) Seconds Sodium (136-145) mEq/L Potassium (3.5-4.5) mEq/L Chloride (98-109) mEq/L Carbon Dioxide (19-29) mEq/L BUN (7-20) mg/dL Creatinine (0.57-1.11) mg/dL Est GFR ( Amer) (> 60) Est GFR (Non-Af Amer) (> 60) BUN/Creatinine Ratio (6-26) Glucose (70-99) mg/dL Calculated Osmolality (280-300) Lactic Acid 0.6 (0.5-2.2) mmol/L Calcium (8.6-10.8) mg/dL Total Bilirubin (0.2-1.2) mg/dL Direct Bilirubin (0.0-0.5) mg/dL Indirect Bilirubin (0.0-1.2) mg/dL AST (5-34) Units/L ALT (0-55) Units/L Alkaline Phosphatase (38-126) Units/L Troponin I 0.00 (0-0.03) ng/mL Serum Total Protein (6.0-8.3) g/dL Albumin (3.5-5.0) g/dL Globulin (2.4-3.5) g/dL Albumin/Globulin Ratio (1.1-2.2) Amylase (25-125) Units/L Lipase (8-78) Units/L Urine Color Yellow (Yellow) Urine Clarity Clear (Clear) Urine pH 7.0 (5.0-8.0) pH Units Ur Specific [place] 1.017 (1.010-1.025) Urine Protein Trace (Neg-Trace) mg/dL Urine Glucose (UA) Normal (Normal) mg/dL Urine Ketones Negative (Negative) mg/dL Urine Blood Negative (Negative) Urine Nitrite Negative (Negative) Urine Bilirubin Negative (Negative) Urine Urobilinogen Normal (Normal) mg/dL Ur Leukocyte Esterase Negative (Negative) Urine Microscopic RBC 0-3 (0-3) per hpf Urine Microscopic WBC 0-3 (0-3) per hpf Ur Squamous Epith Cells Many H (None-Few) per lpf Urine Bacteria Many H (None-Few) per hpf Hyaline Casts None Seen (None-Few) per lpf Ur Culture Indicated? NO (NO) - EKG Data EKG attestation: Yes I reviewed and interpreted this EKG. EKG results narrative: NSR with rate of 88. PVCs. normal interals. NO STEMI. no change from 03/05/17. 1948 Attestation Statement - Attestation Attestation: I, Minh Fuller MD, personally evaluated this patient and discussed their management with the resident physician. I reviewed the resident's note and agree with the documented findings, medical decision making, and plan of care. 87-year-old female presents to the emergency department with a complaint of intractable nausea and vomiting. Some abdominal pain. Patient has had this nausea and vomiting for the past 6 months but has been much worse over the past 6 weeks since she had a nephrectomy secondary to renal cancer. 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 She was admitted here to the hospital on 02/25 for the nausea and vomiting and discharged on 03/03. She was readmitted on 03/05 and discharged on 03/09, again for the intractable nausea and vomiting. She returns today with family complaining of persistent nausea and vomiting and not able to keep anything down. She had a low-grade fever 2 days ago. She does complain of some intermittent right upper and mid abdominal pain. No diarrhea. Bowels have been moving. No melena or hematochezia. No hematemesis. No urinary symptoms. On examination patient is a well-developed thin elderly female in no acute distress. She is alert and oriented 3. There is no cyanosis or diaphoresis. Breath sounds are clear and equal bilaterally. Heart regular rate and rhythm. Abdomen is soft with normal bowel sounds. There is mild right upper abdominal tenderness with no guarding or rebound tenderness. No tympany or distention. Labs reviewed and all appear to be at baseline for patient compared to previous results. CT of the abdomen and pelvis obtained and shows no acute abnormalities. The hospitalist, Dr. Scott, was consulted and accepted admission of the patient.
[2017-03-12] MEDS ORDERED: Metoclopramide 10 MG/2 ML VIAL IVP ONE (20:37)
[2017-03-12 21:14] LABS: Bilirubin,Urine Negative (Negative); Blood,Urine Negative (Negative); Clarity,Urine Clear (Clear); Color,Urine Yellow (Yellow); Glucose,Urine (UA) Normal (Normal); Ketones,Urine Negative (Negative); Leukocyte Esterase,Urine Negative (Negative); Nitrite,Urine Negative (Negative); Protein,Urine Trace mg/dL (Neg-Trace); Specific Gravity,Urine 1.017 (1.010-1.025); Urobilinogen,Urine Normal (Normal)
[2017-03-12 21:15] LABS: Bacteria,Urine Many per hpf (None-Few); Hyaline Casts,Urine None Seen per lpf (None-Few); RBC,Urine 0-3 per hpf (0-3); Squamous Epithelial Cell,Urine Many per lpf (None-Few); WBC,Urine 0-3 per hpf (0-3)
[2017-03-12] MEDS ORDERED: Naloxone 0.4 MG/ML INJ IVP PRN (23:22)
--- NOTE | 2017-03-12 23:35 | Internal Med History&Physical ---
Date of Encounter: 03/12/17 Time of Encounter: 23:20 Assessment and Plan (1) Intractable nausea and vomiting Current visit: Yes Status: Acute pt with right renal cancer s/p nephrectomy keeps being admitted with the above, etiology is multifactorial; from cancer, local compression and GERD, will admit for symptoms management with IVF, antiemetics and electrolytes replacement, she will need consideration of supp antiemetic prior to discharge to better control her symptoms, family is frustrated tat she does not have this option, she could also be considered for trial of marinol Qualifiers: Vomiting type: cyclical vomiting Qualified Code(s): G43.A1 - Cyclical vomiting, intractable (2) Hypokalemia Current visit: Yes Status: Acute this is from GI loss an inadequate intake, we will replace and follow BMP (3) Renal cancer Current visit: Yes Status: Chronic we have consulted her oncologist to assist, family wanted their input regarding port placement and outpatient IVF options 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 Qualifiers: Laterality: right Qualified Code(s): C64.1 - Malignant neoplasm of right kidney, except renal pelvis (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, we will continue, (5) HTN (hypertension) Current visit: Yes Status: Chronic Hx of HTN but do not see any antihypertensives on her medication list, we will verify in AM, Qualifiers: Hypertension type: essential hypertension Qualified Code(s): I10 - Essential (primary) hypertension (6) GERD (gastroesophageal reflux disease) Current visit: Yes Status: Chronic will continue PPI Qualifiers: Esophagitis presence: with esophagitis Qualified Code(s): K21.0 - Gastro- esophageal reflux disease with esophagitis (7) Hypothyroidism Current visit: Yes Status: Chronic we will continue her home medication Qualifiers: Hypothyroidism type: acquired Qualified Code(s): E03.9 - Hypothyroidism, unspecified Internal Medicine - H&P: HPI Chief complaint: nausea, vomiting and diarrhea Admitted From: Emergency Dept Plans for Post Hospital Care: Home History of present illness: Ms. Castellon is a 87 year old female with recent diagnosis of right renal cell carcinoma - s/p resection in 01/30 complicated by injury to IVC and bleed from the IVC, followed by venous thrombosis of the IVC, started on xarelto with multiple admission for nausea and vomiting comes in with similar complaints. She had upper GI endoscopy done, which showed large hiatus hernia next to compression at the bulb/D2 junction. She was discharged home on 03/03/2017 after an admission for nausea, vomiting and diarrhea, readmitted on 03/05 and discharged on the 03/09 to be readmitted today for same symptoms. She reports that prior to discharge she was vomiting but she was sent home al the same. Since being home she has had intermittent nausea, vomiting and loose stools. Her symptoms are worse in the mornings, she however vomits throughput the day and is unable to keep any food she eats. Her vomitus contains food material ingested previously or water. She has not vomited coffee ground material or bright red blood so far. She came in because 24 hours prior to presentation her symptoms have become worse and she started feeling lightheaded and actually passed out for a few seconds the day prior. She denies fever, chills, abdominal pain. Past Med Surg Social Fam HX - Past Medical History Medical history: cancer, coronary artery disease, GERD, hyperlipidemia, hypertension, malignancy, thyroid disease Psychiatric history: no psych history - Past Surgical History Surgical History: breast surgery, colectomy, hysterectomy - Social History Smoking Status: Never smoker Smokeless Tobacco Status: No Alcohol use: none Drug use: none Current living situation: Home - Independent, With Family Activity Level: Independent ambulation - Family History Mother Living Status: Hx Family Cardiac Disorders: Yes Hx Family Respiratory Disorders: Yes (Lung cancer) Internal Medicine - H&P: Meds Calcium Carbonate [Tums] 1,000 mg PO Q4HR PRN 02/03/17 [History] Levothyroxine [Synthroid] 50 mcg PO QAM 02/03/17 [History] Acetaminophen [Tylenol] 325 mg PO Q4HR PRN #30 tablet 02/11/17 [Rx] Omeprazole [PriLOSEC] 20 mg PO BIDAC #60 cap 03/03/17 [Rx] Rivaroxaban [Xarelto] 15 mg PO BID tablet 03/03/17 [Rx] Metoclopramide [Reglan] 10 mg PO QIDAC #90 tablet 03/09/17 [Rx] Sucralfate [Carafate] 1 gm PO QIDAC #120 tablet 03/09/17 [Rx] Allergies atenolol Adverse Reaction (Verified 03/05/17 15:24) Chest Pain codeine Adverse Reaction (Verified 03/05/17 15:24) Irritable fenofibrate [From Tricor] Adverse Reaction (Verified 03/05/17 15:24) Muscle Pain lisinopril Adverse Reaction (Verified 03/05/17 15:24) Dizziness Yizjweu-Vzn-Kng Reductase Inhibitor [Statins] Adverse Reaction (Verified 15:24) Muscle Pain All Systems PM: A 10-system review of systems was performed and is negative for pertinent findings except as documented above in the HPI. - Constitutional Vitals: Temp Pulse Resp BP Pulse Ox 98.0 F 99 18 150/65 99 03/12/17 19:32 03/12/17 22:37 03/12/17 22:37 03/12/17 22:37 03/12/17 22:37 Exam: General: Elderly female, lying in bed with no sign of distress or pain, HEENT: NC/AT, EOMI, DAYRON, Oral mucosa is dry. No conjunctival palor or scleral icterus Lungs: Clear to auscultation, no crackles or wheeze, Cardiac: Regular rate and rhythm. No significant murmurs, no ankle edema Abdomen: There is surgical scar in the right flank, with fullness in the area; tenderness present only on deep palpation, no epigastric tenderness, normal bowel sounds, tender suprapubic area Neurological: Alert and oriented, CN 2-12 grossly intact, non focal motor or sensory exam, Psych: Not aggressive or agitated Extremities: no deformity noted, Skin: No rash or ulcer Internal Med - H&P Results - Labs CBC & Chem 7: 03/12/17 19:58 03/12/17 19:58 - Diagnostic Studies CT scan - abdomen Status: image reviewed by me
[2017-03-13] MEDS ORDERED: *HR* Promethazine 25 MG/ML VIAL IVP PRN
[2017-03-13] MEDS: Promethazine 25 MG in 0.9 % Sodium Chloride 50 ML IVPB PRN (00:44)
[2017-03-13] MEDS: 0.9 % Sodium Chloride 1,000 ML IVC SCH ×2 (00:45→08:11)
[2017-03-13] MEDS: *HR* Rivaroxaban 15 MG TABLET PO SCH ×3 (04:42→20:35)
[2017-03-13] MEDS: Prochlorperazine 10 MG/2 ML VIAL IVP PRN (04:48)
[2017-03-13 06:15] LABS: Hematocrit 27.2 % (35.3-44.9); Hemoglobin 8.5 g/dL (11.5-15.4); Mean Corpuscular HGB Conc 31.3 g/dL (31.6-35.5); Mean Corpuscular Hemoglobin 28.3 pg (28.0-33.3); Mean Corpuscular Volume 90.7 fL (83.0-100.0); Mean Platelet Volume 10.1 fL (9.4-12.4); Platelet Count 498 K/mcL (140-400); Red Cell Distribution Width 15.7 % (11.5-14.5)
[2017-03-13 06:27] LABS: BUN/Creatinine Ratio 12 (6-26); Blood Urea Nitrogen 8 mg/dL (7-20); Calcium 8.7 mg/dL (8.6-10.8); Carbon Dioxide 21 mEq/L (19-29); Chloride 107 mEq/L (98-109); Glucose 89 mg/dL (70-99); Magnesium 1.6 mg/dL (1.6-2.6); Osmolality,Calculated 286 (280-300); Phosphorous 3.1 mg/dL (2.3-4.7); Potassium 3.3 mEq/L (3.5-4.5); Sodium 139 mEq/L (136-145); eGFR For African Americans > 60 (> 60); eGFR For Non-African Americans > 60 (> 60)
--- NOTE | 2017-03-13 13:18 | Event Note ---
Date of Encounter: 03/13/17 Time of Encounter: 13:11 patient discussed with Anni Ta. Patient continues to have nausea which has resulted in 3rd admission since surgery. CT scan shows stable retroperitoneal fluid collection but a new retropertitoneal lymph node. I discussed fluid collection with vascular and radiology - both feel it is likely a seroma and not involving IVC. will plan IR drainage bc it may be contributing to nausea bc of mass effect. Dr Dean recommmends holding Xarelto Thursday and plan for aspiration on Thursday. The new lymph node seen on CT scan may be progression of known metastatic urothelial malignancy. ONC already aware of patient and I do not feel that inpt consultation is necessary. If patient's condition improves she may be a candidate for outpatient chemotherapy. Will continue to follow while in patient.
--- NOTE | 2017-03-13 17:23 | Internal Med Progress Note ---
Date of Encounter: 03/13/17 Time of Encounter: 10:00 - Assessment and plan (1) Intractable nausea and vomiting Current Visit: Yes Status: Acute Assessment and plan: Patient has had multiple admissions and readmissions for intractable nausea and vomiting. She has Zofran at home, she states it does not work. Currently IV Compazine and IV Phenergan are working best for her. She states this morning when I saw her that it has subsided by about 50%. Her potassium was 3.3 and has been replaced. She says that she is not able to eat or drink much because of the nausea and she states that things just do not taste good. She appears to not be dehydrated. Her mucous membranes are moist. Continue IV Compazine and Phenergan Continue IV fluids Reassess need for change in antibiotic if necessary Monitor labs and patient condition vital signs Qualifiers: Vomiting type: cyclical vomiting Qualified Code(s): G43.A1 - Cyclical vomiting, intractable (2) Status post nephrectomy Current Visit: No Status: Chronic Assessment and plan: Nephrectomy in January of this year for renal cancer. Patient will see oncology on March 27. I did speak with Damian Pineda CNP, and we agreed that patient does not need oncology services at this time. We will consult over the weekend if necessary. Patient has a fluid collection that is stable in a retroperitoneal area, and a retroperitoneal lymph node. Most likely this is a seroma. IR will drain on Thursday. (3) Urothelial carcinoma of kidney Current Visit: No Status: Chronic Assessment and plan: Plan as above Qualifiers: Laterality: right Qualified Code(s): C64.1 - Malignant neoplasm of right kidney, except renal pelvis (4) Anemia Current Visit: No Status: Acute Assessment and plan: Red blood cells 3.0, hemoglobin 8.5. Hemoglobin has remained around 8 since surgery last month. Oncology is aware of this. Transfuse if hemoglobin around 7. Qualifiers: Anemia type: other cause Other causes of anemia: acute posthemorrhagic Qualified Code(s): D62 - Acute posthemorrhagic anemia (5) IVC thrombosis Current Visit: Yes Status: Chronic Assessment and plan: Patient is on Xarelto. Will hold on Thursday for IR procedure on Thursday. Order is already entered. Resume on Thursday after procedure. (6) HTN (hypertension) Current Visit: Yes Status: Chronic Assessment and plan: Patient's blood pressure is around 170s/70s. She is not on any home antihypertensive. Hydralazine 10 mg IV push 1 when necessary systolic blood pressure greater than 180mmhg Qualifiers: Hypertension type: essential hypertension Qualified Code(s): I10 - Essential (primary) hypertension (7) Hypokalemia Current Visit: Yes Status: Acute Assessment and plan: Potassium is 3.3. She had supplemental potassium. Will check labs again in the morning. - Time Spent With Patient less than 15 minutes - Subjective Interval history: Patient was lying and darkened room this morning. She was seen and evaluated at 10 AM. Patient states that she was diagnosed with renal cancer by CT on February 03 of this year. She had a nephrectomy at that time. She reports constant nausea, vomiting, diarrhea since that surgery. She states that Zofran does not work. She does have home health, however, she has not been able to see them because every time they calm she has to come to the hospital. Surprisingly, she has only had approximately 5 pound weight loss since surgery. I did discuss her case with Dr. Crouch today since he has been following her in her hospital visits. Her CT scan shows a stable retroperitoneal fluid collection but a new node. I put in an IR order for drainage, since it may be putting pressure on her esophagus and causing nausea. I have put in an order that pharmacy is also aware of to hold his Route toe THURSDAY AND RESTART it THURSDAY AFTER PROCEDURE. Oncology had been consulted by admitting hospitalist. They did call and speak to me and we agreed that she most likely does not need oncology during this visit. She has an appointment with them on March 27. - Constitutional Vitals: Temp Pulse Resp BP Pulse Ox 98.5 F 87 16 174/79 96 03/13/17 15:21 03/13/17 15:21 03/13/17 15:21 03/13/17 15:21 03/13/17 15:21 General appearance: Present: cooperative, A&O X 3, pleasant, answers questions appropriately - Head Head exam: Present: normal inspection - Eye Eye exam: Present: normal appearance, conjuntiva pink - ENT ENT exam: Present: mucous membranes moist, normal exam - Neck Neck exam general surgery: Present: normal inspection. Absent: lymphadenopathy , tenderness - Respiratory Respiratory exam: Present: CTAB. Absent: rales, respiratory distress, stridor, wheezes - Cardiovascular Cardiovascular exam: Present: RRR, +S1, +S2. Absent: diastolic murmur, systolic murmur - GI/Abdominal GI/Abdominal exam: Present: normal bowel sounds, soft. Absent: distended, hepatomegaly, tenderness - Extremities Exam Extremities exam: Present: normal capillary refill, normal inspection, warm, radial pulses palpable and symetrical. Absent: pedal edema, tenderness - Neurological Exam Neurological exam: Present: alert, oriented X3, no focal deficits, strengths equal and symetr throughout. Absent: facial droop, speech deficit Internal Medicine: Result - Labs CBC & Chem 7: 03/13/17 05:37 03/13/17 05:37 Labs: Short CBC 03/13/17 Range/Units 05:37 WBC 8.8 (4.3-11.1) K/mcL Hgb 8.5 L (11.5-15.4) g/dL Hct 27.2 L (35.3-44.9) % Plt Count 498 H (140-400) K/mcL [facility] 03/13/17 05:37 Sodium 139 Potassium 3.3 L Chloride 107 Carbon Dioxide 21 BUN 8 Creatinine 0.68 Glucose 89 Calcium 8.7 - ABG Interpretation ABG results: PT/INR, D-dimer PT 23.4 Seconds (9.4-12.1) H 03/12/17 19:58 Consult Discharge Plan - Plan Referrals: Sonny Reardon MD [Primary Care Provider] -
[2017-03-14 04:26] LABS: Basophils # 0.1 K/mcL (0.0-0.2); Basophils % 0.5 %; Eosinophils # 0.1 K/mcL (0.0-0.6); Eosinophils % 1.1 %; Hematocrit 27.8 % (35.3-44.9); Hemoglobin 8.5 g/dL (11.5-15.4); Immature Granulocytes % 0.4 % (0-4); Lymphocytes # 2.1 K/mcL (0.6-4.6); Lymphocytes % 23.3 %; Mean Corpuscular HGB Conc 30.6 g/dL (31.6-35.5); Mean Corpuscular Hemoglobin 27.9 pg (28.0-33.3); Mean Corpuscular Volume 91.1 fL (83.0-100.0); Mean Platelet Volume 9.5 fL (9.4-12.4); Monocytes # 0.7 K/mcL (0.0-1.3); Monocytes % 7.1 %; Neutrophils # 6.2 K/mcL (1.6-8.9); Platelet Count 602 K/mcL (140-400); Red Blood Count 3.05 M/mcL (3.82-4.97); Red Cell Distribution Width 15.7 % (11.5-14.5); Segmented Neutrophils % 67.6 %
[2017-03-14 04:41] LABS: BUN/Creatinine Ratio 15 (6-26); Blood Urea Nitrogen 11 mg/dL (7-20); Calcium 9.2 mg/dL (8.6-10.8); Carbon Dioxide 18 mEq/L (19-29); Chloride 103 mEq/L (98-109); Glucose 55 mg/dL (70-99); Osmolality,Calculated 279 (280-300); Potassium 3.2 mEq/L (3.5-4.5); Sodium 136 mEq/L (136-145); eGFR For African Americans > 60 (> 60); eGFR For Non-African Americans > 60 (> 60)
[2017-03-14] MEDS: *HR* Rivaroxaban 15 MG TABLET PO SCH (08:33)
[2017-03-14] MEDS: 0.9 % Sodium Chloride 1,000 ML IVC SCH ×2 (08:53→21:00)
[2017-03-14] MEDS: Prochlorperazine 10 MG/2 ML VIAL IVP PRN (14:48)
--- NOTE | 2017-03-14 15:43 | Internal Med Progress Note ---
Date of Encounter: 03/14/17 Time of Encounter: 09:45 - Assessment and plan (1) Intractable nausea and vomiting Current Visit: Yes Status: Acute Assessment and plan: Patient reports that she had not had any nausea or vomiting since yesterday morning. She attempted a clear liquid diet today since she said she was finally hungry for the first time in 2 weeks. She tolerated clear liquids well. We advanced her to full liquids at lunch time and she did not tolerate well. She says it caused her nausea for about 3 hours. She says that she feels significantly better and that the Compazine is helping. I decreased her fluids to 60 mL/ hour long as she is continuing to drink. Continue IV Compazine and Phenergan Continue IV fluids Monitor labs and patient condition, vital signs Qualifiers: Vomiting type: cyclical vomiting Qualified Code(s): G43.A1 - Cyclical vomiting, intractable (2) Status post nephrectomy Current Visit: No Status: Chronic Assessment and plan: Surgery in January,. She has had nausea and vomiting since that time. (3) Urothelial carcinoma of kidney Current Visit: No Status: Chronic Qualifiers: Laterality: right Qualified Code(s): C64.1 - Malignant neoplasm of right kidney, except renal pelvis (4) Anemia Current Visit: No Status: Acute Assessment and plan: Hemoglobin remained steady at 8.5. Patient will see oncology March 27. Transfuse if hemoglobin is around 7. Qualifiers: Anemia type: other cause Other causes of anemia: acute posthemorrhagic Qualified Code(s): D62 - Acute posthemorrhagic anemia (5) IVC thrombosis Current Visit: Yes Status: Chronic Assessment and plan: Continue Xarelto Hold Thursday for procedure on Thursday. Restart Thursday after procedure. (6) HTN (hypertension) Current Visit: Yes Status: Chronic Assessment and plan: Chronic. Continue medications. Well controlled in inpatient setting. Qualifiers: Hypertension type: essential hypertension Qualified Code(s): I10 - Essential (primary) hypertension (7) Hypokalemia Current Visit: Yes Status: Acute Assessment and plan: Patient was hypokalemic on admission and was treated with by mouth potassium. Potassium 3.2 today. She was treated with 20 mEq K rider due to nausea and size of pills. Repeat labs in the morning. - Time Spent With Patient less than 15 minutes - Subjective Interval history: Pt resting quietly and can room. Initially this morning she tells me that she has had no nausea since yesterday morning, she feels good, and [facility]. She states that she was hungry and was ready to try some food. I started her out initially on a clear liquid diet. She tolerated it very well, we attempted to advance her to full liquid lunch. She did not tolerate that well. She was nauseated again. I spoke with her, she did not vomit, she says that she would like to go back to clear liquids. I have changed her fluids to 60 mL per hour and as long as she is drinking fluids I will leave it there. Her abdomen is soft and nontender with hypoactive bowel sounds. - Constitutional Vitals: Temp Pulse Resp BP Pulse Ox 97.7 F 88 14 162/72 96 03/14/17 15:12 03/14/17 15:12 03/14/17 15:12 03/14/17 15:12 03/14/17 15:12 General appearance: Present: cooperative, A&O X 3, pleasant, no acute distress, answers questions appropriately - Head Head exam: Present: normal inspection - Eye Eye exam: Present: normal appearance, conjuntiva pink - ENT ENT exam: Present: mucous membranes moist, normal exam, normal external ear exam - Neck Neck exam general surgery: Present: normal inspection. Absent: lymphadenopathy , tenderness - Respiratory Respiratory exam: Present: chest wall tenderness, CTAB. Absent: rales, respiratory distress, rhonchi, stridor, wheezes - Cardiovascular Cardiovascular exam: Present: RRR, +S1, +S2. Absent: diastolic murmur, systolic murmur - GI/Abdominal GI/Abdominal exam: Present: normal bowel sounds, soft. Absent: hepatomegaly, tenderness - Neurological Exam Neurological exam: Present: alert, oriented X3, no focal deficits, strengths equal and symetr throughout. Absent: facial droop, speech deficit Internal Medicine: Result - Labs CBC & Chem 7: 03/14/17 03:33 03/14/17 03:33 Labs: Short CBC 03/14/17 Range/Units 03:33 WBC 9.2 (4.3-11.1) K/mcL Hgb 8.5 L (11.5-15.4) g/dL Hct 27.8 L (35.3-44.9) % Plt Count 602 H (140-400) K/mcL Neutrophils # 6.2 (1.6-8.9) K/mcL BMP 03/14/17 03:33 Sodium 136 Potassium 3.2 L Chloride 103 Carbon Dioxide 18 L BUN 11 Creatinine 0.75 Glucose 55 L Calcium 9.2 - ABG Interpretation ABG results: PT/INR, D-dimer PT 23.4 Seconds (9.4-12.1) H 03/12/17 19:58 Consult Discharge Plan - Plan Referrals: Sonny Reardon MD [Primary Care Provider] -
[2017-03-15 03:15] LABS: Basophils % 0.4 %; Eosinophils # 0.1 K/mcL (0.0-0.6); Eosinophils % 1.6 %; Hematocrit 27.6 % (35.3-44.9); Hemoglobin 8.9 g/dL (11.5-15.4); Immature Granulocytes % 0.3 % (0-4); Lymphocytes # 1.3 K/mcL (0.6-4.6); Lymphocytes % 17.4 %; Mean Corpuscular HGB Conc 32.2 g/dL (31.6-35.5); Mean Corpuscular Hemoglobin 28.8 pg (28.0-33.3); Mean Corpuscular Volume 89.3 fL (83.0-100.0); Mean Platelet Volume 9.8 fL (9.4-12.4); Monocytes # 0.7 K/mcL (0.0-1.3); Platelet Count 574 K/mcL (140-400); Red Blood Count 3.09 M/mcL (3.82-4.97); Red Cell Distribution Width 15.9 % (11.5-14.5); Segmented Neutrophils % 71.3 %
[2017-03-15 03:29] LABS: BUN/Creatinine Ratio 10 (6-26); Blood Urea Nitrogen 7 mg/dL (7-20); Calcium 8.9 mg/dL (8.6-10.8); Carbon Dioxide 19 mEq/L (19-29); Chloride 106 mEq/L (98-109); Glucose 110 mg/dL (70-99); Osmolality,Calculated 281 (280-300); Sodium 136 mEq/L (136-145); eGFR For African Americans > 60 (> 60); eGFR For Non-African Americans > 60 (> 60)
[2017-03-15 03:30] LABS: Potassium 4.1 mEq/L (3.5-4.5)
[2017-03-15 03:42] LABS: Neutrophils # 5.4 K/mcL (1.6-8.9)
[2017-03-15 03:44] LABS: Anisocytosis 1+ (Not Present); Platelet Estimate Increased (Normal)
[2017-03-15] MEDS: Acetaminophen 325 MG TABLET PO PRN ×3 (04:40→22:56)
[2017-03-15] MEDS: 0.9 % Sodium Chloride 1,000 ML IVC SCH ×2 (04:45→14:22)
[2017-03-15] MEDS: Prochlorperazine 10 MG/2 ML VIAL IVP PRN ×2 (09:23→14:26)
--- NOTE | 2017-03-15 15:28 | Internal Med Progress Note ---
Date of Encounter: 03/15/17 Time of Encounter: 15:26 - Assessment and plan (1) Status post nephrectomy Current Visit: No Status: Chronic Assessment and plan: recently (2) Nausea & vomiting Current Visit: No Status: Acute Assessment and plan: still nauseated but no vomitting Qualifiers: Vomiting type: unspecified Vomiting Intractability: intractable Qualified Code(s): R11.2 - Nausea with vomiting, unspecified (3) Renal cell carcinoma Current Visit: No Status: Chronic Assessment and plan: s/p neohrectomy renal function normal Qualifiers: Laterality: right Qualified Code(s): C64.1 - Malignant neoplasm of right kidney, except renal pelvis (4) Normocytic anemia Current Visit: No Status: Chronic Assessment and plan: chronic and stable hgb (5) HTN (hypertension) Current Visit: Yes Status: Chronic Assessment and plan: not well controlled Qualifiers: Hypertension type: essential hypertension Qualified Code(s): I10 - Essential (primary) hypertension (6) Hypothyroidism Current Visit: Yes Status: Chronic Assessment and plan: chronic Qualifiers: Hypothyroidism type: acquired Qualified Code(s): E03.9 - Hypothyroidism, unspecified (7) Hypokalemia Current Visit: Yes Status: Resolved Assessment and plan: resolved - Subjective Interval history: Patient with history of renal cell cancer status post resection complicated by injury to IVC of which she developed IVC thrombus now on xeralto also . history of hypertension, GERD, hypothyroidism, patient was admitted this time with nausea vomiting which has subsided she wanted to try some solid food today but she says did not go well no vomiting but she become more nauseated. She is scheduled for cyst drainage tomorrow otherwise no acute event - Constitutional Vitals: Temp Pulse Resp BP Pulse Ox 97.8 F 89 14 185/77 96 03/15/17 15:11 03/15/17 15:11 03/15/17 15:11 03/15/17 15:11 03/15/17 15:11 General appearance: Present: cooperative, A&O X 3, pleasant, no acute distress, answers questions appropriately - Head Head exam: Present: atraumatic, normocephalic - Eye Eye exam: Present: PERRL, conjuntiva pink, sclera anicteric Pupils: Present: PERRL - Neck Neck exam general surgery: Present: supple, trachea midline. Absent: lymphadenopathy - Respiratory Respiratory exam: Present: CTAB. Absent: accessory muscle use, rales, rhonchi, wheezes - Cardiovascular Cardiovascular exam: Present: RRR, +S1, +S2. Absent: diastolic murmur, gallop, rubs, systolic murmur - GI/Abdominal GI/Abdominal exam: Present: normal bowel sounds, soft, no peritoneal signs. Absent: distended, tenderness - Extremities Exam Extremities exam: Present: warm, radial pulses palpable and symetrical. Absent : calf tenderness, cyanotic, pedal edema Internal Medicine: Result - Labs CBC & Chem 7: 03/15/17 02:55 03/15/17 02:55 Labs: Short CBC 03/15/17 Range/Units 02:55 WBC 7.5 (4.3-11.1) K/mcL Hgb 8.9 L (11.5-15.4) g/dL Hct 27.6 L (35.3-44.9) % Plt Count 574 H (140-400) K/mcL Neutrophils # 5.4 (1.6-8.9) K/mcL BMP 03/15/17 02:55 Sodium 136 Potassium 4.1 Chloride 106 Carbon Dioxide 19 BUN 7 Creatinine 0.71 Glucose 110 H Calcium 8.9 - ABG Interpretation ABG results: PT/INR, D-dimer PT 23.4 Seconds (9.4-12.1) H 03/12/17 19:58 Consult Discharge Plan - Plan Referrals: Sonny Reardon MD [Primary Care Provider] -
--- NOTE | 2017-03-15 17:27 | Electrocardiograph Report ---
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
[2017-03-15] MEDS: *HR* Rivaroxaban 15 MG TABLET PO SCH (18:39)
[2017-03-15] MEDS: Ondansetron 4 MG/2 ML VIAL IVP PRN (18:41)
[2017-03-16] MEDS: Ondansetron 4 MG/2 ML VIAL IVP PRN (04:09)
[2017-03-16] MEDS: Acetaminophen 325 MG TABLET PO PRN ×3 (06:24→19:45)
[2017-03-16] MEDS: 0.9 % Sodium Chloride 1,000 ML IVC SCH (07:44)
[2017-03-16] MEDS: amLODIPine 5 MG TABLET PO SCH (08:24)
[2017-03-16] MEDS: Promethazine 25 MG in 0.9 % Sodium Chloride 50 ML IVPB PRN (08:29)
[2017-03-16 09:44] LABS: INR 1.5; Prothrombin Time 16.9 Seconds (9.4-12.1)
[2017-03-16] MEDS ORDERED: *HR* Midazolam HCl 2 MG/2 ML VIAL IVP PRN (10:47)
[2017-03-16] MEDS ORDERED: *HR* FentaNYL (PF) 100 MCG/2 ML VIAL IVP PRN (10:48)
--- NOTE | 2017-03-16 11:16 | IR Procedure Note ---
Date of procedure: 03/16/17 Consent Obtained: Written consent Timeout: Correct patient and procedure verified, Correct site verified, Time out performed, Skin prep completed Local anesthetic: Lidocaine 1% Indications: Right RP fluid collection Procedure Performed: CT guided drainage Results/Findings: 14F APD placed, 450 ml cloudy sauceda fluid removed Complications: None; Tolerated procedure well (Monitor on floor)
--- NOTE | 2017-03-16 13:17 | Internal Med Progress Note ---
Date of Encounter: 03/16/17 Time of Encounter: 10:15 - Assessment and plan (1) Nausea & vomiting Current Visit: Yes Status: Acute Assessment and plan: Intractable nausea with pneumonia episodes of vomiting. On Compazine and Zofran. Patient is to undergo drainage of right retroperitoneal fluid cyst/ fluid collection. Concern that this could be causing her nausea due to mass effect. Qualifiers: Vomiting type: unspecified Vomiting Intractability: intractable Qualified Code(s): R11.2 - Nausea with vomiting, unspecified (2) HTN (hypertension) Current Visit: Yes Status: Chronic Assessment and plan: Fairly controlled. Continue to monitor and continue amlodipine. Qualifiers: Hypertension type: essential hypertension Qualified Code(s): I10 - Essential (primary) hypertension (3) Hypokalemia Current Visit: Yes Status: Resolved (4) Hypothyroidism Current Visit: Yes Status: Chronic Assessment and plan: Continue levothyroxine Qualifiers: Hypothyroidism type: acquired Qualified Code(s): E03.9 - Hypothyroidism, unspecified (5) Normocytic anemia Current Visit: No Status: Chronic Assessment and plan: Hemoglobin levels are stable (6) Renal cell carcinoma Current Visit: No Status: Chronic Assessment and plan: Status post nephrectomy. Follow up outpatient with urology and oncology. Qualifiers: Laterality: right Qualified Code(s): C64.1 - Malignant neoplasm of right kidney, except renal pelvis (7) Status post nephrectomy Current Visit: No Status: Chronic Assessment and plan: With postsurgical right retroperitoneal fluid collection. This has been stable in size. To be drained by IR today - Subjective Interval history: Patient continues to have nausea. No new episodes of emesis. No fever chills or night sweats. She is scheduled to undergo IR guided drainage of fluid collection in the retroperitoneum. She says the Zofran is not helping her nausea much. - Constitutional Vitals: Temp Pulse Resp BP Pulse Ox 97.6 F 85 16 149/82 97 03/16/17 11:41 03/16/17 11:41 03/16/17 11:41 03/16/17 11:41 03/16/17 11:41 General appearance: Present: cooperative, mild distress, A&O X 3, pleasant, answers questions appropriately - Neck Neck exam general surgery: Present: supple, trachea midline. Absent: lymphadenopathy - Respiratory Respiratory exam: Present: CTAB. Absent: accessory muscle use, rales, rhonchi, wheezes - Cardiovascular Cardiovascular exam: Present: RRR, +S1, +S2. Absent: diastolic murmur, gallop, rubs, systolic murmur - GI/Abdominal GI/Abdominal exam: Present: normal bowel sounds, soft, no peritoneal signs. Absent: distended, tenderness - Extremities Exam Extremities exam: Present: warm, radial pulses palpable and symetrical. Absent : calf tenderness, cyanotic, pedal edema - Skin Skin exam: Present: dry, intact Internal Medicine: Result - Labs CBC & Chem 7: 03/15/17 02:55 03/15/17 02:55 - ABG Interpretation ABG results: PT/INR, D-dimer PT 16.9 Seconds (9.4-12.1) H 03/16/17 08:53 Consult Discharge Plan - Plan Referrals: Sonny Reardon MD [Primary Care Provider] - - Attending Attestation This document has been at least partially created by [employer] recognition technology by Dr. Diamond. Errors in grammar, wording or other phrases may exist. If errors are found after the documentation is signed, they will be addressed individually in the addendum section of this document when appropriate.
[2017-03-17] MEDS: Acetaminophen 325 MG TABLET PO PRN ×2 (03:33→20:38)
[2017-03-17] MEDS: amLODIPine 5 MG TABLET PO SCH (08:24)
--- NOTE | 2017-03-17 08:36 | Internal Med Progress Note ---
Date of Encounter: 03/17/17 Time of Encounter: 08:35 - Assessment and plan (1) Intractable nausea and vomiting Current Visit: Yes Status: Acute Assessment and plan: Possibly secondary to retroperitoneal cystic collection POD 1 s/p drainage Consult IR for possible drain removal Anticipate d/c a.m Qualifiers: Vomiting type: cyclical vomiting Qualified Code(s): G43.A1 - Cyclical vomiting, intractable (2) GERD (gastroesophageal reflux disease) Current Visit: Yes Status: Chronic Assessment and plan: Continue home meds Qualifiers: Esophagitis presence: with esophagitis Qualified Code(s): K21.0 - Gastro- esophageal reflux disease with esophagitis (3) HTN (hypertension) Current Visit: Yes Status: Chronic Assessment and plan: Fairly controlled. Continue to monitor and continue amlodipine. 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 Assessment and plan: Continue Xarelto (6) Renal cancer Current Visit: Yes Status: Chronic Assessment and plan: Oncology review appreciated Qualifiers: Laterality: right Qualified Code(s): C64.1 - Malignant neoplasm of right kidney, except renal pelvis (7) Anemia Current Visit: Yes Status: Acute Assessment and plan: Chronic, multifactorial, stable iron work u, SPEP, UPEP by oncology Follow work up Qualifiers: Anemia type: other cause Other causes of anemia: acute posthemorrhagic Qualified Code(s): D62 - Acute posthemorrhagic anemia (8) Discharge planning issues Current Visit: Yes Status: Acute Assessment and plan: D/C home with home PT.OT.HH after drain removal by IR if patient remains clinically stable - Subjective Interval history: Seen and evaluated at the bedside Initial encounter 87 Y/O F with 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 Denied new complains States nausea has improved minimally Drain with ~5cc serosanguinous fluid Will consult IR as to removal of drain Anticipate d/c a.m - Constitutional Vitals: Temp Pulse Resp BP Pulse Ox 97.4 F L 91 15 147/71 92 03/17/17 06:44 03/17/17 06:44 03/17/17 06:44 03/17/17 06:44 03/17/17 06:44 General appearance: Present: cooperative, A&O X 3, pleasant, no acute distress, answers questions appropriately - Head Head exam: Present: atraumatic, normocephalic - Eye Eye exam: Present: PERRL, conjuntiva pink, sclera anicteric Pupils: Present: PERRL - Neck Neck exam general surgery: Present: supple, trachea midline. Absent: lymphadenopathy - Respiratory Respiratory exam: Present: CTAB. Absent: accessory muscle use, rales, rhonchi, wheezes - Cardiovascular Cardiovascular exam: Present: RRR, +S1, +S2. Absent: diastolic murmur, gallop, rubs, systolic murmur - GI/Abdominal GI/Abdominal exam: Present: normal bowel sounds, soft, no peritoneal signs. Absent: distended, tenderness - Extremities Exam Extremities exam: Present: warm, radial pulses palpable and symetrical. Absent : calf tenderness, cyanotic, pedal edema - Back Exam Additional comments: R loin wound dressing [place] dry, aileen in-situ with ~5c serosangunous fluid - Neurological Exam Neurological exam: Present: alert, CN II-XII intact, oriented X3, no focal deficits. Absent: pronater drift, facial droop, speech deficit - Skin Skin exam: Present: dry, intact Internal Medicine: Result - Labs CBC & Chem 7: 03/15/17 02:55 03/15/17 02:55 - ABG Interpretation ABG results: PT/INR, D-dimer PT 16.9 Seconds (9.4-12.1) H 03/16/17 08:53 - Impressions Impressions Retroperitoneal Abscess Drainage 03/16/17 00:00 IMPRESSION: 1. CT guided drainage of right retroperitoneal fluid collection as discussed above. D/ / Roger Irene MD / Roger Irene MD Interpreting Provider: Roger Irene MD - VTE Documentation of Mechanical Device: Graduated compression elastic hosiery Consult Discharge Plan - Plan Referrals: Sonny Reardon MD [Primary Care Provider] - 03/23/17 2:40 pm
[2017-03-17] MEDS: 0.9 % Sodium Chloride 1,000 ML IVC SCH ×2 (08:37→22:18)
--- NOTE | 2017-03-17 09:36 | Oncology Inp Consult Note ---
Date of Encounter: 03/17/17 Time of Encounter: 17:33 Assessment and Plan (1) Intractable nausea and vomiting Status: Acute Assessment and plan: Thought to be secondary to large retroperitoneal cystic mass causing external compression. She underwent drainage on 03/16/2017, but her symptoms have not improved. We will order MRI of the brain to rule out an intracranial pathology causing nausea and vomiting. Will start scheduled Zofran 8 mg IV every 8 hours. We will give stool softener to prevent the constipating effect of Zofran. Qualifiers: Vomiting type: unspecified Qualified Code(s): R11.2 - Nausea with vomiting , unspecified (2) Anemia Status: Acute Assessment and plan: Multifactorial. Secondary to recent bleed malignancy. However iron is low. We will check iron panel, and ferritin. On account of low albumin and inappropriately normal protein will check SPEP and UPEP to rule out multiple myeloma. 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 She is s/p right ureteronephrectomy with lymph node dissection on 02/03. Further management as an outpatient. Qualifiers: Laterality: right Qualified Code(s): C64.1 - Malignant neoplasm of right kidney, except renal pelvis - Data of Consult Patient: known to practice within the last 3 years Consult date: 03/17/17 Requesting Physician: Denver Lamar MD Primary Care Provider: Sonny Reardon MD - Consult Narrative Reason for consult: Urothelial Carcinoma History of present illness: Mrs. 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 Her surgery was complicated by injury to the IVC leading to a bleed. 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 She has had multiple admissions on account of nausea and vomiting, and was admitted on 03/12/17 with similar complaints. This is her third hospitalization in February 2017. She was recently discharged home on and readmitted on 03/05/17 and discharged on 03/09/17. On a previous admission she underwent an upper endoscopy on 03/02/17 which revealed normal esophagus with a large hiatal hernia seen. External compression was seen at the bulb/D2 junction but was able to pass the scope easily in D3. Workup on this admission included A CT scan of the abdomen and pelvis obtained on 03/12/17 which revealed a stable 11.8 cm cystic structure in the right retroperitoneu. This was thought to be the possible cause of her nausea and vomiting via compression effect. On 03/16/17 she underwent an IR drainage of the cyst Also noted was anemia with thrombocytosis. CBC from 03/15/17 revealed a hemoglobin of 8.9 with a platelet count of 574. Blood workup on 03/06/17 revealed an iron of 20 with an iron saturation of 11%. On 03/12/17 serum protein was 7.4 and albumin was low at 2.6. Patient reports that after the drainage was placed yesterday she felt a little bit better, but nausea has however returned today. Past Med Surg Social Fam HX - Past Medical History Medical history: cancer, coronary artery disease, GERD, hyperlipidemia, hypertension, malignancy, thyroid disease Psychiatric history: no psych history - Past Surgical History Surgical History: breast surgery, colectomy, hysterectomy - Social History Smoking Status: Never smoker Smokeless Tobacco Status: No Alcohol use: none Drug use: none - Family History Mother Living Status: Hx Family Cardiac Disorders: Yes Hx Family Respiratory Disorders: Yes (Lung cancer) Medications and Allergies Calcium Carbonate [Tums] 1,000 mg PO Q4HR PRN 02/03/17 [History] Levothyroxine [Synthroid] 50 mcg PO QAM 02/03/17 [History] Acetaminophen [Tylenol] 325 mg PO Q4HR PRN #30 tablet 02/11/17 [Rx] Omeprazole [PriLOSEC] 20 mg PO BIDAC #60 cap 03/03/17 [Rx] Rivaroxaban [Xarelto] 15 mg PO BID tablet 03/03/17 [Rx] Metoclopramide [Reglan] 10 mg PO QIDAC #90 tablet 03/09/17 [Rx] Sucralfate [Carafate] 1 gm PO QIDAC #120 tablet 03/09/17 [Rx] Allergies atenolol Adverse Reaction (Verified 03/05/17 15:24) Chest Pain codeine Adverse Reaction (Verified 03/05/17 15:24) Irritable fenofibrate [From Tricor] Adverse Reaction (Verified 03/05/17 15:24) Muscle Pain lisinopril Adverse Reaction (Verified 03/05/17 15:24) Dizziness Bbtotox-Hza-Peb Reductase Inhibitor [Statins] Adverse Reaction (Verified 15:24) Muscle Pain All systems: reviewed and no additional remarkable complaints except as stated Oncology - Exam - Constitutional Vitals: Temp Pulse Resp BP Pulse Ox 97.4 F L 91 15 147/71 92 03/17/17 06:44 03/17/17 06:44 03/17/17 06:44 03/17/17 06:44 03/17/17 06:44 General appearance: average body habitus, no no acute distress, no severe distress - Head Head exam: Present: normal inspection, normocephalic - Eye Eye exam: Present: EOMI, normal appearance - ENT ENT exam: Present: normal exam, normal external ear exam - Neck Neck exam: Absent: lymphadenopathy, tenderness, thyromegaly - Respiratory Respiratory exam: Present: CTAB. Absent: rales, respiratory distress, wheezes, tachypnea - Cardiovascular Cardiovascular exam: Present: RRR, +S1, +S2. Absent: tachycardia - GI/Abdominal GI/Abdominal exam: Present: soft. Absent: organomegaly, pulsatile mass, rebound , rigid, tenderness - Extremities Exam Extremities exam: Present: normal inspection. Absent: pedal edema, tenderness - Neurological Exam Neurological exam: Present: alert, oriented X3 - Psychiatric Psychiatric exam: Present: normal affect Consult Discharge Plan - Plan Referrals: Sonny Reardon MD [Primary Care Provider] - 03/23/17 2:40 pm
[2017-03-17 10:51] LABS: % Iron Saturation 8 % (15-50); Iron 13 mcg/dL (50-170); Transferrin 116 mg/dL (180-382)
[2017-03-17 11:12] LABS: Ferritin 1200 ng/ml (5-204)
[2017-03-17] MEDS: Ondansetron 4 MG/2 ML VIAL IVP PRN (14:36)
[2017-03-17] MEDS: Ondansetron 8 MG in 0.9 % Sodium Chloride 50 ML IVPB SCH ×2 (17:49→20:39)
[2017-03-17] MEDS: *HR* Rivaroxaban 15 MG TABLET PO SCH (17:50)
[2017-03-17] MEDS: Sennosides/Docusate Sodium TABLET PO SCH (20:39)
[2017-03-18] MEDS: Acetaminophen 325 MG TABLET PO PRN ×2 (06:37→15:46)
--- NOTE | 2017-03-18 07:11 | Urology Progress Note ---
Date of Encounter: 03/18/17 Time of Encounter: 07:09 - Assessment and Plan (1) Nausea & vomiting Current Visit: Yes Status: Acute Assessment and plan: Improved but still present. Patient desires discharge but has had multiple readmissions for intractable nausea vomiting after discharge. States she feels better now than it any time after surgery. Likely discharge with Phenergan. May also consider Dronabinol as an option. Appreciate oncology recommendations. No further urology intervention or recommendations at this time. She has scant output from the drain. Okay to remove prior to discharge. Qualifiers: Vomiting type: unspecified Vomiting Intractability: intractable Qualified Code(s): R11.2 - Nausea with vomiting, unspecified Progress Note Subjective: feels better Narrative: After drainage of retroperitoneal fluid collection patient reports that her nausea is improved but still present. She states she wants to go home. She states that the Zofran and Carafate have been ineffective. Phenergan was somewhat effective. Objective Initial Vital Signs Temp Pulse Resp BP Pulse Ox 98.0 F 87 18 177/80 96 03/12/17 19:32 03/12/17 19:32 03/12/17 19:32 03/12/17 19:32 03/12/17 19:32 - General physical appearance Present: no distress - Abdomen Present: soft - Labs 03/15/17 02:55 03/15/17 02:55 - VTE Documentation of Mechanical Device: Graduated compression elastic hosiery Consult Discharge Plan - Plan Referrals: Sonny Reardon MD [Primary Care Provider] - 03/23/17 2:40 pm
[2017-03-18] MEDS: Sennosides/Docusate Sodium TABLET PO SCH (08:31)
[2017-03-18] MEDS: amLODIPine 5 MG TABLET PO SCH (08:31)
[2017-03-18] MEDS: Ondansetron 8 MG in 0.9 % Sodium Chloride 50 ML IVPB SCH (08:31)
--- NOTE | 2017-03-18 09:04 | Discharge Summary ---
Date of Encounter: 03/18/17 Time of Encounter: 09:04 - Discharge Diagnosis (1) Intractable nausea and vomiting Priority: Primary Status: Acute Qualifiers: Vomiting type: unspecified Qualified Code(s): R11.2 - Nausea with vomiting , unspecified (2) GERD (gastroesophageal reflux disease) Priority: Secondary Status: Chronic Qualifiers: Esophagitis presence: with esophagitis Qualified Code(s): K21.0 - Gastro- esophageal reflux disease with esophagitis (3) HTN (hypertension) Priority: Secondary Status: Chronic Qualifiers: Hypertension type: essential hypertension Qualified Code(s): I10 - Essential (primary) hypertension (4) Hypothyroidism Priority: Secondary Status: Chronic Qualifiers: Hypothyroidism type: acquired Qualified Code(s): E03.9 - Hypothyroidism, unspecified (5) IVC thrombosis Priority: Secondary Status: Chronic (6) Renal cancer Priority: Secondary Status: Chronic Qualifiers: Laterality: right Qualified Code(s): C64.1 - Malignant neoplasm of right kidney, except renal pelvis (7) Anemia Priority: Secondary Status: Acute Qualifiers: Anemia type: other cause Other causes of anemia: acute posthemorrhagic Qualified Code(s): D62 - Acute posthemorrhagic anemia (8) Discharge planning issues Priority: Secondary Status: Acute - Discharge Medications Prescriptions: Promethazine [Phenergan] 12.5 mg RC Q6HR PRN #30 supp.rect PRN Reason: Nausea Amlodipine Besylate 10 mg PO DAILY #30 tablet Sennosides/Docusate Sodium [Senna Plus] 1 each PO BID PRN #30 tablet PRN Reason: Constipation Home Medications: Calcium Carbonate [Tums] 1,000 mg PO Q4HR PRN 02/03/17 [History] Levothyroxine [Synthroid] 50 mcg PO QAM 02/03/17 [History] Acetaminophen [Tylenol] 325 mg PO Q4HR PRN #30 tablet 02/11/17 [Rx] Omeprazole [PriLOSEC] 20 mg PO BIDAC #60 cap 03/03/17 [Rx] Rivaroxaban [Xarelto] 15 mg PO BID tablet 03/03/17 [Rx] Sucralfate [Carafate] 1 gm PO QIDAC #120 tablet 03/09/17 [Rx] Amlodipine Besylate 10 mg PO DAILY #30 tablet 03/18/17 [Rx] Promethazine [Phenergan] 12.5 mg RC Q6HR PRN #30 supp.rect 03/18/17 [Rx] Sennosides/Docusate Sodium [Senna Plus] 1 each PO BID PRN #30 tablet 03/18/17 [ Rx] Allergies/Adverse Reactions: Allergies atenolol Adverse Reaction (Verified 03/05/17 15:24) Chest Pain codeine Adverse Reaction (Verified 03/05/17 15:24) Irritable fenofibrate [From Tricor] Adverse Reaction (Verified 03/05/17 15:24) Muscle Pain lisinopril Adverse Reaction (Verified 03/05/17 15:24) Dizziness Cukmrpz-Ioo-Uee Reductase Inhibitor [Statins] Adverse Reaction (Verified 15:24) Muscle Pain Procedures/tests Complete & Pending: Procedures Performed prior 72 hours Category Date Time Status CT drain abd/retro with cath [CT] Routine Cat Scan 03/16/17 Completed MR head/brain wo/w con [MR] Routine MRI 03/17/17 17:13 Completed Date of admission: 03/12/17 23:21 Primary care physician: Sonny Reardon MD Consults: 03/13/17 00:44 Consult to Oncology [CONS] Routine Consulting Provider: Oncology [facility] Reason for Consult: pls assist in managing this pt known to Dr Banks with recurrent intractable N/V/D, thank you Call Completed: No 03/13/17 11:01 Consult to Urology [CONS] Routine Consulting Provider: Urology Janet Reason for Consult: Pt returns for continuing nausea/vomiting Time Notified: 11:03 Call Completed: Yes 03/13/17 11:49 Consult to Socket Puller [CONS] Routine Reason for SW Consult: Patient has [facility] PT/OT & SN. Lives home with Son 03/13/17 17:00 Consult to Speech Therapy [CONS] Routine Comment: Evaluate, develop and implement POC Reason for Consult: patient states sometimes she gags while drinking water and then becomes nauseous/vomiting Call Completed: No 03/16/17 09:17 Consult to Interventional Radiology [CONS] Routine Consulting Provider: Radiology Interventional [facility] Reason for Consult: Right retroperitoneal fluid collection/ seroma Time Notified: 09:17 Call Completed: No 03/18/17 07:34 Consult to Interventional Radiology [CONS] Stat Consulting Provider: Radiology Interventional [facility] Reason for Consult: Removal of Right retroperitoneal drain Call Completed: Yes Discharging clinician: Denver Lamar Anticipated date of discharge: 03/18/17 - Patient Status Disposition: Home, Self-Care Condition: Good Functional capacity at discharge: independent ambulation Overall status at discharge: patient is progressing back to baseline - Discharge Instructions Follow Up With: Sonny Reardon MD [Primary Care Provider] - 03/23/17 2:40 pm - Diet and Activity Activity: resume usual activities as tolerated Diet: low salt diet Interval History: See below Hospital course: 87 Y/O F with PMH of 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 No acute finding requiring intervention She has a new diagnosis of HTN in this admission, which responded to amlodipine 10mg, she is discharged on same patient and her daughter prefer phenergan suppository for her nausea and emphatically believe Zofran does not work She is discharged on same. Anemia work up revealed ANDREZ and ACD Resume other home meds Follow up with Oncology, Urology, PCP - Time Spent with Patient Total time spent providing and/or coordinating discharge services: Less than 30 minutes - Constitutional Vitals: Temp Pulse Resp BP Pulse Ox 97.7 F 61 15 155/83 99 03/18/17 06:53 03/18/17 06:53 03/18/17 06:53 03/18/17 06:53 03/18/17 06:53 General appearance: Present: cooperative, A&O X 3, pleasant, no acute distress, answers questions appropriately - Head Head exam: Present: atraumatic, normocephalic - Eye Eye exam: Present: PERRL, conjuntiva pink, sclera anicteric Pupils: Present: PERRL - Neck Neck exam general surgery: Present: supple, trachea midline. Absent: lymphadenopathy - Respiratory Respiratory exam: Present: CTAB. Absent: accessory muscle use, rales, rhonchi, wheezes - Cardiovascular Cardiovascular exam: Present: RRR, +S1, +S2. Absent: diastolic murmur, gallop, rubs, systolic murmur - GI/Abdominal GI/Abdominal exam: Present: normal bowel sounds, soft, no peritoneal signs. Absent: distended, tenderness - Extremities Exam Extremities exam: Present: warm, radial pulses palpable and symetrical. Absent : calf tenderness, cyanotic, pedal edema - Neurological Exam Neurological exam: Present: alert, CN II-XII intact, oriented X3, no focal deficits. Absent: pronater drift, facial droop, speech deficit - Skin Skin exam: Present: dry, intact - VTE Documentation of Mechanical Device: Graduated compression elastic hosiery
--- NOTE | 2017-03-18 09:05 | Physician Discharge Referral ---
Home Health/Hosp Referral Info Transfer to: Home Health Attending Provider: Dr. 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 For more information, call the [place] Tobacco Quit Line at 8-377-FXHY-NOW. - Diet/Nutrition Diet/Nutrition Orders: Cardiac - Activity Activity Orders: Up ad hawa - Services Needed Following services are medically necessary services: Nursing, Home Health Aide, Physical Therapy, Occupational Therapy - Transfer Medications Home Medications: Calcium Carbonate [Tums] 1,000 mg PO Q4HR PRN 02/03/17 [History] Levothyroxine [Synthroid] 50 mcg PO QAM 02/03/17 [History] Acetaminophen [Tylenol] 325 mg PO Q4HR PRN #30 tablet 02/11/17 [Rx] Omeprazole [PriLOSEC] 20 mg PO BIDAC #60 cap 03/03/17 [Rx] Rivaroxaban [Xarelto] 15 mg PO BID tablet 03/03/17 [Rx] Metoclopramide [Reglan] 10 mg PO QIDAC #90 tablet 03/09/17 [Rx] Sucralfate [Carafate] 1 gm PO QIDAC #120 tablet 03/09/17 [Rx] Allergies/Adverse Reactions: Allergies atenolol Adverse Reaction (Verified 03/05/17 15:24) Chest Pain codeine Adverse Reaction (Verified 03/05/17 15:24) Irritable fenofibrate [From Tricor] Adverse Reaction (Verified 03/05/17 15:24) Muscle Pain lisinopril Adverse Reaction (Verified 03/05/17 15:24) Dizziness Skekiev-Trw-Gul Reductase Inhibitor [Statins] Adverse Reaction (Verified 15:24) Muscle Pain Certification: Further, I certify that my clinical findings support that this patient is homebound (i.e. absences from home require considerable and taxing effort and are for medical reasons or uatsdin services or infrequently or short duration when for other reasons) because: Homebound Reason: Patient requires assistance of a person or device to safely leave home Attestation: My signature below is to certify that this patient is under my care and that I, or nurse practitioner, or a physician's family law legal assistant working with me, has a face-to -face encounter with this patient.
--- NOTE | 2017-03-18 12:39 | Oncology Inp Progress Note ---
Date of Encounter: 03/18/17 Time of Encounter: 16:51 (1) Intractable nausea and vomiting Current Visit: Yes Status: Acute Assessment and plan: Thought to be secondary to large retroperitoneal cystic mass causing external compression, for which she underwent drainage on 03/16/2017. Nausea initially did not improve, but has now resolved with addition of scheduled zofran. Would recommend she be discharged home with breakthrough zofran OTD (sublingual preparation) 8 mg po every 8 hours prn. MRI of the brain was negative for an acute event or metastasis. She should get stool softener to prevent the constipating effect of Zofran. Qualifiers: Vomiting type: unspecified Qualified Code(s): R11.2 - Nausea with vomiting , unspecified (2) Anemia Current Visit: Yes Status: Acute Assessment and plan: Multifactorial. Anemia of chronic inflammation, as iron is low, but ferritin is markedly elevated. Could also be worsened by recent bleed. Awaiting SPEP and UPEP. No intervention required at this time. 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 She is s/p right ureteronephrectomy with lymph node dissection on 02/03. Further management as an outpatient. Qualifiers: Laterality: right Qualified Code(s): C64.1 - Malignant neoplasm of right kidney, except renal pelvis Oncology: Subj Interval history: Patient is doing much better. Nausea has resolved. She is eager to go home. - Constitutional Vitals: Vital Signs Temp Pulse Resp BP Pulse Ox 03/18/17 10:41 97.7 F 85 15 104/64 93 03/18/17 06:53 97.7 F 61 15 155/83 99 03/18/17 03:47 97.9 F 87 16 137/67 97 03/17/17 23:56 97.8 F 87 16 125/67 94 03/17/17 18:31 98.1 F 88 16 136/69 94 03/17/17 15:16 97.9 F 84 15 144/76 96 Intake and Output 03/17/17 03/18/17 03/18/17 23:59 07:59 15:59 Intake Total 50 / 50 500 / 500 360 / 360 Output Total 700 / 700 350 / 350 Balance -650 / -650 150 / 150 360 / 360 Intake: Oral 50 / 50 500 / 500 360 / 360 Output: Urine 700 / 700 350 / 350 Wound Drainage 0 / 0 0 / 0 Right Back Flank 0 / 0 0 / 0 Other: Meal Dinner Breakfast Percent of Meal Consumed 10% 85% Weight 53.552 kg Patient Weight 03/18/17 23:59 Weight 53.552 kg General appearance: average body habitus, no no acute distress, no obese, no severe distress - Head Head exam: Present: normal inspection, normocephalic - Eye Eye exam: Present: EOMI, normal appearance - ENT ENT exam: Present: normal exam, normal external ear exam - Neck Neck exam: Absent: lymphadenopathy - Respiratory Respiratory exam: Present: CTAB. Absent: stridor, wheezes - Cardiovascular Cardiovascular exam: Present: RRR, +S1, +S2 - GI/Abdominal GI/Abdominal exam: Present: soft. Absent: organomegaly, pulsatile mass, tenderness - Extremities Exam Extremities exam: Present: normal inspection. Absent: pedal edema - Neurological Exam Neurological exam: Present: alert, oriented X3 Oncology: Obj Data - Labs CBC & Chem 7: 03/15/17 02:55 03/15/17 02:55 - Impressions Impressions Brain MRI 03/17/17 17:13 IMPRESSION: 1. No acute intracranial abnormality. 2. Mild chronic white matter microvascular ischemic changes. 3. Incidental pontine capillary telangiectasia. D/ / Franklyn Mcdowell MD / Franklyn Mcdowell MD Interpreting Provider: Franklyn Mcdowell MD - ABG Interpretation ABG results: PT/INR, D-dimer PT 16.9 Seconds (9.4-12.1) H 03/16/17 08:53 Consult Discharge Plan - Plan Instructions: Anemia (GEN) Referrals: Sonny Reardon MD [Primary Care Provider] - 03/23/17 2:40 pm Prescriptions: Amlodipine Besylate 10 mg PO DAILY #30 tablet Promethazine [Phenergan] 12.5 mg RC Q6HR PRN #30 supp.rect PRN Reason: Nausea Sennosides/Docusate Sodium [Senna Plus] 1 each PO BID PRN #30 tablet PRN Reason: Constipation
[2017-03-18 14:55] VITALS: BP 124/59
[2017-03-19 09:20] LABS: Kappa Qnt Free Light Chains 3.88 mg/dL (0.33-1.94); Lambda Qnt Free Light Chains 3.24 mg/dL (0.57-2.63)
[2017-03-20 03:30] LABS: Alpha 2 Globulin (PEP) 1.33 g/dL (0.48-1.05); Beta Globulin (PEP) 0.79 g/dL (0.48-1.10)
[2017-03-20 08:07] LABS: Immunoglobulin A 257 mg/dL (68-408); Immunoglobulin G 1240 mg/dL (768-1632); Immunoglobulin M 95 mg/dL (35-263)
[2017-03-20 08:08] LABS: IFE Reflexed IFE Done
[2017-03-20 08:50] LABS: Urine Collection Duration RANDOM hr; Urine Collection Volume RANDOM mL
== END 2017-03-18 17:10 | disposition home health service (06) ==
LOC: 3BNU 19:31 → EMEROO 19:31 → SUATTDRO 23:21 → 3BNU 23:36
PROVIDERS: ADMIT Registered Nurse; ATTEND Internal Medicine
PROC: IRDRAIN (2017-03-16 12:00)

== ENCOUNTER 2017-06-05 09:40 | Observation (INO) ==
--- NOTE | 2017-06-05 09:51 | Emergency Department Note ---
Disposition Clinical Impression: Abdominal pain Qualifiers: Abdominal location: right lower quadrant Qualified Code(s): R10.31 - Right lower quadrant pain UTI (urinary tract infection) Qualifiers: Urinary tract infection type: acute cystitis Hematuria presence: without hematuria Qualified Code(s): N30.00 - Acute cystitis without hematuria Disposition: Admitted As Inpatient Condition: Fair Referrals: Sonny Reardon MD [Primary Care Provider] - Time of Disposition: 12:43 Abdominal Pain HPI - General Chief Complaint: ED Abdominal Pain Stated Complaint: ABD pain Time Seen by Provider: 06/05/17 09:41 Source: patient, EMS Mode of arrival: EMS Limitations: no limitations Nursing Notes Reviewed: Yes Vital Signs Reviewed: Yes - History of Present Illness HPI Narrative: 87-year-old with history of colon cancer in 2011 and a recent diagnosis of stage IV renal cancer. Patient developed a large retroperitoneal cyst that was drained. Patient has had persistent right flank pain. Patient has seen oncology they're unsure of exactly what is causing her pain. The patient presents with persistent pain. Pt Subjective Complaint: abdominal pain Onset (ago): week(s) Consistency: constant Location: R flank Pain Severity: severe Pain Scale: 10 Quality: aching Radiation: none Migration to: no migration Improves with: nothing Worsens with: nothing Associated symptoms: Reports: denies other symptoms Treatments prior to arrival: none - Related Data Home Medications Medication Instructions Recorded Confirmed Calcium Carbonate [Tums] 1,000 mg PO Q4HR PRN 02/03/17 05/27/17 Levothyroxine [Synthroid] 50 mcg PO QAM 02/03/17 05/27/17 Previous Rx's Medication Instructions Recorded Acetaminophen [Tylenol] 325 mg PO Q4HR PRN #30 tablet 02/11/17 Omeprazole [PriLOSEC] 20 mg PO BIDAC #60 cap 03/03/17 Enoxaparin [Lovenox] 80 mg SQ DAILY #30 syr 05/13/17 Cyanocobalamin (Vitamin B-12) 1,000 mcg SL QDPC #30 tab.subl 05/27/17 [Vitamin B-12] Folic Acid 1 mg PO DAILY #30 tablet 05/27/17 Allergies Allergy/AdvReac Type Severity Reaction Status Date / Time atenolol AdvReac Chest Pain Verified 05/13/17 15:37 codeine AdvReac Irritable Verified 05/13/17 15:37 fenofibrate [From Tricor] AdvReac Muscle Pain Verified 05/13/17 15:37 lisinopril AdvReac Dizziness Verified 05/13/17 15:37 Kvbowek-Lph-Rwb Reductase AdvReac Muscle Pain Verified 05/13/17 15:37 Inhibitor [Statins] Constitutional: Denies: fever, chills, weakness, weight change Eyes: Denies: eye pain, eye discharge, vision change ENT ED: Denies: ear pain, throat pain, dental pain, hearing loss, epistaxis, congestion, dysphagia Cardiovascular: Denies: chest pain, palpitations, dyspnea on exertion, edema, syncope Respiratory: Denies: cough, dyspnea, wheezes, hemoptysis, stridor Gastrointestinal: Reports: abdominal pain. Denies: nausea, vomiting, diarrhea, constipation, hematemesis, melena, hematochezia Genitourinary: Denies: dysuria, frequency, hematuria, discharge Musculoskeletal: Reports: arthralgia. Denies: back pain, neck pain, myalgia Integumentary: Denies: rash, abrasion, lesions Neurological: Denies: headache, weakness, numbness, paresthesias, confusion, abnormal gait, vertigo Psychiatric: Denies: anxiety, depression, suicidal thoughts, homicidal thoughts , auditory hallucinations, visual hallucinations Endocrine: Denies: fatigue Hematological/Lymphatic: Denies: easy bleeding, easy bruising Allergic/Immunologic: Denies: facial swelling, urticaria Abdominal Pain PMH - Past Medical History Medical history: Reports: cancer, coronary artery disease, GERD, hyperlipidemia , hypertension, malignancy, thyroid disease Female Surgical History: Reports: appendectomy, cholecystectomy, colectomy, hysterectomy, other DIE ENGRAVER history: Reports: no DIE ENGRAVER history Psychiatric history: Reports: no psych history - Social History Smoking status: Never smoker Alcohol use: Reports: none Drug use: Reports: none Physical Exam - General Limitations: no limitations General appearance: alert - Head Head exam: atraumatic, normocephalic, normal inspection - Eye Eye exam: Present: normal appearance, PERRL, EOMI - ENT ENT exam: normal exam, normal oropharynx, mucous membranes moist - Neck Neck exam: Present: normal inspection, full ROM, trachea midline - Chest Chest inspection: Present: normal inspection, symmetric chest wall rise - Respiratory Respiratory exam: Present: normal lung sounds bilaterally - Cardiovascular Cardiovascular exam: Present: regular rate, normal rhythm, normal heart sounds - Abdominal Exam Abdominal exam: Present: tenderness. Absent: guarding, rebound Abdominal tenderness: Present: RLQ - Extremities Exam Extremities exam: Present: normal inspection, full ROM. Absent: tenderness, pedal edema - Expanded Lower Extremity Exam Neurovascular/Tendon exam: Absent: motor deficit, sensory deficit, tendon deficit Gait: not tested/not observed - Back Exam Back exam: Present: normal inspection, full ROM. Absent: tenderness - Neurological Exam Neurological exam: Present: alert, oriented X3 - Psychiatric Psychiatric exam: Present: normal affect, normal mood - Skin Skin exam: Present: warm, dry, intact, normal color Course - Reevaluation(s) Reevaluation #1: 87-year-old female with a history of stage IV renal cancer comes in with persistent abdominal pain. Patient's been evaluated a couple times for that she had a cyst that was drained and she thought it may be rechecked reaccumulating. CT scan shows enlarging lymph nodes worrisome for metastatic disease but no other acute findings. She does have evidence of a possible UTI. Patient will be admitted to hospitalist with a consult to oncology. Time: 13:12 - Consultations Consultation #1: Discussed with Dr. Su, admit to hospitalist. Time: 12:43 Consultation #2: Discussed with Dr. Bruner, admit. Time: 13:11 Vital Signs Temperature 97.9 F 06/05/17 09:42 Pulse Rate 91 06/05/17 09:42 Respiratory Rate 16 06/05/17 09:42 Blood Pressure 131/84 06/05/17 09:42 O2 Sat by Pulse Oximetry 99 06/05/17 09:42 Temperature 97.9 F 06/05/17 09:42 Pulse Rate 91 06/05/17 12:25 Respiratory Rate 16 06/05/17 12:25 Blood Pressure 158/70 06/05/17 12:25 O2 Sat by Pulse Oximetry 97 06/05/17 12:25 Oxygen Delivery Oxygen Delivery Room Air Abdominal Pain - Lab Data Result diagrams: 06/05/17 10:05 06/05/17 10:05 Lab Results 06/05/17 06/05/17 06/05/17 Range/Units 10:05 10:05 10:05 WBC 6.3 (4.3-11.1) K/mcL RBC 3.67 L (3.82-4.97) M/mcL Hgb 10.3 L (11.5-15.4) g/dL Hct 32.8 L (35.3-44.9) % MCV 89.4 (83.0-100.0) fL MCH 28.1 (28.0-33.3) pg MCHC 31.4 L (31.6-35.5) g/dL RDW 15.0 H (11.5-14.5) % Plt Count 617 H (140-400) K/mcL MPV 9.1 L (9.4-12.4) fL Immature Gran % 0.2 (0-4) % Seg Neutrophils % 59.0 % Lymphocytes % 29.2 % Monocytes % 9.7 % Eosinophils % 1.1 % Basophils % 0.8 % Neutrophils # 3.7 (1.6-8.9) K/mcL Lymphocytes # 1.8 (0.6-4.6) K/mcL Monocytes # 0.6 (0.0-1.3) K/mcL Eosinophils # 0.1 (0.0-0.6) K/mcL Basophils # 0.1 (0.0-0.2) K/mcL Immature Plt Fraction 1.4 (1.1-6.1) % Sodium 135 L (136-145) mEq/L Potassium 4.3 (3.5-4.5) mEq/L Chloride 103 (98-109) mEq/L Carbon Dioxide 24 (19-29) mEq/L BUN 18 (7-20) mg/dL Creatinine 0.87 (0.57-1.11) mg/dL Est GFR ( Amer) > 60 (> 60) Est GFR (Non-Af Amer) > 60 (> 60) BUN/Creatinine Ratio 21 (6-26) Glucose 101 H (70-99) mg/dL Calculated Osmolality 282 (280-300) Lactic Acid 1.0 (0.5-2.2) mmol/L Calcium 10.2 (8.6-10.8) mg/dL Total Bilirubin 0.3 (0.2-1.2) mg/dL Direct Bilirubin 0.1 (0.0-0.5) mg/dL Indirect Bilirubin 0.2 (0.0-1.2) mg/dL AST 12 (5-34) Units/L ALT 11 (0-55) Units/L Alkaline Phosphatase 96 (38-126) Units/L Serum Total Protein 7.8 (6.0-8.3) g/dL Albumin 3.1 L (3.5-5.0) g/dL Globulin 4.7 H (2.4-3.5) g/dL Albumin/Globulin Ratio 0.7 L (1.1-2.2) Amylase 68 (25-125) Units/L Lipase 30 (8-78) Units/L Urine Color (Yellow) Urine Clarity (Clear) Urine pH (5.0-8.0) pH Units Ur Specific [place] (1.010-1.025) Urine Protein (Neg-Trace) mg/dL Urine Glucose (UA) (Normal) mg/dL Urine Ketones (Negative) mg/dL Urine Blood (Negative) Urine Nitrite (Negative) Urine Bilirubin (Negative) Urine Urobilinogen (Normal) mg/dL Ur Leukocyte Esterase (Negative) Urine Microscopic RBC (0-3) per hpf Urine Microscopic WBC (0-3) per hpf Ur Squamous Epith Cells (None-Few) per lpf Urine Bacteria (None-Few) per hpf Hyaline Casts (None-Few) per lpf Ur Culture Indicated? (NO) 06/05/17 Range/Units 11:25 WBC (4.3-11.1) K/mcL RBC (3.82-4.97) M/mcL Hgb (11.5-15.4) g/dL Hct (35.3-44.9) % MCV (83.0-100.0) fL MCH (28.0-33.3) pg MCHC (31.6-35.5) g/dL RDW (11.5-14.5) % Plt Count (140-400) K/mcL MPV (9.4-12.4) fL Immature Gran % (0-4) % Seg Neutrophils % % Lymphocytes % % Monocytes % % Eosinophils % % Basophils % % Neutrophils # (1.6-8.9) K/mcL Lymphocytes # (0.6-4.6) K/mcL Monocytes # (0.0-1.3) K/mcL Eosinophils # (0.0-0.6) K/mcL Basophils # (0.0-0.2) K/mcL Immature Plt Fraction (1.1-6.1) % Sodium (136-145) mEq/L Potassium (3.5-4.5) mEq/L Chloride (98-109) mEq/L Carbon Dioxide (19-29) mEq/L BUN (7-20) mg/dL Creatinine (0.57-1.11) mg/dL Est GFR ( Amer) (> 60) Est GFR (Non-Af Amer) (> 60) BUN/Creatinine Ratio (6-26) Glucose (70-99) mg/dL Calculated Osmolality (280-300) Lactic Acid (0.5-2.2) mmol/L Calcium (8.6-10.8) mg/dL Total Bilirubin (0.2-1.2) mg/dL Direct Bilirubin (0.0-0.5) mg/dL Indirect Bilirubin (0.0-1.2) mg/dL AST (5-34) Units/L ALT (0-55) Units/L Alkaline Phosphatase (38-126) Units/L Serum Total Protein (6.0-8.3) g/dL Albumin (3.5-5.0) g/dL Globulin (2.4-3.5) g/dL Albumin/Globulin Ratio (1.1-2.2) Amylase (25-125) Units/L Lipase (8-78) Units/L Urine Color Yellow (Yellow) Urine Clarity Clear (Clear) Urine pH 7.5 (5.0-8.0) pH Units Ur Specific [place] 1.013 (1.010-1.025) Urine Protein Negative (Neg-Trace) mg/dL Urine Glucose (UA) Normal (Normal) mg/dL Urine Ketones Negative (Negative) mg/dL Urine Blood Negative (Negative) Urine Nitrite Negative (Negative) Urine Bilirubin Negative (Negative) Urine Urobilinogen Normal (Normal) mg/dL Ur Leukocyte Esterase Moderate H (Negative) Urine Microscopic RBC 0-3 (0-3) per hpf Urine Microscopic WBC 15-30 H (0-3) per hpf Ur Squamous Epith Cells Many H (None-Few) per lpf Urine Bacteria Few (None-Few) per hpf Hyaline Casts None Seen (None-Few) per lpf Ur Culture Indicated? YES A (NO)
[2017-06-05 10:14] LABS: Basophils # 0.1 K/mcL (0.0-0.2); Basophils % 0.8 %; Eosinophils # 0.1 K/mcL (0.0-0.6); Eosinophils % 1.1 %; Hematocrit 32.8 % (35.3-44.9); Hemoglobin 10.3 g/dL (11.5-15.4); Immature Granulocytes % 0.2 % (0-4); Immature Platelets 1.4 % (1.1-6.1); Lymphocytes # 1.8 K/mcL (0.6-4.6); Lymphocytes % 29.2 %; Mean Corpuscular HGB Conc 31.4 g/dL (31.6-35.5); Mean Corpuscular Hemoglobin 28.1 pg (28.0-33.3); Mean Corpuscular Volume 89.4 fL (83.0-100.0); Mean Platelet Volume 9.1 fL (9.4-12.4); Monocytes # 0.6 K/mcL (0.0-1.3); Monocytes % 9.7 %; Neutrophils # 3.7 K/mcL (1.6-8.9); Platelet Count 617 K/mcL (140-400); Red Blood Count 3.67 M/mcL (3.82-4.97)
[2017-06-05 10:28] LABS: Alanine Aminotransferase 11 Units/L (0-55); Albumin 3.1 g/dL (3.5-5.0); Albumin/Globulin Ratio 0.7 (1.1-2.2); Alkaline Phosphatase 96 Units/L (38-126); Amylase 68 Units/L (25-125); Aspartate Amino Transferase 12 Units/L (5-34); BUN/Creatinine Ratio 21 (6-26); Bilirubin,Direct 0.1 mg/dL (0.0-0.5); Bilirubin,Indirect 0.2 mg/dL (0.0-1.2); Bilirubin,Total 0.3 mg/dL (0.2-1.2); Blood Urea Nitrogen 18 mg/dL (7-20); Calcium 10.2 mg/dL (8.6-10.8); Carbon Dioxide 24 mEq/L (19-29); Chloride 103 mEq/L (98-109); Globulin 4.7 g/dL (2.4-3.5); Glucose 101 mg/dL (70-99); Lipase 30 Units/L (8-78); Osmolality,Calculated 282 (280-300); Potassium 4.3 mEq/L (3.5-4.5); Sodium 135 mEq/L (136-145); Total Protein 7.8 g/dL (6.0-8.3); eGFR For African Americans > 60 (> 60); eGFR For Non-African Americans > 60 (> 60)
[2017-06-05] MEDS ORDERED: Ondansetron 4 MG/2 ML VIAL IVP ONE (11:46)
[2017-06-05] MEDS ORDERED: *HR* Morphine 2 MG/ML SYRINGE IVP ONE (11:46)
[2017-06-05 11:48] LABS: Bilirubin,Urine Negative (Negative); Blood,Urine Negative (Negative); Clarity,Urine Clear (Clear); Color,Urine Yellow (Yellow); Glucose,Urine (UA) Normal (Normal); Ketones,Urine Negative (Negative); Leukocyte Esterase,Urine Moderate (Negative); Nitrite,Urine Negative (Negative); PH,Urine 7.5 pH Units (5.0-8.0); Protein,Urine Negative (Neg-Trace); Specific Gravity,Urine 1.013 (1.010-1.025); Urobilinogen,Urine Normal (Normal)
[2017-06-05 11:53] LABS: Bacteria,Urine Few per hpf (None-Few); Hyaline Casts,Urine None Seen per lpf (None-Few); Squamous Epithelial Cell,Urine Many per lpf (None-Few); WBC,Urine 15-30 per hpf (0-3)
[2017-06-05 12:10] LABS: RBC,Urine 0-3 per hpf (0-3)
[2017-06-05] MEDS ORDERED: Naloxone 0.4 MG/ML INJ IVP PRN (13:53)
--- NOTE | 2017-06-05 13:53 | Internal Med History&Physical ---
Date of Encounter: 06/05/17 Time of Encounter: 13:53 Assessment and Plan (1) Acute duodenitis Current visit: Yes Status: Acute Patient with complains of RUQ pain , dating back to a week but worsened in the past 2-[address] scan shows evidence of mild periduodenal inflammation and around the pancreas Her Lipase and amylase are WNL She has no diarrhea Will start on IV PPI and Flagyl Etiology of duodenitis is unknown, patient denies taking NSAIDS at home She may need GI eval for EGD if symptoms do not improve (2) UTI (urinary tract infection) Current visit: Yes Status: Acute Patient with generalized abdominal pain, suprapubic pain, right upper quadrant pain. She denies dysuria. Urine analysis reveals moderate leukocyte esterase many squamous epithelial cells and pyuria. Urine culture has been sent. Continue ceftriaxone 1 g daily Follow final urine culture. Qualifiers: Urinary tract infection type: acute cystitis Hematuria presence: without hematuria Qualified Code(s): N30.00 - Acute cystitis without hematuria (3) Anemia Current visit: Yes Status: Chronic Patient has chronic anemia. Hemoglobin is stable and at baseline. Continue to monitor. 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 CAT scan noted for adenopathy. Oncology will be consulted for review. 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 Resume same. 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 Castellon is a 87 year old female She has a medical history of renal cancer status post right nephrectomy, and colon cancer, DVT on home doses of Lovenox. History obtained from the patient and had a Tylenol is at the bedside. The patient was on hospice but sometime in April, she revoked and has been independently living since then. She reports she was getting physical therapy at home, and has [place] [facility]. At baseline, patient was able to get up in the morning to make herself breakfast and coffee. However for the past 3 days, she has been having generalized weakness, right upper quadrant abdominal pain, suprapubic abdominal pain, and right hip pain. She reports the symptoms have been going on for about a week, but worsened in the past 3 days. She denies nausea or vomiting, she denies diarrhea or constipation, she has no bleeding by mouth or per rectum. Abdominal pain is described as dull ache, 10 over 10 at the time of presentation , and non-radiating. Was relieved by medication given in the ER. There are no known aggravating factors. Patient denies dysuria, fever or chills, change in her urine color. She reports diarrhea which lasted about a week but has since resolved about 3 weeks ago. At time of review, she was pain-free. She denies recent falls, reports poor oral intake. Patient's last visit to oncology was about 9 days ago, and during that visit it was planned that the patient may receive a trial of immunotherapy for the retroperitoneal lymphadenopathy from her cancer. Vascular directives discussed with patient, even though she wants treatment for her cancer, she is DNR [facility] DNI. Workup in the ER revealed CBC and chemistry within normal limits and liver function tests is within normal limits except for mild hypoalbuminemia which is chronic, amylase and lipase are within normal limits. Urinalysis shows moderate leukocyte esterase, many squamous epithelial cells no hematuria. Abdominal CT shows mild periduodenal inflammation indicative of possible peritonitis. A hip x-ray shows no fractures. Past Med Surg Social Fam HX - Past Medical History Medical history: cancer, coronary artery disease, GERD, hyperlipidemia, hypertension, malignancy, thyroid disease Psychiatric history: no psych history - Past Surgical History Surgical History: breast surgery, colectomy, hysterectomy - Social History Smoking Status: Never smoker Smokeless Tobacco Status: No Alcohol use: none Drug use: none - Family History Mother Living Status: Hx Family Cardiac Disorders: Yes Hx Family Respiratory Disorders: Yes (Lung cancer) Internal Medicine - H&P: Meds Calcium Carbonate [Tums] 1,000 mg PO Q4HR PRN 02/03/17 [History] Levothyroxine [Synthroid] 50 mcg PO QAM 02/03/17 [History] Omeprazole [PriLOSEC] 20 mg PO BIDAC #60 cap 03/03/17 [Rx] Enoxaparin [Lovenox] 80 mg SQ DAILY #30 syr 05/13/17 [Rx] Cyanocobalamin (Vitamin B-12) [Vitamin B-12] 1,000 mcg SL QDPC #30 tab.subl 11/01 [Rx] Folic Acid 1 mg PO DAILY #30 tablet 05/27/17 [Rx] Acetaminophen [Tylenol] 1,000 mg PO Q6HR 06/05/17 [History] Allergies atenolol Adverse Reaction (Verified 06/05/17 13:49) Chest Pain codeine Adverse Reaction (Verified 06/05/17 13:49) Irritable fenofibrate [From Tricor] Adverse Reaction (Verified 06/05/17 13:49) Muscle Pain lisinopril Adverse Reaction (Verified 06/05/17 13:49) Dizziness Wbkzdsb-Oet-Owk Reductase Inhibitor [Statins] Adverse Reaction (Verified 13:49) Muscle Pain All Systems PM: A 10-system review of systems was performed and is negative for pertinent findings except as documented above in the HPI. - Constitutional Constitutional: as per HPI - EENT Eyes: as per HPI Ears: as per HPI Nose, mouth and throat: as per HPI - Cardiovascular Cardiovascular ROS IM: as per HPI - Respiratory Respiratory: as per HPI - Gastrointestinal Gastrointestinal: as per HPI - Genitourinary Genitourinary: as per HPI - Musculoskeletal Musculoskeletal ROS IM: as per HPI - Integumentary Integumentary IM: as per HPI - Neurological Neurological ROS: as per HPI - Hematologic/Lymphatic Hematologic/Lymphatic: as per HPI - Constitutional Vitals: Temp Pulse Resp BP Pulse Ox 97.9 F 91 16 141/66 97 06/05/17 09:42 06/05/17 12:25 06/05/17 13:25 06/05/17 13:25 06/05/17 12:25 General appearance: Present: A&O X 3, pleasant, no acute distress - Head Head exam: Present: atraumatic, normocephalic - Eye Eye exam: Present: PERRL, conjuntiva pink, sclera anicteric Pupils: Present: PERRL - ENT ENT exam: Present: mucous membranes dry - Neck Neck exam general surgery: Present: supple, trachea midline. Absent: lymphadenopathy - Respiratory Respiratory exam: Present: CTAB - Cardiovascular Cardiovascular exam: Present: RRR, +S1, +S2. Absent: diastolic murmur, gallop, rubs, systolic murmur - GI/Abdominal GI/Abdominal exam: Present: normal bowel sounds, soft, no peritoneal signs. Absent: distended, guarding, hernia, rebound, tenderness - Extremities Exam Extremities exam: Present: pedal edema (trace bilateral piting pedal edema), warm, radial pulses palpable and symetrical. Absent: calf tenderness, cyanotic - Neurological Exam Neurological exam: Present: alert, CN II-XII intact, oriented X3, no focal deficits. Absent: pronater drift, facial droop, speech deficit - Skin Skin exam: Present: dry, intact Internal Med - H&P Results - Labs CBC & Chem 7: 06/05/17 10:05 06/05/17 10:05
[2017-06-05] MEDS ORDERED: 0.9 % Sodium Chloride 1,000 ML IVC SCH (14:00)
--- NOTE | 2017-06-05 15:09 | Oncology Inp Consult Note ---
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 Castellon and her daughter. Her scans revealed increase in size of previous retroperitoneal lymph nodes ( 1.6 x 1.3 --> 2.4x2.1 cm), suggestive of disease progression ( already stage IV). Primary oncologist Dr. García informed of ongoing events. At this time I would recommend to perform a CT guided biopsy of her retroperitoneal nodes for pathologic confirmation ( in view of her history of colon cancer, and the possibility of an alternative diagnosis). She was in agreement with the recommendations. Once biopsy is completed, she will need to follow up with Dr. García to review the results and discuss treatment considerations. There is not need to stay inpatient awaiting for the results. PLAN: - Please order CT guided biopsy of retroperitoneal nodes. - Order whole body bone scan to rule bone mets in view of worsening hip pain. Qualifiers: Laterality: right Qualified Code(s): C64.1 - Malignant neoplasm of right kidney, except renal pelvis (2) Pain in right hip Status: Acute Assessment and plan: She experienced some improvement with morphine IV while at the ED. We discussed the need to try analgesics stronger than tylenol, since her pain has been uncontrolled. As inpatient, consider morphine PO PRN. If her pain is not well controlled after 1-2 days, consider a palliative care consult for pain management. At this time she is not interested to re enrolled in hospice, so I would avoid addressing that option for now. - Consider bowel regimen. - Check whole body bone scan. (3) UTI (urinary tract infection) Status: Acute Assessment and plan: It may be contributing to her back pain. Agree with IV antibiotics. Qualifiers: Urinary tract infection type: acute cystitis Hematuria presence: without hematuria Qualified Code(s): N30.00 - Acute cystitis without hematuria (4) DVT (deep venous thrombosis) Status: Acute Assessment and plan: Reports significant dyspnea of exertion not completely explained for her anemia. Her bilateral lower extremity tenderness is concerning for worsening DVT. I would suggest to check lower extremity US. If consistent with worsening DVT, consider increasing lovenox to 1 mg/kg BID. 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 Castellon is a 87 year old female with history of urothelial carcinoma of the kidney presenting due to worsening right flank pain and CT scan revealing increased size of previous retroperitoneal lymph nodes. prior PMH includes T2N0M0 colon cancer diagnosed in October 2008 ( with low CEAs), and most recently urothelial carcinoma of the right kidney for which she underwent right uretheronephrectomy and lymph node dissection on February 03, 2017. Pathology staging was consistent with stage IV ( T3N2M0). During the surgery she suffered a injury to IVC, that caused bleeding. 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 Xarelto was discontinued later and and she was started on lovenox 80 mg daily after she developed a DVT involving the right iliac vein ( while on xarelto). She reports that during the course of the last month, she has noted worsening bone pain in her right hip, that was rated 10/10 prior to receiving morphine in the ED. She was taking only tylenol PRN at home, since she reports being refusing stronger medications due to concerns about side effects. She reports that her right flank pain seems to be similar to the one experienced in last one, probably more persistent and more intense. She reports that after being discharged she was living with her daughter, with improvement of her performance status ( at that time being able to ambulate independently), however she moved to live in her own apartment 4 weeks ago and since then she has noted worsening of her excercise tolerance and worsening fatigue ( she denies recent falls). She attributes her poor activity tolerance to fatigue and sob after ambulating short distances. She has tolerated lovenox 80 mg daily well. Reports no bleeding events. She self administrate the medication. Hospital course: CT abdomen failed to show re accumulation of prior cyst ( drained on Mar 16 2017 under IR with negative cultures). there were not findings suggestive of acute abdomen. Her UA showed pyuria and elevated LA. cultures pending Regarding her urothelial cancer. Her case was discussed at our tumor board in May 08, 2017. Her prior CT from May 06) that revealed increase of periarotic lymph nodes ) was reviewed. the recommendation was to hold off on therapy and follow up clinically and with repeated scans, with consideration of immunotherapy if there was evidence of disease progression. She has previously enrolled in hospice, however she opted out of it and now expressed her decision to pursue cancer therapy. -Her labs showed persistent anemia with prior iron panel suggestive of iron deficiency ( low and low iron saturation), along with persistent thrombocytosis. At the time of the visit she denies chest pain, shortness of breath. She endorsed poor appetite, she thinks that she may have lost some weight, but is not sure about the quantity. Prior to admission, she was expecting to move to an assisting living facility. Past Med Surg Social Fam HX - Past Medical History Medical history: cancer, coronary artery disease, GERD, hyperlipidemia, hypertension, malignancy, thyroid disease Psychiatric history: no psych history - Past Surgical History Surgical History: breast surgery, colectomy, hysterectomy - Social History Smoking Status: Never smoker Smokeless Tobacco Status: No Alcohol use: none Drug use: none - Family History Mother Living Status: Hx Family Cardiac Disorders: Yes Hx Family Respiratory Disorders: Yes (Lung cancer) Medications and Allergies Calcium Carbonate [Tums] 1,000 mg PO Q4HR PRN 02/03/17 [History] Levothyroxine [Synthroid] 50 mcg PO QAM 02/03/17 [History] Omeprazole [PriLOSEC] 20 mg PO BIDAC #60 cap 03/03/17 [Rx] Enoxaparin [Lovenox] 80 mg SQ DAILY #30 syr 05/13/17 [Rx] Cyanocobalamin (Vitamin B-12) [Vitamin B-12] 1,000 mcg SL QDPC #30 tab.subl 11/01 [Rx] Folic Acid 1 mg PO DAILY #30 tablet 05/27/17 [Rx] Acetaminophen [Tylenol] 1,000 mg PO Q6HR 06/05/17 [History] Allergies atenolol Adverse Reaction (Verified 06/05/17 13:49) Chest Pain codeine Adverse Reaction (Verified 06/05/17 13:49) Irritable fenofibrate [From Tricor] Adverse Reaction (Verified 06/05/17 13:49) Muscle Pain lisinopril Adverse Reaction (Verified 06/05/17 13:49) Dizziness Kyvbjpy-Xen-Paj Reductase Inhibitor [Statins] Adverse Reaction (Verified 13:49) Muscle Pain Constitutional: Present: anorexia, fatigue, malaise, weakness, weight loss Ears: Present: as per HPI Nose, mouth and throat: Present: as per HPI Cardiovascular: Present: dyspnea, edema, leg edema. Absent: chest pain, chest pain at rest, chest pain with activity, diaphoresis Respiratory: Present: dyspnea, dyspnea on exertion. Absent: hemoptysis, excessive phlegm production Gastrointestinal: Present: abdominal pain. Absent: diarrhea, dysphagia, hematemesis, hematochezia, melena Musculoskeletal: Present: other (right hip pain) Neurological: Absent: behavioral changes, focal weakness, lack of coordination Psychiatric: Absent: confusion Endocrine: Present: as per HPI Hematologic/Lymphatic: Present: as per HPI Allergic/Immunologic: Present: as per HPI Oncology - Exam - Constitutional Vitals: Temp Pulse Resp BP Pulse Ox 97.9 F 91 16 141/66 97 06/05/17 09:42 06/05/17 12:25 06/05/17 13:25 06/05/17 13:25 06/05/17 12:25 - Head Head exam: Present: normal inspection - Eye Eye exam: Present: EOMI - ENT ENT exam: Present: normal oropharynx - Respiratory Respiratory exam: Present: CTAB - Cardiovascular Cardiovascular exam: Present: +S1, +S2. Absent: bradycardia, JVD - GI/Abdominal Additional comments: right flank tenderness. no rebound tenderness . no organomegaly. - Extremities Exam Extremities exam: Present: tenderness (bilateral lower extremity edema ++. bilateral calf tenderness) - Neurological Exam Neurological exam: Present: oriented X3 - Psychiatric Psychiatric exam: Present: normal mood - Skin Skin exam: Present: normal color Consult Discharge Plan - Plan Referrals: Sonny Reardon MD [Primary Care Provider] -
[2017-06-05] MEDS: *HR* HYDROcodone/Acet 7.5/325 mg TABLET PO PRN (15:59)
[2017-06-05] MEDS: Ondansetron 4 MG/2 ML VIAL IVP PRN (15:59)
[2017-06-05] MEDS: Pantoprazole 40 MG VIAL IVP SCH (15:59)
[2017-06-05] MEDS: MetroNIDAZOLE 500 MG/100 ML 500 MG/100 ML BAG IVPB SCH ×2 (16:05→23:59)
[2017-06-05] MEDS: *HR* Enoxaparin 40 MG/0.4 ML SYRINGE SQ SCH (16:09)
[2017-06-05] MEDS: Acetaminophen 325 MG TABLET PO PRN (20:17)
[2017-06-06] MEDS: *HR* HYDROcodone/Acet 7.5/325 mg TABLET PO PRN ×2 (03:25→07:35)
[2017-06-06] MEDS: Ondansetron 4 MG/2 ML VIAL IVP PRN ×3 (03:27→14:45)
[2017-06-06 06:43] LABS: Basophils % 0.7 %; Eosinophils # 0.1 K/mcL (0.0-0.6); Eosinophils % 2.1 %; Hematocrit 30.8 % (35.3-44.9); Hemoglobin 9.3 g/dL (11.5-15.4); Immature Granulocytes % 0.2 % (0-4); Lymphocytes # 1.3 K/mcL (0.6-4.6); Lymphocytes % 22.7 %; Mean Corpuscular HGB Conc 30.2 g/dL (31.6-35.5); Mean Corpuscular Hemoglobin 27.8 pg (28.0-33.3); Mean Corpuscular Volume 91.9 fL (83.0-100.0); Mean Platelet Volume 9.1 fL (9.4-12.4); Monocytes # 0.6 K/mcL (0.0-1.3); Monocytes % 9.8 %; Neutrophils # 3.7 K/mcL (1.6-8.9); Platelet Count 495 K/mcL (140-400); Red Blood Count 3.35 M/mcL (3.82-4.97); Red Cell Distribution Width 15.1 % (11.5-14.5); Segmented Neutrophils % 64.5 %
[2017-06-06 06:50] LABS: BUN/Creatinine Ratio 20 (6-26); Blood Urea Nitrogen 19 mg/dL (7-20); Calcium 9.1 mg/dL (8.6-10.8); Carbon Dioxide 24 mEq/L (19-29); Chloride 106 mEq/L (98-109); Glucose 100 mg/dL (70-99); Osmolality,Calculated 284 (280-300); Potassium 4.3 mEq/L (3.5-4.5); Sodium 136 mEq/L (136-145); eGFR For African Americans > 60 (> 60); eGFR For Non-African Americans 56 (> 60)
[2017-06-06] MEDS: MetroNIDAZOLE 500 MG/100 ML 500 MG/100 ML BAG IVPB SCH ×3 (07:34→23:34)
[2017-06-06] MEDS: Pantoprazole 40 MG VIAL IVP SCH (07:35)
[2017-06-06] MEDS: *HR* Enoxaparin 40 MG/0.4 ML SYRINGE SQ SCH (07:35)
[2017-06-06] MEDS: *HR* Morphine 2 MG/ML SYRINGE IVP PRN ×2 (09:45→13:12)
--- NOTE | 2017-06-06 10:16 | Oncology Inp Progress Note ---
Date of Encounter: 06/06/17 Time of Encounter: 10:16 (1) Urothelial carcinoma of kidney Current Visit: No Status: Chronic Assessment and plan: - Awaiting for completion of CT guided biopsy of retroperitoneal nodes, hopefully to be completed early next week. Please contact IR to arrange for procedure. - Follow up Whole body bone scan. If there is evidence of metastatic bone disease in hip area, would recommend radiation oncologist consult to consider palliative radiation as inpatient. Qualifiers: Laterality: right Qualified Code(s): C64.1 - Malignant neoplasm of right kidney, except renal pelvis (2) Pain in right hip Current Visit: No Status: Acute Assessment and plan: - she is not tolerating narcotics due to nausea/vomiting. I would suggest to discontinue morphine and norco. I would recommend a palliative care consult for pain management since probably tylenol PRN is not going to appropriately control her pain. - Bowel regimen. - In view of recent episode of vomiting, I would suggest replacement with IVF (3) UTI (urinary tract infection) Current Visit: Yes Status: Acute Assessment and plan: It may be contributing to her back pain. Being treated with ceftriaxone. Management as per primary team. Qualifiers: Urinary tract infection type: acute cystitis Hematuria presence: without hematuria Qualified Code(s): N30.00 - Acute cystitis without hematuria (4) DVT (deep venous thrombosis) Current Visit: Yes Status: Acute Assessment and plan: Follow up lower extremity US. If consistent with worsening DVT, consider increasing lovenox to 1 mg/kg BID. Qualifiers: Qualified Code(s): I82.409 - Acute embolism and thrombosis of unspecified deep veins of unspecified lower extremity Oncology: Subj Interval history: Patient complained of feeling nauseas since morphine was administered. She vomited during the visit twice. No associated respiratory distress or findings suggestive of aspiration. reports feeling relief after vomiting. Denies CP, SOB, fever. Reports persistent hip pain. - Constitutional Vitals: Vital Signs Temp Pulse Resp BP Pulse Ox 06/06/17 07:06 95 06/06/17 06:55 97.8 F 84 14 130/74 95 06/06/17 04:35 97.5 F L 85 14 134/73 95 06/05/17 23:30 98.2 F 86 14 115/67 95 06/05/17 19:35 98.2 F 63 14 108/61 96 06/05/17 14:55 97 16 125/65 97 06/05/17 13:25 16 141/66 Intake and Output 06/05/17 06/06/17 06/06/17 23:59 07:59 15:59 Intake Total 340 / 340 1100 / 1100 780 / 780 Output Total 0 / 0 0 / 0 250 / 250 Balance 340 / 340 1100 / 1100 530 / 530 Intake: IV Fluids 100 / 100 1100 / 1100 300 / 300 0.9 % Sodium Chloride 1, 1000 / 1000 000 ML @ 75 mls/hr IVC . [id number] [facility] Rx#: [id number] Flagyl Premix 500 MG/100 100 / 100 100 / 100 100 / 100 ML 500 mg In 100 ml @ 100 mls/hr IVPB Q8HR [facility] Rx# :[id number] Rocephin 1,000 MG In 200 / 200 Dextrose 5% (Minibag+) 100 ML 100 ML @ 200 mls/ hr IVPB DAILY [facility] Rx#: [id number] Oral 240 / 240 0 / 0 480 / 480 Output: Urine 0 / 0 0 / 0 Emesis 250 / 250 Other: Meal Dinner Breakfast Percent of Meal Consumed 100% 100% Weight 55.474 kg Blood Glucose* 125 Patient Weight 06/06/17 23:59 Weight 55.474 kg - Head Head exam: Present: normal inspection - Respiratory Respiratory exam: Present: CTAB - Cardiovascular Cardiovascular exam: Present: +S1, +S2 - GI/Abdominal GI/Abdominal exam: Present: normal bowel sounds - Extremities Exam Extremities exam: Present: normal inspection - Neurological Exam Neurological exam: Present: oriented X3 Oncology: Obj Data - Labs CBC & Chem 7: 06/06/17 06:27 06/06/17 06:27 Labs: Laboratory Results - last 24 hr 06/05/17 06/06/17 06/06/17 23:28 06:27 06:27 WBC 5.7 RBC 3.35 L Hgb 9.3 L Hct 30.8 L MCV 91.9 MCH 27.8 L MCHC 30.2 L RDW 15.1 H Plt Count 495 H MPV 9.1 L Immature Gran % 0.2 Seg Neutrophils % 64.5 Lymphocytes % 22.7 Monocytes % 9.8 Eosinophils % 2.1 Basophils % 0.7 Neutrophils # 3.7 Lymphocytes # 1.3 Monocytes # 0.6 Eosinophils # 0.1 Basophils # 0.0 Sodium 136 Potassium 4.3 Chloride 106 Carbon Dioxide 24 BUN 19 Creatinine 0.95 Est GFR ( Amer) > 60 Est GFR (Non-Af Amer) 56 L BUN/Creatinine Ratio 20 Glucose 100 H POC Glucose 125 H Calculated Osmolality 284 Calcium 9.1 Consult Discharge Plan - Plan Referrals: Sonny Reardon MD [Primary Care Provider] -
[2017-06-06] MEDS: Acetaminophen 325 MG TABLET PO PRN (19:40)
[2017-06-06] MEDS: 0.9 % Sodium Chloride 1,000 ML IVC SCH (22:09)
[2017-06-07] MEDS: *HR* HYDROcodone/Acet 7.5/325 mg TABLET PO PRN ×4 (01:14→22:54)
[2017-06-07] MEDS: MetroNIDAZOLE 500 MG/100 ML 500 MG/100 ML BAG IVPB SCH ×3 (07:15→23:00)
[2017-06-07] MEDS: Ondansetron 4 MG/2 ML VIAL IVP PRN ×2 (07:15→19:25)
[2017-06-07] MEDS: *HR* Enoxaparin 40 MG/0.4 ML SYRINGE SQ SCH (07:16)
[2017-06-07] MEDS: Pantoprazole 40 MG VIAL IVP SCH (07:16)
[2017-06-07] MEDS: 0.9 % Sodium Chloride 1,000 ML IVC SCH (11:36)
--- NOTE | 2017-06-07 14:37 | Oncology Inp Progress Note ---
Date of Encounter: 06/07/17 Time of Encounter: 14:34 (1) Urothelial carcinoma of kidney Current Visit: No Status: Chronic Assessment and plan: - No acute oncology issues. Please arrrange for CT guided biopsy of retroperitoneal nodes, hopefully to be completed early this coming week. - Follow up Whole body bone scan. If there is evidence of metastatic bone disease in hip area, would recommend radiation oncologist consult to consider palliative radiation as inpatient. Qualifiers: Laterality: right Qualified Code(s): C64.1 - Malignant neoplasm of right kidney, except renal pelvis Code(s): C64.9 - Malignant neoplasm of unspecified kidney, except renal pelvis SNOMED Code(s): 939228207 (2) Pain in right hip Current Visit: No Status: Acute Assessment and plan: - Pain has improved today. Tolerated norco pill early today, but experienced significant nausea with morphine iV yesterday. Continue current management. - Bowel regimen. - Follow up bone scan. If evidence of hip metastatic lesions, request radiation oncology consult. Code(s): M25.551 - Pain in right hip SNOMED Code(s): 54615009 (3) UTI (urinary tract infection) Current Visit: Yes Status: Acute Assessment and plan: Urine culture inconclusive. Continue management as per primary team. Qualifiers: Urinary tract infection type: acute cystitis Hematuria presence: without hematuria Qualified Code(s): N30.00 - Acute cystitis without hematuria Code(s): N39.0 - Urinary tract infection, site not specified SNOMED Code(s): 53342573 (4) DVT (deep venous thrombosis) Current Visit: Yes Status: Acute Assessment and plan: Follow up lower extremity US. If consistent with worsening DVT, consider increasing lovenox to 1 mg/kg BID. Monitor renal function daily while on Lovenox. Qualifiers: DVT location: non-extremity vein Chronicity: unspecified Qualified Code(s ): I82.90 - Acute embolism and thrombosis of unspecified vein Code(s): I82.409 - Acute embolism and thrombosis of unspecified deep veins of unspecified lower extremity SNOMED Code(s): 299300689 Oncology: Subj Interval history: Reports feeling better today. resolved nausea, tolerated breakfast and lunch today. Improved hip pain. - Constitutional Vitals: Vital Signs Temp Pulse Resp BP Pulse Ox 06/07/17 11:15 97.4 F L 82 16 145/73 94 06/07/17 06:37 97.4 F L 83 14 149/66 96 06/07/17 03:16 97.7 F 89 16 97/60 94 06/07/17 00:04 97.5 F L 86 16 113/62 96 06/06/17 19:46 97.8 F 88 16 144/78 97 06/06/17 19:30 98 06/06/17 15:15 97.6 F 86 16 159/70 98 Intake and Output 06/06/17 06/07/17 06/07/17 23:59 07:59 15:59 Intake Total 100 / 100 850 / 850 1250 / 1250 Output Total 200 / 200 400 / 400 550 / 550 Balance -100 / -100 450 / 450 700 / 700 Intake: IV Fluids 100 / 100 850 / 850 450 / 450 0.9 % Sodium Chloride 1, 750 / 750 250 / 250 000 ML @ 80 mls/hr IVC . [id number] [facility] Rx#: [id number] Flagyl Premix 500 MG/100 100 / 100 100 / 100 100 / 100 ML 500 mg In 100 ml @ 100 mls/hr IVPB Q8HR [facility] Rx# :[id number] Rocephin 1,000 MG In 100 / 100 Dextrose 5% (Minibag+) 100 ML 100 ML @ 200 mls/ hr IVPB DAILY [facility] Rx#: [id number] Oral 0 / 0 800 / 800 Output: Urine 200 / 200 400 / 400 550 / 550 Other: Meal Lunch Percent of Meal Consumed 100% Weight 55.474 kg 54.6 kg 54.6 kg Blood Glucose* 125 125 Patient Weight 06/07/17 23:59 Weight 54.6 kg - Head Head exam: Present: normal inspection - Respiratory Respiratory exam: Present: CTAB - Cardiovascular Cardiovascular exam: Present: +S1 - GI/Abdominal GI/Abdominal exam: Present: normal bowel sounds - Extremities Exam Extremities exam: Present: normal inspection - Neurological Exam Neurological exam: Present: alert. Absent: CN II-XII intact, speech deficit - Psychiatric Psychiatric exam: Present: normal affect Oncology: Obj Data - Labs CBC & Chem 7: 06/06/17 06:27 06/06/17 06:27 Consult Discharge Plan - Plan Referrals: Sonny Reardon MD [Primary Care Provider] -
--- NOTE | 2017-06-07 18:44 | Internal Med Progress Note ---
Date of Encounter: 06/07/17 (Late entry) Time of Encounter: 17:00 (Late entry) - Assessment and plan (1) HTN (hypertension) Current Visit: No Status: Chronic Qualifiers: Hypertension type: essential hypertension Qualified Code(s): I10 - Essential (primary) hypertension (2) GERD (gastroesophageal reflux disease) Current Visit: No Status: Chronic Qualifiers: Esophagitis presence: with esophagitis Qualified Code(s): K21.0 - Gastro- esophageal reflux disease with esophagitis (3) Pain in right hip Current Visit: No Status: Acute (4) UTI (urinary tract infection) Current Visit: Yes Status: Acute Qualifiers: Urinary tract infection type: acute cystitis Hematuria presence: without hematuria Qualified Code(s): N30.00 - Acute cystitis without hematuria (5) Acute duodenitis Current Visit: Yes Status: Acute (6) DVT (deep venous thrombosis) Current Visit: Yes Status: Acute Qualifiers: DVT location: non-extremity vein Chronicity: unspecified Qualified Code(s ): I82.90 - Acute embolism and thrombosis of unspecified vein - Subjective Interval history: 06/06 Mrs. Ida Castellon is an 87-year-old female presented with abdominal pain and was diagnosed with duodenitis and IV Protonix was started. Apparently she has history of NSAIDs. Her hemoglobin is observed closely. Patient is also complaining about right flank and right hip pain. Oncology has seen the patient and noted that her retroperitoneal lymph nodes have increased in size and is concerned for progression of her disease. 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 She had right nephrectomy in the past due to diagnosis of renal cell carcinoma. She also had colectomy hysterectomy and appendectomy and history of colon cancer.. 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 During this admission she is also diagnosed with UTI and is in antibiotics. - Constitutional Vitals: Temp Pulse Resp BP Pulse Ox 97.8 F 83 16 130/65 96 06/07/17 15:13 06/07/17 15:13 06/07/17 15:13 06/07/17 15:13 06/07/17 15:13 General appearance: Present: A&O X 3, pleasant, no acute distress - Head Head exam: Present: atraumatic, normocephalic - Eye Eye exam: Present: PERRL, conjuntiva pink, sclera anicteric Pupils: Present: PERRL - Neck Neck exam general surgery: Present: supple, trachea midline. Absent: lymphadenopathy - Respiratory Respiratory exam: Present: CTAB. Absent: accessory muscle use, rales, rhonchi, wheezes - Cardiovascular Cardiovascular exam: Present: RRR, +S1, +S2. Absent: diastolic murmur, gallop, rubs, systolic murmur - GI/Abdominal GI/Abdominal exam: Present: normal bowel sounds, soft, no peritoneal signs. Absent: distended, tenderness - Extremities Exam Extremities exam: Present: warm, radial pulses palpable and symetrical. Absent : calf tenderness, cyanotic, pedal edema Additional comments: Right leg Homans sign and straight leg raising sign negative. Range of motion at right hip and knee except for mild tenderness at the extreme right external rotation of hip. - Neurological Exam Neurological exam: Present: CN II-XII intact, oriented X3, no focal deficits. Absent: pronater drift, facial droop, speech deficit - Skin Skin exam: Present: dry, intact Internal Medicine: Result - Labs CBC & Chem 7: 06/06/17 06:27 06/06/17 06:27 Consult Discharge Plan - Plan Referrals: Sonny Reardon MD [Primary Care Provider] -
--- NOTE | 2017-06-07 18:53 | Internal Med Progress Note ---
Date of Encounter: 06/07/17 Time of Encounter: 18:50 - Assessment and plan (1) HTN (hypertension) Current Visit: No Status: Chronic Assessment and plan: Continue home medication and daily monitoring Qualifiers: Hypertension type: essential hypertension Qualified Code(s): I10 - Essential (primary) hypertension (2) GERD (gastroesophageal reflux disease) Current Visit: No Status: Chronic Assessment and plan: IV Protonix Qualifiers: Esophagitis presence: with esophagitis Qualified Code(s): K21.0 - Gastro- esophageal reflux disease with esophagitis (3) Pain in right hip Current Visit: No Status: Acute Assessment and plan: Full range of motion and mild tenderness at extremes of right external rotation component scan ordered but if incongruous it might need right hip MRI. (4) UTI (urinary tract infection) Current Visit: Yes Status: Acute Assessment and plan: On IV antibiotic but urine culture negative Qualifiers: Urinary tract infection type: acute cystitis Hematuria presence: without hematuria Qualified Code(s): N30.00 - Acute cystitis without hematuria (5) Acute duodenitis Current Visit: Yes Status: Acute Assessment and plan: IV Protonix symptomatically improved hemoglobin is stable (6) DVT (deep venous thrombosis) Current Visit: Yes Status: Acute Qualifiers: DVT location: non-extremity vein Chronicity: unspecified Qualified Code(s ): I82.90 - Acute embolism and thrombosis of unspecified vein (7) Retroperitoneal lymphadenopathy Current Visit: Yes Status: Acute Assessment and plan: Patient has history of colon cancer and renal cancer and underwent partial colectomy and right nephrectomy in the past. 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 Bone scan and lymph node biopsy ordered. - Subjective Interval history: 06/06 Mrs. Ida Castellon is an 87-year-old female presented with abdominal pain and was diagnosed with duodenitis and IV Protonix was started. Apparently she has history of NSAIDs. Her hemoglobin is observed closely. Patient is also complaining about right flank and right hip pain. Oncology has seen the patient and noted that her retroperitoneal lymph nodes have increased in size and is concerned for progression of her disease. 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 She had right nephrectomy in the past due to diagnosis of renal cell carcinoma. She also had colectomy hysterectomy and appendectomy and history of colon cancer.. 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 During this admission she is also diagnosed with UTI and is in antibiotics. 06/07 her abdominal pain has resolved and there is no evidence of active bleed however she continues to complain of right flank pain. On hip examination I found full range of motion and on extreme external rotation there is some pain. She might need right hip MRI to rule out any hairline fracture. At this time we are going full body bone scan and we will request interventional radiology to perform retroperitoneal biopsy. - Constitutional Vitals: Temp Pulse Resp BP Pulse Ox 97.8 F 83 16 130/65 96 06/07/17 15:13 06/07/17 15:13 06/07/17 15:13 06/07/17 15:13 06/07/17 15:13 General appearance: Present: A&O X 3, pleasant, no acute distress - Head Head exam: Present: atraumatic, normocephalic - Eye Eye exam: Present: PERRL, conjuntiva pink, sclera anicteric Pupils: Present: PERRL - Neck Neck exam general surgery: Present: supple, trachea midline. Absent: lymphadenopathy - Respiratory Respiratory exam: Present: CTAB. Absent: accessory muscle use, rales, rhonchi, wheezes - Cardiovascular Cardiovascular exam: Present: RRR, +S1, +S2. Absent: diastolic murmur, gallop, rubs, systolic murmur - GI/Abdominal GI/Abdominal exam: Present: normal bowel sounds, soft, no peritoneal signs. Absent: distended, tenderness - Extremities Exam Extremities exam: Present: warm, radial pulses palpable and symetrical. Absent : calf tenderness, cyanotic, pedal edema - Neurological Exam Neurological exam: Present: CN II-XII intact, oriented X3, no focal deficits. Absent: pronater drift, facial droop, speech deficit - Skin Skin exam: Present: dry, intact Internal Medicine: Result - Labs CBC & Chem 7: 06/06/17 06:27 06/06/17 06:27 Consult Discharge Plan - Plan Referrals: Sonny Reardon MD [Primary Care Provider] -
[2017-06-07] MEDS: Acetaminophen 325 MG TABLET PO PRN (19:25)
[2017-06-08] MEDS: 0.9 % Sodium Chloride 1,000 ML IVC SCH ×2 (02:30→20:57)
[2017-06-08] MEDS: Acetaminophen 325 MG TABLET PO PRN ×3 (02:30→20:51)
[2017-06-08] MEDS: MetroNIDAZOLE 500 MG/100 ML 500 MG/100 ML BAG IVPB SCH ×3 (09:16→23:49)
[2017-06-08] MEDS: *HR* HYDROcodone/Acet 7.5/325 mg TABLET PO PRN ×3 (09:17→22:47)
[2017-06-08] MEDS: Pantoprazole 40 MG VIAL IVP SCH (09:17)
[2017-06-08] MEDS: *HR* Enoxaparin 40 MG/0.4 ML SYRINGE SQ SCH (09:17)
[2017-06-08] MEDS ORDERED: *HR* FentaNYL (PF) 100 MCG/2 ML VIAL IVP PRN (09:18)
[2017-06-08] MEDS ORDERED: *HR* Midazolam HCl 2 MG/2 ML VIAL IVP PRN (09:18)
--- NOTE | 2017-06-08 09:18 | Pre-Sedation Evaluation ---
Pre-sedation evaluation - Pre-sedation checklist Date of procedure: 06/08/17 Procedure: drain Recent Vitals: Last Vital Signs Temp 97.4 F L 06/08/17 07:11 Pulse 84 06/08/17 07:11 Resp 18 06/08/17 07:11 BP 120/88 06/08/17 07:11 Pulse Ox 96 06/08/17 07:11 H&P (including ROS) documented in medical record: Yes Previous reaction to sedatives/anesthetics: No Dietary Status: NPO after Midnight Airway Assessment: Patient can open mouth completely, TMJ function normal, Micrognathia (under-bite, receding chin) absent, Neck with adequate range of motion Dentition: No loose teeth or bridges Possible difficult airway: No ASA Classification *see protocol: CLASS II-Mild systemic disease Plan of Care: Pt appropriate candidate for procedure/moderate/conscious sedation , Risks/benefits of procedure/sedation discussed w/ patient/family
[2017-06-08] MEDS: Ondansetron 4 MG/2 ML VIAL IVP PRN ×3 (09:22→20:51)
--- NOTE | 2017-06-08 17:12 | Internal Med Progress Note ---
Date of Encounter: 06/08/17 Time of Encounter: 17:09 - Assessment and plan (1) HTN (hypertension) Current Visit: No Status: Chronic Assessment and plan: Continue home medication and daily monitoring Qualifiers: Hypertension type: essential hypertension Qualified Code(s): I10 - Essential (primary) hypertension (2) GERD (gastroesophageal reflux disease) Current Visit: No Status: Chronic Assessment and plan: IV Protonix Qualifiers: Esophagitis presence: with esophagitis Qualified Code(s): K21.0 - Gastro- esophageal reflux disease with esophagitis (3) Pain in right hip Current Visit: No Status: Acute Assessment and plan: Full range of motion and mild tenderness at extremes of right external rotation component scan ordered but if incongruous it might need right hip MRI. (4) UTI (urinary tract infection) Current Visit: Yes Status: Acute Assessment and plan: On IV antibiotic but urine culture negative Qualifiers: Urinary tract infection type: acute cystitis Hematuria presence: without hematuria Qualified Code(s): N30.00 - Acute cystitis without hematuria (5) Acute duodenitis Current Visit: Yes Status: Acute Assessment and plan: IV Protonix symptomatically improved hemoglobin is stable (6) DVT (deep venous thrombosis) Current Visit: Yes Status: Acute Qualifiers: DVT location: non-extremity vein Chronicity: unspecified Qualified Code(s ): I82.90 - Acute embolism and thrombosis of unspecified vein (7) Retroperitoneal lymphadenopathy Current Visit: Yes Status: Acute Assessment and plan: Patient has history of colon cancer and renal cancer and underwent partial colectomy and right nephrectomy in the past. 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 Bone scan and lymph node biopsy ordered. - Subjective Interval history: 06/06 Mrs. Ida Castellon is an 87-year-old female presented with abdominal pain and was diagnosed with duodenitis and IV Protonix was started. Apparently she has history of NSAIDs. Her hemoglobin is observed closely. Patient is also complaining about right flank and right hip pain. Oncology has seen the patient and noted that her retroperitoneal lymph nodes have increased in size and is concerned for progression of her disease. 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 She had right nephrectomy in the past due to diagnosis of renal cell carcinoma. She also had colectomy hysterectomy and appendectomy and history of colon cancer.. 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 During this admission she is also diagnosed with UTI and is in antibiotics. 06/07 her abdominal pain has resolved and there is no evidence of active bleed however she continues to complain of right flank pain. On hip examination I found full range of motion and on extreme external rotation there is some pain. She might need right hip MRI to rule out any hairline fracture. At this time we are going full body bone scan and we will request interventional radiology to perform retroperitoneal biopsy. 06/08 asymptomatic. Bone scan done today did not show any osseous metastatic cyst. Biopsy is planned for tomorrow. - Constitutional Vitals: Temp Pulse Resp BP Pulse Ox 97.4 F L 89 18 161/76 94 06/08/17 15:02 06/08/17 15:02 06/08/17 15:02 06/08/17 15:02 06/08/17 15:02 General appearance: Present: A&O X 3, pleasant, no acute distress - Head Head exam: Present: atraumatic, normocephalic - Eye Eye exam: Present: PERRL, conjuntiva pink, sclera anicteric Pupils: Present: PERRL - Neck Neck exam general surgery: Present: supple, trachea midline. Absent: lymphadenopathy - Respiratory Respiratory exam: Present: CTAB. Absent: accessory muscle use, rales, rhonchi, wheezes - Cardiovascular Cardiovascular exam: Present: RRR, +S1, +S2. Absent: diastolic murmur, gallop, rubs, systolic murmur - GI/Abdominal GI/Abdominal exam: Present: normal bowel sounds, soft, no peritoneal signs. Absent: distended, tenderness - Extremities Exam Extremities exam: Present: warm, radial pulses palpable and symetrical. Absent : calf tenderness, cyanotic, pedal edema - Neurological Exam Neurological exam: Present: CN II-XII intact, oriented X3, no focal deficits. Absent: pronater drift, facial droop, speech deficit - Skin Skin exam: Present: dry, intact Internal Medicine: Result - Labs CBC & Chem 7: 06/06/17 06:27 06/06/17 06:27 - Impressions Impressions Bone Scan Nuclear Medicine 06/07/17 18:57 IMPRESSION: No evidence to suggest osseous metastatic disease. Abnormal accumulation of radionuclide, lower left kidney as described. Given the history, the left kidney should be further evaluated with contrast-enhanced CT or MRI to include early and delayed postcontrast sequences to evaluate for accumulation possibly within a caliceal diverticulum. Prior CT scan shows no definite renal mass or calcification. D/ / Itz Salas MD / Itz Salas MD Interpreting Provider: Itz Salas MD Consult Discharge Plan - Plan Referrals: Sonny Reardon MD [Primary Care Provider] -
[2017-06-09] MEDS: *HR* Morphine 2 MG/ML SYRINGE IVP PRN (03:30)
[2017-06-09] MEDS: Ondansetron 4 MG/2 ML VIAL IVP PRN ×2 (03:32→12:37)
[2017-06-09 05:47] LABS: INR 1.1; Prothrombin Time 12.3 Seconds (9.4-12.1)
[2017-06-09 05:58] LABS: Alanine Aminotransferase 10 Units/L (0-55); Albumin 2.9 g/dL (3.5-5.0); Albumin/Globulin Ratio 0.7 (1.1-2.2); Alkaline Phosphatase 91 Units/L (38-126); Aspartate Amino Transferase 12 Units/L (5-34); BUN/Creatinine Ratio 7 (6-26); Bilirubin,Total 0.2 mg/dL (0.2-1.2); Calcium 9.6 mg/dL (8.6-10.8); Carbon Dioxide 24 mEq/L (19-29); Chloride 105 mEq/L (98-109); Globulin 4.4 g/dL (2.4-3.5); Glucose 109 mg/dL (70-99); Osmolality,Calculated 280 (280-300); Sodium 136 mEq/L (136-145); Total Protein 7.3 g/dL (6.0-8.3); eGFR For African Americans > 60 (> 60); eGFR For Non-African Americans > 60 (> 60)
[2017-06-09 05:59] LABS: Blood Urea Nitrogen 6 mg/dL (7-20)
[2017-06-09 07:08] LABS: Basophils % 0.4 %; Eosinophils # 0.2 K/mcL (0.0-0.6); Hematocrit 34.4 % (35.3-44.9); Hemoglobin 10.6 g/dL (11.5-15.4); Immature Granulocytes % 0.2 % (0-4); Immature Platelets 1.6 % (1.1-6.1); Lymphocytes # 1.1 K/mcL (0.6-4.6); Lymphocytes % 22.5 %; Mean Corpuscular HGB Conc 30.8 g/dL (31.6-35.5); Mean Corpuscular Hemoglobin 28.9 pg (28.0-33.3); Mean Corpuscular Volume 93.7 fL (83.0-100.0); Mean Platelet Volume 9.4 fL (9.4-12.4); Monocytes # 0.4 K/mcL (0.0-1.3); Monocytes % 7.7 %; Neutrophils # 3.3 K/mcL (1.6-8.9); Platelet Count 536 K/mcL (140-400); Red Blood Count 3.67 M/mcL (3.82-4.97); Red Cell Distribution Width 15.1 % (11.5-14.5); Segmented Neutrophils % 66.2 %
[2017-06-09] MEDS: MetroNIDAZOLE 500 MG/100 ML 500 MG/100 ML BAG IVPB SCH ×2 (09:23→16:36)
[2017-06-09] MEDS: Pantoprazole 40 MG VIAL IVP SCH (09:23)
--- NOTE | 2017-06-09 14:09 | Discharge Summary ---
Date of Encounter: 06/09/17 Time of Encounter: 08:45 - Discharge Diagnosis (1) Acute duodenitis Priority: Primary Status: Acute (2) UTI (urinary tract infection) Priority: Primary Status: Ruled-out Qualifiers: Urinary tract infection type: acute cystitis Hematuria presence: without hematuria Qualified Code(s): N30.00 - Acute cystitis without hematuria (3) Retroperitoneal lymphadenopathy Priority: Primary Status: Chronic (4) Urothelial carcinoma of kidney Priority: Secondary Status: Chronic Qualifiers: Laterality: right Qualified Code(s): C64.1 - Malignant neoplasm of right kidney, except renal pelvis (5) Anemia Priority: Secondary Status: Chronic Qualifiers: Anemia type: other cause Other causes of anemia: chronic disease, neoplastic Qualified Code(s): D63.0 - Anemia in neoplastic disease (6) HTN (hypertension) Priority: Secondary Status: Chronic Qualifiers: Hypertension type: essential hypertension Qualified Code(s): I10 - Essential (primary) hypertension (7) Hypothyroidism Priority: Secondary Status: Chronic Qualifiers: Hypothyroidism type: unspecified Qualified Code(s): E03.9 - Hypothyroidism , unspecified (8) DVT (deep venous thrombosis) Priority: Secondary Status: Chronic Qualifiers: DVT location: non-extremity vein Chronicity: unspecified Qualified Code(s ): I82.90 - Acute embolism and thrombosis of unspecified vein - Discharge Medications Prescriptions: HYDROcodone/Acet 7.5/325 mg [[place] 7.5-325 mg] 1 tab PO Q6HR PRN #20 tab PRN Reason: Pain Home Medications: Calcium Carbonate [Tums] 1,000 mg PO Q4HR PRN 02/03/17 [History] Levothyroxine [Synthroid] 50 mcg PO QAM 02/03/17 [History] Omeprazole [PriLOSEC] 20 mg PO BIDAC #60 cap 03/03/17 [Rx] Enoxaparin [Lovenox] 80 mg SQ DAILY #30 syr 05/13/17 [Rx] Cyanocobalamin (Vitamin B-12) [Vitamin B-12] 1,000 mcg SL QDPC #30 tab.subl 11/01 [Rx] Folic Acid 1 mg PO DAILY #30 tablet 05/27/17 [Rx] Acetaminophen [Tylenol] 1,000 mg PO Q6HR 06/05/17 [History] HYDROcodone/Acet 7.5/325 mg [[place] 7.5-325 mg] 1 tab PO Q6HR PRN #20 tab [Rx] Allergies/Adverse Reactions: Allergies atenolol Adverse Reaction (Verified 06/05/17 13:49) Chest Pain codeine Adverse Reaction (Verified 06/05/17 13:49) Irritable fenofibrate [From Tricor] Adverse Reaction (Verified 06/05/17 13:49) Muscle Pain lisinopril Adverse Reaction (Verified 06/05/17 13:49) Dizziness Gqvyjvo-Gzr-Diq Reductase Inhibitor [Statins] Adverse Reaction (Verified 13:49) Muscle Pain Procedures/tests Complete & Pending: Procedures Performed prior 72 hours Category Date Time Status CT biopsy lymph node [CT] Routine Cat Scan 06/09/17 Completed NM bone scan whole body [NM] Routine Exams 06/07/17 18:57 Completed Date of admission: 06/05/17 13:20 Primary care physician: Sonny Reardon MD Consults: 06/05/17 14:30 Consult to Physical Therapy [CONS] Routine Comment: Evaluate, develop and implement POC Reason for Consult: discharge planning OT [Consult to Occupational Therapy] [CONS] Routine Comment: Evaluate, develop and implement POC Reason for Consult: discharge planning 06/07/17 10:16 Consult to Infrastructure Solutions Architect [CONS] Routine Reason for SW Consult: Wants placement at [facility], previously had [facility] and [facility] 06/07/17 18:54 Consult to Interventional Radiology [CONS] Routine Consulting Provider: Radiology Interventional Cols Reason for Consult: Biopsy of the Retroperitoneal lymph node, which has increased in size, hx of colon and renal cancer in the past. Please call Dr. Canchola with further questions after 7 AM Time Notified: 18:56 Call Completed: No Discharging clinician: Nydia Chandler Anticipated date of discharge: 06/09/17 - Patient Status Disposition: Transfer SNF Condition: Fair Functional capacity at discharge: uses cane/walker Overall status at discharge: patient is progressing back to baseline - Discharge Instructions Follow Up With: Sonny Reardon MD [Primary Care Provider] - Forms: ED Satisfaction Letter, Work/School Release Additional Instructions: F/up with PCP in 2 weeks F/up with [facility] in 1-2 weeks - Diet and Activity Activity: as per physical therapy Diet: low salt diet Hospital course: Ms. Castellno is a 87 year old female with the above medical problems was initially admitted with abdominal pain. CT abdomen/pelvis done in the emergency room showed periduodenal inflammation extending to the head of pancreas, suggestive of duodenitis versus pancreatitis along with an increase in the size of retroperitoneal lymphadenopathy. Patient was treated with conservative medical management with bowel rest, IV hydration and empiric IV antibiotics. Her symptoms gradually improved and she is able to tolerate oral diet despite having some degree of pain. Urinalysis was suggestive of UTI and patient was empirically treated with IV Rocephin, however urine culture was grossly contaminated with no significant growth. Oncology was consulted and patient underwent biopsy of retroperitoneal lymph nodes by interventional radiology, pathology report pending. Case discussed with oncology and patient is stable for discharge with outpatient oncology follow-up to review her pathology results. Physical therapy evaluation recommends placement in extended care facility for continued rehabilitation and patient is medically stable for discharge at this time. - Time Spent with Patient Total time spent providing and/or coordinating discharge services: Greater than 30 minutes (40 min) - Constitutional Vitals: Temp Pulse Resp BP Pulse Ox 97.7 F 96 15 123/76 97 06/09/17 11:07 06/09/17 11:07 06/09/17 11:07 06/09/17 11:07 06/09/17 11:07 General appearance: Present: A&O X 3, answers questions appropriately - Respiratory Respiratory exam: Present: CTAB. Absent: accessory muscle use, rales, rhonchi, wheezes - GI/Abdominal GI/Abdominal exam: Present: normal bowel sounds, soft, no peritoneal signs. Absent: distended, tenderness
[2017-06-10] MEDS: MetroNIDAZOLE 500 MG/100 ML 500 MG/100 ML BAG IVPB SCH ×2 (00:49→09:53)
[2017-06-10] MEDS: 0.9 % Sodium Chloride 1,000 ML IVC SCH ×3 (03:43→12:18)
[2017-06-10 04:32] LABS: Basophils % 0.5 %; Eosinophils # 0.1 K/mcL (0.0-0.6); Eosinophils % 2.3 %; Hematocrit 30.2 % (35.3-44.9); Hemoglobin 9.4 g/dL (11.5-15.4); Immature Granulocytes % 0.2 % (0-4); Lymphocytes # 1.4 K/mcL (0.6-4.6); Lymphocytes % 24.8 %; Mean Corpuscular HGB Conc 31.1 g/dL (31.6-35.5); Mean Corpuscular Hemoglobin 28.7 pg (28.0-33.3); Mean Corpuscular Volume 92.1 fL (83.0-100.0); Mean Platelet Volume 9.8 fL (9.4-12.4); Monocytes # 0.5 K/mcL (0.0-1.3); Monocytes % 8.9 %; Neutrophils # 3.7 K/mcL (1.6-8.9); Platelet Count 502 K/mcL (140-400); Red Blood Count 3.28 M/mcL (3.82-4.97); Red Cell Distribution Width 15.2 % (11.5-14.5); Segmented Neutrophils % 63.3 %
[2017-06-10 04:41] LABS: Alanine Aminotransferase 8 Units/L (0-55); Albumin 2.6 g/dL (3.5-5.0); Albumin/Globulin Ratio 0.6 (1.1-2.2); Alkaline Phosphatase 84 Units/L (38-126); Aspartate Amino Transferase 11 Units/L (5-34); BUN/Creatinine Ratio 12 (6-26); Blood Urea Nitrogen 9 mg/dL (7-20); Calcium 9.1 mg/dL (8.6-10.8); Carbon Dioxide 27 mEq/L (19-29); Chloride 104 mEq/L (98-109); Globulin 4.3 g/dL (2.4-3.5); Glucose 99 mg/dL (70-99); Osmolality,Calculated 283 (280-300); Potassium 3.8 mEq/L (3.5-4.5); Sodium 137 mEq/L (136-145); Total Protein 6.9 g/dL (6.0-8.3); eGFR For African Americans > 60 (> 60); eGFR For Non-African Americans > 60 (> 60)
[2017-06-10 04:46] LABS: Bilirubin,Total < 0.3 mg/dL (0.2-1.2)
[2017-06-10] MEDS: Pantoprazole 40 MG VIAL IVP SCH (09:52)
--- NOTE | 2017-06-10 09:54 | Internal Med Progress Note ---
Date of Encounter: 06/10/17 Time of Encounter: 09:53 - Assessment and plan (1) Acute duodenitis Current Visit: Yes Status: Acute Assessment and plan: Improving slowly. Patient continues to have diffuse abdominal pain, which may be related to peritoneal metastasis from underlying ?colon/renal cell cancer. She is able to tolerate oral diet and will be discharged to rehabilitation facility today on oral PPI. (2) UTI (urinary tract infection) Current Visit: Yes Status: Ruled-out Qualifiers: Urinary tract infection type: acute cystitis Hematuria presence: without hematuria Qualified Code(s): N30.00 - Acute cystitis without hematuria (3) Retroperitoneal lymphadenopathy Current Visit: Yes Status: Chronic Assessment and plan: Patient has history of colon cancer and renal cancer and underwent partial colectomy and right nephrectomy in the past. 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 Underwent retroperitoneal lymph node biopsy, pathology report pending. Patient will follow-up with oncology as outpatient for biopsy results. (4) Urothelial carcinoma of kidney Current Visit: No Status: Chronic Qualifiers: Laterality: right Qualified Code(s): C64.1 - Malignant neoplasm of right kidney, except renal pelvis (5) Anemia Current Visit: Yes Status: Chronic Qualifiers: Anemia type: other cause Other causes of anemia: chronic disease, neoplastic Qualified Code(s): D63.0 - Anemia in neoplastic disease (6) HTN (hypertension) Current Visit: No Status: Chronic Qualifiers: Hypertension type: essential hypertension Qualified Code(s): I10 - Essential (primary) hypertension (7) Hypothyroidism Current Visit: No Status: Chronic Qualifiers: Hypothyroidism type: unspecified Qualified Code(s): E03.9 - Hypothyroidism , unspecified (8) DVT (deep venous thrombosis) Current Visit: Yes Status: Chronic Qualifiers: DVT location: non-extremity vein Chronicity: unspecified Qualified Code(s ): I82.90 - Acute embolism and thrombosis of unspecified vein - Subjective Interval history: Reports abdominal pain but improving; able to tolerate oral solid diet; awaiting placement; - Constitutional Vitals: Temp Pulse Resp BP Pulse Ox 97.5 F L 90 17 134/73 93 06/10/17 07:50 06/10/17 07:50 06/10/17 07:50 06/10/17 07:50 06/10/17 07:54 General appearance: Present: A&O X 3, answers questions appropriately - Respiratory Respiratory exam: Present: CTAB. Absent: accessory muscle use, rales, rhonchi, wheezes - Cardiovascular Cardiovascular exam: Present: RRR, +S1, +S2. Absent: diastolic murmur, gallop, rubs, systolic murmur - GI/Abdominal GI/Abdominal exam: Present: normal bowel sounds, soft (diffuse tenderness over abdomen, likely peritoneal mets?), no peritoneal signs. Absent: distended, tenderness Internal Medicine: Result - Labs CBC & Chem 7: 06/10/17 03:32 06/10/17 03:32 Labs: Short CBC 06/10/17 Range/Units 03:32 WBC 5.8 (4.3-11.1) K/mcL Hgb 9.4 L (11.5-15.4) g/dL Hct 30.2 L (35.3-44.9) % Plt Count 502 H (140-400) K/mcL Neutrophils # 3.7 (1.6-8.9) K/mcL BMP 06/10/17 03:32 Sodium 137 Potassium 3.8 Chloride 104 Carbon Dioxide 27 BUN 9 Creatinine 0.78 Glucose 99 Calcium 9.1 Liver Function 06/10/17 Range/Units 03:32 Total Bilirubin < 0.3 (0.2-1.2) mg/dL AST 11 (5-34) Units/L ALT 8 (0-55) Units/L Alkaline Phosphatase 84 (38-126) Units/L Albumin 2.6 L (3.5-5.0) g/dL - ABG Interpretation ABG results: PT/INR, D-dimer PT 12.3 Seconds (9.4-12.1) H 06/09/17 05:06 - Impressions Impressions Lymph Node Biopsy CT 06/09/17 00:00 IMPRESSION: Successful CT guided core biopsy retroperitoneal lymphadenopathy. D/ / Brett Lind MD / Brett Lind MD Interpreting Provider: Brett Lind MD Consult Discharge Plan - Plan Instructions: Gastritis (DC) Additional Instructions: F/up with PCP in 2 weeks F/up with [facility] in 1-2 weeks Referrals: Kiya Redding CNP [Partnered Physician] - 06/15/17 9:30 am Sonny Reardon MD [Primary Care Provider] - (Patient will see the staff physician at the [facility] Prescriptions: HYDROcodone/Acet 7.5/325 mg [[place] 7.5-325 mg] 1 tab PO Q6HR PRN #20 tab PRN Reason: Pain
--- NOTE | 2017-06-10 11:16 | Physician Discharge Referral ---
ExtendedCare Referral Info Transfer To: [facility] Provider in Charge: Nydia Chandler Provider in Charge after Transfer: PCP Institutional Level of Care: Skilled - Diagnosis (1) Acute duodenitis Priority: Primary Status: Acute (2) UTI (urinary tract infection) Priority: Primary Status: Ruled-out (3) Retroperitoneal lymphadenopathy Priority: Primary Status: Chronic (4) Urothelial carcinoma of kidney Priority: Secondary Status: Chronic (5) Anemia Priority: Secondary Status: Chronic (6) HTN (hypertension) Priority: Secondary Status: Chronic (7) Hypothyroidism Priority: Secondary Status: Chronic (8) DVT (deep venous thrombosis) Priority: Secondary Status: Chronic Expected Duration of Placement: 3 weeks Prognosis: Fair Aware of Diagnosis: Patient Aware of Prognosis: Patient - Transfer Medications Prescriptions: HYDROcodone/Acet 7.5/325 mg [[place] 7.5-325 mg] 1 tab PO Q6HR PRN #20 tab PRN Reason: Pain Home Medications: Calcium Carbonate [Tums] 1,000 mg PO Q4HR PRN 02/03/17 [History] Levothyroxine [Synthroid] 50 mcg PO QAM 02/03/17 [History] Omeprazole [PriLOSEC] 20 mg PO BIDAC #60 cap 03/03/17 [Rx] Enoxaparin [Lovenox] 80 mg SQ DAILY #30 syr 05/13/17 [Rx] Cyanocobalamin (Vitamin B-12) [Vitamin B-12] 1,000 mcg SL QDPC #30 tab.subl 11/01 [Rx] Folic Acid 1 mg PO DAILY #30 tablet 05/27/17 [Rx] Acetaminophen [Tylenol] 1,000 mg PO Q6HR 06/05/17 [History] HYDROcodone/Acet 7.5/325 mg [[place] 7.5-325 mg] 1 tab PO Q6HR PRN #20 tab [Rx] Allergies/Adverse Reactions: Allergies atenolol Adverse Reaction (Verified 06/05/17 13:49) Chest Pain codeine Adverse Reaction (Verified 06/05/17 13:49) Irritable fenofibrate [From Tricor] Adverse Reaction (Verified 06/05/17 13:49) Muscle Pain lisinopril Adverse Reaction (Verified 06/05/17 13:49) Dizziness Sfwjxsc-Wtf-Ihh Reductase Inhibitor [Statins] Adverse Reaction (Verified 13:49) Muscle Pain - Respiratory Orders Smoking Cessation: Smoking cessation has been advised. For more information, call the [place] Tobacco Quit Line at 3-087-MFWZ-NOW. - Advance Directives Code Status: DNR-Arrest/Don't Intubate - Rehabiliation Orders Rehab Potential: Fair Rehab Orders: ROM Exercises, Evaluation for Physical Therapy, Evaluation for Occupational Therapy - Diet Orders Cardiac CERTIFICATION: I certify that the transfer of the above named patient to an Extended Care Facility is necessary for the continuing treatment of the diagnosis listed. The above information is true and accurate reflection of patient's current condition. Confidential - Redisclosure prohibited without a patient's written consent.
[2017-06-10 11:46] VITALS: BP 93/56
[2017-06-10] MEDS ORDERED: metroNIDAZOLE 500 MG TABLET PO SCH (16:00)
== END 2017-06-10 15:21 ==
LOC: EMEROO 09:40 → 3ANU 09:40 → SUATTDRO 13:20 → 3ANU 14:08
PROVIDERS: ADMIT Internal Medicine; ATTEND Internal Medicine
PROC: IRLYMPH (2017-06-09 10:15)